=== PATIENT | male | born 1940 | race Caucasian/White ===

== ENCOUNTER 2017-05-20 13:11 | Outpatient (CLI) | payer MEDICARE, OTHER | END 2017-05-20 13:12 | disposition critical access hospital (66) | LOC: EMS 13:11 | PROVIDERS: ATTEND Surgery | DX: R06.02 Shortness of breath (principal) | CPT/HCPCS: A0425; A0427 ==

== ENCOUNTER 2017-05-20 13:28 | Inpatient (IN) | payer MEDICARE, OTHER ==
[2017-05-20] MEDS ORDERED: FUROSEMIDE 40 MG/4 ML VIAL IVP STA (13:44)
--- NOTE | 2017-05-20 13:47 | ED Physician Documentation ---
PD HPI DYSPNEA - Stated complaint Stated Complaint: SOA - Chief complaint Chief Complaint: Resp - History obtained from History obtained from: Patient, Family, EMS - History of Present Illness Timing - onset: How many weeks ago (3) Timing - onset during: Rest Timing - duration: Weeks (3) Timing - details: Gradual onset, Still present Inciting event(s): Other (has CAD and valvular heart disease) Improved by: O2, Rest, Sitting up Worsened by: Exertion, Laying flat, Coughing Associated symptoms: Cough, Wheezing, Bilateral edema. No: Hemoptysis Similar symptoms before: Diagnosis (CHF) Recently seen: Clinic - Additional information Additional information: 77-year-old male with a history of atrial fibrillation aortic valve replacement and coronary artery diseaseHas developed increasing shortness of breath over the past 3 weeks. He has had significant weight gain and edema. He does take some hydrochlorothiazide and does not know what Lasix is.He went to his dentist today to get some work done and they gave some some Halcion for the procedure and he became dyspneic and was sent to his primary care doctor's office. When Dr. Lezama examined him he has obvious signs of failure and the patient was sent to the emergency department for further evaluation and treatment and possible admission. Patient has had a cough for the past several days he has not had fever. Review of Systems Constitutional: reports: Chills, Sweats. denies: Fever, Myalgias Eyes: denies: Decreased vision Ears: denies: Ear pain Nose: denies: Rhinorrhea / runny nose, Congestion Throat: denies: Sore throat Cardiac: reports: Palpitations, Pedal edema. denies: Chest pain / pressure Respiratory: reports: Dyspnea, Cough, Wheezing GI: denies: Abdominal Pain, Nausea, Vomiting : denies: Dysuria, Frequency Skin: denies: Rash Musculoskeletal: denies: Neck pain, Back pain, Extremity pain Neurologic: denies: Generalized weakness, Focal weakness, Numbness PD PAST MEDICAL HISTORY - Past Medical History Cardiovascular: Hypertension, Atrial fibrillation, Valve disorder GI: GERD : Benign prostate hypertrophy Musculoskeletal: Chronic back pain - Past Surgical History Past Surgical History: Yes General: Appendectomy Cardiovascular: Valve replacement - Present Medications Home Medications: Ambulatory Orders Medication Instructions Recorded Confirmed Amlodipine Besylate 10 mg PO DAILY 11/25/15 05/20/17 Atenolol 25 mg PO DAILY 11/25/15 05/20/17 Atorvastatin [Lipitor] 80 mg PO DAILY 11/25/15 05/20/17 Warfarin [Coumadin] 5 mg PO DAILY 11/25/15 05/20/17 hydroCHLOROthiazide 12.5 mg PO DAILY 11/25/15 05/20/17 [Hydrochlorothiazide] Aspirin [Aspirin EC] 1 tab DAILY 05/20/17 05/20/17 Pantoprazole [Protonix] 40 mg PO DAILY 05/20/17 05/20/17 Tamsulosin HCl [Flomax] 0.4 mg PO DAILY 05/20/17 05/20/17 - Allergies Allergies/Adverse Reactions: Allergies Allergy/AdvReac Type Severity Reaction Status Date / Time morphine Allergy Hallucinati Verified 05/20/17 13:36 ons Penicillins Allergy Unknown Verified 05/20/17 13:36 - Social History Does the pt smoke?: No Smoking Status: Never smoker Does the pt drink ETOH?: No Does the pt have substance abuse?: No PD ED PE NORMAL - Vitals Vital signs reviewed: Yes (hypertensive) - General General: Well developed/nourished, Other (The patient arrives with resting tachypnea and appears confused initially and this clears with time ) - HEENT HEENT: Atraumatic, PERRL, EOMI, Ears normal, Moist mucous membranes, Pharynx benign - Neck Neck: Supple, no meningeal sign, No bony TTP - Cardiac Cardiac: RRR, Other (2/6 holosystolic murmer at LSB) - Respiratory Respiratory: No respiratory distress, Other (end inspritory crackles worse on the right. ) - Abdomen Abdomen: Soft, Non tender - Back Back: No CVA TTP, No spinal TTP - Derm Derm: Normal color, Warm and dry, No rash - Extremities Extremities: No deformity, Other (pitting edema is present to the knees bilateral.) - Neuro Neuro: Alert and oriented X 3, de icer element winder 2-12 intact, No motor deficit, No sensory deficit, Normal speech Eye Opening: Spontaneous Motor: Obeys Commands Verbal: Oriented GCS Score: 15 - Psych Psych: Normal mood, Normal affect Results - Vitals Vitals: Vital Signs - 24 hr 05/20/17 05/20/17 05/20/17 13:31 14:00 14:30 Temperature 36.5 C Heart Rate 61 66 68 Respiratory 20 20 20 Rate Blood Pressure 157/91 H 162/94 H 155/91 H O2 Saturation 95 95 95 Oxygen O2 Source Room air - EKG (time done) 1331 Rate: Rate (enter#) (64) Intervals: Prolonged QT Computer interpretation: Agree with computer - Labs Labs: Laboratory Tests 05/20/17 05/20/17 05/20/17 13:54 13:54 13:54 WBC 7.5 RBC 4.23 L Hgb 12.7 L Hct 37.2 L MCV 87.9 MCH 30.2 MCHC 34.3 RDW 13.7 Plt Count 183 MPV 9.0 Neut # 5.6 Lymph # 1.0 L [place] # 0.8 Eos # 0.1 Baso # 0.0 Absolute Nucleated RBC 0.00 Nucleated RBC % 0.0 PT 34.8 H INR 3.2 H Sodium 138 Potassium 3.4 L Chloride 103 Carbon Dioxide 23 Anion Gap 12.0 BUN 21 H Creatinine 1.0 Estimated GFR (MDRD) 72 L Glucose 112 H Calcium 9.3 Total Bilirubin 1.6 H AST 29 ALT 20 Alkaline Phosphatase 67 Troponin I B-Natriuretic Peptide Total Protein 7.4 Albumin 4.2 Globulin 3.2 Albumin/Globulin Ratio 1.3 Lipase 29 Urine Color Urine Clarity Urine pH Ur Specific [place] Urine Protein Urine Glucose (UA) Urine Ketones Urine Occult Blood Urine Nitrite Urine Bilirubin Urine Urobilinogen Ur Leukocyte Esterase Ur Microscopic Review Urine Culture Comments 05/20/17 05/20/17 05/20/17 13:54 13:54 14:48 WBC RBC Hgb Hct MCV MCH MCHC RDW Plt Count MPV Neut # Lymph # [place] # Eos # Baso # Absolute Nucleated RBC Nucleated RBC % PT INR Sodium Potassium Chloride Carbon Dioxide Anion Gap BUN Creatinine Estimated GFR (MDRD) Glucose Calcium Total Bilirubin AST ALT Alkaline Phosphatase Troponin I < 0.04 B-Natriuretic Peptide 305 H Total Protein Albumin Globulin Albumin/Globulin Ratio Lipase Urine Color YELLOW Urine Clarity CLEAR Urine pH 6.0 Ur Specific [place] 1.015 Urine Protein NEGATIVE Urine Glucose (UA) NEGATIVE Urine Ketones NEGATIVE Urine Occult Blood TRACE-INTA Urine Nitrite NEGATIVE Urine Bilirubin NEGATIVE Urine Urobilinogen 0.2 (NORMAL) Ur Leukocyte Esterase NEGATIVE Ur Microscopic Review NOT INDICATED Urine Culture Comments NOT INDICATED - Rads (name of study) 1 vew chest Radiology: Prelim report reviewed (Impression: 1. Moderate cardiomegaly and vascular congestion.2. Small infiltrate right base.), EMP read indepedently, See rad report Procedures - IVC sono (time) 1340 Bedside IVC sono: IVC measures (cm) (2.86), IVC collapsed c insp (cm) (2.18), High CVP PD MEDICAL DECISION MAKING - ED course Complexity details: reviewed old records, reviewed results, re-evaluated patient , considered differential, d/w patient ED course: 77-year-old male with history of atrial fibrillation and aortic valve replacement has developed congestive heart failure with fluid retention and here in the emergency department IV is begun for diuresis. Is given 40 mg of Lasix intravenously. His work up confirms acute failure and he does appear to have an infiltrae on the right side. He is improved with diuresis but not dramatically. Departure - Departure Disposition: ED Place in Observation Clinical Impression: Congestive heart failure Qualifiers: Congestive heart failure type: combined Congestive heart failure chronicity: acute on chronic Qualified Code(s): I50.43 - Acute on chronic combined systolic (congestive) and diastolic (congestive) heart failure Pneumonia Qualifiers: Pneumonia type: due to unspecified organism Laterality: right Lung location: lower lobe of lung Qualified Code(s): J18.1 - Lobar pneumonia, unspecified organism Condition: Fair
[2017-05-20] MEDS ORDERED: FUROSEMIDE 40 MG/4 ML VIAL ONE (13:59)
[2017-05-20 14:01] LABS: BASOPHILS % (AUTO) 0.4 %; EOSINOPHILS # (AUTO) 0.1 10^3/uL (0.0-0.7); EOSINOPHILS % (AUTO) 1.1 %; HCT - HEMATOCRIT 37.2 % (42.0-52.0); HGB - HEMOGLOBIN 12.7 g/dL (14.0-18.0); LYMPHOCYTES % (AUTO) 12.9 %; MEAN CORPUSCULAR HEMOGLOBIN 30.2 pg (27.0-31.0); MEAN CORPUSCULAR HGB CONC 34.3 g/dL (32.0-36.0); MEAN CORPUSCULAR VOLUME 87.9 fL (80.0-94.0); MONOCYTES # (AUTO) 0.8 10^3/uL (0.0-1.0); NEUTROPHILS # (AUTO) 5.6 10^3/uL (1.5-6.6); NEUTROPHILS % (AUTO) 74.6 %; RED BLOOD COUNT 4.23 10^6/uL (4.70-6.10); RED CELL DISTRIBUTION WIDTH 13.7 % (12.0-15.0); UNCORRECTED WHITE BLOOD COUNT 7.5 x10^3/uL; WHITE BLOOD COUNT 7.5 x10^3/uL (4.8-10.8)
[2017-05-20 14:11] LABS: INR 3.2 (0.8-1.2); PT - PROTHROMBIN TIME 34.8 secs (9.9-12.6)
[2017-05-20 14:12] LABS: ALBUMIN/GLOBULIN RATIO 1.3 (1.0-2.2); BILIRUBIN,TOTAL 1.6 mg/dL (0.2-1.0); CALCIUM 9.3 mg/dL (8.5-10.3); POTASSIUM 3.4 mmol/L (3.5-5.0); TOTAL PROTEIN 7.4 g/dL (6.7-8.2)
--- NOTE | 2017-05-20 14:22 | XRAY Preliminary Report ---
Exam: XR CHEST 1 VIEW IMPRESSION: 1. Moderate cardiomegaly and vascular congestion. 2. Small infiltrate right base. [facility] SITE ID: [id number]
--- NOTE | 2017-05-20 14:35 | XRAY Report ---
EXAM: CHEST RADIOGRAPHY EXAM DATE: 05/20/2017 02:07 PM. CLINICAL HISTORY: Dyspnea. Chest pain. COMPARISON: 09/01/2008. TECHNIQUE: 1 view. FINDINGS: Lungs/Pleura: New moderate vascular congestion. Interstitial infiltrate right base as well. No effusi on or pneumothorax. Mediastinum: Recurrent cardiomegaly now moderate in degree. Remote sternotomy and open-heart surgery. Other: None. IMPRESSION: 1. Moderate cardiomegaly and vascular congestion. 2. Small infiltrate right base. [facility] Referring Provider Line: [phone] SITE ID: [id number]
[2017-05-20 14:55] LABS: BILIRUBIN,URINE NEGATIVE (NEGATIVE)
[2017-05-20 14:57] LABS: UA CHARGE (STRIP ONLY) YES; UR CULTURE IF IND NOT INDICATED
[2017-05-20] MEDS ORDERED: ONDANSETRON ODT 4 MG TABLET TL PRN (16:00)
[2017-05-20] MEDS ORDERED: ACETAMINOPHEN 325 MG TABLET PO PRN (16:00)
[2017-05-20] MEDS ORDERED: ONDANSETRON 4 MG/2 ML VIAL IVP PRN (16:00)
[2017-05-20] MEDS ORDERED: HYDROcod/ACETAM 5/325 MG TABLET PO PRN (16:00)
--- NOTE | 2017-05-20 17:12 | HISTORY & PHYSICAL EXAMINATION ---
Chief Complaint - Chief Complaint Chief Complaint: shortness of breath History of Present Illness - Admitted From Admitted From:: ER - History Obtained From History obtained from: pt - History of Present Illness HPI Comment/Other: This is a 77-year-old male with a past medical history significance for HTN, Afib, valve disorder with valve replacement on 2001 on Coumadin, GERD, BPH, chronic pain, who present ER for evaluation of shortness of breath. Pt is a poor historian. pt report he has been shortness of breath in the past two or three week. pt report he gained 16 lb in the past one or two weeks. Pt report he had cough but denies chill, and fever. PT has been dentist office to get some work done. Pt became shortness of breath,and was sent to his PCP office. His PCP examined him and he had an obvious signs of heart failure. Then pt was sent to ER for further evaluation and treatment. Pt also report pain at his left lower extremity with mild swelling. pt also report he has been on diarrhea for past several days, and his stool with some dark greenish color. Pt denies chest pain, headache, abdominal pain, nausea, vomiting. No dysuria, hematuria, vision changing. CXR reveals mild infiltration at right lung base, moderate cardiomegaly, and vascular congestion. PT/INR 35/3.2, potassium 3.4, BNP 305 History - Past Medical History Cardiovascular: reports: Hypertension, Atrial fibrillation, Valve disorder GI: reports: GERD : reports: Benign prostate hypertrophy Musculoskeletal: reports: Chronic back pain - Past Surgical History General: reports: Appendectomy Cardiovascular: reports: Valve replacement - Family & Social History Family History Comment/Other: pt report he has never smoking, no alcoholic issue. his recently from cancer. He has one son. Living arrangement: At home Living Situation: With family - Substance History Use: Uses substance without health or social issues: NONE Abuse: Recurrent use of substance despite neg consequences: NONE Dependence: Experiences withdrawal or developed tolerances: NONE - POLST POLST Status: Full Code Meds/Allgy - Home Medications Home Medications: Ambulatory Orders Medication Instructions Recorded Confirmed Amlodipine Besylate 5 mg PO BID 11/25/15 05/20/17 Atenolol 25 mg PO DAILY 11/25/15 05/20/17 Atorvastatin [Lipitor] 80 mg PO DAILY 11/25/15 05/20/17 Warfarin [Coumadin] 5 mg PO SUTUWETHSA 11/25/15 05/20/17 hydroCHLOROthiazide 12.5 mg PO DAILY 11/25/15 05/20/17 [Hydrochlorothiazide] Aspirin [Aspirin EC] 81 mg PO DAILY 05/20/17 05/20/17 Pantoprazole [Protonix] 40 mg PO DAILY 05/20/17 05/20/17 Tamsulosin HCl [Flomax] 0.4 mg PO DAILY 05/20/17 05/20/17 Warfarin [Coumadin] 7.5 mg PO MOFR 05/20/17 05/20/17 - Allergies Allergies/Adverse Reactions: Allergies Allergy/AdvReac Type Severity Reaction Status Date / Time morphine Allergy Hallucinati Verified 05/20/17 13:36 ons Penicillins Allergy Unknown Verified 05/20/17 13:36 Review of Systems - Constitutional Constitutional: reports: Fatigue, Weight gain. denies: Fever, Chills, Malaise, Poor appetite, Diaphoresis, Night sweats, Weight loss - Eyes Eyes: denies: Pain, Irritation, Amaurosis, Blurred vision, Spots in vision, Field loss, Vision loss, Dipolpia - Ears, Nose & Throat Ears, Nose & Throat: denies: Ear pain, Hearing loss, Hearing aids, Tinnitus, Vertigo, Nasal pain, Nasal discharge, Nosebleeds, Nasal obstruction, Nasal congestion, Postnasal drainage, Sore throat, Bleeding gums - Cardiovascular Cariovascular: reports: Edema, Exertional dyspnea, Decr. exercise tolerance. denies: Irregular heart rate, Palpitations, Chest pain, Lightheadedness, Syncope - Respiratory Respiratory: reports: Cough, Orthopnea, SOB with exertion. denies: Sputum production, Wheezing, Snoring, Hemoptysis, SOB at rest, Apnea - Gastrointestinal Gastrointestinal: reports: Diarrhea. denies: Abdominal pain, Abdominal distention, Constipation, Change in bowel habits, Rectal bleeding, Black stools , Bloody stools, Nausea, Vomiting, Luis blood emesis, Coffee grounds emesis, Bloating, Poor appetite - Genitourinary Genitourinary: denies: Dysuria, Frequency, Urgency, Hematuria, Incontinence, Flank pain, Nocturia, Urethral discharge - Musculoskeletal Musculoskeletal: denies: Muscle pain, Back pain, Muscle aches, Stiffness, Limited range of motion, Muscle weakness, Gout, Joint pain - Integumentary Integumentary: denies: Rash, Pruritis, Lesions, Dryness, Lumps, Acne, Pigment changes - Neurological Neurological: reports: General weakness. denies: Focal weakness, Headache, Dizziness, Numbness, Memory problems, Pre-existing deficit, Abnormal gait, Seizures, Incoordination, Slurred speech - Psychiatric Psychiatric: denies: Depression, Anxiety, Suicidal, Delusions, Hallucinations, Homicidal - Endocrine Endocrine: denies: Polyuria, Polydypsia, Polyphagia, Intolerance to cold - Hematologic/Lymphatic Hematologic/Lymphatic: denies: Anemia, Bruising, Petechiae, Blood clots, Lymphadenopathy, Bleeding tendencies, Recurrent infections Exam - Vital Signs Reviewed Vital Signs: Yes Vital Signs: Vital Signs x48h Temp Pulse Pulse Resp BP BP Pulse Ox 05/20/17 16:54 36.3 C L 77 16 132/69 H 96 05/20/17 16:37 67 20 141/67 H 94 - Physical Exam General Appearance: positive: No acute distress, Alert. negative: Lethargic Eyes Bilateral: positive: Normal inspection, PERRL, No lid inflammation, Conjunctivae nml ENT: positive: ENT inspection nml, Pharynx nml, No signs of dehydration. negative: Purulent nasal drainage, Pharyngeal erythema, Oral lesions Neck: positive: Nml inspection, Thyroid nml, No JVD, Trachea midline. negative : Thyromegaly, Lymphadenopathy (R), Lymphadenopathy (L), Stiff neck, Carotid bruit, Swelling/bruising, Tracheal deviation Respiratory: positive: Chest non-tender, No respiratory distress, Breath sounds nml. negative: Wheezes, Rales, Rhonchi Cardiovascular: positive: Regular rate & rhythm, No murmur, No gallop. negative : Irregularly irregular, Extrasystoles, Tachycardia, Bradycardia, JVD present, Systolic murmur, Diastolic murmur Peripheral Pulses: positive: 2+ Abdomen: positive: Non-tender, No organomegaly, Nml bowel sounds, No distention. negative: Tenderness, Guarding, Rebound, Abnml bowel sounds Back: positive: Nml inspection. negative: CVA tenderness (R), CVA tenderness (L ) Skin: positive: Color nml, No rash, Warm, Dry. negative: Diaphoresis, Pallor, Skin rash Extremities: positive: Non-tender, Full ROM, Nml appearance, Pedal edema (mild left lower extremity edema). negative: Calf tenderness, Joint swelling, Sanya' s sign/cords Neurologic/Psychiatric: positive: Oriented x3, Sensation nml, Mood/affect nml. negative: Weakness, Sensory loss, Facial droop, Slurred/abnml speech, Depressed mood/affect Conclusion/Plan - Problem List (1) Congestive heart failure Conclusion/Plan: pt gain weight 16 lb in one or two week, shortness of breath, mild edema at lower extremity, CXR reveals vascular congestion. ECHO, pt has no ECHO in the recent record, follow up Lasix BID 40 mg IV daily lab check, vital monitor daily weight lower sodium diet cardiac diet fluid restriction check BNP daily Qualifiers: Congestive heart failure type: combined Congestive heart failure chronicity : acute on chronic Qualified Code(s): I50.43 - Acute on chronic combined systolic (congestive) and diastolic (congestive) heart failure (2) Pneumonia Conclusion/Plan: pt denies fever, chill, normal WBC, but has cough for one week. CXR reveal mild right lower infiltration treated with Azithyomycin PO blood culture, follow up Duoneb PRN O2 NC PRN Qualifiers: Pneumonia type: due to unspecified organism Laterality: right Lung location: lower lobe of lung Qualified Code(s): J18.1 - Lobar pneumonia, unspecified organism (3) Shortness of breath Conclusion/Plan: pt with congestive heart failure, pneumonia check D-dimer PRN O2 NC Duoneb PRN RT PRN vital monitor (4) Hypokalemia Conclusion/Plan: K is 3.4 today, replace potassium. pt is on IV lasix continue to monitor BNP and replacement as needed (5) Diarrhea Conclusion/Plan: pt report diarrhea all the time with greenish and dark stool check C.Dif with PCR, Occult blood stool, will follow up H&H (6) Tenderness of lower extremity Conclusion/Plan: US of lower extremity, will follow up. there is no cellulitis (7) HTN (hypertension) Conclusion/Plan: stable, resume of home meds, vital monitor (8) Afib Conclusion/Plan: HR is stable. will continue home meds and Coumadin PT/INR daily (9) BPH (benign prostatic hyperplasia) Conclusion/Plan: stable, continue home meds (10) DVT prophylaxis Conclusion/Plan: SCD only, pt is on Coumadin, PT/INR 35/3.2 (11) Full code status Conclusion/Plan: pt request full code status - Lab Results Fish Bones: 05/20/17 13:54 05/20/17 13:54 Issues/Core Measures - Anticipated LOS Anticipated Stay Length: Less than 2 midnights (expect less than two midnights)
[2017-05-20] MEDS: POTASSIUM CHLORIDE 20 MEQ TABLET PO SCH (17:31)
[2017-05-20] MEDS ORDERED: IPRATROPIUM/ALBUTEROL 3 ML NEB INH PRN (18:23)
[2017-05-20] MEDS ORDERED: POTASSIUM CHLORIDE 20 MEQ TABLET PO SCH (19:00)
[2017-05-20] MEDS ORDERED: WARFARIN 5 MG TABLET PO SCH (21:00)
[2017-05-20 21:02] LABS: HCT - HEMATOCRIT 35.4 % (42.0-52.0); HGB - HEMOGLOBIN 12.1 g/dL (14.0-18.0)
[2017-05-20] MEDS: ATORVASTATIN 40 MG TABLET PO SCH (21:35)
[2017-05-20] MEDS: FUROSEMIDE 40 MG/4 ML VIAL IVP SCH (21:36)
[2017-05-20] MEDS: ASPIRIN EC 81 MG TABLET PO SCH (21:36)
[2017-05-20] MEDS: amLODIPine 5 MG TABLET PO SCH (21:36)
[2017-05-20] MEDS: SODIUM CHLORIDE FLUSH 0.9% 10 ML SYRINGE IVP SCH (21:36)
[2017-05-20] MEDS: AZITHROMYCIN 250 MG TABLET PO SCH (21:36)
--- NOTE | 2017-05-20 23:01 | Ultrasound Preliminary Report ---
Exam: US DUPLEX EXT VEINS LEFT IMPRESSION: 1. Negative for DVT at this time. 2. Popliteal cyst. [facility] SITE ID: [id number]
--- NOTE | 2017-05-20 23:03 | Ultrasound Report ---
EXAM: LEFT LOWER EXTREMITY VENOUS ULTRASOUND EXAM DATE: 05/20/2017 10:27 PM. CLINICAL HISTORY: Pain and swelling, DVT. COMPARISON: None. TECHNIQUE: Real-time sonographic vascular imaging was performed by the freedom of information officer through the lower extremity utilizing both color-flow and Doppler spectral analysis. Multiple wire rope sales representative static lilian ges were saved for review. FINDINGS: Common Femoral Vein (CFV): Normal. CFV-GSV Junction: Normal. Profunda Femoral Vein (PFV): Normal. Femoral Vein (FV) Prox: Normal. Femoral Vein (FV) Mid: Normal. Femoral Vein (FV) Dist: Normal. Popliteal Vein: Normal. Posterior Tibial Veins: Not well seen. Peroneal Veins: Not well seen. Other: Popliteal cyst measuring 5.4 x 1.0 x 2.3 cm. IMPRESSION: 1. Negative for DVT at this time. 2. Popliteal cyst. [facility] Referring Provider Line: [phone] SITE ID: [id number]
[2017-05-21] MEDS: SODIUM CHLORIDE FLUSH 0.9% 10 ML SYRINGE IVP SCH ×3 (05:30→20:59)
[2017-05-21 06:00] LABS: BASOPHILS % (AUTO) 0.7 %; EOSINOPHILS # (AUTO) 0.3 10^3/uL (0.0-0.7); EOSINOPHILS % (AUTO) 3.6 %; HCT - HEMATOCRIT 33.8 % (42.0-52.0); HGB - HEMOGLOBIN 11.6 g/dL (14.0-18.0); LYMPHOCYTES # (AUTO) 1.7 10^3/uL (1.5-3.5); LYMPHOCYTES % (AUTO) 23.9 %; MEAN CORPUSCULAR HEMOGLOBIN 30.4 pg (27.0-31.0); MEAN CORPUSCULAR HGB CONC 34.5 g/dL (32.0-36.0); MEAN CORPUSCULAR VOLUME 88.2 fL (80.0-94.0); MEAN PLATELET VOLUME 9.1 fL (7.4-11.4); MONOCYTES # (AUTO) 0.9 10^3/uL (0.0-1.0); MONOCYTES % (AUTO) 12.5 %; NEUTROPHILS # (AUTO) 4.2 10^3/uL (1.5-6.6); NEUTROPHILS % (AUTO) 59.3 %; RED BLOOD COUNT 3.83 10^6/uL (4.70-6.10); RED CELL DISTRIBUTION WIDTH 13.6 % (12.0-15.0); UNCORRECTED WHITE BLOOD COUNT 7.1 x10^3/uL; WHITE BLOOD COUNT 7.1 x10^3/uL (4.8-10.8)
[2017-05-21 06:10] LABS: CALCIUM 8.7 mg/dL (8.5-10.3); CREATININE 0.8 mg/dL (0.6-1.2); MAGNESIUM 1.7 mg/dL (1.7-2.8); POTASSIUM 2.8 mmol/L (3.5-5.0)
[2017-05-21] MEDS ORDERED: POTASSIUM CHLOR 20 MEQ/100 ML 20 MEQ/100 ML BAG IV ONE (06:49)
[2017-05-21] MEDS ORDERED: MAGNESIUM SULFATE 2 GM in SODIUM CHLORIDE 0.9% 50 ML IV ONE (06:50)
[2017-05-21] MEDS ORDERED: POTASSIUM CHLORIDE 10 MEQ CAPSULE PO SCH (07:00)
[2017-05-21] MEDS ORDERED: MAGNESIUM SULFATE 2 GRAM 2 GM/50 ML BAG IV SCH (08:00)
[2017-05-21] MEDS: POTASSIUM CHLOR 10 MEQ/100 ML 10 MEQ/100 ML BAG IV SCH ×2 (08:36→13:15)
[2017-05-21] MEDS: POTASSIUM CHLORIDE 20 MEQ TABLET PO SCH (08:36)
[2017-05-21] MEDS: AZITHROMYCIN 250 MG TABLET PO SCH (08:37)
[2017-05-21] MEDS: TAMSULOSIN 0.4 MG CAPSULE PO SCH (08:37)
[2017-05-21] MEDS: FUROSEMIDE 40 MG/4 ML VIAL IVP SCH ×2 (08:37→20:59)
[2017-05-21] MEDS: PANTOPRAZOLE 40 MG TABLET PO SCH (08:37)
[2017-05-21] MEDS: ATENOLOL 25 MG TABLET PO SCH (08:41)
[2017-05-21] MEDS: amLODIPine 5 MG TABLET PO SCH ×2 (08:41→20:59)
[2017-05-21 08:50] LABS: PT - PROTHROMBIN TIME 32.4 secs (9.9-12.6)
[2017-05-21] MEDS: POLYETHYLENE GLYCOL 3350 17 GM PACKET PO SCH (09:23)
--- NOTE | 2017-05-21 10:45 | PROVIDER PROGRESS NOTE ---
Subjective - Prog Note Date Prog Note Date: 05/21/17 - Subjective Pt reports feeling: Improved Subjective: pt state he feel better than yesterday but he still has PNA, SOB when he lay down in the bed. pt report his cough is much better controlled after treatment. RT is the study for saturation of O2. RT report pt has hypoxia to 85% with exertion, pt's O2 saturation at rest is 93%. Pt denies diarrhea and GI bleeding now, denies chest pain. Pt is without O2 tank at home. Pt is changed to the inpt status. Current Medications - Current Medications Current Medications: Active Medications Acetaminophen (Tylenol) 650 mg PO Q4HR PRN PRN Reason: Pain 1 to 4 Acetaminophen/Hydrocodone Bitart (Ezel 5/325) 1 tab PO Q4HR PRN PRN Reason: Pain 5 to 7 Albuterol/Ipratropium (Duoneb) 3 ml INH Q4HR PRN PRN Reason: Wheezing Amlodipine Besylate (Norvasc) 5 mg PO BID [facility] Last Admin: 05/21/17 08:41 Dose: 5 mg Aspirin (Ecotrin) 81 mg PO QPM [facility] Last Admin: 05/20/17 21:36 Dose: 81 mg Atenolol (Tenormin) 25 mg PO DAILY [facility] Last Admin: 05/21/17 08:41 Dose: 25 mg Atorvastatin Calcium (Lipitor) 80 mg PO QPM [facility] Last Admin: 05/20/17 21:35 Dose: 80 mg Azithromycin (Zithromax) 500 mg PO DAILY [facility] Last Admin: 05/21/17 08:37 Dose: 500 mg Furosemide (Lasix Inj 40 Mg Vial) 40 mg IVP BID [facility] Last Admin: 05/21/17 08:37 Dose: 40 mg Ondansetron HCl (Zofran Inj) 4 mg IVP Q6HR PRN PRN Reason: Nausea / Vomiting Ondansetron HCl (Zofran Odt) 4 mg TL Q6HR PRN PRN Reason: Nausea / Vomiting Pantoprazole Sodium (Protonix) 40 mg PO DAILY [facility] Last Admin: 05/21/17 08:37 Dose: 40 mg Polyethylene Glycol (Miralax) 17 gm PO DAILY [facility] Last Admin: 05/21/17 09:23 Dose: 17 gm Potassium Chloride (K-Dur) 20 meq PO DAILYWM [facility] Last Admin: 05/21/17 08:36 Dose: 20 meq Sodium Chloride (Normal Saline Flush 0.9%) 10 ml IVP PRN PRN PRN Reason: NEEDED PER PROVIDER ORDERS Sodium Chloride (Normal Saline Flush 0.9%) 10 ml IVP Q8HR [facility] Last Admin: 05/21/17 05:30 Dose: 10 ml Tamsulosin HCl (Flomax) 0.4 mg PO DAILY [facility] Last Admin: 05/21/17 08:37 Dose: 0.4 mg Warfarin Sodium (Coumadin) 5 mg PO [id number] [facility] Last Admin: 05/20/17 21:39 Dose: 5 mg Warfarin Sodium (Coumadin) 7.5 mg PO [id number] [facility] Amlodipine Besylate 5 mg PO BID 11/25/15 Atenolol 25 mg PO DAILY 11/25/15 Atorvastatin [Lipitor] 80 mg PO DAILY 11/25/15 Warfarin [Coumadin] 5 mg PO SUTUWETHSA 11/25/15 hydroCHLOROthiazide [Hydrochlorothiazide] 12.5 mg PO DAILY 11/25/15 Aspirin [Aspirin EC] 81 mg PO DAILY 05/20/17 Pantoprazole [Protonix] 40 mg PO DAILY 05/20/17 Tamsulosin HCl [Flomax] 0.4 mg PO DAILY 05/20/17 Warfarin [Coumadin] 7.5 mg PO MOFR 05/20/17 Objective - Vital Signs/Intake & Output Reviewed Vital Signs: Yes Vital Signs: Vital Signs x48h Temp Pulse Resp BP Pulse Ox 05/21/17 08:39 36.8 C 83 18 137/50 H 97 05/21/17 05:00 36.6 C 76 18 136/50 H 93 Intake & Output: Intake & Output 05/18/17 05/19/17 05/20/17 05/21/17 23:59 23:59 23:59 23:59 Intake Total 340 100 Output Total 300 935 Balance 40 -835 - Objective General Appearance: positive: No acute distress, Alert. negative: Lethargic Eyes Bilateral: positive: Normal inspection, PERRL, EOMI, No lid inflammation, Conjunctivae nml ENT: positive: ENT inspection nml, Pharynx nml, No signs of dehydration. negative: Purulent nasal drainage, Pharyngeal erythema, Oral lesions Neck: positive: Nml inspection, Thyroid nml, No JVD, Trachea midline. negative : Thyromegaly, Lymphadenopathy (R), Lymphadenopathy (L), Stiff neck, Carotid bruit, Swelling/bruising, Tracheal deviation Respiratory: positive: Chest non-tender, No respiratory distress, Breath sounds nml. negative: Wheezes, Rales, Rhonchi Cardiovascular: positive: Regular rate & rhythm, No murmur, No gallop. negative : Irregularly irregular, Extrasystoles, Tachycardia, Bradycardia, Systolic murmur, Diastolic murmur Peripheral Pulses: 2+ Radial (R), 2+ Radial (L), 2+ Dorsalis pedis (R), 2+ Dorsalis pedis (L) Abdomen: positive: Non-tender, No organomegaly, Nml bowel sounds, No distention. negative: Tenderness, Guarding, Rebound Back: positive: Nml inspection. negative: CVA tenderness (R), CVA tenderness (L ) Skin: positive: Color nml, No rash, Warm, Dry. negative: Cyanosis, Diaphoresis , Pallor, Skin rash Extremities: positive: Non-tender, Full ROM, Nml appearance. negative: Calf tenderness, Joint swelling, Sanya's sign/cords Neurologic/Psychiatric: positive: Oriented x3, Motor nml, Sensation nml, Mood/ affect nml. negative: Weakness, Sensory loss, Facial droop, Slurred/abnml speech, Depressed mood/affect - Lab Results Fish Bones: 05/21/17 05:15 05/21/17 05:15 Other Labs: Lab Results x24hrs 05/21/17 05/21/17 05/21/17 Range/Units 08:37 05:15 05:15 WBC (4.8-10.8) x10^3/uL RBC (4.70-6.10) 10^6/uL Hgb (14.0-18.0) g/dL Hct (42.0-52.0) % MCV (80.0-94.0) fL MCH (27.0-31.0) pg MCHC (32.0-36.0) g/dL RDW (12.0-15.0) % Plt Count (130-450) 10^3/uL MPV (7.4-11.4) fL Neut # (1.5-6.6) 10^3/uL Lymph # (1.5-3.5) 10^3/uL [place] # (0.0-1.0) 10^3/uL Eos # (0.0-0.7) 10^3/uL Baso # (0.0-0.1) 10^3/uL Absolute Nucleated RBC x10^3/uL Nucleated RBC % /100WBC PT 32.4 H (9.9-12.6) secs INR 3.0 H (0.8-1.2) Sodium 140 (135-145) mmol/L Potassium 2.8 L (3.5-5.0) mmol/L Chloride 105 (101-111) mmol/L Carbon Dioxide 25 (21-32) mmol/L Anion Gap 10.0 (6-13) BUN 18 (6-20) mg/dL Creatinine 0.8 (0.6-1.2) mg/dL Estimated GFR (MDRD) 93 (>89) Glucose 98 (70-100) mg/dL Calcium 8.7 (8.5-10.3) mg/dL Magnesium 1.7 (1.7-2.8) mg/dL B-Natriuretic Peptide 380 H (5-100) pg/mL 05/21/17 05/20/17 Range/Units 05:15 19:57 WBC 7.1 (4.8-10.8) x10^3/uL RBC 3.83 L (4.70-6.10) 10^6/uL Hgb 11.6 L 12.1 L (14.0-18.0) g/dL Hct 33.8 L 35.4 L (42.0-52.0) % MCV 88.2 (80.0-94.0) fL MCH 30.4 (27.0-31.0) pg MCHC 34.5 (32.0-36.0) g/dL RDW 13.6 (12.0-15.0) % Plt Count 177 (130-450) 10^3/uL MPV 9.1 (7.4-11.4) fL Neut # 4.2 (1.5-6.6) 10^3/uL Lymph # 1.7 (1.5-3.5) 10^3/uL [place] # 0.9 (0.0-1.0) 10^3/uL Eos # 0.3 (0.0-0.7) 10^3/uL Baso # 0.0 (0.0-0.1) 10^3/uL Absolute Nucleated RBC 0.00 x10^3/uL Nucleated RBC % 0.0 /100WBC PT (9.9-12.6) secs INR (0.8-1.2) Sodium (135-145) mmol/L Potassium (3.5-5.0) mmol/L Chloride (101-111) mmol/L Carbon Dioxide (21-32) mmol/L Anion Gap (6-13) BUN (6-20) mg/dL Creatinine (0.6-1.2) mg/dL Estimated GFR (MDRD) (>89) Glucose (70-100) mg/dL Calcium (8.5-10.3) mg/dL Magnesium (1.7-2.8) mg/dL B-Natriuretic Peptide (5-100) pg/mL Assessment/Plan - Problem List (1) Congestive heart failure Impression: Conclusion/Plan: pt report he still has PNA, SOB at exertion, SO2 to 85% when pt walk per RT evaluation. BNP is up to 380 from 305 pt will be transferred to inpt status fluid restriction 2 liter continue Bid IV Lasix 40 mg continue lab daily, vital monitor continue daily weight, cardiac lower sodium diet pt gain weight 16 lb in one or two week, shortness of breath, mild edema at lower extremity, CXR reveals vascular congestion. ECHO, pt has no ECHO in the recent record, follow up Lasix BID 40 mg IV daily lab check, vital monitor daily weight lower sodium diet cardiac diet fluid restriction check BNP daily (2) Pneumonia Conclusion/Plan: pt report his cough is much better controlled. No fever, chill, normal WBC continue antibiotics follow up blood culture Duoneb PRN pt denies fever, chill, normal WBC, but has cough for one week. CXR reveal mild right lower infiltration treated with Azithyomycin PO blood culture, follow up Duoneb PRN O2 NC PRN (3) Shortness of breath Conclusion/Plan: D-Dimer is normal continue Lasix treatment Duoneb PRN vital monitor PRN O2 NC pt with congestive heart failure, pneumonia check D-dimer PRN O2 NC Duoneb PRN RT PRN vital monitor (4) Hypokalemia Conclusion/Plan: K is 2.8, may is due to Lasix usage. pt denies chest pain, palpitation. replacement of potassium continue lab monitor, vital monitor closely K is 3.4 today, replace potassium. pt is on IV lasix continue to monitor BNP and replacement as needed (5) Diarrhea Conclusion/Plan: no diarrhea reported pt report diarrhea all the time with greenish and dark stool check C.Dif with PCR, Occult blood stool, will follow up H&H (6) Tenderness of lower extremity Conclusion/Plan: Negative DVT from US US of lower extremity, will follow up. there is no cellulitis (7) HTN (hypertension) Conclusion/Plan: stable stable, resume of home meds, vital monitor (8) Afib Conclusion/Plan: hold Coumadin because of GI bleeding per pt's report. daily PT/INR HR is stable. will continue home meds and Coumadin PT/INR daily (9) BPH (benign prostatic hyperplasia) Conclusion/Plan: stable, continue home meds, Flomax (10) GI bleeding pt report he had dark stool, but pt did not have bowel movement yet order Occult test, follow up H&H reveal pt has a slight drop of HGB Hold Coumadin until test confirmation if GI bleeding Qualifiers: Congestive heart failure type: combined Congestive heart failure chronicity : acute on chronic Qualified Code(s): I50.43 - Acute on chronic combined systolic (congestive) and diastolic (congestive) heart failure (2) Pneumonia Qualifiers: Pneumonia type: due to unspecified organism Laterality: right Lung location: lower lobe of lung Qualified Code(s): J18.1 - Lobar pneumonia, unspecified organism
[2017-05-21 12:38] LABS: HCT - HEMATOCRIT 35.5 % (42.0-52.0); HGB - HEMOGLOBIN 12.5 g/dL (14.0-18.0)
[2017-05-21] MEDS: ASPIRIN EC 81 MG TABLET PO SCH (20:59)
[2017-05-21] MEDS: ATORVASTATIN 40 MG TABLET PO SCH (20:59)
[2017-05-21] MEDS: SODIUM CHLORIDE FLUSH 0.9% 10 ML SYRINGE IVP PRN (20:59)
[2017-05-22] MEDS: SODIUM CHLORIDE FLUSH 0.9% 10 ML SYRINGE IVP SCH (05:34)
[2017-05-22 05:50] LABS: BASOPHILS # (AUTO) 0.1 10^3/uL (0.0-0.1); BASOPHILS % (AUTO) 0.8 %; EOSINOPHILS # (AUTO) 0.3 10^3/uL (0.0-0.7); EOSINOPHILS % (AUTO) 4.5 %; HCT - HEMATOCRIT 34.5 % (42.0-52.0); HGB - HEMOGLOBIN 11.8 g/dL (14.0-18.0); LYMPHOCYTES # (AUTO) 1.8 10^3/uL (1.5-3.5); LYMPHOCYTES % (AUTO) 26.4 %; MEAN CORPUSCULAR HEMOGLOBIN 30.3 pg (27.0-31.0); MEAN CORPUSCULAR HGB CONC 34.2 g/dL (32.0-36.0); MEAN CORPUSCULAR VOLUME 88.5 fL (80.0-94.0); MEAN PLATELET VOLUME 8.7 fL (7.4-11.4); MONOCYTES # (AUTO) 0.9 10^3/uL (0.0-1.0); MONOCYTES % (AUTO) 13.2 %; NEUTROPHILS # (AUTO) 3.8 10^3/uL (1.5-6.6); NEUTROPHILS % (AUTO) 55.1 %; RED CELL DISTRIBUTION WIDTH 13.6 % (12.0-15.0)
[2017-05-22 05:52] LABS: INR 2.9 (0.8-1.2); PT - PROTHROMBIN TIME 31.2 secs (9.9-12.6)
[2017-05-22 05:53] LABS: CALCIUM 8.9 mg/dL (8.5-10.3); CREATININE 0.7 mg/dL (0.6-1.2); MAGNESIUM 1.8 mg/dL (1.7-2.8); POTASSIUM 3.3 mmol/L (3.5-5.0)
[2017-05-22 08:18] VITALS: BP 134/62
[2017-05-22] MEDS ORDERED: AZITHROMYCIN 250 MG TABLET PO SCH (09:00)
[2017-05-22] MEDS ORDERED: POTASSIUM CHLORIDE 20 MEQ TABLET PO SCH (09:00)
[2017-05-22] MEDS: POTASSIUM CHLORIDE 20 MEQ TABLET PO SCH (09:44)
[2017-05-22] MEDS: amLODIPine 5 MG TABLET PO SCH (09:45)
[2017-05-22] MEDS: ATENOLOL 25 MG TABLET PO SCH (09:45)
[2017-05-22] MEDS: FUROSEMIDE 40 MG/4 ML VIAL IVP SCH (09:46)
[2017-05-22] MEDS: PANTOPRAZOLE 40 MG TABLET PO SCH (09:46)
[2017-05-22] MEDS: TAMSULOSIN 0.4 MG CAPSULE PO SCH (09:47)
[2017-05-22] MEDS: POLYETHYLENE GLYCOL 3350 17 GM PACKET PO SCH (09:47)
[2017-05-22] MEDS: SODIUM CHLORIDE FLUSH 0.9% 10 ML SYRINGE IVP PRN (09:50)
--- NOTE | 2017-05-22 10:40 | Discharge Plan ---
Discharge Plan Disposition: 01 Home, Self Care Condition: Stable Prescriptions: Azithromycin 250 mg PO DAILY #4 tablet Furosemide [Lasix] 20 mg PO DAILY #7 tablet Potassium Chloride 10 meq PO DAILY #7 tablet.er Diet: Cardiac Activity Restrictions: Activity as Tolerated Shower Restrictions: No Weight Bearing: Full Weight Instruction Topics: Heart Failure, Heart Failure Warning Signs, Heart Failure Tracking Weight, Heart Failure Dc Additional Instructions or Follow Up instructions: May see PCP in one week, and see dry cleaning machine operator in two weeks [facility] Care: [facility], [facility] No Smoking: If you smoke, Please STOP! Call for help. Follow-up with: Maury Lezama MD [Primary Care Provider] -
--- NOTE | 2017-05-22 10:48 | DISCHARGE SUMMARY ---
Discharge Summary Discharge Date: 05/22/17 Discharging Provider: JOHNSON Primary Care Provider: parveen Roberts Condition at Discharge: Stable Discharge Disposition: 01 Home, Self Care Discharge Facility Name: home - DIAGNOSES Admission Diagnoses: (1) Congestive heart failure (2) Pneumonia (3) Shortness of breath (4) Hypokalemia (5) Diarrhea (6) Tenderness of lower extremity (7) HTN (hypertension) (8) Afib (9) BPH (benign prostatic hyperplasia) (10) GI bleeding Discharge Diagnoses with Status of Each Condition: (1) Congestive heart failure ECHO reveal pt had EF 50-55%. pt state he feel much better, no problem when he walk. (2) Pneumonia Cough is much better per pt report. Saturation of O2 at room air at 95%. 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 Pt is a poor historian. pt report he has been shortness of breath in the past two or three week. pt report he gained 16 lb in the past one or two weeks. Pt report he had cough but denies chill, and fever. PT has been dentist office to get some work done. Pt became shortness of breath,and was sent to his PCP office. His PCP examined him and he had an obvious signs of heart failure. Then pt was sent to ER for further evaluation and treatment. Pt also report pain at his left lower extremity with mild swelling. pt also report he has been on diarrhea for past several days, and his stool with some dark greenish color. Pt denies chest pain, headache, abdominal pain, nausea, vomiting. No dysuria, hematuria, vision changing. CXR reveals mild infiltration at right lung base, moderate cardiomegaly, and vascular congestion. PT/INR 35/3.2, potassium 3.4, BNP 305 - HOSPITAL COURSE Hospital Course: pt was admitted for shortness of breath, cough and pneumonia. PT was found fluid overloaded and treated with IV Lasix. Pneumonia was treated with antibiotics. After he was treated, SOB is much improved. pt state he has no problem to walk. Cough is much better, Saturation of O2 is 95% at room air. Pt request to be D/C home at today. - ALLERGIES Allergies/Adverse Reactions: Allergies Allergy/AdvReac Type Severity Reaction Status Date / Time morphine Allergy Hallucinati Verified 05/20/17 13:36 ons Penicillins Allergy Unknown Verified 05/20/17 13:36 - MEDICATIONS Home Medications: Ambulatory Orders Medication Instructions Recorded Confirmed Amlodipine Besylate 5 mg PO BID 11/25/15 05/20/17 Atenolol 25 mg PO DAILY 11/25/15 05/20/17 Atorvastatin [Lipitor] 80 mg PO DAILY 11/25/15 05/20/17 Warfarin [Coumadin] 5 mg PO SUTUWETHSA 11/25/15 05/20/17 hydroCHLOROthiazide 12.5 mg PO DAILY 11/25/15 05/20/17 [Hydrochlorothiazide] Aspirin [Aspirin EC] 81 mg PO DAILY 05/20/17 05/20/17 Pantoprazole [Protonix] 40 mg PO DAILY 05/20/17 05/20/17 Tamsulosin HCl [Flomax] 0.4 mg PO DAILY 05/20/17 05/20/17 Warfarin [Coumadin] 7.5 mg PO MOFR 05/20/17 05/20/17 Azithromycin 250 mg PO DAILY #4 tablet 05/22/17 Furosemide [Lasix] 20 mg PO DAILY #7 tablet 05/22/17 Potassium Chloride 10 meq PO DAILY #7 tablet.er 05/22/17 - PHYSICAL EXAM AT DISCHARGE General Appearance: positive: No acute distress, Alert. negative: Lethargic Eyes Bilateral: positive: Normal inspection, PERRL, EOMI, No lid inflammation, Conjunctivae nml ENT: positive: ENT inspection nml, Pharynx nml, No signs of dehydration. negative: Purulent nasal drainage, Pharyngeal erythema, Oral lesions Neck: positive: Nml inspection, Thyroid nml, No JVD, Trachea midline. negative : Thyromegaly, Lymphadenopathy (R), Lymphadenopathy (L), Stiff neck, Carotid bruit, Swelling/bruising, Tracheal deviation Respiratory: positive: Chest non-tender, No respiratory distress, Breath sounds nml. negative: Wheezes, Rales, Rhonchi Cardiovascular: positive: Regular rate & rhythm, No murmur, No gallop. negative : Irregularly irregular, Extrasystoles, Tachycardia, Bradycardia, Systolic murmur, Diastolic murmur Peripheral Pulses: positive: 2+ Abdomen: positive: Non-tender, No organomegaly, Nml bowel sounds, No distention. negative: Tenderness, Guarding, Rebound Back: positive: Nml inspection. negative: CVA tenderness (R), CVA tenderness (L ) Skin: positive: Color nml, No rash, Warm, Dry. negative: Cyanosis, Diaphoresis , Pallor Extremities: positive: Non-tender, Full ROM, Nml appearance. negative: Pedal edema, Joint swelling, Sanya's sign/cords Neurologic/Psychiatric: positive: Oriented x3, Motor nml, Sensation nml, Mood/ affect nml. negative: Sensory loss, Facial droop, Slurred/abnml speech, Depressed mood/affect - LABS Result Diagrams: 05/22/17 05:34 05/22/17 05:34 - FOLLOW UP Follow Up: pt was advised to follow up PCP and loss prevention research engineer in one week. Pt was prescribed antibiotics to finish course for pneumonia, and Lasix and 10 meq potassium.
[2017-05-23] MEDS ORDERED: WARFARIN 5 MG TABLET PO SCH (21:00)
== END 2017-05-22 11:52 | disposition home or self-care (01) | DRG 291 ==
LOC: EDUNIT# → ED 13:28 → OBS 16:00 → OBSVTOIN 05-21 10:30 → MS2 05-21 13:36
PROVIDERS: ADMIT Nurse Practitioner Gerontology; ATTEND Nurse Practitioner Gerontology
DX: I11.0 Hypertensive heart disease with heart failure (principal); J18.1 Lobar pneumonia, unspecified organism; I50.43 Acute on chronic combined systolic (congestive) and diastolic (congestive) heart failure; E87.6 Hypokalemia; R19.7 Diarrhea, unspecified; M79.662 Pain in left lower leg; I48.91 Unspecified atrial fibrillation; I25.10 Atherosclerotic heart disease of native coronary artery without angina pectoris; N40.0 Benign prostatic hyperplasia without lower urinary tract symptoms; K21.9 Gastro-esophageal reflux disease without esophagitis; G89.29 Other chronic pain; Z79.01 Long term (current) use of anticoagulants; Z79.82 Long term (current) use of aspirin; Z95.2 Presence of prosthetic heart valve
CPT/HCPCS: 36415; 71010; 80048; 80053; 81001; 81003; 82270; 83690; 83735; 83880; 84484; 85014; 85018; 85025; 85379; 85610; 87040; 87086; 87493; 93005; 93306; 96365; 96368; 96374; 96376; 99284; 99285

== ENCOUNTER 2017-06-11 15:17 | Outpatient (CLI) | payer MEDICARE, OTHER ==
[2017-06-11 15:02] LABS: BASOPHILS % (AUTO) 0.5 %; EOSINOPHILS % (AUTO) 4.6 %; HCT - HEMATOCRIT 40.6 % (42.0-52.0); HGB - HEMOGLOBIN 13.8 g/dL (14.0-18.0); LYMPHOCYTES % (AUTO) 27.5 %; MEAN CORPUSCULAR HEMOGLOBIN 30.1 pg (27.0-31.0); MEAN CORPUSCULAR VOLUME 88.5 fL (80.0-94.0); MONOCYTES % (AUTO) 10.5 %; NEUTROPHILS % (AUTO) 56.9 %; RED BLOOD COUNT 4.58 10^6/uL (4.70-6.10); RED CELL DISTRIBUTION WIDTH 13.9 % (12.0-15.0); UNCORRECTED WHITE BLOOD COUNT 6.4 x10^3/uL; WHITE BLOOD COUNT 6.4 x10^3/uL (4.8-10.8)
[2017-06-11 15:17] LABS: ALBUMIN/GLOBULIN RATIO 1.4 (1.0-2.2); BILIRUBIN,TOTAL 1.5 mg/dL (0.2-1.0); BUN - BLOOD UREA NITROGEN 17 mg/dL (6-20); CALCIUM 9.2 mg/dL (8.5-10.3); CARBON DIOXIDE - CO2 26 mmol/L (21-32); CHLORIDE 106 mmol/L (101-111); CHOL/HDL RATIO 2.8 (<5.0); CHOLESTEROL 167 mg/dL; CREATININE 0.8 mg/dL (0.6-1.2); GFR - MDRD 93 (>89); GLUCOSE 108 mg/dL (70-100); HDL CHOLESTEROL 59 mg/dL; LDL/HDL RATIO 1.5 (<3.6); SODIUM 140 mmol/L (135-145); TOTAL PROTEIN 7.5 g/dL (6.7-8.2); TRIGLYCERIDES 87 mg/dL; VLDL CHOLESTEROL 17 mg/dL
[2017-06-11 16:26] LABS: BAND NEUTROPHILS % (MANUAL) 1 %; EOSINOPHILS % (MANUAL) 4 %; LYMPHOCYTES % (MANUAL) 33 %; NEUTROPHILS % (MANUAL) 51 %; TOTAL CELLS COUNTED 100
[2017-06-11 16:28] LABS: NP AUTO DIFFERENTIAL? YES; NP MAN DIFFERENTIAL? NO; PLATELET ESTIMATE, MANUAL DECREASED (<130,000) (NORMAL); PLATELET MORPHOLOGY NORMAL APPEARANCE (NORMAL)
== END 2017-06-11 15:18 | disposition home or self-care (01) ==
LOC: LAB.WCP 15:17
PROVIDERS: ATTEND Family Medicine
DX: I48.91 Unspecified atrial fibrillation (principal); Z79.01 Long term (current) use of anticoagulants; I25.10 Atherosclerotic heart disease of native coronary artery without angina pectoris; I10 Essential (primary) hypertension; R53.83 Other fatigue; Z12.5 Encounter for screening for malignant neoplasm of prostate
CPT/HCPCS: 36415; 80053; 80061; 85025; G0103; 84153

== ENCOUNTER 2017-09-10 09:07 | Outpatient (CLI) | payer MEDICARE, OTHER ==
[2017-09-10 12:26] LABS: BASOPHILS % (AUTO) 0.6 %; EOSINOPHILS # (AUTO) 0.3 10^3/uL (0.0-0.7); EOSINOPHILS % (AUTO) 4.3 %; HGB - HEMOGLOBIN 14.4 g/dL (14.0-18.0); LYMPHOCYTES # (AUTO) 1.8 10^3/uL (1.5-3.5); LYMPHOCYTES % (AUTO) 27.7 %; MEAN CORPUSCULAR HGB CONC 34.1 g/dL (32.0-36.0); MEAN CORPUSCULAR VOLUME 88.2 fL (80.0-94.0); MEAN PLATELET VOLUME 9.8 fL (7.4-11.4); MONOCYTES # (AUTO) 0.8 10^3/uL (0.0-1.0); MONOCYTES % (AUTO) 12.2 %; NEUTROPHILS # (AUTO) 3.6 10^3/uL (1.5-6.6); NEUTROPHILS % (AUTO) 55.2 %; PLT - PLATELET COUNT 121 10^3/uL (130-450); WHITE BLOOD COUNT 6.6 x10^3/uL (4.8-10.8)
[2017-09-10 12:37] LABS: ALBUMIN 4.3 g/dL (3.2-5.5); ALBUMIN/GLOBULIN RATIO 1.5 (1.0-2.2); BILIRUBIN,TOTAL 1.5 mg/dL (0.2-1.0); CALCIUM 9.2 mg/dL (8.5-10.3); CREATININE 0.9 mg/dL (0.6-1.2); TOTAL PROTEIN 7.1 g/dL (6.7-8.2)
== END 2017-09-10 09:08 | disposition home or self-care (01) ==
LOC: LAB.WCP 09:07
PROVIDERS: ATTEND Family Medicine
DX: I50.9 Heart failure, unspecified (principal); I11.0 Hypertensive heart disease with heart failure; I48.0 Paroxysmal atrial fibrillation; M54.5 Low back pain
CPT/HCPCS: 36415; 80053; 85025

== ENCOUNTER 2017-12-29 19:49 | Outpatient (CLI) | payer MEDICARE, OTHER ==
--- NOTE | 2017-12-30 11:37 | Ultrasound Report ---
Procedure Date: 12/29/2017 Accession Number: [id number] / [id number] Procedure: US - Ankle Brachial Index CPT Code: FULL RESULT: EXAM: BILATERAL LOWER EXTREMITY ARTERIAL DOPPLER ULTRASOUND EXAM DATE: 12/29/2017 08:45 PM. CLINICAL HISTORY: CAD, low back pain, chronic. COMPARISON: None. TECHNIQUE: Real-time sonographic vascular imaging was performed by the ten pin bowling centre manager, utilizing color-flow, Doppler flow, and spectral analysis. Multiple employer relations representative static images were saved for review. FINDINGS: Right posterior tibial artery and dorsal pedis artery biphasic. Left posterior tibial artery and dorsal pedal artery are biphasic. Right Lower Extremity: RACE CAR DRIVER: PSV 76.74 cm/sec, biphasic waveform. DPA: PSV 14.94 cm/sec, biphasic waveform. Brachial artery: 213/87 Post tibial artery: 184/109 Ankle/arm index: 0.86 Left Lower Extremity: RACE CAR DRIVER: PSV 83.64 cm/sec, biphasic waveform. DPA: PSV 73.85 cm/sec, biphasic waveform. Brachial artery: 166/67 Post tibial artery: 205/96 Ankle/arm index: 0.96 Right ankle brachial index 0.86. Left ankle brachial index 0.96. IMPRESSION: Abnormal ADRIANNA. Findings consistent with peripheral artery disease. RADIA
== END 2017-12-29 19:50 | disposition home or self-care (01) ==
LOC: DI 19:49
PROVIDERS: ATTEND Family Medicine
DX: R93.8 Abnormal findings on diagnostic imaging of other specified body structures (principal); I25.10 Atherosclerotic heart disease of native coronary artery without angina pectoris
CPT/HCPCS: 93922

== ENCOUNTER 2018-01-19 18:44 | Outpatient (CLI) | payer MEDICARE, OTHER ==
--- NOTE | 2018-01-21 09:59 | Ultrasound Report ---
Procedure Date: 01/19/2018 Accession Number: [id number] / [id number] Procedure: US - Duplex Lwr Ext Arterial Bilat CPT Code: FULL RESULT: EXAM: BILATERAL LOWER EXTREMITY ARTERIAL DOPPLER ULTRASOUND EXAM DATE: 01/19/2018 07:19 PM. CLINICAL HISTORY: Peripheral vascular disease. COMPARISON: None. TECHNIQUE: Real-time sonographic vascular imaging was performed by the finance advisor, utilizing color-flow, Doppler flow, and spectral analysis. Multiple signs sales representative static images were saved for review. FINDINGS: Diffuse atheromatous calcified plaques are noted. Irregular heartbeat is present. Increased velocities are noted between the right mid and distal superficial femoral artery. However, no focal stenosis seen on color or [place] scale imaging in this region. Abnormal monophasic waveforms are present in both peroneal arteries. No focal hemodynamically significant stenoses, aneurysm or dissection seen. Spectral waveform analysis is as follows: Right Lower Extremity: ANALYTICAL CHEMIST: PSV 147 cm/sec, triphasic waveform. PSFA: PSV 113.8 cm/sec, biphasic waveform. MSFA: PSV 82.4 cm/sec, biphasic waveform. DSFA: PSV 134 cm/sec, triphasic waveform. PFA: PSV 123 cm/sec, biphasic waveform. Pop: PSV 66.4 cm/sec, triphasic waveform. JAVIER: PSV 37.6 cm/sec, biphasic waveform. TECHNOLOGY MANAGER: PSV 64.9 cm/sec, biphasic waveform. Per: PSV 41 cm/sec, monophasic waveform. DPA: PSV 41.2 cm/sec, triphasic waveform. Left Lower Extremity: ANALYTICAL CHEMIST: PSV 103 cm/sec, triphasic waveform. PSFA: PSV 111 cm/sec, triphasic waveform. MSFA: PSV 96.8 cm/sec, triphasic waveform. DSFA: PSV 133 cm/sec, triphasic waveform. PFA: PSV 96.2 cm/sec, biphasic waveform. Pop: PSV 68.7 cm/sec, biphasic waveform. JAVIER: PSV 37.4 cm/sec, biphasic waveform. TECHNOLOGY MANAGER: PSV 73.3 cm/sec, biphasic waveform. Per: PSV 27.5 cm/sec, monophasic waveform. DPA: PSV 76.3 cm/sec, biphasic waveform. IMPRESSION: 1. Irregular rhythm. 2. No focal hemodynamically significant stenosis. 3. Monophasic waveforms are seen in both peroneal arteries. Mildly elevated velocities between the right mid and distal superficial femoral artery without focal [place] scale or color imaging abnormality. RADIA
== END 2018-01-19 18:45 | disposition home or self-care (01) ==
LOC: DI 18:44
PROVIDERS: ATTEND Family Medicine
DX: I73.9 Peripheral vascular disease, unspecified (principal); I49.9 Cardiac arrhythmia, unspecified
CPT/HCPCS: 93925

== ENCOUNTER 2018-07-08 08:00 | Outpatient (CLI) | payer MEDICARE, OTHER ==
[2018-07-08 12:17] LABS: BASOPHILS % (AUTO) 0.5 %; EOSINOPHILS # (AUTO) 0.2 10^3/uL (0.0-0.7); EOSINOPHILS % (AUTO) 3.3 %; HGB - HEMOGLOBIN 14.3 g/dL (14.0-18.0); LYMPHOCYTES # (AUTO) 1.4 10^3/uL (1.5-3.5); LYMPHOCYTES % (AUTO) 25.3 %; MEAN CORPUSCULAR HEMOGLOBIN 30.9 pg (27.0-31.0); MEAN CORPUSCULAR HGB CONC 34.7 g/dL (32.0-36.0); MONOCYTES # (AUTO) 0.7 10^3/uL (0.0-1.0); MONOCYTES % (AUTO) 12.5 %; NEUTROPHILS # (AUTO) 3.3 10^3/uL (1.5-6.6); NEUTROPHILS % (AUTO) 58.4 %; PLT - PLATELET COUNT 120 10^3/uL (130-450); RED BLOOD COUNT 4.62 10^6/uL (4.70-6.10); RED CELL DISTRIBUTION WIDTH 13.6 % (12.0-15.0); WHITE BLOOD COUNT 5.7 x10^3/uL (4.8-10.8)
[2018-07-08 12:53] LABS: ALBUMIN 3.9 g/dL (3.2-5.5); ALBUMIN/GLOBULIN RATIO 1.4 (1.0-2.2); ALKALINE PHOSPHATASE 60 IU/L (42-121); ALT ALANINE AMINOTRANSFERASE 22 IU/L (10-60); AST ASPARTATE AMINOTRANSFERASE 31 IU/L (10-42); BILIRUBIN,TOTAL 1.4 mg/dL (0.2-1.0); BUN - BLOOD UREA NITROGEN 14 mg/dL (6-20); CALCIUM 8.7 mg/dL (8.5-10.3); CARBON DIOXIDE - CO2 25 mmol/L (21-32); CHLORIDE 103 mmol/L (101-111); CHOL/HDL RATIO 3.4 (<5.0); CHOLESTEROL 165 mg/dL; CREATININE 1.1 mg/dL (0.6-1.2); GFR - MDRD 65 (>89); GLUCOSE 115 mg/dL (70-100); HDL CHOLESTEROL 48 mg/dL; LDL CHOLESTEROL,CALCULATED 85 mg/dL; LDL/HDL RATIO 1.8 (<3.6); SODIUM 137 mmol/L (135-145); TOTAL PROTEIN 6.7 g/dL (6.7-8.2); VLDL CHOLESTEROL 32 mg/dL
== END 2018-07-08 23:59 | disposition home or self-care (01) ==
LOC: LAB.WCP 08:00
PROVIDERS: ATTEND Family Medicine
DX: I50.9 Heart failure, unspecified (principal); E78.5 Hyperlipidemia, unspecified; I48.0 Paroxysmal atrial fibrillation; Z79.01 Long term (current) use of anticoagulants; I25.10 Atherosclerotic heart disease of native coronary artery without angina pectoris
CPT/HCPCS: 36415; 80053; 80061; 83721; 85025

== ENCOUNTER 2018-07-23 08:00 | Outpatient (CLI) | payer MEDICARE, OTHER ==
[2018-07-23 18:53] LABS: CALCIUM 8.9 mg/dL (8.5-10.3)
== END 2018-07-23 23:59 | disposition home or self-care (01) ==
LOC: LAB.WCP 08:00
PROVIDERS: ATTEND Family Medicine
DX: I10 Essential (primary) hypertension (principal)
CPT/HCPCS: 36415; 80048

== ENCOUNTER 2018-07-30 08:37 | Emergency (ER) | payer MEDICARE, OTHER ==
[2018-07-30] MEDS ORDERED: oxyCODONE 5 MG TABLET PO STA (09:15)
--- NOTE | 2018-07-30 09:17 | ED Physician Documentation ---
PD HPI UPPER EXT INJURY - Stated complaint Stated Complaint: GLF/ARM PX - Chief complaint Chief Complaint: Ext Problem - History obtained from History obtained from: Patient, Family - History of Present Illness Location: Right, Wrist Type of injury: Fall Where injury occurred: Home Timing - onset: Enter time (1200), Yesterday Timing - duration: Days (1) Timing - details: Abrupt onset, Still present Improved by: Rest, Immobilization Worsened by: Moving, Palpating Associated symptoms: Swelling, Discolored. No: Weakness, Numbness Contributing factors: Anticoagulated Similar symptoms before: Has not had sx before Recently seen: Not recently seen - Additonal information Additional information: 78-year-old male on Coumadin for a valve has had a fall in the snow yesterday and he fell onto his outstretched right hand. He did not initially have much pain in the wrist and over the ensuing hours pain has worsened and he has had restriction in the movement of his wrist. He does not have any deformity of it he does have some discoloration. When he fell there was some snow on his The patient indicates that he did not hit his head he has no pain on his head he has no other symptoms. Review of Systems Constitutional: denies: Fever Eyes: denies: Decreased vision Ears: denies: Ear pain Nose: denies: Congestion Throat: denies: Sore throat Cardiac: denies: Chest pain / pressure, Palpitations Respiratory: denies: Dyspnea, Cough GI: denies: Abdominal Pain, Nausea, Vomiting : denies: Dysuria, Frequency Skin: denies: Rash, Lesions Musculoskeletal: reports: Extremity pain, Joint pain, Joint swelling. denies: Neck pain, Back pain Neurologic: denies: Generalized weakness, Focal weakness, Numbness PD PAST MEDICAL HISTORY - Past Medical History Past Medical History: Yes Cardiovascular: Hypertension, Atrial fibrillation, Valve disorder Respiratory: None Endocrine/Autoimmune: None GI: GERD : Benign prostate hypertrophy HEENT: Chronic vision loss, Macular degeneration Psych: None Musculoskeletal: Chronic back pain Derm: None - Past Surgical History Past Surgical History: Yes General: Appendectomy Cardiovascular: Valve replacement - Present Medications Home Medications: Ambulatory Orders Medication Instructions Recorded Confirmed Amlodipine Besylate 5 mg PO BID 11/25/15 05/20/17 Atenolol 25 mg PO DAILY 11/25/15 05/20/17 Atorvastatin [Lipitor] 80 mg PO DAILY 11/25/15 05/20/17 Warfarin [Coumadin] 5 mg PO SUTUWETHSA 11/25/15 05/20/17 hydroCHLOROthiazide 12.5 mg PO DAILY 11/25/15 05/20/17 [Hydrochlorothiazide] Aspirin [Aspirin EC] 81 mg PO DAILY 05/20/17 05/20/17 Pantoprazole [Protonix] 40 mg PO DAILY 05/20/17 05/20/17 Tamsulosin HCl [Flomax] 0.4 mg PO DAILY 05/20/17 05/20/17 Warfarin [Coumadin] 7.5 mg PO MOFR 05/20/17 05/20/17 Azithromycin 250 mg PO DAILY #4 tablet 05/22/17 Furosemide [Lasix] 20 mg PO DAILY #7 tablet 05/22/17 Potassium Chloride 10 meq PO DAILY #7 tablet.er 05/22/17 Oxycodone HCl/Acetaminophen 1 - 2 each PO Q6H PRN #14 tablet 07/30/18 [Percocet 5-325 mg Tablet] - Allergies Allergies/Adverse Reactions: Allergies Allergy/AdvReac Type Severity Reaction Status Date / Time morphine Allergy Hallucinati Verified 07/30/18 08:43 ons Penicillins Allergy Unknown Verified 07/30/18 08:43 - Social History Does the pt smoke?: No Smoking Status: Never smoker Does the pt drink ETOH?: No Does the pt have substance abuse?: No - POLST POLST Status: Full Code PD ED PE NORMAL - Vitals Vital signs reviewed: Yes - General General: Alert and oriented X 3, No acute distress, Well developed/nourished - HEENT HEENT: Atraumatic, PERRL, EOMI - Neck Neck: Supple, no meningeal sign, No bony TTP - Cardiac Cardiac: RRR, Other (end systolic click) - Respiratory Respiratory: No respiratory distress, Clear bilaterally - Abdomen Abdomen: Soft, Non tender - Back Back: No CVA TTP, No spinal TTP - Derm Derm: Normal color, Warm and dry, No rash - Extremities Extremities: No deformity, Other (There is swelling and point tenderness to the volar surface of the right wrist with restriction in ROM. 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 No fracture or dislocation. 2 Decreased bone mineralization. 3 First carpometacarpal joint osteoarthritis.) PD MEDICAL DECISION MAKING - ED course Complexity details: reviewed results, re-evaluated patient, considered differential, d/w patient, d/w family ED course: 78-year-old male with a fall on outstretched hand has sprained his wrist he is on Coumadin, INR is 2.5. He did get snow on his cap, but he does not appear to have sustained any significant head injury. I have foregone CT imaging of the head as I am unable to substantiate an actual injury. Departure - Departure Disposition: 01 Home, Self Care Clinical Impression: Sprain of right wrist Qualifiers: Encounter type: initial encounter Qualified Code(s): S63.501A - Unspecified sprain of right wrist, initial encounter Condition: Stable Instructions: ED Sprain Wrist Follow-Up: Estephania Delgado MD [Primary Care Provider] - Prescriptions: Oxycodone HCl/Acetaminophen [Percocet 5-325 mg Tablet] 1 - 2 each PO Q6H PRN #14 tablet PRN Reason: pain
--- NOTE | 2018-07-30 09:42 | XRAY Report ---
Reason: GLF, rt wrist swelling pain Procedure Date: 07/30/2018 Accession Number: [id number] / [id number] Procedure: XR - Wrist 4 View RT CPT Code: FULL RESULT: EXAM: RIGHT WRIST RADIOGRAPHY EXAM DATE: 07/30/2018 09:28 AM. CLINICAL HISTORY: GLF, rt wrist swelling pain. COMPARISON: None. TECHNIQUE: 4 views. FINDINGS: Bones: Decreased bone mineralization. No fracture. Joints: No dislocation. First carpometacarpal joint osteoarthritis. Soft Tissues: Vascular atherosclerotic calcifications. IMPRESSION: 1. No fracture or dislocation. 2. Decreased bone mineralization. 3. First carpometacarpal joint osteoarthritis RADIA
[2018-07-30 10:12] VITALS: BP 147/63
== END 2018-07-30 10:30 | disposition home or self-care (01) ==
LOC: ED 08:37
DX: S63.501A Unspecified sprain of right wrist, initial encounter (principal); W18.30XA Fall on same level, unspecified, initial encounter; Y92.69 Other specified industrial and construction area as the place of occurrence of the external cause; I10 Essential (primary) hypertension; I48.91 Unspecified atrial fibrillation; Z79.01 Long term (current) use of anticoagulants; Z79.82 Long term (current) use of aspirin; Z95.2 Presence of prosthetic heart valve
CPT/HCPCS: 73110; 85610; 99283; A9270

== ENCOUNTER 2018-08-26 10:33 | Outpatient (CLI) | payer MEDICARE, OTHER ==
--- NOTE | 2018-08-26 12:16 | XRAY Report ---
Reason: KNEE JOINT PAIN, RIGHT Procedure Date: 08/26/2018 Accession Number: [id number] / [id number] Procedure: WCP - Knee 2 View RT CPT Code: FULL RESULT: EXAM: RIGHT KNEE RADIOGRAPHY EXAM DATE: 08/26/2018 10:47 AM. CLINICAL HISTORY: Knee joint pain, right. COMPARISON: WRIST 4 VIEW RT 07/30/2018 9:13 AM. TECHNIQUE: 2 views. FINDINGS: Bones: Normal. No fractures or bone lesions. Joints: Mild chondrocalcinosis. Mild narrowing of the weightbearing compartments. Soft Tissues: Vascular calcifications. IMPRESSION: Chondrocalcinosis and mild joint space narrowing. RADIA
== END 2018-08-26 10:34 | disposition home or self-care (01) ==
LOC: DI.WCP 10:33
PROVIDERS: ATTEND Family Medicine
DX: M11.261 Other chondrocalcinosis, right knee (principal)

== ENCOUNTER 2018-09-04 08:00 | Outpatient (CLI) | payer MEDICARE, OTHER | END 2018-09-04 23:59 | disposition home or self-care (01) | LOC: LAB.WCP 08:00 | PROVIDERS: ATTEND Physician Assistant | DX: I48.0 Paroxysmal atrial fibrillation (principal); Z79.01 Long term (current) use of anticoagulants; Q23.1 Congenital insufficiency of aortic valve ==

== ENCOUNTER 2018-09-11 08:00 | Outpatient (CLI) | payer MEDICARE, OTHER | END 2018-09-11 23:59 | disposition home or self-care (01) | LOC: LAB.WCP 08:00 | PROVIDERS: ATTEND Family Medicine | DX: I48.0 Paroxysmal atrial fibrillation (principal); Z79.01 Long term (current) use of anticoagulants; Z95.2 Presence of prosthetic heart valve | CPT/HCPCS: 81025 ==

== ENCOUNTER 2018-09-25 08:00 | Outpatient (CLI) | payer MEDICARE, OTHER | END 2018-09-25 23:59 | disposition home or self-care (01) | LOC: LAB.WCP 08:00 | PROVIDERS: ATTEND Family Medicine | DX: I48.0 Paroxysmal atrial fibrillation (principal); Z79.01 Long term (current) use of anticoagulants | CPT/HCPCS: 81025 ==

== ENCOUNTER 2018-10-27 09:05 | Outpatient (CLI) | payer MEDICARE, OTHER ==
[2018-10-27 13:02] LABS: ALBUMIN 4.2 g/dL (3.2-5.5); ALBUMIN/GLOBULIN RATIO 1.6 (1.0-2.2); BILIRUBIN,TOTAL 1.3 mg/dL (0.2-1.0); CALCIUM 8.9 mg/dL (8.5-10.3); CREATININE 0.8 mg/dL (0.6-1.2); TOTAL PROTEIN 6.8 g/dL (6.7-8.2)
== END 2018-10-27 09:06 | disposition home or self-care (01) ==
LOC: LAB.WCP 09:05
PROVIDERS: ATTEND Family Medicine
DX: I50.9 Heart failure, unspecified (principal); I48.91 Unspecified atrial fibrillation
CPT/HCPCS: 36415; 80053; 83880

== ENCOUNTER 2019-01-20 08:00 | Outpatient (CLI) | payer MEDICARE, OTHER | END 2019-01-20 23:59 | disposition home or self-care (01) | LOC: LAB.WCP 08:00 | PROVIDERS: ATTEND Physician Assistant | DX: I48.91 Unspecified atrial fibrillation (principal); Z79.01 Long term (current) use of anticoagulants; Z95.2 Presence of prosthetic heart valve ==

== ENCOUNTER 2019-02-03 08:00 | Outpatient (CLI) | payer MEDICARE, OTHER | END 2019-02-03 23:59 | disposition home or self-care (01) | LOC: LAB.WCP 08:00 | PROVIDERS: ATTEND Family Medicine | DX: I48.0 Paroxysmal atrial fibrillation (principal); Z79.01 Long term (current) use of anticoagulants ==

== ENCOUNTER 2019-02-24 08:00 | Outpatient (CLI) | payer MEDICARE, OTHER | END 2019-02-24 23:59 | disposition home or self-care (01) | LOC: LAB.WCP 08:00 | PROVIDERS: ATTEND Family Medicine | DX: Q23.1 Congenital insufficiency of aortic valve (principal); I48.0 Paroxysmal atrial fibrillation; Z79.01 Long term (current) use of anticoagulants ==

== ENCOUNTER 2019-04-21 08:00 | Outpatient (CLI) | payer MEDICARE, OTHER | END 2019-04-21 23:59 | disposition home or self-care (01) | LOC: LAB.WCP 08:00 | PROVIDERS: ATTEND Family Medicine | DX: I48.91 Unspecified atrial fibrillation (principal); Z79.01 Long term (current) use of anticoagulants; Z95.2 Presence of prosthetic heart valve ==

== ENCOUNTER 2019-04-28 09:07 | Outpatient (CLI) | payer MEDICARE, OTHER ==
[2019-04-28 12:45] LABS: BASOPHILS % (AUTO) 0.7 %; EOSINOPHILS # (AUTO) 0.3 10^3/uL (0.0-0.7); EOSINOPHILS % (AUTO) 5.2 %; HGB - HEMOGLOBIN 14.1 g/dL (14.0-18.0); LYMPHOCYTES # (AUTO) 1.5 10^3/uL (1.5-3.5); LYMPHOCYTES % (AUTO) 25.8 %; MEAN CORPUSCULAR HEMOGLOBIN 29.9 pg (27.0-31.0); MEAN CORPUSCULAR HGB CONC 32.4 g/dL (32.0-36.0); MEAN CORPUSCULAR VOLUME 92.2 fL (80.0-94.0); MEAN PLATELET VOLUME 11.9 fL (7.4-11.4); MONOCYTES # (AUTO) 0.8 10^3/uL (0.0-1.0); NEUTROPHILS # (AUTO) 3.3 10^3/uL (1.5-6.6); NEUTROPHILS % (AUTO) 54.6 %; PLT - PLATELET COUNT 154 10^3/uL (130-450); RED BLOOD COUNT 4.72 10^6/uL (4.70-6.10); RED CELL DISTRIBUTION WIDTH 13.6 % (12.0-15.0); WHITE BLOOD COUNT 5.9 x10^3/uL (4.8-10.8)
[2019-04-28 12:58] LABS: ALBUMIN 4.5 g/dL (3.2-5.5); ALBUMIN/GLOBULIN RATIO 1.6 (1.0-2.2); ALKALINE PHOSPHATASE 63 IU/L (42-121); ALT ALANINE AMINOTRANSFERASE 25 IU/L (10-60); AST ASPARTATE AMINOTRANSFERASE 30 IU/L (10-42); BUN - BLOOD UREA NITROGEN 16 mg/dL (6-20); CALCIUM 9.1 mg/dL (8.5-10.3); CARBON DIOXIDE - CO2 26 mmol/L (21-32); CHLORIDE 108 mmol/L (101-111); CHOL/HDL RATIO 3.6 (<5.0); CHOLESTEROL 165 mg/dL; GFR - MDRD 72 (>89); GLUCOSE 104 mg/dL (70-100); HDL CHOLESTEROL 46 mg/dL; LDL CHOLESTEROL,CALCULATED 81 mg/dL; LDL/HDL RATIO 1.8 (<3.6); SODIUM 140 mmol/L (135-145); TOTAL PROTEIN 7.4 g/dL (6.7-8.2); VLDL CHOLESTEROL 38 mg/dL
== END 2019-04-28 23:59 | disposition home or self-care (01) ==
LOC: LAB.WCP 09:07
PROVIDERS: ATTEND Family Medicine
DX: I10 Essential (primary) hypertension (principal); E78.5 Hyperlipidemia, unspecified; R53.83 Other fatigue; I48.91 Unspecified atrial fibrillation
CPT/HCPCS: 36415; 80053; 80061; 83721; 84443; 85025

== ENCOUNTER 2019-05-19 08:00 | Outpatient (CLI) | payer MEDICARE, OTHER | END 2019-05-19 23:59 | disposition home or self-care (01) | LOC: LAB.WCP 08:00 | PROVIDERS: ATTEND Family Medicine | DX: Z79.01 Long term (current) use of anticoagulants (principal); I48.91 Unspecified atrial fibrillation; Z95.2 Presence of prosthetic heart valve ==

== ENCOUNTER 2019-06-14 08:00 | Outpatient (CLI) | payer MEDICARE, OTHER | END 2019-06-14 23:59 | disposition home or self-care (01) | LOC: LAB.WCP 08:00 | PROVIDERS: ATTEND Family Medicine | DX: Z95.2 Presence of prosthetic heart valve (principal); I48.91 Unspecified atrial fibrillation; Z79.01 Long term (current) use of anticoagulants ==

== ENCOUNTER 2019-07-12 08:00 | Outpatient (CLI) | payer MEDICARE, OTHER | END 2019-07-12 23:59 | disposition home or self-care (01) | LOC: LAB.WCP 08:00 | PROVIDERS: ATTEND Family Medicine | DX: Z79.01 Long term (current) use of anticoagulants (principal); I48.91 Unspecified atrial fibrillation; Z95.2 Presence of prosthetic heart valve ==

== ENCOUNTER 2019-07-26 08:00 | Outpatient (CLI) | payer MEDICARE, OTHER | END 2019-07-26 23:59 | disposition home or self-care (01) | LOC: LAB.WCP 08:00 | PROVIDERS: ATTEND Family Medicine | DX: I48.91 Unspecified atrial fibrillation (principal); Z79.01 Long term (current) use of anticoagulants ==

== ENCOUNTER 2019-08-10 08:00 | Outpatient (CLI) | payer MEDICARE, OTHER | END 2019-08-10 23:59 | disposition home or self-care (01) | LOC: LAB.WCP 08:00 | PROVIDERS: ATTEND Family Medicine | DX: Z79.01 Long term (current) use of anticoagulants (principal); I48.91 Unspecified atrial fibrillation ==

== ENCOUNTER 2019-09-07 08:00 | Outpatient (CLI) | payer MEDICARE, OTHER | END 2019-09-07 23:59 | disposition home or self-care (01) | LOC: LAB.WCP 08:00 | PROVIDERS: ATTEND Family Medicine | DX: I48.91 Unspecified atrial fibrillation (principal); Z79.01 Long term (current) use of anticoagulants ==

== ENCOUNTER 2020-02-07 08:00 | Outpatient (CLI) | payer MEDICARE, OTHER | END 2020-02-07 23:59 | disposition home or self-care (01) | LOC: LAB.WCP 08:00 | PROVIDERS: ATTEND Nurse Practitioner | DX: I48.91 Unspecified atrial fibrillation (principal); Z79.01 Long term (current) use of anticoagulants ==

== ENCOUNTER 2020-02-14 08:00 | Outpatient (CLI) | payer MEDICARE, OTHER | END 2020-02-14 23:59 | disposition home or self-care (01) | LOC: LAB.WCP 08:00 | PROVIDERS: ATTEND Family Medicine | DX: I48.91 Unspecified atrial fibrillation (principal); Z79.01 Long term (current) use of anticoagulants ==

== ENCOUNTER 2020-03-01 08:00 | Outpatient (CLI) | payer MEDICARE, OTHER | END 2020-03-01 23:59 | disposition home or self-care (01) | LOC: LAB.WCP 08:00 | PROVIDERS: ATTEND Family Medicine | DX: I48.91 Unspecified atrial fibrillation (principal); Z95.2 Presence of prosthetic heart valve; Z79.01 Long term (current) use of anticoagulants ==

== ENCOUNTER 2020-03-22 08:00 | Outpatient (CLI) | payer MEDICARE, OTHER | END 2020-03-22 23:59 | disposition home or self-care (01) | LOC: LAB.WCP 08:00 | PROVIDERS: ATTEND Family Medicine | DX: Z79.01 Long term (current) use of anticoagulants (principal) ==

== ENCOUNTER 2020-04-19 08:00 | Outpatient (CLI) | payer MEDICARE, OTHER | END 2020-04-19 23:59 | disposition home or self-care (01) | LOC: LAB.WCP 08:00 | PROVIDERS: ATTEND Family Medicine | DX: Z79.01 Long term (current) use of anticoagulants (principal) ==

== ENCOUNTER 2020-04-28 08:00 | Outpatient (CLI) | payer MEDICARE, OTHER | END 2020-04-28 23:59 | disposition home or self-care (01) | LOC: LAB.WCP 08:00 | PROVIDERS: ATTEND Family Medicine | DX: Z79.01 Long term (current) use of anticoagulants (principal) ==

== ENCOUNTER 2020-05-08 08:00 | Outpatient (CLI) | payer MEDICARE, OTHER | END 2020-05-08 23:59 | disposition home or self-care (01) | LOC: LAB.WCP 08:00 | PROVIDERS: ATTEND Family Medicine | DX: Z79.01 Long term (current) use of anticoagulants (principal) ==

== ENCOUNTER 2020-05-22 08:00 | Outpatient (CLI) | payer MEDICARE, OTHER | END 2020-05-22 23:59 | disposition home or self-care (01) | LOC: LAB.WCP 08:00 | PROVIDERS: ATTEND Family Medicine | DX: Z79.01 Long term (current) use of anticoagulants (principal) ==

== ENCOUNTER 2020-06-07 08:00 | Outpatient (CLI) | payer MEDICARE, OTHER | END 2020-06-07 23:59 | disposition home or self-care (01) | LOC: LAB.WCP 08:00 | PROVIDERS: ATTEND Family Medicine | DX: Z79.01 Long term (current) use of anticoagulants (principal) ==

== ENCOUNTER 2020-06-14 | Outpatient (CLI) | payer MEDICARE, OTHER ==
--- OUTSIDE RECORDS SUMMARY | 2020-07-05 01:33 | EXTERNAL MEDICAL SUMMARY RPT | Continuity of Care Document ---
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 [facility] ANTICOAGULANTS 2020-04-28 08:00 PROPERTY HANDLER (CURRENT) USE OF [facility] ANTICOAGULANTS 2020-05-08 08:00 CORRECTION (CURRENT) USE OF [facility] ANTICOAGULANTS 2020-05-10 00:00:00 Memory loss [facility] 2020-05-10 00:00:00 Other [facility]nesia [facility] 2020-05-10 00:00:00 Health-related behavior [facility] 2020-05-10 00:00:00 [facility] 2020-05-10 00:00:00 Exercise [facility] 2020-05-10 00:00:00 Details of drug misuse behavior [facility] 2020-05-10 00:00:00 Amnesia [facility] 2020-05-10 00:00:00 What is the highest grade or [facility] level of school you have [place] [facility] completed or the highest degree you have received? 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 OF [facility] ANTICOAGULANTS 2020-06-21 00:00 EDEMA[facility] 2020-06-21 15:36 EDEMA, U[facility]PECIFIED [facility] 2020-06-27 00:00:00 Abnormal involuntary movements [facility] 2020-06-27 00:00:00 [id number] - OV, EST Detailed [facility] 2020-06-27 00:00:00 Tremor, unspecified [facility] 2020-06-27 00:00[facility] 2020-06-27 00:00:00 Tobacco use and exposure [facility] 2020-06-27 00:00:00 [facility]-27 [facility]:00:00 [facility]or [facility] 2020-06-27 00:00:00 Details of drug misuse behavior [facility] [place] [facility] 2020-06-27 00:00:00 [facility] 2020-06-27 00:00:00 Tobacco smoking status NHIS [facility] [place] [facility] 2020-06-27 00:00:00 [facility] Allergies date description facility [facility] P[facility]IC[facility]IN G [facility] P[facility]ICILLINS [facility] SULFA (SULFONAMIDE ANTIBIOTICS) [facility] NO KNOWN ALLERGIES [facility] NO KNOWN ALLERGIES [facility] Penicillins [facility] morphine [facility] PENICILLINS [facility] LISINOPRIL [facility] Medications date description facility 2020-06-27 00:00:00 null [facility] [place] [facility] 2020-06-27 00:00:00 null [facility] [place] [facility] Procedures date description facility 2020-04-19 00:00:00 POC PROTHROMBIN TIME [facility] [place] [facility] date description facility 2020-04-19 00:00:00 ANTICOAG MGMT PT WARFARIN [facility] date description facility 2020-04-19 00:00:00 [facility] [place] [facility] date description facility 2020-04-28 00:00:00 POC PROTHROMBIN TIME [facility] [place] [facility] date description facility 2020-04-28 00:00:00 ANTICOAG MGMT PT WARFARIN [facility] date description facility 2020-04-28 00:00:00 [facility] [place] [facility] date description facility 2020-05-01 00:00:00 POC PROTHROMBIN TIME [facility] [place] [facility] date description facility 2020-05-01 00:00:00 ANTICOAG MGMT PT WARFARIN [facility] [place] [facility] date description facility 2020-05-01 00:00:00 [facility] [place] [facility] date description facility 2020-05-08 00:00:00 POC PROTHROMBIN TIME [facility] [place] date description facility 2020-05-08 00:00:00 ANTICOAG MGMT PT WARFARIN [facility] date description facility 2020-05-08 00:00:00 [facility] [place] [facility] date description facility 2020-05-22 00:00:00 POC PROTHROMBIN TIME [facility] [place] [facility] date description facility 2020-05-22 00:00:00 ANTICOAG MGMT PT WARFARIN [facility] date description facility 2020-05-22 00:00:00 [facility] [place] [facility] date description facility 2020-06-07 00:00:00 POC PROTHROMBIN TIME [facility] [place] [facility] date description facility 2020-06-07 00:00:00 ANTICOAG MGMT PT WARFARIN [facility] [facility] date description facility 2020-06-07 00:00:00 [facility] [place] [facility] date description facility 2020-06-14 00:00:00 POC PROTHROMBIN TIME [facility] [place] [facility] date description facility 2020-06-14 00:00:00 ANTICOAG MGMT PT WARFARIN [facility] date description facility 2020-06-14 00:00:00 [facility] [place] [facility] date description facility 2020-06-27 00:00:00 First Vx - Ix admin for [facility] Medicare patients [place] [facility] date description facility 2020-06-27 00:00:00 Fluzone High-Dose Intramuscular [facility] Suspension [place] [facility] date description facility 2020-06-27 00:00:00 [facility] [place] [facility] Results Social History date description facility 2020-05-10 00:00:00 [facility] [place] [facility] date description facility 2020-06-27 00:00:00 [facility] [place] [facility] Social History date description facility 2020-05-10 00:00:00 [facility] [place] date description facility 2020-06-27 00:00:00 [facility] [place] date description facility [phone]
== END 2020-06-14 23:59 | disposition home or self-care (01) ==
DX: Z79.01 Long term (current) use of anticoagulants (principal)

== ENCOUNTER 2020-06-21 15:36 | Outpatient (CLI) | payer MEDICARE, OTHER ==
[2020-06-21 18:02] LABS: BASOPHILS % (AUTO) 0.4 %; EOSINOPHILS # (AUTO) 0.1 10^3/uL (0.0-0.7); EOSINOPHILS % (AUTO) 2.1 %; HGB - HEMOGLOBIN 14.7 g/dL (14.0-18.0); LYMPHOCYTES # (AUTO) 1.4 10^3/uL (1.5-3.5); LYMPHOCYTES % (AUTO) 24.7 %; MEAN CORPUSCULAR HEMOGLOBIN 30.9 pg (27.0-31.0); MEAN CORPUSCULAR HGB CONC 33.3 g/dL (32.0-36.0); MEAN CORPUSCULAR VOLUME 93.1 fL (80.0-94.0); MEAN PLATELET VOLUME 11.7 fL (7.4-11.4); MONOCYTES # (AUTO) 0.6 10^3/uL (0.0-1.0); MONOCYTES % (AUTO) 9.6 %; NEUTROPHILS # (AUTO) 3.6 10^3/uL (1.5-6.6); NEUTROPHILS % (AUTO) 62.8 %; PLT - PLATELET COUNT 105 10^3/uL (130-450); RED BLOOD COUNT 4.75 10^6/uL (4.70-6.10); RED CELL DISTRIBUTION WIDTH 13.4 % (12.0-15.0); WHITE BLOOD COUNT 5.7 x10^3/uL (4.8-10.8)
[2020-06-21 18:10] LABS: ALBUMIN 4.5 g/dL (3.2-5.5); ALBUMIN/GLOBULIN RATIO 1.8 (1.0-2.2); BILIRUBIN,TOTAL 1.5 mg/dL (0.2-1.0); CALCIUM 9.4 mg/dL (8.5-10.3)
== END 2020-06-21 23:59 | disposition home or self-care (01) ==
LOC: LAB.WCP 15:36
PROVIDERS: ATTEND Family Medicine
DX: R60.9 Edema, unspecified (principal)
CPT/HCPCS: 36415; 80053; 85025

== ENCOUNTER 2020-07-05 08:00 | Outpatient (CLI) | payer MEDICARE, OTHER | END 2020-07-05 23:59 | disposition home or self-care (01) | LOC: LAB.N 08:00 | PROVIDERS: ATTEND Family Medicine | DX: Z79.01 Long term (current) use of anticoagulants (principal) ==

== ENCOUNTER 2020-07-06 08:00 | Outpatient (CLI) | payer MEDICARE, OTHER | END 2020-07-06 23:59 | disposition home or self-care (01) | LOC: LAB.WCP 08:00 | PROVIDERS: ATTEND Family Medicine | DX: Z79.01 Long term (current) use of anticoagulants (principal) ==

== ENCOUNTER 2020-07-19 08:00 | Outpatient (CLI) | payer MEDICARE, OTHER | END 2020-07-19 23:59 | disposition home or self-care (01) | LOC: LAB.WCP 08:00 | PROVIDERS: ATTEND Family Medicine | DX: Z79.01 Long term (current) use of anticoagulants (principal) ==

== ENCOUNTER 2020-08-14 08:00 | Outpatient (CLI) | payer MEDICARE, OTHER | END 2020-08-14 23:59 | disposition home or self-care (01) | LOC: LAB.N 08:00 | PROVIDERS: ATTEND Family Medicine | DX: I48.91 Unspecified atrial fibrillation (principal); Z95.2 Presence of prosthetic heart valve; Z79.01 Long term (current) use of anticoagulants ==

== ENCOUNTER 2020-08-16 15:09 | Emergency (ER) | payer MEDICARE, OTHER ==
--- NOTE | 2020-08-16 15:23 | ED Physician Documentation ---
PD HPI HEADACHE - Stated complaint Stated Complaint: DIZZY SPELLS - Chief complaint Chief Complaint: Neuro - History obtained from History obtained from: Patient - Additional information Additional information: 80-year-old gentleman on warfarin for aortic valve replacement. He has chronic vertigo, previous diagnosis of Mnire's disease. Over the last few weeks his vertigo has been worse than normal culminating in 2 falls, one a few weeks ago and he hit his tailbone which does not hurt anymore and one yesterday and he hit his buttock. That does not hurt anymore either. He has mild headaches with this. Denies shortness of breath, chest pain, or nausea. INR 2 days ago which was 2.3, a little low for his goal. Review of Systems Constitutional: denies: Fever, Chills Eyes: denies: Loss of vision, Decreased vision, Photophobia Ears: reports: Tinnitus/ringing (chronic/not new). denies: Loss of hearing, Ear pain Nose: denies: Rhinorrhea / runny nose, Congestion Throat: denies: Sore throat PD PAST MEDICAL HISTORY - Past Medical History Cardiovascular: Hypertension, Atrial fibrillation, Valve disorder Respiratory: None Endocrine/Autoimmune: None GI: GERD : Benign prostate hypertrophy HEENT: Chronic vision loss, Macular degeneration Psych: None Musculoskeletal: Chronic back pain Derm: None - Past Surgical History Past Surgical History: Yes General: Appendectomy Cardiovascular: Valve replacement - Present Medications Home Medications: Ambulatory Orders Medication Instructions Recorded Confirmed Amlodipine Besylate 5 mg PO BID 11/25/15 05/20/17 Atorvastatin [Lipitor] 80 mg PO DAILY 11/25/15 05/20/17 Warfarin [Coumadin] 5 mg PO SUTUWETHSA 11/25/15 05/20/17 atenoloL [Atenolol] 25 mg PO DAILY 11/25/15 05/20/17 hydroCHLOROthiazide 12.5 mg PO DAILY 11/25/15 05/20/17 [Hydrochlorothiazide] Aspirin [Aspirin EC] 81 mg PO DAILY 05/20/17 05/20/17 Pantoprazole [Protonix] 40 mg PO DAILY 05/20/17 05/20/17 Tamsulosin HCl [Flomax] 0.4 mg PO DAILY 05/20/17 05/20/17 Warfarin [Coumadin] 7.5 mg PO MOFR 05/20/17 05/20/17 Azithromycin 250 mg PO DAILY #4 tablet 05/22/17 Furosemide [Lasix] 20 mg PO DAILY #7 tablet 05/22/17 Potassium Chloride 10 meq PO DAILY #7 tablet.er 05/22/17 Oxycodone HCl/Acetaminophen 1 - 2 each PO Q6H PRN #14 tablet 07/30/18 [Percocet 5-325 mg Tablet] - Allergies Allergies/Adverse Reactions: Allergies Allergy/AdvReac Type Severity Reaction Status Date / Time morphine Allergy Hallucinati Verified 08/16/20 15:16 ons Penicillins Allergy Unknown Verified 08/16/20 15:16 - Social History Does the pt smoke?: No Smoking Status: Never smoker Does the pt drink ETOH?: No Does the pt have substance abuse?: No - POLST POLST Status: Full Code PD ED PE NORMAL - Vitals Vital signs reviewed: Yes - General General: Alert and oriented X 3, No acute distress - HEENT HEENT: PERRL, EOMI - Neck Neck: Supple, no meningeal sign, No bony TTP - Cardiac Cardiac: RRR - Respiratory Respiratory: No respiratory distress, Clear bilaterally - Abdomen Abdomen: Non tender - Back Back: No CVA TTP, No spinal TTP - Derm Derm: Normal color, Warm and dry - Neuro Neuro: Alert and oriented X 3, 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, No motor deficit, No sensory deficit, Normal speech, Other (NIHSS zero) Eye Opening: Spontaneous Motor: Obeys Commands Verbal: Oriented GCS Score: 15 - Psych Psych: Normal mood, Normal affect Results - Vitals Vitals: Vital Signs - 24 hr 08/16/20 08/16/20 08/16/20 15:16 15:25 16:24 Temperature 36.7 C Heart Rate 62 83 75 Respiratory 19 14 14 Rate Blood Pressure 147/90 H 147/90 H 164/77 H O2 Saturation 100 98 99 Oxygen O2 Source Room air - Labs Labs: Laboratory Tests 08/16/20 08/16/20 08/16/20 15:55 15:55 15:55 WBC 5.2 RBC 4.81 Hgb 14.9 Hct 44.4 MCV 92.3 MCH 31.0 MCHC 33.6 RDW 13.0 Plt Count 136 MPV 10.5 Neut # (Auto) 3.2 Lymph # (Auto) 1.0 L [place] # (Auto) 0.7 Eos # (Auto) 0.2 Baso # (Auto) 0.0 Absolute Nucleated RBC 0.00 Nucleated RBC % 0.0 PT 25.5 H INR 2.4 H Sodium 137 Potassium 4.3 Chloride 102 Carbon Dioxide 25 Anion Gap 10.0 BUN 16 Creatinine 1.1 Estimated GFR (MDRD) 64 L Glucose 118 H Calcium 9.1 PD MEDICAL DECISION MAKING - ED course ED course: This 80-year-old gentleman has a Worsening of chronic peripheral sounding vertigo with normal neurologic exam and head CT. Christopher-Hallpike was positive. He has taken Dramamine in the past for this but feels like his symptoms are too fleeting at any one time for the Dramamine to work. Departure - Departure Disposition: 01 Home, Self Care Clinical Impression: Vertigo, Adequate anticoagulation on anticoagulant therapy Condition: Good Instructions: ED Vertigo Unspecified Comments: If you continue to have issues and would like to see the specialist, you can follow-up with an ear nose and throat physician, the closest you is in [place], phone number [phone]. Return if worsening. Discharge Date/Time: 08/16/20 16:24
--- NOTE | 2020-08-16 15:40 | CT Report ---
PROCEDURE: HEAD WO INDICATIONS: head injury TECHNIQUE: Noncontrast 4.5 mm thick angled axial sections acquired from the foramen magnum to the vertex. For r adiation dose reduction, the following was used: automated exposure control, adjustment of mA and/or kV according to patient size. COMPARISON: None FINDINGS: Image quality: Excellent. CSF spaces: Basal cisterns are patent. No extra-axial fluid collections. The ventricles are symmet nuzhat in size and shape. Brain: No intracranial bleeds or masses. There is cerebral volume loss for age, with resultant vent ricular and sulcal prominence. There are periventricular and deep white matter chronic small vessel ischemic changes. There is intracranial internal carotid artery and vertebral artery atherosclerosis . Skull and face: Calvarium and visualized facial bones appear intact, without suspicious lesions. Sinuses: Visualized sinuses and mastoids are clear. IMPRESSION: No acute intracranial disease process. Reviewed by: Mimi Sánchez MD, PhD on 08/16/2020 3:39 PM PST Approved by: Mimi Sánchez MD, PhD on 08/16/2020 3:39 PM PST Station ID: [id number]
[2020-08-16 16:01] LABS: BASOPHILS % (AUTO) 0.6 %; EOSINOPHILS # (AUTO) 0.2 10^3/uL (0.0-0.7); HGB - HEMOGLOBIN 14.9 g/dL (14.0-18.0); LYMPHOCYTES % (AUTO) 19.5 %; MEAN CORPUSCULAR HGB CONC 33.6 g/dL (32.0-36.0); MEAN CORPUSCULAR VOLUME 92.3 fL (80.0-94.0); MEAN PLATELET VOLUME 10.5 fL (7.4-11.4); MONOCYTES # (AUTO) 0.7 10^3/uL (0.0-1.0); MONOCYTES % (AUTO) 13.4 %; NEUTROPHILS # (AUTO) 3.2 10^3/uL (1.5-6.6); NEUTROPHILS % (AUTO) 61.7 %; PLT - PLATELET COUNT 136 10^3/uL (130-450); RED BLOOD COUNT 4.81 10^6/uL (4.70-6.10); WHITE BLOOD COUNT 5.2 x10^3/uL (4.8-10.8)
[2020-08-16 16:07] LABS: INR 2.4 (0.8-1.2); PT - PROTHROMBIN TIME 25.5 secs (9.9-12.6)
[2020-08-16 16:10] LABS: CALCIUM 9.1 mg/dL (8.5-10.3); CREATININE 1.1 mg/dL (0.6-1.2)
[2020-08-16 16:25] VITALS: BP 164/77
== END 2020-08-16 16:24 | disposition home or self-care (01) ==
LOC: ED 15:09
DX: H81.399 Other peripheral vertigo, unspecified ear (principal); R51.9 Headache, unspecified; Z95.2 Presence of prosthetic heart valve; Z79.01 Long term (current) use of anticoagulants; Z79.82 Long term (current) use of aspirin; I10 Essential (primary) hypertension
CPT/HCPCS: 36415; 80048; 85025; 85610; 99284

== ENCOUNTER 2020-08-21 08:00 | Outpatient (CLI) | payer MEDICARE, OTHER | END 2020-08-21 23:59 | disposition home or self-care (01) | LOC: LAB.N 08:00 | PROVIDERS: ATTEND Family Medicine | DX: I48.91 Unspecified atrial fibrillation (principal); Z79.01 Long term (current) use of anticoagulants ==

== ENCOUNTER 2020-09-20 08:00 | Outpatient (CLI) | payer MEDICARE, OTHER | END 2020-09-20 23:59 | disposition home or self-care (01) | LOC: LAB.N 08:00 | PROVIDERS: ATTEND Family Medicine | DX: I48.0 Paroxysmal atrial fibrillation (principal); Z79.01 Long term (current) use of anticoagulants ==

== ENCOUNTER 2020-09-27 08:00 | Outpatient (CLI) | payer MEDICARE, OTHER | END 2020-09-27 23:59 | disposition home or self-care (01) | LOC: LAB.N 08:00 | PROVIDERS: ATTEND Family Medicine | DX: I48.0 Paroxysmal atrial fibrillation (principal); Z95.2 Presence of prosthetic heart valve; Z79.01 Long term (current) use of anticoagulants ==

== ENCOUNTER 2020-10-11 08:00 | Outpatient (CLI) | payer MEDICARE, OTHER | END 2020-10-11 23:59 | disposition home or self-care (01) | LOC: LAB.N 08:00 | PROVIDERS: ATTEND Family Medicine | DX: I48.91 Unspecified atrial fibrillation (principal); Z95.2 Presence of prosthetic heart valve; Z79.01 Long term (current) use of anticoagulants ==

== ENCOUNTER 2020-10-15 15:47 | Emergency (ER) | payer MEDICARE, OTHER ==
--- NOTE | 2020-10-15 15:53 | ED Physician Documentation ---
PD HPI CHEST PAIN - Stated complaint Stated Complaint: CHEST/SHOULDER/ARM PX - History obtained from History obtained from: Patient - Additional information Additional information: 80-year-old gentleman with history of coronary disease and aortic macheanical aortic valve replacement as well as A. fib on warfarin presents with pain that started in his left shoulder around noon today. Subsequently went to the left lateral chest and some discomfort in the left arm. He denies shortness of breath. Pain is still present but abating. He was not doing anything specific when the pain started. Review of Systems Ten Systems: 10 systems reviewed and negative Constitutional: denies: Fever, Chills Cardiac: denies: Palpitations Respiratory: denies: Dyspnea, Cough PD PAST MEDICAL HISTORY - Past Medical History Cardiovascular: Hypertension, Atrial fibrillation, Valve disorder Respiratory: None Endocrine/Autoimmune: None GI: GERD : Benign prostate hypertrophy HEENT: Chronic vision loss, Macular degeneration Psych: None Musculoskeletal: Chronic back pain Derm: None - Past Surgical History Past Surgical History: Yes General: Appendectomy Cardiovascular: Valve replacement - Present Medications Home Medications: Ambulatory Orders Medication Instructions Recorded Confirmed Amlodipine Besylate 5 mg PO BID 11/25/15 05/20/17 Atorvastatin [Lipitor] 80 mg PO DAILY 11/25/15 05/20/17 Warfarin [Coumadin] 5 mg PO SUTUWETHSA 11/25/15 05/20/17 atenoloL [Atenolol] 25 mg PO DAILY 11/25/15 05/20/17 hydroCHLOROthiazide 12.5 mg PO DAILY 11/25/15 05/20/17 [Hydrochlorothiazide] Aspirin [Aspirin EC] 81 mg PO DAILY 05/20/17 05/20/17 Pantoprazole [Protonix] 40 mg PO DAILY 05/20/17 05/20/17 Tamsulosin HCl [Flomax] 0.4 mg PO DAILY 05/20/17 05/20/17 Warfarin [Coumadin] 7.5 mg PO MOFR 05/20/17 05/20/17 Azithromycin 250 mg PO DAILY #4 tablet 05/22/17 Furosemide [Lasix] 20 mg PO DAILY #7 tablet 05/22/17 Potassium Chloride 10 meq PO DAILY #7 tablet.er 05/22/17 Oxycodone HCl/Acetaminophen 1 - 2 each PO Q6H PRN #14 tablet 07/30/18 [Percocet 5-325 mg Tablet] - Allergies Allergies/Adverse Reactions: Allergies Allergy/AdvReac Type Severity Reaction Status Date / Time morphine Allergy Hallucinati Verified 10/15/20 15:59 ons Penicillins Allergy Unknown Verified 10/15/20 15:59 - Social History Does the pt smoke?: No Smoking Status: Never smoker Does the pt drink ETOH?: No Does the pt have substance abuse?: No - Immunizations Immunizations are current?: Yes - POLST Patient has POLST: No POLST Status: Full Code PD ED PE NORMAL - Vitals Vital signs reviewed: Yes - General General: Alert and oriented X 3, No acute distress - HEENT HEENT: PERRL, EOMI - Extremities Extremities: No edema, No calf tenderness / cord - Neuro Neuro: Alert and oriented X 3, Normal speech Results - Vitals Vitals: Vital Signs - 24 hr 10/15/20 10/15/20 10/15/20 15:50 15:58 16:52 Temperature 36.1 C L 36.5 C Heart Rate 75 75 64 Respiratory 17 17 16 Rate Blood Pressure 166/65 H 166/65 H 134/66 H O2 Saturation 100 100 98 10/15/20 17:00 Temperature Heart Rate 64 Respiratory 16 Rate Blood Pressure 153/78 H O2 Saturation 98 Oxygen O2 Source Room air - EKG (time done) 1555 Rate: Rate (enter#) (66) Rhythm: Atrial fibrillation [place]: LAD Intervals: Normal GA QRS: Normal Ischemia: Normal ST segments, Non specific changes - Labs Labs: Laboratory Tests 10/15/20 10/15/20 10/15/20 16:27 16:27 16:27 WBC 5.9 RBC 4.79 Hgb 14.8 Hct 44.0 MCV 91.9 MCH 30.9 MCHC 33.6 RDW 13.5 Plt Count 125 L MPV 10.7 Neut # (Auto) 3.8 Lymph # (Auto) 1.2 L [place] # (Auto) 0.7 Eos # (Auto) 0.1 Baso # (Auto) 0.0 Absolute Nucleated RBC 0.00 Nucleated RBC % 0.0 PT 37.6 H INR 3.7 H Sodium 139 Potassium 3.9 Chloride 105 Carbon Dioxide 24 Anion Gap 10.0 BUN 18 Creatinine 1.0 Estimated GFR (MDRD) 72 L Glucose 116 H Calcium 9.3 Total Bilirubin 1.4 H AST 26 ALT 23 Alkaline Phosphatase 67 Troponin I High Sens Total Protein 7.5 Albumin 4.8 Globulin 2.7 Albumin/Globulin Ratio 1.8 Lipase 26 10/15/20 16:27 WBC RBC Hgb Hct MCV MCH MCHC RDW Plt Count MPV Neut # (Auto) Lymph # (Auto) [place] # (Auto) Eos # (Auto) Baso # (Auto) Absolute Nucleated RBC Nucleated RBC % PT INR Sodium Potassium Chloride Carbon Dioxide Anion Gap BUN Creatinine Estimated GFR (MDRD) Glucose Calcium Total Bilirubin AST ALT Alkaline Phosphatase Troponin I High Sens 5.7 Total Protein Albumin Globulin Albumin/Globulin Ratio Lipase - Rads (name of study) 1v chest Radiology: EMP read contemporaneously (normal) PD MEDICAL DECISION MAKING - ED course ED course: 80-year-old gentleman with very atypical chest pain, really more shoulder than anything else. EKG is unchanged from prior and biomarkers are on the low order of normal. Departure - Departure Disposition: 01 Home, Self Care Clinical Impression: Chest pain, Supratherapeutic INR Condition: Stable Record reviewed to determine appropriate education?: Yes Instructions: ED Chest Pain Atypical Unkn Cause Comments: No evidence of ongoing ischemia but return for new or worsening symptoms. Your INR today is a bit high at 3.7. Follow-up with your primary care physician, next available appointment. Return for worsening symptoms. Also reasonable to call your wellness director tomorrow for an expedited follow-up as well. Discharge Date/Time: 10/15/20 17:14
--- NOTE | 2020-10-15 16:18 | XRAY Report ---
PROCEDURE: Chest 1 View X-Ray INDICATIONS: Chest Pain TECHNIQUE: One view of the chest was acquired. COMPARISON: 05/12/2017. Correlation is also made with chest CT, without 11/26/2019 FINDINGS: Surgical changes and devices: Sternotomy changes are noted. An aortic valve prosthesis is faintly seen. Lungs and pleura: No pleural effusions or pneumothorax. Lungs are clear. The known right lower lob e nodular mass is poorly seen by plain film. Mediastinum: Mediastinal contours appear normal. Heart size is normal. Calcification is seen of th e aortic arch. Bones and chest wall: No suspicious bony lesions. Postoperative and degenerative changes are seen. Overlying soft tissues appear unremarkable. IMPRESSION: No acute abnormality is detected. Poor visualization of the known right lower lobe mass. Postoperative and degenerative changes are seen. Reviewed by: Ken Adkins MD on 10/15/2020 3:17 PM [facility] Approved by: Ken Adkins MD on 10/15/2020 3:17 PM [facility] Station ID: [id number]
[2020-10-15 16:35] LABS: BASOPHILS % (AUTO) 0.3 %; EOSINOPHILS # (AUTO) 0.1 10^3/uL (0.0-0.7); HGB - HEMOGLOBIN 14.8 g/dL (14.0-18.0); LYMPHOCYTES # (AUTO) 1.2 10^3/uL (1.5-3.5); LYMPHOCYTES % (AUTO) 20.4 %; MEAN CORPUSCULAR HEMOGLOBIN 30.9 pg (27.0-31.0); MEAN CORPUSCULAR HGB CONC 33.6 g/dL (32.0-36.0); MEAN CORPUSCULAR VOLUME 91.9 fL (80.0-94.0); MEAN PLATELET VOLUME 10.7 fL (7.4-11.4); MONOCYTES # (AUTO) 0.7 10^3/uL (0.0-1.0); MONOCYTES % (AUTO) 11.6 %; NEUTROPHILS # (AUTO) 3.8 10^3/uL (1.5-6.6); NEUTROPHILS % (AUTO) 65.4 %; PLT - PLATELET COUNT 125 10^3/uL (130-450); RED BLOOD COUNT 4.79 10^6/uL (4.70-6.10); RED CELL DISTRIBUTION WIDTH 13.5 % (12.0-15.0); WHITE BLOOD COUNT 5.9 x10^3/uL (4.8-10.8)
[2020-10-15 16:41] LABS: INR 3.7 (0.8-1.2); PT - PROTHROMBIN TIME 37.6 secs (9.9-12.6)
[2020-10-15 16:47] LABS: ALBUMIN 4.8 g/dL (3.2-5.5); ALBUMIN/GLOBULIN RATIO 1.8 (1.0-2.2); BILIRUBIN,TOTAL 1.4 mg/dL (0.2-1.0); CALCIUM 9.3 mg/dL (8.5-10.3); POTASSIUM 3.9 mmol/L (3.5-5.0); TOTAL PROTEIN 7.5 g/dL (6.7-8.2)
[2020-10-15 17:06] VITALS: BP 153/78
== END 2020-10-15 17:14 | disposition home or self-care (01) ==
LOC: ED 15:47
DX: R07.89 Other chest pain (principal); M25.512 Pain in left shoulder; R79.1 Abnormal coagulation profile; I48.91 Unspecified atrial fibrillation; Z95.2 Presence of prosthetic heart valve; Z79.01 Long term (current) use of anticoagulants; Z79.82 Long term (current) use of aspirin; I25.10 Atherosclerotic heart disease of native coronary artery without angina pectoris; I10 Essential (primary) hypertension
CPT/HCPCS: 36415; 80053; 83690; 84484; 85025; 85610; 93005; 99283; 99284

== ENCOUNTER 2020-10-16 08:00 | Outpatient (CLI) | payer MEDICARE, OTHER | END 2020-10-16 23:59 | disposition home or self-care (01) | LOC: LAB.N 08:00 | PROVIDERS: ATTEND Family Medicine | DX: I48.91 Unspecified atrial fibrillation (principal); Z95.2 Presence of prosthetic heart valve; Z79.01 Long term (current) use of anticoagulants ==

== ENCOUNTER 2020-10-23 08:00 | Outpatient (CLI) | payer MEDICARE, OTHER | END 2020-10-23 23:59 | disposition home or self-care (01) | LOC: LAB.N 08:00 | PROVIDERS: ATTEND Family Medicine | DX: I48.91 Unspecified atrial fibrillation (principal); Z79.01 Long term (current) use of anticoagulants; Z95.2 Presence of prosthetic heart valve ==

== ENCOUNTER 2020-10-30 08:00 | Outpatient (CLI) | payer MEDICARE, OTHER | END 2020-10-30 08:01 | disposition home or self-care (01) | LOC: LAB.N 08:00 | PROVIDERS: ATTEND Family Medicine | DX: Z95.2 Presence of prosthetic heart valve (principal); I48.91 Unspecified atrial fibrillation; Z79.01 Long term (current) use of anticoagulants ==

== ENCOUNTER 2020-11-13 08:00 | Outpatient (CLI) | payer MEDICARE, OTHER | END 2020-11-13 23:59 | disposition home or self-care (01) | LOC: LAB.N 08:00 | PROVIDERS: ATTEND Family Medicine | DX: I48.0 Paroxysmal atrial fibrillation (principal); Z79.01 Long term (current) use of anticoagulants ==

== ENCOUNTER 2020-11-27 08:00 | Outpatient (CLI) | payer MEDICARE, OTHER | END 2020-11-27 23:59 | disposition home or self-care (01) | LOC: LAB.N 08:00 | PROVIDERS: ATTEND Family Medicine | DX: I48.91 Unspecified atrial fibrillation (principal); Z95.2 Presence of prosthetic heart valve; Z79.01 Long term (current) use of anticoagulants ==

== ENCOUNTER 2020-12-26 14:30 | Outpatient (CLI) | payer MEDICARE, OTHER ==
[2020-12-26 17:54] LABS: BASOPHILS % (AUTO) 0.6 %; EOSINOPHILS # (AUTO) 0.2 10^3/uL (0.0-0.7); HCT - HEMATOCRIT 46.1 % (42.0-52.0); HGB - HEMOGLOBIN 14.8 g/dL (14.0-18.0); LYMPHOCYTES # (AUTO) 1.3 10^3/uL (1.5-3.5); MEAN CORPUSCULAR HEMOGLOBIN 30.3 pg (27.0-31.0); MEAN CORPUSCULAR HGB CONC 32.1 g/dL (32.0-36.0); MEAN CORPUSCULAR VOLUME 94.3 fL (80.0-94.0); MONOCYTES # (AUTO) 0.6 10^3/uL (0.0-1.0); MONOCYTES % (AUTO) 11.3 %; NEUTROPHILS % (AUTO) 58.9 %; PLT - PLATELET COUNT 141 10^3/uL (130-450); RED BLOOD COUNT 4.89 10^6/uL (4.70-6.10); RED CELL DISTRIBUTION WIDTH 13.6 % (12.0-15.0)
[2020-12-26 18:34] LABS: ALBUMIN 4.8 g/dL (3.2-5.5); ALBUMIN/GLOBULIN RATIO 1.8 (1.0-2.2); ALKALINE PHOSPHATASE 54 IU/L (42-121); ALT ALANINE AMINOTRANSFERASE 24 IU/L (10-60); AST ASPARTATE AMINOTRANSFERASE 25 IU/L (10-42); BILIRUBIN,TOTAL 1.6 mg/dL (0.2-1.0); BUN - BLOOD UREA NITROGEN 18 mg/dL (6-20); CALCIUM 9.3 mg/dL (8.5-10.3); CARBON DIOXIDE - CO2 24 mmol/L (21-32); CHLORIDE 106 mmol/L (101-111); CHOL/HDL RATIO 3.3 (<5.0); CHOLESTEROL 179 mg/dL; GFR - MDRD 72 (>89); GLUCOSE 103 mg/dL (70-100); HDL CHOLESTEROL 55 mg/dL; LDL CHOLESTEROL,CALCULATED 102 mg/dL; LDL/HDL RATIO 1.9 (<3.6); POTASSIUM 4.3 mmol/L (3.5-5.0); SODIUM 140 mmol/L (135-145); TOTAL PROTEIN 7.5 g/dL (6.7-8.2); TRIGLYCERIDES 110 mg/dL; VLDL CHOLESTEROL 22 mg/dL
== END 2020-12-26 23:59 | disposition home or self-care (01) ==
LOC: LAB.WCP 14:30
PROVIDERS: ATTEND Family Medicine
DX: E78.5 Hyperlipidemia, unspecified (principal); I10 Essential (primary) hypertension
CPT/HCPCS: 36415; 80053; 80061; 83721; 85025

== ENCOUNTER 2021-01-01 08:00 | Outpatient (CLI) | payer MEDICARE, OTHER | END 2021-01-01 23:59 | disposition home or self-care (01) | LOC: LAB.N 08:00 | PROVIDERS: ATTEND Family Medicine | DX: I48.0 Paroxysmal atrial fibrillation (principal); Z95.2 Presence of prosthetic heart valve; Z79.01 Long term (current) use of anticoagulants ==

== ENCOUNTER 2021-01-15 08:00 | Outpatient (CLI) | payer MEDICARE, OTHER | END 2021-01-15 23:59 | disposition home or self-care (01) | LOC: LAB.WCP 08:00 | PROVIDERS: ATTEND Internal Medicine | DX: I48.91 Unspecified atrial fibrillation (principal); Z79.01 Long term (current) use of anticoagulants ==

== ENCOUNTER 2021-01-31 08:00 | Outpatient (CLI) | payer MEDICARE, OTHER | END 2021-01-31 23:59 | disposition home or self-care (01) | LOC: LAB.WCP 08:00 | PROVIDERS: ATTEND Family Medicine | DX: I48.91 Unspecified atrial fibrillation (principal); Z95.2 Presence of prosthetic heart valve; Z79.01 Long term (current) use of anticoagulants ==

== ENCOUNTER 2021-02-07 08:00 | Outpatient (CLI) | payer MEDICARE, OTHER | END 2021-02-07 23:59 | disposition home or self-care (01) | LOC: LAB.WCP 08:00 | PROVIDERS: ATTEND Family Medicine | DX: I48.0 Paroxysmal atrial fibrillation (principal); Z95.2 Presence of prosthetic heart valve; Z79.01 Long term (current) use of anticoagulants ==

== ENCOUNTER 2021-02-16 08:00 | Outpatient (CLI) | payer MEDICARE, OTHER | END 2021-02-16 23:59 | disposition home or self-care (01) | LOC: LAB.N 08:00 | PROVIDERS: ATTEND Family Medicine | DX: I48.91 Unspecified atrial fibrillation (principal); Z95.2 Presence of prosthetic heart valve; Z79.01 Long term (current) use of anticoagulants ==

== ENCOUNTER 2021-03-02 08:00 | Outpatient (CLI) | payer MEDICARE, OTHER | END 2021-03-02 23:59 | disposition home or self-care (01) | LOC: LAB.WCP 08:00 | PROVIDERS: ATTEND Family Medicine | DX: I48.91 Unspecified atrial fibrillation (principal); Z95.2 Presence of prosthetic heart valve; Z79.01 Long term (current) use of anticoagulants ==

== ENCOUNTER 2021-03-23 08:00 | Outpatient (CLI) | payer MEDICARE, OTHER | END 2021-03-23 23:59 | disposition home or self-care (01) | LOC: LAB.N 08:00 | PROVIDERS: ATTEND Family Medicine | DX: I48.0 Paroxysmal atrial fibrillation (principal); Z95.2 Presence of prosthetic heart valve; Z79.01 Long term (current) use of anticoagulants ==

== ENCOUNTER 2021-04-27 08:00 | Outpatient (CLI) | payer MEDICARE, OTHER | END 2021-04-27 23:59 | disposition home or self-care (01) | LOC: LAB.WCP 08:00 | PROVIDERS: ATTEND Family Medicine | DX: I48.91 Unspecified atrial fibrillation (principal); Z95.2 Presence of prosthetic heart valve; Z79.01 Long term (current) use of anticoagulants ==

== ENCOUNTER 2021-05-04 08:00 | Outpatient (CLI) | payer MEDICARE, OTHER | END 2021-05-04 23:59 | disposition home or self-care (01) | LOC: LAB.WCP 08:00 | PROVIDERS: ATTEND Family Medicine | DX: I48.0 Paroxysmal atrial fibrillation (principal); Z95.2 Presence of prosthetic heart valve; Z79.01 Long term (current) use of anticoagulants ==

== ENCOUNTER 2021-05-11 08:00 | Outpatient (CLI) | payer MEDICARE, OTHER | END 2021-05-11 23:59 | disposition home or self-care (01) | LOC: LAB.N 08:00 | PROVIDERS: ATTEND Family Medicine | DX: I48.0 Paroxysmal atrial fibrillation (principal); Z95.2 Presence of prosthetic heart valve; Z79.01 Long term (current) use of anticoagulants ==

== ENCOUNTER 2021-05-18 08:00 | Outpatient (CLI) | payer MEDICARE, OTHER | END 2021-05-18 23:59 | disposition home or self-care (01) | LOC: LAB.N 08:00 | PROVIDERS: ATTEND Family Medicine | DX: I48.91 Unspecified atrial fibrillation (principal); Z95.2 Presence of prosthetic heart valve; Z79.01 Long term (current) use of anticoagulants ==

== ENCOUNTER 2021-05-25 08:00 | Outpatient (CLI) | payer MEDICARE, OTHER | END 2021-05-25 23:59 | disposition home or self-care (01) | LOC: LAB.N 08:00 | PROVIDERS: ATTEND Family Medicine | DX: I48.91 Unspecified atrial fibrillation (principal); Z95.2 Presence of prosthetic heart valve; Z79.01 Long term (current) use of anticoagulants ==

== ENCOUNTER 2021-05-26 08:52 | Outpatient (CLI) | payer MEDICARE, OTHER ==
--- NOTE | 2021-05-26 17:47 | Ultrasound Report ---
PROCEDURE: Aorta Screening INDICATIONS: NICOTINE WITHRAWAL, REMISSION TECHNIQUE: Real time scanning was performed of the aorta and iliac arteries, with image documentatio n. COMPARISON: None. FINDINGS: Aorta: Proximal aortic diameter measures 2.3 cm. Mid-aorta measures 2.0 cm. Distal aortic diameter is 2.6 cm. Iliac arteries: Right common iliac artery measures 1.2 cm. Left common iliac artery measures 1.5 cm . IMPRESSION: 1. No evidence of abdominal aortic aneurysm. Reviewed by: Silverio Dumont MD on 05/26/2021 4:46 PM [facility] Approved by: Silverio Dumont MD on 05/26/2021 4:46 PM [facility] Station ID: [id number]
== END 2021-05-26 08:53 | disposition home or self-care (01) ==
LOC: DI 08:52
PROVIDERS: ATTEND Family Medicine
DX: Z13.6 Encounter for screening for cardiovascular disorders (principal); F17.201 Nicotine dependence, unspecified, in remission

== ENCOUNTER 2021-06-04 08:00 | Outpatient (CLI) | payer MEDICARE, OTHER | END 2021-06-04 23:59 | disposition home or self-care (01) | LOC: LAB.N 08:00 | PROVIDERS: ATTEND Family Medicine | DX: I48.91 Unspecified atrial fibrillation (principal); Z95.2 Presence of prosthetic heart valve; Z79.01 Long term (current) use of anticoagulants ==

== ENCOUNTER 2021-06-11 08:00 | Outpatient (CLI) | payer MEDICARE, OTHER | END 2021-06-11 23:59 | disposition home or self-care (01) | LOC: LAB.N 08:00 | PROVIDERS: ATTEND Family Medicine | DX: I48.91 Unspecified atrial fibrillation (principal); Z95.2 Presence of prosthetic heart valve; Z79.01 Long term (current) use of anticoagulants ==

== ENCOUNTER 2021-06-26 08:00 | Outpatient (CLI) | payer MEDICARE, OTHER ==
[2021-06-26 18:08] LABS: BASOPHILS % (AUTO) 0.5 %; EOSINOPHILS # (AUTO) 0.3 10^3/uL (0.0-0.7); EOSINOPHILS % (AUTO) 4.4 %; HCT - HEMATOCRIT 45.7 % (42.0-52.0); HGB - HEMOGLOBIN 15.3 g/dL (14.0-18.0); LYMPHOCYTES # (AUTO) 1.4 10^3/uL (1.5-3.5); LYMPHOCYTES % (AUTO) 24.6 %; MEAN CORPUSCULAR HEMOGLOBIN 31.1 pg (27.0-31.0); MEAN CORPUSCULAR HGB CONC 33.5 g/dL (32.0-36.0); MEAN CORPUSCULAR VOLUME 92.9 fL (80.0-94.0); MEAN PLATELET VOLUME 11.5 fL (7.4-11.4); MONOCYTES # (AUTO) 0.7 10^3/uL (0.0-1.0); MONOCYTES % (AUTO) 11.3 %; NEUTROPHILS # (AUTO) 3.5 10^3/uL (1.5-6.6); NEUTROPHILS % (AUTO) 58.9 %; PLT - PLATELET COUNT 129 10^3/uL (130-450); RED BLOOD COUNT 4.92 10^6/uL (4.70-6.10); RED CELL DISTRIBUTION WIDTH 13.2 % (12.0-15.0); WHITE BLOOD COUNT 5.9 x10^3/uL (4.8-10.8)
[2021-06-26 18:23] LABS: ALBUMIN 4.5 g/dL (3.2-5.5); ALBUMIN/GLOBULIN RATIO 1.6 (1.0-2.2); ALKALINE PHOSPHATASE 71 IU/L (42-121); ALT ALANINE AMINOTRANSFERASE 26 IU/L (10-60); AST ASPARTATE AMINOTRANSFERASE 32 IU/L (10-42); BILIRUBIN,TOTAL 1.5 mg/dL (0.2-1.0); BUN - BLOOD UREA NITROGEN 16 mg/dL (6-20); CALCIUM 9.1 mg/dL (8.5-10.3); CARBON DIOXIDE - CO2 27 mmol/L (21-32); CHLORIDE 106 mmol/L (101-111); CHOL/HDL RATIO 3.8 (<5.0); CHOLESTEROL 203 mg/dL; CREATININE 0.9 mg/dL (0.6-1.2); GFR - MDRD 81 (>89); GLUCOSE 114 mg/dL (70-100); HDL CHOLESTEROL 54 mg/dL; LDL CHOLESTEROL,CALCULATED 107 mg/dL; POTASSIUM 4.2 mmol/L (3.5-5.0); SODIUM 141 mmol/L (135-145); TOTAL PROTEIN 7.4 g/dL (6.7-8.2); TRIGLYCERIDES 212 mg/dL; VLDL CHOLESTEROL 42 mg/dL
[2021-06-26 18:34] LABS: THYROID STIMULATING HORMONE 3.45 uIU/mL (0.34-5.60)
== END 2021-06-26 23:59 ==
LOC: LAB.WCP 08:00
PROVIDERS: ATTEND Family Medicine
DX: I10 Essential (primary) hypertension (principal); E78.5 Hyperlipidemia, unspecified; N40.0 Benign prostatic hyperplasia without lower urinary tract symptoms; Z79.899 Other long term (current) drug therapy
CPT/HCPCS: 36415; 80053; 80061; 83721; 84153; 84443; 85025

== ENCOUNTER 2021-07-02 08:00 | Outpatient (CLI) | payer MEDICARE, OTHER | END 2021-07-02 23:59 | disposition home or self-care (01) | LOC: LAB.N 08:00 | PROVIDERS: ATTEND Family Medicine | DX: I48.91 Unspecified atrial fibrillation (principal); Z95.2 Presence of prosthetic heart valve; Z79.01 Long term (current) use of anticoagulants ==

== ENCOUNTER 2021-07-09 08:00 | Outpatient (CLI) | payer MEDICARE, OTHER | END 2021-07-09 23:59 | disposition home or self-care (01) | LOC: LAB.N 08:00 | PROVIDERS: ATTEND Family Medicine | DX: I48.91 Unspecified atrial fibrillation (principal); Z95.2 Presence of prosthetic heart valve; Z79.01 Long term (current) use of anticoagulants ==

== ENCOUNTER 2021-07-23 08:00 | Outpatient (CLI) | payer MEDICARE, OTHER | END 2021-07-23 23:59 | disposition home or self-care (01) | LOC: LAB.N 08:00 | PROVIDERS: ATTEND Family Medicine | DX: I48.91 Unspecified atrial fibrillation (principal); Z79.01 Long term (current) use of anticoagulants; Z95.2 Presence of prosthetic heart valve ==

== ENCOUNTER 2021-07-30 08:00 | Outpatient (CLI) | payer MEDICARE, OTHER | END 2021-07-30 23:59 | disposition home or self-care (01) | LOC: LAB.WCP 08:00 | PROVIDERS: ATTEND Nurse Practitioner Family | DX: I48.91 Unspecified atrial fibrillation (principal); Z95.2 Presence of prosthetic heart valve; Z79.01 Long term (current) use of anticoagulants ==

== ENCOUNTER 2021-08-06 08:00 | Outpatient (CLI) | payer MEDICARE, OTHER | END 2021-08-06 23:59 | disposition home or self-care (01) | LOC: LAB.N 08:00 | PROVIDERS: ATTEND Family Medicine | DX: I48.91 Unspecified atrial fibrillation (principal); Z95.2 Presence of prosthetic heart valve; Z79.01 Long term (current) use of anticoagulants ==

== ENCOUNTER 2021-08-13 08:00 | Outpatient (CLI) | payer MEDICARE, OTHER | END 2021-08-13 23:59 | disposition home or self-care (01) | LOC: LAB.N 08:00 | PROVIDERS: ATTEND Family Medicine | DX: I48.91 Unspecified atrial fibrillation (principal); Z95.2 Presence of prosthetic heart valve; Z79.01 Long term (current) use of anticoagulants ==

== ENCOUNTER 2021-08-20 08:00 | Outpatient (CLI) | payer MEDICARE, OTHER | END 2021-08-20 23:59 | disposition home or self-care (01) | LOC: LAB.N 08:00 | PROVIDERS: ATTEND Family Medicine | DX: I48.0 Paroxysmal atrial fibrillation (principal); Z95.2 Presence of prosthetic heart valve; Z79.01 Long term (current) use of anticoagulants ==

== ENCOUNTER 2021-08-27 08:00 | Outpatient (CLI) | payer MEDICARE, OTHER | END 2021-08-27 23:59 | disposition home or self-care (01) | LOC: LAB.WCP 08:00 | PROVIDERS: ATTEND Family Medicine | DX: I48.91 Unspecified atrial fibrillation (principal); Z79.01 Long term (current) use of anticoagulants; Z95.2 Presence of prosthetic heart valve ==

== ENCOUNTER 2021-09-03 08:00 | Outpatient (CLI) | payer MEDICARE, OTHER | END 2021-09-03 23:59 | disposition home or self-care (01) | LOC: LAB.N 08:00 | PROVIDERS: ATTEND Family Medicine | DX: I48.91 Unspecified atrial fibrillation (principal); Z95.2 Presence of prosthetic heart valve; Z79.01 Long term (current) use of anticoagulants ==

== ENCOUNTER 2021-09-10 08:00 | Outpatient (CLI) | payer MEDICARE, OTHER | END 2021-09-10 23:59 | disposition home or self-care (01) | LOC: LAB.N 08:00 | PROVIDERS: ATTEND Family Medicine | DX: I48.91 Unspecified atrial fibrillation (principal); Z95.2 Presence of prosthetic heart valve; Z79.01 Long term (current) use of anticoagulants ==

== ENCOUNTER 2021-09-17 08:00 | Outpatient (CLI) | payer MEDICARE, OTHER | END 2021-09-17 23:59 | disposition home or self-care (01) | LOC: LAB.N 08:00 | PROVIDERS: ATTEND Family Medicine | DX: I48.91 Unspecified atrial fibrillation (principal); Z95.2 Presence of prosthetic heart valve; Z79.01 Long term (current) use of anticoagulants ==

== ENCOUNTER 2021-10-01 08:00 | Outpatient (CLI) | payer MEDICARE, OTHER | END 2021-10-01 23:59 | disposition home or self-care (01) | LOC: LAB.N 08:00 | PROVIDERS: ATTEND Family Medicine | DX: I48.0 Paroxysmal atrial fibrillation (principal); Z95.2 Presence of prosthetic heart valve; Z79.01 Long term (current) use of anticoagulants ==

== ENCOUNTER 2021-10-08 08:00 | Outpatient (CLI) | payer MEDICARE, OTHER | END 2021-10-08 23:59 | disposition home or self-care (01) | LOC: LAB.N 08:00 | PROVIDERS: ATTEND Family Medicine | DX: I48.91 Unspecified atrial fibrillation (principal); Z95.2 Presence of prosthetic heart valve; Z79.01 Long term (current) use of anticoagulants ==

== ENCOUNTER 2021-10-12 17:40 | Emergency (ER) | payer MEDICARE, OTHER ==
--- NOTE | 2021-10-12 18:13 | ED Physician Documentation ---
History of Present Illness - Stated complaint Stated Complaint: FALL, RIGHT ARM & SHOULDER INJURY - Chief complaint Chief Complaint: Trauma Ext - Additonal information Additional information: 81-year-old male presents emergency department as a modified trauma after a ground-level fall. Reports that he slipped on wet grass. He is not sure if he struck his head but he did not lose consciousness. He is anticoagulated on Coumadin secondary to a history of a prosthetic valve. He presents with pain in the right shoulder especially the proximal humerus as well as pain in the wrist with an abrasion. He denies neck and back or hip pain. He is ambulatory. Review of Systems Constitutional: denies: Fever, Chills Eyes: reports: Reviewed and negative Ears: reports: Reviewed and negative Nose: reports: Reviewed and negative Cardiac: reports: Reviewed and negative Respiratory: reports: Reviewed and negative GI: reports: Reviewed and negative : reports: Reviewed and negative Musculoskeletal: reports: Extremity pain PD PAST MEDICAL HISTORY - Past Medical History Cardiovascular: Hypertension, Atrial fibrillation, Valve disorder Respiratory: None Endocrine/Autoimmune: None GI: GERD : Benign prostate hypertrophy HEENT: Chronic vision loss, Macular degeneration Psych: None Musculoskeletal: Chronic back pain Derm: None - Past Surgical History Past Surgical History: Yes General: Appendectomy Cardiovascular: Valve replacement - Present Medications Home Medications: Ambulatory Orders Medication Instructions Recorded Confirmed Amlodipine Besylate 5 mg PO BID 11/25/15 05/20/17 Atorvastatin [Lipitor] 80 mg PO DAILY 11/25/15 05/20/17 Warfarin [Coumadin] 5 mg PO SUTUWETHSA 11/25/15 05/20/17 atenoloL [Atenolol] 25 mg PO DAILY 11/25/15 05/20/17 hydroCHLOROthiazide 12.5 mg PO DAILY 11/25/15 05/20/17 [Hydrochlorothiazide] Aspirin [Aspirin EC] 81 mg PO DAILY 05/20/17 05/20/17 Pantoprazole [Protonix] 40 mg PO DAILY 05/20/17 05/20/17 Tamsulosin HCl [Flomax] 0.4 mg PO DAILY 05/20/17 05/20/17 Warfarin [Coumadin] 7.5 mg PO MOFR 05/20/17 05/20/17 Azithromycin 250 mg PO DAILY #4 tablet 05/22/17 Furosemide [Lasix] 20 mg PO DAILY #7 tablet 05/22/17 Potassium Chloride 10 meq PO DAILY #7 tablet.er 05/22/17 Oxycodone HCl/Acetaminophen 1 - 2 each PO Q6H PRN #14 tablet 07/30/18 [Percocet 5-325 mg Tablet] oxyCODONE [Roxicodone] 5 mg PO TID PRN #20 tablet 10/12/21 - Allergies Allergies/Adverse Reactions: Allergies Allergy/AdvReac Type Severity Reaction Status Date / Time morphine Allergy Hallucinati Verified 10/15/20 15:59 ons Penicillins Allergy Unknown Verified 10/15/20 15:59 - Social History Does the pt smoke?: No Smoking Status: Never smoker Does the pt drink ETOH?: No Does the pt have substance abuse?: No - Immunizations Immunizations are current?: Yes - POLST Patient has POLST: No POLST Status: Full Code PD ED PE EXPANDED - General General: Alert, No acute distress, Well developed/nourished - Neck Neck: Supple w/out meningeal sx, No tenderness. No: Adenopathy, Soft tissue TTP, Bony TTP, Limited ROM - Cardiac Cardiac: Regular Rate, Murmur Present, Radial strong equal, Pedal strong equal, Cap refill < 2 sec - Respiratory Respiratory: Clear to ausultation sony. No: Distress, Labored - Abdomen Abdomen: Normal Bowel sounds. No: Tender to palpation - Back Back: Other (No tenderness elicited of the chest wall or rib cage.). No: Vertebral tenderness, Soft tissue tenderness - Derm Derm: Normal color, Warm and dry. No: Rash - Extremities Extremities: Normal, Tenderness, Right arm (Tenderness in the proximal humerus without ecchymosis. Unable to abduct or raise the arm due to pain. No pain in the elbow.), Right wrist (Abrasion on the palm of the wrist. Normal flexion and extension.) - Neuro Neuro: Alert and Oriented X 3, CNII-XII intact, Normal gait, Normal finger nose, Normal speech - GCS Eye Opening: Spontaneous Motor: Obeys Commands Verbal: Oriented Total: 15 Results - Vitals Vitals: Vital Signs - 24 hr 10/12/21 10/12/21 18:04 20:02 Temperature 36.7 C Heart Rate 74 68 Respiratory 20 14 Rate Blood Pressure 147/60 H 146/71 H O2 Saturation 99 96 Oxygen O2 Source Room air - Rads (name of study) right shoulder Radiology: Final report received (Nondisplaced proximal humeral fracture) right wrist Radiology: Final report received (First carpometacarpal osteoarthritis. No fracture) chest xr Radiology: Final report received (No acute cardiopulmonary findings) CT head Radiology: Final report received (No acute intracranial abnormality) CT cervical Radiology: Final report received (No acute fracture or dislocation. No acute osseous abnormality) PD MEDICAL DECISION MAKING - ED course Complexity details: reviewed results, re-evaluated patient, considered differential, d/w patient, d/w family ED course: 81-year-old male presents emergency department via private vehicle for evaluation of a ground-level fall. He has a history of a bovine valve and is anticoagulated on Coumadin. He slipped on wet grass. Unsure if he struck his head but there was no loss of consciousness. He reports pain in the right shoulder. CT head and neck are unremarkable. GCS of 15 without any focal deficits. X-ray of the wrist was negative for acute fracture. He did have tenderness of the proximal humerus and unfortunately the x-ray of the shoulder shows a nondisplaced right proximal humeral fracture. He is placed in a splint. Patient is advised follow-up with primary care provider as well as referral to orthopedics. Routine care and emergent return precautions otherwise discussed. I am prescribing a short course of short-acting opioid pain medication for this patient. I have reviewed the patients DIRECTOR CHILD ABUSE THERAPY and no concerning findings were noted. I have discussed that the opioids are for short term therapy only, and will not be refilled from the ED. Departure - Departure Disposition: 01 Home, Self Care Clinical Impression: Fall from ground level, Anticoagulated Closed right humeral fracture Qualifiers: Encounter type: initial encounter Humerus Location: proximal Fracture morphology: other fracture Fracture alignment: nondisplaced Qualified Code(s): S42.294A - Other nondisplaced fracture of upper end of right humerus, initial encounter for closed fracture Condition: Stable Record reviewed to determine appropriate education?: Yes Instructions: ED Fx Upper Extr Ch Follow-Up: Helena Villalpando PA-C [Provider Admit Priv/Credential] - Aidan Rutherford MD [Provider Admit Priv/Credential] - Prescriptions: oxyCODONE [Roxicodone] 5 mg PO TID PRN #20 tablet PRN Reason: Pain Comments: Rambo rowan are seen today in the emergency department because you had a ground- level fall at home. You are anticoagulated on Coumadin. The CT of your head and neck show no findings of broken bones or bleeding within the brain. The x-ray of your shoulder unfortunately shows a nondisplaced right proximal humerus fracture. This type of fracture is typically treated nonoperatively meaning you simply need to wear the sling and have appropriate pain control. Your primary care provider should make a referral for for you to orthopedics for follow-up. In general icing the shoulder may be helpful. I am prescribing a limited amount of oxycodone for severe pain only. Please use this cautiously it may make you more prone to falls. Your prescription has been sent electronically to the [facility] in [place] I am prescribing a short course of narcotic pain medication for you. These are potentially dangerous and addictive medications that should be used carefully. These medications may constipate you. Take an [id number] stool softener (docusate) twice daily with plenty of water while taking these medications. If you go 24 hours without a bowel movement, take [id number] miralax, per package instructions. Do not drink or drive while taking these medications. If you received narcotic or sedating medications while in the emergency department, do not drive for 24 hours. Store this medication in a safe, secure place and out of reach of children. It is a violation of federal law to give or sell this medication to another person or to use in a manner other than prescribed. The ED will not refill narcotic prescriptions, including prescriptions lost or stolen. To dispose of unwanted medications: 1. [facility] [address] in [place] has a medication drop box. They accept prescription medications (in pill form) Friday through Friday 9:00 a.m. to 5:00 p.m. 2. The [facility] accepts prescription medications (in pill form only) for disposal year round. Call for more information. 3. Contact the [facility] for the next [facility] sponsored prescription drug collection event. , [phone], or [phone]; Note that many narcotic pain relievers also contain Tylenol/acetaminophen. Please ensure that your total dose of acetaminophen from all sources does not exceed 3 g (3000 mg) per day.
[2021-10-12] MEDS: oxyCODONE 5 MG TABLET PO STA (18:19)
--- NOTE | 2021-10-12 18:54 | XRAY Report ---
PROCEDURE: Chest 1 View X-Ray INDICATIONS: glf TECHNIQUE: One view of the chest was acquired. COMPARISON: 10/15/2020 FINDINGS: Surgical changes and devices: Midline sternal wires present. Cardiac valve prosthesis noted. Atherosc lerotic vascular calcification noted in the aortic arch. Lungs and pleura: No pleural effusions or pneumothorax. Lungs are clear. Mediastinum: Mediastinal contours appear normal. Heart size is normal. Bones and chest wall: No suspicious bony lesions. Overlying soft tissues appear unremarkable. IMPRESSION: No acute cardiopulmonary findings Reviewed by: Stanley Bergman MD on 10/12/2021 5:53 PM [facility] Approved by: Stanley Bergman MD on 10/12/2021 5:53 PM [facility] Station ID: [id number]
--- NOTE | 2021-10-12 18:55 | XRAY Report ---
PROCEDURE: Wrist 2 View RT INDICATIONS: glf; pain TECHNIQUE: 2 views of the wrist were acquired. COMPARISON: None FINDINGS: Bones: No fractures or dislocations. No suspicious bony lesions. First metacarpal joint space narr owing and subchondral sclerosis present. Scaphoid view: Not obtained Soft tissues: No suspicious soft tissue calcifications. Diffuse atherosclerotic vascular calcificat ion noted. IMPRESSION: First carpometacarpal osteoarthritis. No fracture. Reviewed by: Stanley Bergman MD on 10/12/2021 5:54 PM [facility] Approved by: Stanley Bergman MD on 10/12/2021 5:54 PM [facility] Station ID: [id number]
--- NOTE | 2021-10-12 18:57 | XRAY Report ---
PROCEDURE: Shoulder 2 View RT INDICATIONS: glf; prox humerus pain TECHNIQUE: 2 views of the shoulder were acquired. COMPARISON: None. FINDINGS: Bones: Generalized decreased osseous mineralization present. Transverse fracture through the proximal humerus present without dislocation. Right lung apex is clear. Soft tissues: No suspicious soft tissue calcifications. IMPRESSION: Nondisplaced proximal humeral fracture Reviewed by: Stanley Bergman MD on 10/12/2021 5:55 PM [facility] Approved by: Stanley Bergman MD on 10/12/2021 5:55 PM [facility] Station ID: [id number]
--- NOTE | 2021-10-12 21:06 | CT Report ---
PROCEDURE: HEAD WO INDICATIONS: glfl anticoagulated TECHNIQUE: Noncontrast 4.5 mm thick angled axial sections acquired from the foramen magnum to the vertex. For r adiation dose reduction, the following was used: automated exposure control, adjustment of mA and/or kV according to patient size. COMPARISON: None. FINDINGS: Image quality: Excellent. CSF spaces: Basal cisterns are patent. No extra-axial fluid collections. Ventricles are normal in size and shape. Brain: No midline shift. No intracranial masses or hemorrhage. No area of hypodensity in a vascula r distribution to suggest acute infarction. There is periventricular hypodensity consistent with ton container filler vikram microvascular ischemic disease. Age-related parenchymal loss. Skull and face: Calvarium and visualized facial bones are intact, without suspicious lesions. Sinuses: Visualized sinuses and mastoids are clear. IMPRESSION: No acute intracranial abnormality. Reviewed by: Tom Conley MD on 10/12/2021 9:05 PM PDT Approved by: Tom Conley MD on 10/12/2021 9:05 PM PDT Station ID: [id number]
--- NOTE | 2021-10-12 21:11 | CT Report ---
PROCEDURE: CERVICAL SPINE WO INDICATIONS: glf; anticoagulated TECHNIQUE: Noncontrast 3 mm thick sections acquired from the skull base to the T4 level. Sagittal and coronal r eformats were then constructed. For radiation dose reduction, the following was used: automated exp osure control, adjustment of mA and/or kV according to patient size. COMPARISON: MR cervical spine 12/06/2015. FINDINGS: Image quality: Excellent. Bones: No fractures or dislocations. Moderate degenerative change in the cervical spine. Visualized superior ribs are intact. Post median sternotomy. Trace opacification of the right posterior mastoid air cell. Soft tissues: Prevertebral soft tissues are normal in thickness. Extensive plaque at the bilateral c arotid bulbs. Distal vertebral artery calcifications. Small calcification in the left thyroid. No par avertebral hematomas. No apical pneumothoraces. IMPRESSION: No acute osseous abnormality. Reviewed by: Tom Conley MD on 10/12/2021 9:10 PM PDT Approved by: Tom Conley MD on 10/12/2021 9:10 PM PDT Station ID: [id number]
[2021-10-12] MEDS: oxyCODONE/ACET 5/325 Prepack 4 PO STA (21:32)
[2021-10-12 21:51] VITALS: BP 145/92
== END 2021-10-12 21:51 | disposition home or self-care (01) ==
LOC: ED 17:40
DX: S42.201A Unspecified fracture of upper end of right humerus, initial encounter for closed fracture (principal); W01.0XXA Fall on same level from slipping, tripping and stumbling without subsequent striking against object, initial encounter; I10 Essential (primary) hypertension; I48.91 Unspecified atrial fibrillation; Z79.01 Long term (current) use of anticoagulants; Z95.2 Presence of prosthetic heart valve
CPT/HCPCS: 70450; 71045; 72125; 73030; 73100; 99283; 99284; A9270

== ENCOUNTER 2021-10-19 07:42 | Outpatient (CLI) | payer MEDICARE, OTHER ==
--- NOTE | 2021-10-19 16:20 | XRAY Report ---
PROCEDURE: Shoulder 3 View RT INDICATIONS: SHOULDER FRACTURE TECHNIQUE: 4 views of the shoulder were acquired. COMPARISON: Right shoulder radiographs 10/12/2021. FINDINGS: Bones: Comminuted fracture of the right humeral head and neck. Mild displacement of the greater tuber osity. No dislocations. Moderate to severe degenerative change at the acromioclavicular joint. No ayon spicious bony lesions. Visualized ribs appear intact. Post median sternotomy. Soft tissues: No suspicious soft tissue calcifications. IMPRESSION: Comminuted fracture of the right humeral head and neck. Reviewed by: Tom Conley MD on 10/19/2021 4:19 PM PDT Approved by: Tom Conley MD on 10/19/2021 4:19 PM PDT Station ID: [id number]
--- NOTE | 2021-10-19 19:21 | XRAY Report ---
PROCEDURE: Elbow 3 View RT INDICATIONS: ELBOW PAIN TECHNIQUE: 3 views of the elbow were acquired. COMPARISON: None FINDINGS: Bones: No fractures or dislocations. No suspicious bony lesions. Mild arthritic narrowing is prese nt at the elbow. No erosions. Soft tissues: No elbow joint effusion. No suspicious soft tissue calcifications. Soft tissue edema is noted posterior to the elbow. IMPRESSION: Soft tissue edema is noted posterior to the elbow. Recommend correlation to recent trauma or potentia l cellulitis. Reviewed by: Zari Cheney MD on 10/19/2021 7:20 PM PDT Approved by: Zari Cheney MD on 10/19/2021 7:20 PM PDT Station ID: [id number]
== END 2021-10-19 23:59 | disposition home or self-care (01) ==
LOC: DI.WOS 07:42
PROVIDERS: ATTEND Physician Assistant
DX: R60.0 Localized edema (principal); S42.211D Unspecified displaced fracture of surgical neck of right humerus, subsequent encounter for fracture with routine healing

== ENCOUNTER 2021-10-25 09:45 | Outpatient (CLI) | payer MEDICARE, OTHER ==
--- NOTE | 2021-10-25 14:18 | XRAY Report ---
PROCEDURE: Hand 3 View RT INDICATIONS: HAND/WRIST PAIN SWELLING TECHNIQUE: 3 views of the hand(s) acquired. COMPARISON: None FINDINGS: No fracture or dislocation. Mild joint space narrowing in the distal interphalangeal joints and first CMC joint with small marginal osteophytes. No suspicious lytic or blastic osseous lesion. No signifi cant soft tissue finding. IMPRESSION: Mild DIP and first CMC osteoarthritic changes. Reviewed by: Russ Cuevas MD on 10/25/2021 2:17 PM PDT Approved by: Russ Cuevas MD on 10/25/2021 2:17 PM PDT Station ID: [id number]
--- NOTE | 2021-10-25 14:19 | XRAY Report ---
PROCEDURE: Wrist 3 View RT INDICATIONS: HAND/WRIST PAIN SWELLING TECHNIQUE: 3 views of the wrist were acquired. COMPARISON: None. FINDINGS: Mild triscaphe and right first CMC osteoarthritic changes. No fracture or dislocation. No suspicious bone lesion. No significant soft tissue abnormality. 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 Reviewed by: Russ Cuevas MD on 10/25/2021 2:17 PM PDT Approved by: Russ Cuevas MD on 10/25/2021 2:17 PM PDT Station ID: [id number]
== END 2021-10-25 23:59 | disposition home or self-care (01) ==
LOC: DI.WOS 09:45
PROVIDERS: ATTEND Orthopaedic Surgery
DX: M19.041 Primary osteoarthritis, right hand (principal); M18.11 Unilateral primary osteoarthritis of first carpometacarpal joint, right hand; M19.031 Primary osteoarthritis, right wrist

== ENCOUNTER 2021-11-05 08:00 | Outpatient (CLI) | payer MEDICARE, OTHER | END 2021-11-05 23:59 | disposition home or self-care (01) | LOC: LAB.N 08:00 | PROVIDERS: ATTEND Family Medicine | DX: I48.0 Paroxysmal atrial fibrillation (principal); Z79.01 Long term (current) use of anticoagulants; Z95.2 Presence of prosthetic heart valve ==

== ENCOUNTER 2021-11-23 06:00 | Outpatient (CLI) | payer MEDICARE, OTHER ==
--- NOTE | 2021-11-23 16:03 | XRAY Report ---
PROCEDURE: Shoulder 2 View RT INDICATIONS: SHOULDER FX TECHNIQUE: 2 views of the shoulder were acquired. COMPARISON: 10/19/2021. FINDINGS: Bones: There is interval healing at proximal humeral fracture site with fracture lines extending to b oth greater and lesser tuberosities. No new fracture or dislocation is seen. Moderate acromioclavicul ar joint and glenohumeral joint osteoarthritic changes are seen. Inferior subluxation of humeral head in relation to glenoid is noted consistent with a moderate to large joint effusion. No suspicious [place] lesions. Visualized ribs appear intact. Soft tissues: No suspicious soft tissue calcifications. IMPRESSION: Interval healing of proximal humeral fracture site with stable right shoulder alignment. 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 Suggestion of moderate to large joint effusion. Reviewed by: Carlos Wilson MD on 11/23/2021 4:01 PM PDT Approved by: Carlos Wilson MD on 11/23/2021 4:01 PM PDT Station ID: [id number]
== END 2021-11-23 23:59 | disposition home or self-care (01) ==
LOC: DI.WOS 06:00
PROVIDERS: ATTEND Physician Assistant
DX: S42.231D 3-part fracture of surgical neck of right humerus, subsequent encounter for fracture with routine healing (principal)

== ENCOUNTER 2021-11-26 08:00 | Outpatient (CLI) | payer MEDICARE, OTHER | END 2021-11-26 23:59 | disposition home or self-care (01) | LOC: LAB.N 08:00 | PROVIDERS: ATTEND Family Medicine | DX: I48.91 Unspecified atrial fibrillation (principal); Z79.01 Long term (current) use of anticoagulants ==

== ENCOUNTER → 2021-12-03 | Outpatient (CLI) | payer MEDICARE, OTHER | LOC: LAB.WCP 08:00 | PROVIDERS: ATTEND Family Medicine | DX: I48.91 Unspecified atrial fibrillation (principal); Z95.2 Presence of prosthetic heart valve; Z79.01 Long term (current) use of anticoagulants ==

== ENCOUNTER → 2021-12-17 | Outpatient (CLI) | payer MEDICARE, OTHER | LOC: LAB.WCP 08:00 | PROVIDERS: ATTEND Physician Assistant | DX: I48.91 Unspecified atrial fibrillation (principal); Z95.2 Presence of prosthetic heart valve; Z79.01 Long term (current) use of anticoagulants ==

== ENCOUNTER 2021-12-25 08:00 | Outpatient (CLI) | payer MEDICARE, OTHER ==
--- NOTE | 2021-12-25 18:19 | XRAY Report ---
PROCEDURE: Shoulder 2 View RT INDICATIONS: SHOULDER FX TECHNIQUE: Views of the right shoulder were acquired. COMPARISON: None. FINDINGS: Bones: No fractures or dislocations. The right proximal humerus demonstrates a healing comminuted f racture. No suspicious bony lesions. Soft tissues: No suspicious soft tissue calcifications. IMPRESSION: Healing right proximal humeral fracture with stable alignment. Reviewed by: Boy Dupont on 12/25/2021 5:17 PM JEANCARLOS Approved by: Boy Dupont on 12/25/2021 5:17 PM JEANCARLOS Station ID: [id number]
== END 2021-12-25 23:59 | disposition home or self-care (01) ==
LOC: DI.WOS 08:00
PROVIDERS: ATTEND Physician Assistant
DX: S42.231D 3-part fracture of surgical neck of right humerus, subsequent encounter for fracture with routine healing (principal)

== ENCOUNTER 2022-01-07 08:00 | Outpatient (CLI) | payer MEDICARE, OTHER | END 2022-01-07 23:59 | disposition home or self-care (01) | LOC: LAB.WCP 08:00 | PROVIDERS: ATTEND Physician Assistant | DX: I48.91 Unspecified atrial fibrillation (principal); Z95.2 Presence of prosthetic heart valve; Z79.01 Long term (current) use of anticoagulants ==

== ENCOUNTER 2022-03-04 08:00 | Outpatient (CLI) | payer MEDICARE, OTHER | END 2022-03-04 23:59 | disposition home or self-care (01) | LOC: LAB.WCP 08:00 | PROVIDERS: ATTEND Family Medicine | DX: I48.0 Paroxysmal atrial fibrillation (principal); Z95.2 Presence of prosthetic heart valve; Z79.01 Long term (current) use of anticoagulants ==

== ENCOUNTER 2022-03-11 08:00 | Outpatient (CLI) | payer MEDICARE, OTHER | END 2022-03-11 23:59 | disposition home or self-care (01) | LOC: LAB.WCP 08:00 | PROVIDERS: ATTEND Physician Assistant | DX: Z79.01 Long term (current) use of anticoagulants (principal); I48.0 Paroxysmal atrial fibrillation; Z95.2 Presence of prosthetic heart valve ==

== ENCOUNTER 2022-03-18 08:00 | Outpatient (CLI) | payer MEDICARE, OTHER | END 2022-03-18 23:59 | disposition home or self-care (01) | LOC: LAB.N 08:00 | DX: I48.91 Unspecified atrial fibrillation (principal); Z95.2 Presence of prosthetic heart valve; Z79.01 Long term (current) use of anticoagulants ==

== ENCOUNTER 2022-04-08 08:00 | Outpatient (CLI) | payer MEDICARE, OTHER | END 2022-04-08 08:01 | disposition home or self-care (01) | LOC: LAB.WCP 08:00 | DX: I48.91 Unspecified atrial fibrillation (principal); Z95.2 Presence of prosthetic heart valve; Z79.01 Long term (current) use of anticoagulants ==

== ENCOUNTER 2022-04-15 08:00 | Outpatient (CLI) | payer MEDICARE, OTHER | END 2022-04-15 23:59 | disposition home or self-care (01) | LOC: LAB.WCP 08:00 | PROVIDERS: ATTEND Physician Assistant | DX: I48.91 Unspecified atrial fibrillation (principal); Z95.2 Presence of prosthetic heart valve; Z79.01 Long term (current) use of anticoagulants ==

== ENCOUNTER 2022-04-22 08:00 | Outpatient (CLI) | payer MEDICARE, OTHER | END 2022-04-22 23:59 | disposition home or self-care (01) | LOC: LAB.WCP 08:00 | PROVIDERS: ATTEND Family Medicine | DX: I48.0 Paroxysmal atrial fibrillation (principal); Z95.2 Presence of prosthetic heart valve; Z79.01 Long term (current) use of anticoagulants ==

== ENCOUNTER 2022-05-10 08:00 | Outpatient (CLI) | payer MEDICARE, OTHER | END 2022-05-10 23:59 | disposition home or self-care (01) | LOC: LAB.WCP 08:00 | PROVIDERS: ATTEND Physician Assistant | DX: I48.91 Unspecified atrial fibrillation (principal); Z79.01 Long term (current) use of anticoagulants; Z95.2 Presence of prosthetic heart valve ==

== ENCOUNTER 2022-05-17 08:00 | Outpatient (CLI) | payer MEDICARE, OTHER | END 2022-05-17 23:59 | disposition home or self-care (01) | LOC: LAB.WCP 08:00 | PROVIDERS: ATTEND Physician Assistant | DX: I48.91 Unspecified atrial fibrillation (principal); Z79.01 Long term (current) use of anticoagulants; Z95.2 Presence of prosthetic heart valve ==

== ENCOUNTER 2022-06-14 08:00 | Outpatient (CLI) | payer MEDICARE, OTHER | END 2022-06-14 08:01 | disposition home or self-care (01) | LOC: LAB.WCP 08:00 | PROVIDERS: ATTEND Physician Assistant | DX: Z79.01 Long term (current) use of anticoagulants (principal); I48.0 Paroxysmal atrial fibrillation; Z95.2 Presence of prosthetic heart valve ==

== ENCOUNTER 2022-06-21 08:00 | Outpatient (CLI) | payer MEDICARE, OTHER | END 2022-06-21 23:59 | disposition home or self-care (01) | LOC: LAB.WCP 08:00 | PROVIDERS: ATTEND Physician Assistant | DX: I48.91 Unspecified atrial fibrillation (principal); Z95.2 Presence of prosthetic heart valve; Z79.01 Long term (current) use of anticoagulants ==

== ENCOUNTER 2022-06-26 14:02 | Outpatient (CLI) | payer MEDICARE, OTHER ==
--- NOTE | 2022-06-26 18:36 | XRAY Report ---
PROCEDURE: Ankle 3 View BILAT INDICATIONS: OTHER INSTABILITY RT,GAIT IMBALANCE TECHNIQUE: 3 views of the ankle were acquired. COMPARISON: None FINDINGS: Bones: No fractures or dislocations. Ankle mortise is normally aligned. No suspicious bony lesions . Bilateral tibiotalar joint space narrowing, right greater than left. Plantar right calcaneal spur present. There are posterior and plantar calcaneal spurs present with left. Soft tissues: No tibiotalar joint effusion. Achilles tendon appears normal. Diffuse atheroscleroti c vascular calcification noted. IMPRESSION: Tibiotalar osteoarthritis, right greater than left Reviewed by: Stanley Bergman MD on 06/26/2022 5:34 PM AKST Approved by: Stanley Bergman MD on 06/26/2022 5:34 PM AKST Station ID: [id number]
--- NOTE | 2022-06-26 18:38 | XRAY Report ---
PROCEDURE: Foot 2 View BILAT INDICATIONS: OTHER INSTABILITY RT,GAIT IMBALANCE.BOTH WT BEARIN TECHNIQUE: 2 views of each foot were obtained COMPARISON: None FINDINGS: Bones: No fractures or dislocations. No suspicious bony lesions. Posterior right and posterior/mary ntar left calcaneal spurs noted. Soft tissues: No tibiotalar joint effusion. Achilles tendon appears normal. Diffuse to small vessel atherosclerosis present. IMPRESSION: Bilateral calcaneal spurs Reviewed by: Stanley Bergman MD on 06/26/2022 5:37 PM AK Approved by: Stanley Bergman MD on 06/26/2022 5:37 PM AK Station ID: [id number]
== END 2022-06-26 14:03 | disposition home or self-care (01) ==
LOC: DI 14:02
PROVIDERS: ATTEND Physician Assistant
DX: M19.071 Primary osteoarthritis, right ankle and foot (principal); M19.072 Primary osteoarthritis, left ankle and foot; M77.32 Calcaneal spur, left foot; M77.31 Calcaneal spur, right foot

== ENCOUNTER → 2022-07-05 | Outpatient (CLI) | payer MEDICARE, OTHER | LOC: LAB.WCP 08:00 | PROVIDERS: ATTEND Physician Assistant | DX: I48.91 Unspecified atrial fibrillation (principal); Z95.2 Presence of prosthetic heart valve; Z79.01 Long term (current) use of anticoagulants ==

== ENCOUNTER 2022-07-19 08:00 | Outpatient (CLI) | payer MEDICARE, OTHER | END 2022-07-19 23:59 | disposition home or self-care (01) | LOC: LAB.WCP 08:00 | PROVIDERS: ATTEND Physician Assistant | DX: I48.91 Unspecified atrial fibrillation (principal); Z95.2 Presence of prosthetic heart valve ==

== ENCOUNTER 2022-07-26 08:00 | Outpatient (CLI) | payer MEDICARE, OTHER | END 2022-07-26 23:59 | disposition home or self-care (01) | LOC: LAB.WCP 08:00 | PROVIDERS: ATTEND Physician Assistant | DX: I48.91 Unspecified atrial fibrillation (principal); Z79.01 Long term (current) use of anticoagulants; Z95.2 Presence of prosthetic heart valve ==

== ENCOUNTER 2022-08-02 08:00 | Outpatient (CLI) | payer MEDICARE, OTHER | END 2022-08-02 23:59 | disposition home or self-care (01) | LOC: LAB.WCP 08:00 | PROVIDERS: ATTEND Family Medicine | DX: I48.91 Unspecified atrial fibrillation (principal); Z79.01 Long term (current) use of anticoagulants; Z95.2 Presence of prosthetic heart valve ==

== ENCOUNTER 2022-08-09 08:00 | Outpatient (CLI) | payer MEDICARE, OTHER | END 2022-08-09 23:59 | disposition home or self-care (01) | LOC: LAB.WCP 08:00 | PROVIDERS: ATTEND Physician Assistant | DX: Z79.01 Long term (current) use of anticoagulants (principal); I48.91 Unspecified atrial fibrillation; Z95.2 Presence of prosthetic heart valve ==

== ENCOUNTER 2022-08-23 08:00 | Outpatient (CLI) | payer MEDICARE, OTHER | END 2022-08-23 23:59 | disposition home or self-care (01) | LOC: LAB.N 08:00 | PROVIDERS: ATTEND Physician Assistant | DX: I48.91 Unspecified atrial fibrillation (principal); Z79.01 Long term (current) use of anticoagulants ==

== ENCOUNTER 2022-09-16 08:00 | Outpatient (CLI) | payer MEDICARE, OTHER | END 2022-09-16 23:59 | disposition home or self-care (01) | LOC: LAB.N 08:00 | PROVIDERS: ATTEND Physician Assistant | DX: I48.91 Unspecified atrial fibrillation (principal); Z95.2 Presence of prosthetic heart valve; Z79.01 Long term (current) use of anticoagulants ==

== ENCOUNTER 2022-09-24 10:55 | Outpatient (CLI) | payer MEDICARE, OTHER ==
[2022-09-24 18:19] LABS: BASOPHILS % (AUTO) 0.5 %; EOSINOPHILS # (AUTO) 0.3 10^3/uL (0.0-0.7); EOSINOPHILS % (AUTO) 4.9 %; HGB - HEMOGLOBIN 14.5 g/dL (14.0-18.0); LYMPHOCYTES # (AUTO) 1.4 10^3/uL (1.5-3.5); LYMPHOCYTES % (AUTO) 22.7 %; MEAN CORPUSCULAR HEMOGLOBIN 31.1 pg (27.0-31.0); MEAN CORPUSCULAR VOLUME 94.4 fL (80.0-94.0); MEAN PLATELET VOLUME 11.7 fL (7.4-11.4); MONOCYTES # (AUTO) 0.7 10^3/uL (0.0-1.0); MONOCYTES % (AUTO) 11.8 %; NEUTROPHILS # (AUTO) 3.5 10^3/uL (1.5-6.6); NEUTROPHILS % (AUTO) 59.6 %; PLT - PLATELET COUNT 136 10^3/uL (130-450); RED BLOOD COUNT 4.66 10^6/uL (4.70-6.10); RED CELL DISTRIBUTION WIDTH 14.1 % (12.0-15.0); WHITE BLOOD COUNT 5.9 x10^3/uL (4.8-10.8)
[2022-09-24 18:39] LABS: ALBUMIN/GLOBULIN RATIO 1.3 (1.0-2.2); ALKALINE PHOSPHATASE 58 IU/L (42-121); ALT ALANINE AMINOTRANSFERASE 25 IU/L (10-60); AST ASPARTATE AMINOTRANSFERASE 38 IU/L (10-42); BILIRUBIN,TOTAL 1.2 mg/dL (0.2-1.0); BUN - BLOOD UREA NITROGEN 19 mg/dL (6-20); CALCIUM 9.2 mg/dL (8.5-10.3); CARBON DIOXIDE - CO2 28 mmol/L (21-32); CHLORIDE 105 mmol/L (101-111); CHOL/HDL RATIO 3.4 (<5.0); CHOLESTEROL 175 mg/dL; CREATININE 1.1 mg/dL (0.6-1.2); GFR - MDRD 64 (>89); GLUCOSE 111 mg/dL (70-100); HDL CHOLESTEROL 52 mg/dL; LDL CHOLESTEROL,CALCULATED 94 mg/dL; LDL/HDL RATIO 1.8 (<3.6); POTASSIUM 4.1 mmol/L (3.5-5.0); SODIUM 141 mmol/L (135-145); TOTAL PROTEIN 7.1 g/dL (6.7-8.2); TRIGLYCERIDES 145 mg/dL; VLDL CHOLESTEROL 29 mg/dL
[2022-09-24 18:46] LABS: THYROID STIMULATING HORMONE 3.6 uIU/mL (0.34-5.60)
[2022-09-24 20:52] LABS: ESTIMATED AVERAGE GLUCOSE 103 mg/dL (70-100); HEMOGLOBIN A1c% 5.2 % (4.27-6.07)
== END 2022-09-24 10:56 | disposition home or self-care (01) ==
LOC: LAB.N 10:55
PROVIDERS: ATTEND Physician Assistant
DX: I48.91 Unspecified atrial fibrillation (principal); E78.5 Hyperlipidemia, unspecified; R73.01 Impaired fasting glucose
CPT/HCPCS: 36415; 80053; 80061; 83036; 83721; 84443; 85025

== ENCOUNTER 2022-11-04 08:00 | Outpatient (CLI) | payer MEDICARE, OTHER | END 2022-11-04 23:59 | disposition home or self-care (01) | LOC: LAB.N 08:00 | PROVIDERS: ATTEND Physician Assistant | DX: I48.91 Unspecified atrial fibrillation (principal); Z79.01 Long term (current) use of anticoagulants; Z95.2 Presence of prosthetic heart valve ==

== ENCOUNTER 2023-01-20 08:00 | Outpatient (CLI) | payer MEDICARE, OTHER | END 2023-01-20 23:59 | disposition home or self-care (01) | LOC: LAB.N 08:00 | PROVIDERS: ATTEND Physician Assistant | DX: I48.91 Unspecified atrial fibrillation (principal); Z79.01 Long term (current) use of anticoagulants ==

== ENCOUNTER 2023-02-03 08:00 | Outpatient (CLI) | payer MEDICARE, OTHER | END 2023-02-03 23:59 | disposition home or self-care (01) | LOC: LAB.N 08:00 | PROVIDERS: ATTEND Internal Medicine | DX: Z79.01 Long term (current) use of anticoagulants (principal); I48.91 Unspecified atrial fibrillation; Z95.2 Presence of prosthetic heart valve ==

== ENCOUNTER 2023-03-27 16:42 | Outpatient (CLI) | payer MEDICARE, OTHER ==
--- NOTE | 2023-03-28 09:28 | XRAY Report ---
PROCEDURE: Foot 2 View LT INDICATIONS: FOOT PAIN LEFT TECHNIQUE: 2 views of the foot were acquired. COMPARISON: None. FINDINGS: Bones: No fractures or dislocations. No suspicious bony lesions. Calcaneal enthesophytes. Soft tissues: No suspicious soft tissue calcifications or masses. Vascular calcifications. IMPRESSION: No acute bony abnormality. Reviewed by: Luis Mosquera on 03/28/2023 9:27 AM PDT Approved by: Luis Mosquera on 03/28/2023 9:27 AM PDT Station ID: [id number]
== END 2023-03-27 16:43 | disposition home or self-care (01) ==
LOC: DI 16:42
PROVIDERS: ATTEND Physician Assistant
DX: M79.672 Pain in left foot (principal)

== ENCOUNTER 2023-04-09 08:00 | Outpatient (CLI) | payer MEDICARE, OTHER | END 2023-04-09 23:59 | disposition home or self-care (01) | LOC: LAB.WCP 08:00 | PROVIDERS: ATTEND Physician Assistant | DX: I48.91 Unspecified atrial fibrillation (principal); Z95.2 Presence of prosthetic heart valve; Z79.01 Long term (current) use of anticoagulants ==

== ENCOUNTER 2023-05-30 08:00 | Outpatient (CLI) | payer MEDICARE, OTHER | END 2023-05-30 08:01 | disposition home or self-care (01) | LOC: LAB.WCP 08:00 | PROVIDERS: ATTEND Internal Medicine | DX: I48.91 Unspecified atrial fibrillation (principal); Z95.2 Presence of prosthetic heart valve; Z79.01 Long term (current) use of anticoagulants ==

== ENCOUNTER → 2023-07-02 | Outpatient (CLI) | payer MEDICARE, OTHER | LOC: LAB.N 08:00 | PROVIDERS: ATTEND Physician Assistant | DX: I48.91 Unspecified atrial fibrillation (principal); Z95.2 Presence of prosthetic heart valve; Z79.01 Long term (current) use of anticoagulants ==

== ENCOUNTER 2023-07-15 17:53 | Emergency (ER) | payer MEDICARE, OTHER ==
[2023-07-15 18:26] LABS: BASOPHILS % (AUTO) 0.4 %; EOSINOPHILS # (AUTO) 0.2 10^3/uL (0.0-0.7); EOSINOPHILS % (AUTO) 2.8 %; HCT - HEMATOCRIT 44.4 % (42.0-52.0); HGB - HEMOGLOBIN 14.9 g/dL (14.0-18.0); LYMPHOCYTES # (AUTO) 1.1 10^3/uL (1.5-3.5); LYMPHOCYTES % (AUTO) 20.6 %; MEAN CORPUSCULAR HEMOGLOBIN 30.5 pg (27.0-31.0); MEAN CORPUSCULAR HGB CONC 33.6 g/dL (32.0-36.0); MEAN PLATELET VOLUME 10.7 fL (7.4-11.4); MONOCYTES # (AUTO) 0.6 10^3/uL (0.0-1.0); NEUTROPHILS # (AUTO) 3.4 10^3/uL (1.5-6.6); PLT - PLATELET COUNT 129 10^3/uL (130-450); RED BLOOD COUNT 4.88 10^6/uL (4.70-6.10); RED CELL DISTRIBUTION WIDTH 13.4 % (12.0-15.0); WHITE BLOOD COUNT 5.3 x10^3/uL (4.8-10.8)
--- NOTE | 2023-07-15 18:26 | ED Physician Documentation ---
History of Present Illness - Stated complaint Stated Complaint: FALL - Chief complaint Chief Complaint: Trauma Ch/Bk - History obtained from History obtained from: Patient - History of Present Illness Timing: Today Pain level max: 6 Pain level now: 6 - Additonal information Additional information: 83-year-old male Status post ground-level fall this morning at 3 AM, landed on the left side hitting a heater. Unsure if he struck his head or not. Takes warfarin. Patient complains of mild neck pain as well as left-sided rib pain, left flank pain, and lleft low back pain. Review of Systems Constitutional: denies: Fever, Chills Nose: denies: Rhinorrhea / runny nose, Congestion GI: denies: Vomiting, Diarrhea Skin: denies: Rash Neurologic: denies: Headache, LOC PD PAST MEDICAL HISTORY - Past Medical History Past Medical History: Yes Cardiovascular: Hypertension, Atrial fibrillation, Valve disorder Respiratory: None Neuro: None Endocrine/Autoimmune: None GI: GERD : Benign prostate hypertrophy HEENT: Chronic vision loss, Macular degeneration Psych: None Musculoskeletal: Chronic back pain Derm: None - Past Surgical History Past Surgical History: Yes General: Appendectomy Cardiovascular: Valve replacement - Present Medications Home Medications: Ambulatory Orders Medication Instructions Recorded Confirmed Amlodipine Besylate 5 mg PO BID 11/25/15 05/20/17 Atorvastatin [Lipitor] 80 mg PO DAILY 11/25/15 05/20/17 Warfarin [Coumadin] 5 mg PO SUTUWETHSA 11/25/15 05/20/17 atenoloL [Atenolol] 25 mg PO DAILY 11/25/15 05/20/17 hydroCHLOROthiazide 12.5 mg PO DAILY 11/25/15 05/20/17 [Hydrochlorothiazide] Aspirin [Aspirin EC] 81 mg PO DAILY 05/20/17 05/20/17 Pantoprazole [Protonix] 40 mg PO DAILY 05/20/17 05/20/17 Tamsulosin HCl [Flomax] 0.4 mg PO DAILY 05/20/17 05/20/17 Warfarin [Coumadin] 7.5 mg PO MOFR 05/20/17 05/20/17 Azithromycin 250 mg PO DAILY #4 tablet 05/22/17 Furosemide [Lasix] 20 mg PO DAILY #7 tablet 05/22/17 Potassium Chloride 10 meq PO DAILY #7 tablet.er 05/22/17 Oxycodone HCl/Acetaminophen 1 - 2 each PO Q6H PRN #14 tablet 07/30/18 [Percocet 5-325 mg Tablet] oxyCODONE [Roxicodone] 5 mg PO TID PRN #20 tablet 10/12/21 - Allergies Allergies/Adverse Reactions: Allergies Allergy/AdvReac Type Severity Reaction Status Date / Time morphine Allergy Hallucinati Verified 10/15/20 15:59 ons oxycodone Allergy Hallucinati Verified 07/15/23 18:07 ons Penicillins Allergy Unknown Verified 10/15/20 15:59 - Social History Does the pt smoke?: No Smoking Status: Never smoker Does the pt drink ETOH?: No Does the pt have substance abuse?: No - Immunizations Immunizations are current?: Yes - POLST Patient has POLST: No POLST Status: Full Code PD ED PE NORMAL - Vitals Vital signs reviewed: Yes - General General: Alert and oriented X 3, No acute distress - HEENT HEENT: PERRL, Moist mucous membranes - Neck Neck: Supple, no meningeal sign - Cardiac Cardiac: RRR, Strong equal pulses - Respiratory Respiratory: No respiratory distress, Clear bilaterally - Abdomen Abdomen: Soft, Non tender, Non distended - Back Back: No CVA TTP, No spinal TTP - Derm Derm: Warm and dry - Extremities Extremities: Normal ROM s pain, No edema - Neuro Neuro: Alert and oriented X 3, toxics program officer 2-12 intact, No motor deficit, No sensory deficit, Normal speech - Psych Psych: Normal mood, Normal affect Results - Vitals Vitals: Vital Signs - 24 hr 07/15/23 07/15/23 18:08 21:03 Temperature 36.7 C 36.0 C L Heart Rate 87 70 Respiratory 20 18 Rate Blood Pressure 174/87 H 165/84 H O2 Saturation 99 96 Oxygen O2 Source Room air - Labs Labs: Laboratory Tests 07/15/23 07/15/23 07/15/23 18:13 18:13 18:13 WBC 5.3 RBC 4.88 Hgb 14.9 Hct 44.4 MCV 91.0 MCH 30.5 MCHC 33.6 RDW 13.4 Plt Count 129 L MPV 10.7 Neut # (Auto) 3.4 Lymph # (Auto) 1.1 L Noble # (Auto) 0.6 Eos # (Auto) 0.2 Baso # (Auto) 0.0 Absolute Nucleated RBC 0.00 Nucleated RBC % 0.0 PT 30.0 H INR 3.0 H Sodium 139 Potassium 3.7 Chloride 102 Carbon Dioxide 26 Anion Gap 11.0 BUN 13 Creatinine 0.9 Estimated GFR (MDRD) 80 L Glucose 119 H Calcium 9.4 Total Bilirubin 2.0 H AST 27 ALT 21 Alkaline Phosphatase 77 Total Protein 7.4 Albumin 4.3 Globulin 3.1 Albumin/Globulin Ratio 1.4 - Rads (name of study) CT head Relevant Findings:: Final report received, See rad report CT c-spine Relevant Findings:: Final report received, See rad report CT chest Relevant Findings:: Final report received, See rad report CT abd.pel Relevant Findings:: Final report received, See rad report PD Medical Decision Making - ED course Complexity details: reviewed results, re-evaluated patient, considered differential, d/w patient ED course: 83-year-old male status post ground-level fall earlier this morning at home, approximately 16 hours prior to arrival. No acute findings on head CT, cervical spine CT, chest CT, abdomen pelvis CT. Appears to have some muscular spasm on the left flank. Pain improved with Tylenol. He did request a single dose of muscle relaxant and a single dose of tizanidine was given. Ambulating without difficulty. Moving all major joints without difficulty. No evidence of fractures of the knees, hips, shoulders, elbows. Patient declines any other medication for home. Lives at home with his family. Patient and family counseled regarding signs and symptoms for which I believe and urgent re- evaluation would be necessary. Patient with good understanding of and agreement to plan and is comfortable going home at this time This document was made in part using voice recognition software. While efforts are made to proofread this document, sound alike and grammatical errors may occur. Departure - Departure Disposition: 01 Home, Self Care Clinical Impression: Fall Qualifiers: Encounter type: initial encounter Qualified Code(s): W19.XXXA - Unspecified fall, initial encounter Contusion of flank Qualifiers: Encounter type: initial encounter Qualified Code(s): S30.1XXA - Contusion of abdominal wall, initial encounter Condition: Good Instructions: ED Mechanical Fall Follow-Up: Cyndi Sanchez PA-C [Primary Care Provider] - Comments: Your head CT, cervical spine CT, chest CT, abdomen and pelvis CT do not show any acute abnormalities today. Your laboratory testing does not show any acute abnormalities either. Your INR is 3.0 (Coumadin level). You can use Tylenol as needed for pain at home. Please follow-up with your doctor for further care. Please return if you worsen. Forms: PCP List Discharge Date/Time: 07/15/23 21:10
[2023-07-15 18:34] LABS: ALBUMIN 4.3 g/dL (3.2-5.5); ALBUMIN/GLOBULIN RATIO 1.4 (1.0-2.2); CALCIUM 9.4 mg/dL (8.5-10.3); CREATININE 0.9 mg/dL (0.6-1.3); POTASSIUM 3.7 mmol/L (3.5-4.5); TOTAL PROTEIN 7.4 g/dL (6.4-8.9)
[2023-07-15] MEDS ORDERED: iohexoL-300 100 ML VIAL ONE (19:12)
[2023-07-15] MEDS ORDERED: iohexoL-300 100 ML VIAL IVP ONE (19:40)
[2023-07-15] MEDS ORDERED: ACETAMINOPHEN 325 MG TABLET PO STA (19:41)
--- NOTE | 2023-07-15 19:55 | CT Report ---
PROCEDURE: Head WO INDICATIONS: pain s/p fall, pt on warfarin TECHNIQUE: Noncontrast 4.5 mm thick angled axial sections acquired from the foramen magnum to the vertex. For r adiation dose reduction, the following was used: automated exposure control, adjustment of mA and/or kV according to patient size. COMPARISON: 08/16/2020 FINDINGS: Image quality: Excellent. CSF spaces: Basal cisterns are patent. No extra-axial fluid collections. The ventricles are symmet nuzhat in size and shape. Brain: No intracranial bleeds or masses. There is cerebral volume loss for age, with resultant vent ricular and sulcal prominence. There are periventricular and deep white matter chronic small vessel ischemic changes. There is intracranial internal carotid artery atherosclerosis. Skull and face: Calvarium and visualized facial bones appear intact, without suspicious lesions. Sinuses: Visualized sinuses and mastoids are clear. IMPRESSION: 1. No CT evidence of acute intracranial abnormalities. No acute skull fracture. 2. Age-related volume loss and moderate white matter chronic small vessel ischemic changes not signif icantly changed from prior studies. Reviewed by: Carlos Wilson MD on 07/15/2023 7:54 PM PST Approved by: Carlos Wilson MD on 07/15/2023 7:54 PM PST Station ID: [id number]
--- NOTE | 2023-07-15 19:59 | CT Report ---
PROCEDURE: Abdomen/Pelvis W INDICATIONS: L flank pain s/p fall, pt on warfarin CONTRAST: 100mL Omni 300 TECHNIQUE: After the administration of intravenous contrast, a CT scan of the abdomen and pelvis was performed. Images were recorded and evaluated at appropriate window settings. Reformats: coronal and sagittal. F or radiation dose reduction, the following was used: automated exposure control, adjustment of mA and /or kV according to patient size. COMPARISON: None. FINDINGS: Image quality: Excellent. Lung bases and heart: Unremarkable. Liver: No solid mass. Moderate hepatic steatosis is seen. Gallbladder and biliary tree: No radiopaque stones or wall thickening. No biliary dilation. Spleen: No splenomegaly. Pancreas: No pancreatic ductal dilation. Adrenals: No adrenal nodule. Kidneys and ureters: No hydronephrosis. Tiny bilateral renal cortical cysts are seen. No renal cystic lesion which requires follow up. No solid mass. Bowel and peritoneum: No bowel distension. No pathologic free fluid. No peritoneal free air. Lymph nodes: No central or retroperitoneal adenopathy. Vessels: No infrarenal aortic aneurysm. Extensive atherosclerotic calcifications in abdominal aorta i s seen. Ectasia of infrarenal abdominal aorta measures up to 2.4 cm in diameter. PELVIS Reproductive organs: Enlarged prostate gland with mass effect on floor of urinary bladder is seen.. Bladder: No abnormal wall thickening, accounting for underdistention. Pelvic lymph nodes: No pelvic adenopathy by size criteria. Bones: No aggressive osseous abnormality. No acute vertebral body compression fracture. Degenerative disc disease throughout lower thoracic and lumbar spine is seen. Other: No significant ventral or inguinal hernia. IMPRESSION: 1. No acute solid organ injury is seen in abdomen or pelvis. No free fluid of free air. 2. No bowel obstruction or abnormal bowel wall thickening. 3. Moderate hepatic steatosis. 4. No acute compression fracture or spondylolisthesis in lower thoracic and lumbar spine. Degenerativ e disc disease throughout thoracic and lumbar spine. No gross acute pelvic fracture. Reviewed by: Carlos Wilson MD on 07/15/2023 7:58 PM PST Approved by: Carlos Wilson MD on 07/15/2023 7:58 PM PST Station ID: [id number]
--- NOTE | 2023-07-15 20:02 | CT Report ---
PROCEDURE: Chest W INDICATIONS: L back/chest pain s/p fall, pt on warfarin CONTRAST: 100mL Omni 300 TECHNIQUE: After the administration of intravenous contrast, a CT scan of the chest was performed. Images were recorded and evaluated at appropriate window settings. Reformats: axial MIP of the chest, coronal and sagittal. For radiation dose reduction, the following was used: automated exposure control, adjustme nt of mA and/or kV according to patient size. COMPARISON: None. FINDINGS: Image quality: Excellent. Lungs and pleura: Mild dependent atelectasis in posterior aspect of bilateral lower lobes are seen. N o consolidation. No pleural effusions. No pneumothorax. No suspicious pulmonary nodules which requir e follow up. Mediastinum: Heart size is enlarged. No pericardial effusion. No large vessel abnormality. No mediast inal adenopathy by size criteria. Moderate atherosclerotic calcifications are seen in thoracic aorta . Three-vessel coronary artery calcifications are seen. Chest wall and lower neck: Thyroid is unremarkable. No axillary or supraclavicular adenopathy by size . Median sternotomy wires are seen. Bones: No aggressive osseous abnormality. Upper Abdomen: Please correlate with CT of abdomen and pelvis findings.. IMPRESSION: 1. No gross acute rib fracture is seen. No compression fracture or spondylolisthesis in thoracic spin e. Degenerative disc disease throughout thoracic spine. 2. Bibasilar dependent atelectasis. Bilateral lungs are otherwise clear. 3. Cardiomegaly, no pericardial effusion. Moderate atherosclerotic disease. Prior median sternotomy. No mediastinal hematoma or lymphadenopathy. Reviewed by: Carlos Wilson MD on 07/15/2023 8:00 PM PST Approved by: Carlos Wilson MD on 07/15/2023 8:00 PM PST Station ID: [id number]
--- NOTE | 2023-07-15 20:03 | CT Report ---
PROCEDURE: Cervical Spine WO INDICATIONS: pain s/p fall, pt on warfarin TECHNIQUE: Noncontrast 3 mm thick sections acquired from the skull base to the T4 level. Sagittal and coronal r eformats were then constructed. For radiation dose reduction, the following was used: automated exp osure control, adjustment of mA and/or kV according to patient size. COMPARISON: None. FINDINGS: Image quality: Excellent. Bones: No fractures or dislocations. Degenerative endplate changes, loss of disc height and bilater al facet hypertrophic changes are noted throughout cervical spine causing mild central canal stenosis and bilateral neural foraminal narrowing. Visualized superior ribs are intact. Soft tissues: Prevertebral soft tissues are normal in thickness. No paravertebral hematomas. No ap ical pneumothoraces. IMPRESSION: No acute, displaced fracture or traumatic subluxation. Degenerative disc disease throughout cervical spine as above. Reviewed by: Carlos Wilson MD on 07/15/2023 8:01 PM PST Approved by: Carlos Wilson MD on 07/15/2023 8:01 PM PST Station ID: [id number]
[2023-07-15] MEDS ORDERED: tiZANidine 4 MG TABLET PO STA (20:42)
[2023-07-15 21:08] VITALS: BP 165/84; O2SAT 96
== END 2023-07-15 21:10 | disposition home or self-care (01) ==
LOC: ED 17:53
DX: S30.1XXA Contusion of abdominal wall, initial encounter (principal); W19.XXXA Unspecified fall, initial encounter; I10 Essential (primary) hypertension; I48.91 Unspecified atrial fibrillation; Z79.01 Long term (current) use of anticoagulants
CPT/HCPCS: 36415; 70450; 71260; 72125; 74177; 80053; 85025; 85610; 99284; A9270; Q9967

== ENCOUNTER 2023-08-08 08:00 | Outpatient (CLI) | payer MEDICARE, OTHER | END 2023-08-08 08:01 | disposition home or self-care (01) | LOC: LAB.WCP 08:00 | PROVIDERS: ATTEND Physician Assistant | DX: I48.91 Unspecified atrial fibrillation (principal); Z79.01 Long term (current) use of anticoagulants; Z95.2 Presence of prosthetic heart valve ==

== ENCOUNTER 2023-08-13 08:00 | Outpatient (CLI) | payer MEDICARE, OTHER | END 2023-08-13 08:01 | disposition home or self-care (01) | LOC: LAB.WCP 08:00 | PROVIDERS: ATTEND Physician Assistant | DX: I48.91 Unspecified atrial fibrillation (principal); Z95.2 Presence of prosthetic heart valve; Z79.01 Long term (current) use of anticoagulants ==

== ENCOUNTER 2023-08-20 08:00 | Outpatient (CLI) | payer MEDICARE, OTHER | END 2023-08-20 08:01 | disposition home or self-care (01) | LOC: LAB.N 08:00 | PROVIDERS: ATTEND Physician Assistant | DX: I48.91 Unspecified atrial fibrillation (principal); Z95.2 Presence of prosthetic heart valve; Z79.01 Long term (current) use of anticoagulants ==

== ENCOUNTER 2023-09-03 08:00 | Outpatient (CLI) | payer MEDICARE, OTHER | END 2023-09-03 08:01 | disposition home or self-care (01) | LOC: LAB.N 08:00 | PROVIDERS: ATTEND Physician Assistant | DX: I48.91 Unspecified atrial fibrillation (principal); Z79.01 Long term (current) use of anticoagulants; Z95.2 Presence of prosthetic heart valve ==

== ENCOUNTER 2023-09-17 08:00 | Outpatient (CLI) | payer MEDICARE, OTHER | END 2023-09-17 08:01 | disposition home or self-care (01) | LOC: LAB.WCP 08:00 | PROVIDERS: ATTEND Physician Assistant | DX: I48.91 Unspecified atrial fibrillation (principal); Z95.2 Presence of prosthetic heart valve; Z79.01 Long term (current) use of anticoagulants ==

== ENCOUNTER 2023-09-22 17:13 | Outpatient (CLI) | payer MEDICARE, OTHER | END 2023-09-22 23:59 | disposition critical access hospital (66) | LOC: EMS 17:13 | DX: S79.911A Unspecified injury of right hip, initial encounter (principal); W18.39XA Other fall on same level, initial encounter; Y92.009 Unspecified place in unspecified non-institutional (private) residence as the place of occurrence of the external cause; Z79.01 Long term (current) use of anticoagulants | CPT/HCPCS: A0425; A0429 ==

== ENCOUNTER 2023-09-22 17:30 | Inpatient (IN) | payer MEDICARE, OTHER ==
--- NOTE | 2023-09-22 17:46 | ED Physician Documentation ---
History of Present Illness - Stated complaint Stated Complaint: GLF/RT HIP PX - Chief complaint Chief Complaint: Trauma Ext - History obtained from History obtained from: Patient, EMS - History of Present Illness Timing: Today Pain level max: 7 Pain level now: 7 - Additonal information Additional information: Patient is an 83-year-old male who was at home today when he tripped over his pant leg, fell injuring the right hip. He is on warfarin for an aortic valve replacement done in 2001. He is complaining of pain to the right hip, worse with movement, better with rest. He states he cannot take narcotics because they cause hallucinations. No numbness or tingling. No swelling. Review of Systems Constitutional: denies: Fever, Chills Respiratory: denies: Cough GI: denies: Nausea, Vomiting, Diarrhea Skin: denies: Rash Musculoskeletal: denies: Neck pain, Back pain Neurologic: denies: Confused, Headache, LOC PD PAST MEDICAL HISTORY - Past Medical History Past Medical History: Yes Cardiovascular: Hypertension, High cholesterol, Atrial fibrillation, Valve disorder Respiratory: None Neuro: None Endocrine/Autoimmune: None GI: GERD : Benign prostate hypertrophy HEENT: Chronic vision loss, Macular degeneration Psych: None Musculoskeletal: Chronic back pain Derm: None - Past Surgical History Past Surgical History: Yes General: Appendectomy Cardiovascular: Valve replacement - Present Medications Home Medications: Ambulatory Orders Medication Instructions Recorded Confirmed Amlodipine Besylate 5 mg PO BID 11/25/15 09/22/23 Warfarin [Coumadin] 5 mg PO SUTUWETHSA 11/25/15 09/22/23 atenoloL [Atenolol] 25 mg PO DAILY 11/25/15 05/20/17 hydroCHLOROthiazide 12.5 mg PO DAILY 11/25/15 05/20/17 [Hydrochlorothiazide] Aspirin [Aspirin EC] 81 mg PO DAILY 05/20/17 05/20/17 Pantoprazole [Protonix] 40 mg PO DAILY 05/20/17 09/22/23 Tamsulosin HCl [Flomax] 0.4 mg PO DAILY 05/20/17 09/22/23 Warfarin [Coumadin] 7.5 mg PO MOFR 05/20/17 09/22/23 Furosemide [Lasix] 20 mg PO DAILY #7 tablet 05/22/17 09/22/23 Potassium Chloride 10 meq PO DAILY #7 tablet.er 05/22/17 09/22/23 Atorvastatin Calcium [Lipitor] 80 mg PO DAILY 09/22/23 09/22/23 Isosorbide Mononitrate [Isosorbide 60 mg PO DAILY 09/22/23 09/22/23 Mononitrate ER] - Allergies Allergies/Adverse Reactions: Allergies Allergy/AdvReac Type Severity Reaction Status Date / Time morphine Allergy Hallucinati Verified 09/22/23 17:41 ons oxycodone Allergy Hallucinati Verified 09/22/23 17:41 ons Penicillins Allergy Unknown Verified 09/22/23 17:41 - Social History Does the pt smoke?: No Smoking Status: Never smoker Does the pt drink ETOH?: Yes ETOH Use: Wine Does the pt have substance abuse?: No - Immunizations Immunizations are current?: Yes - POLST Patient has POLST: No POLST Status: Full Code PD ED PE NORMAL - Vitals Vital signs reviewed: Yes - General General: Alert and oriented X 3, No acute distress, Well developed/nourished - HEENT HEENT: Atraumatic, PERRL, Moist mucous membranes - Neck Neck: Supple, no meningeal sign, No bony TTP - Cardiac Cardiac: RRR, Strong equal pulses - Respiratory Respiratory: No respiratory distress, Clear bilaterally - Abdomen Abdomen: Soft, Non tender, Non distended - Back Back: No CVA TTP, No spinal TTP - Derm Derm: Warm and dry - Extremities Extremities: Other (The right leg is shortened and externally rotated. Tender palpation over the right greater trochanter. Limited range of motion of the right hip secondary to pain. Otherwise normal examination of the extremities.) - Neuro Neuro: Alert and oriented X 3, electronic industrial controls mechanic 2-12 intact, No motor deficit, No sensory deficit, Normal speech Eye Opening: Spontaneous Motor: Obeys Commands Verbal: Oriented GCS Score: 15 - Psych Psych: Normal mood, Normal affect Results - Vitals Vitals: Vital Signs - 24 hr 09/22/23 09/22/23 17:41 18:47 Temperature 36.3 C L Heart Rate 74 86 Respiratory 18 12 Rate Blood Pressure 174/92 H 167/91 H O2 Saturation 99 98 Oxygen O2 Source Room air - Labs Labs: Laboratory Tests 09/22/23 09/22/23 09/22/23 17:44 17:44 17:44 WBC 5.2 RBC 5.11 Hgb 15.5 Hct 47.2 MCV 92.4 MCH 30.3 MCHC 32.8 RDW 14.2 Plt Count 135 MPV 10.4 Neut # (Auto) 3.4 Lymph # (Auto) 1.1 L [place] # (Auto) 0.5 Eos # (Auto) 0.2 Baso # (Auto) 0.0 Absolute Nucleated RBC 0.00 Nucleated RBC % 0.0 PT 26.4 H INR 2.6 H Sodium 142 Potassium 3.7 Chloride 106 Carbon Dioxide 26 Anion Gap 10.0 BUN 13 Creatinine 1.1 Estimated GFR (MDRD) 64 L Glucose 115 H Calcium 9.4 Total Bilirubin 1.5 H AST 25 ALT 17 Alkaline Phosphatase 106 Total Protein 6.9 Albumin 4.3 Globulin 2.6 Albumin/Globulin Ratio 1.7 Lipase < 10 L - Rads (name of study) Right hip x-ray Relevant Findings:: Final report received, See rad report Head CT Relevant Findings:: Final report received, See rad report Procedures - Regional nerve block - Minor Nerve block site: Other (fascia iliaca) Right / left: Right Nerve block anesthesia: Other (Ropivicaine 0.5% 10ml) Nerve block aftercare: Excellent anesthesia, Patient tolerated well, No complications PD Medical Decision Making - ED course Complexity details: reviewed results, re-evaluated patient, considered differential, d/w patient ED course: No acute findings on head CT. X-ray of the right hip reveals a comminuted intertrochanteric proximal femoral fracture. I discussed the case with Dr. Kim, orthopedics. Recommends admission to the hospitalist service, plan for the OR tomorrow at about 1 PM. Will likely need his warfarin reversed as well. Discussed the case with the nighttime hospitalist, who accepts for admission. The patient was given IV Ofirmev as well as a fascia iliaca block with ropivacaine. Patient has adequate pain control with this. We will try to avoid narcotics if at all possible. This document was made in part using voice recognition software. While efforts are made to proofread this document, sound alike and grammatical errors may occur. Departure - Departure Disposition: [facility] DC/Xfer Clinical Impression: Hip fracture Qualifiers: Encounter type: initial encounter Fracture type: closed Laterality: right Qualified Code(s): S72.001A - Fracture of unspecified part of neck of right femur, initial encounter for closed fracture Condition: Stable Discharge Date/Time: 09/22/23 21:14
[2023-09-22 17:51] LABS: BASOPHILS % (AUTO) 0.2 %; EOSINOPHILS # (AUTO) 0.2 10^3/uL (0.0-0.7); EOSINOPHILS % (AUTO) 3.6 %; HCT - HEMATOCRIT 47.2 % (42.0-52.0); HGB - HEMOGLOBIN 15.5 g/dL (14.0-18.0); LYMPHOCYTES # (AUTO) 1.1 10^3/uL (1.5-3.5); LYMPHOCYTES % (AUTO) 21.4 %; MEAN CORPUSCULAR HEMOGLOBIN 30.3 pg (27.0-31.0); MEAN CORPUSCULAR HGB CONC 32.8 g/dL (32.0-36.0); MEAN CORPUSCULAR VOLUME 92.4 fL (80.0-94.0); MEAN PLATELET VOLUME 10.4 fL (7.4-11.4); MONOCYTES # (AUTO) 0.5 10^3/uL (0.0-1.0); NEUTROPHILS # (AUTO) 3.4 10^3/uL (1.5-6.6); NEUTROPHILS % (AUTO) 65.4 %; PLT - PLATELET COUNT 135 10^3/uL (130-450); RED BLOOD COUNT 5.11 10^6/uL (4.70-6.10); RED CELL DISTRIBUTION WIDTH 14.2 % (12.0-15.0); WHITE BLOOD COUNT 5.2 x10^3/uL (4.8-10.8)
[2023-09-22 17:55] LABS: INR 2.6 (0.8-1.2); PT - PROTHROMBIN TIME 26.4 secs (9.9-12.6)
[2023-09-22] MEDS: ACETAMINOPHEN 1,000 MG/100 ML 1,000 MG/100 ML BAG IV ONE (17:59)
[2023-09-22 18:05] LABS: ALBUMIN 4.3 g/dL (3.2-5.5); ALBUMIN/GLOBULIN RATIO 1.7 (1.0-2.2); ALKALINE PHOSPHATASE 106 IU/L (42-121); ALT ALANINE AMINOTRANSFERASE 17 IU/L (10-60); AST ASPARTATE AMINOTRANSFERASE 25 IU/L (10-42); BILIRUBIN,TOTAL 1.5 mg/dL (0.2-1.0); BUN - BLOOD UREA NITROGEN 13 mg/dL (6-20); CALCIUM 9.4 mg/dL (8.5-10.3); CARBON DIOXIDE - CO2 26 mmol/L (21-32); CHLORIDE 106 mmol/L (101-111); CREATININE 1.1 mg/dL (0.6-1.3); GFR - MDRD 64 (>89); GLUCOSE 115 mg/dL (74-104); POTASSIUM 3.7 mmol/L (3.5-4.5); SODIUM 142 mmol/L (135-145); TOTAL PROTEIN 6.9 g/dL (6.4-8.9)
[2023-09-22 18:08] LABS: LIPASE < 10 U/L (11-82)
[2023-09-22] MEDS: ROPIVACAINE 0.5% PF 20 ML VIAL SUBQ STA (18:29)
--- NOTE | 2023-09-22 19:08 | CT Report ---
PROCEDURE: Head WO INDICATIONS: fall, head injury, pt takes warfarin TECHNIQUE: Noncontrast 4.5 mm thick angled axial sections acquired from the foramen magnum to the vertex. For r adiation dose reduction, the following was used: automated exposure control, adjustment of mA and/or kV according to patient size. COMPARISON: Head CT, 07/15/2023. FINDINGS: Image quality: Excellent. CSF spaces: Basal cisterns are patent. No extra-axial fluid collections. Ventricles are normal in size and shape. Brain: No midline shift. No intracranial masses or hemorrhage. Moderate cerebral volume loss and pe riventricular white matter chronic small vessel ischemic changes. Good-white matter interface is nor mal. Skull and face: Calvarium and visualized facial bones are intact, without suspicious lesions. Sinuses: Visualized sinuses and mastoids are clear. IMPRESSION: No acute intracranial pathology. Reviewed by: Indra Lei MD on 09/22/2023 7:06 PM PDT Approved by: Indra Lei MD on 09/22/2023 7:06 PM PDT Station ID: [id number]
--- NOTE | 2023-09-22 19:09 | XRAY Report ---
PROCEDURE: Hip w/Pelvis 2-3V RT INDICATIONS: fall, R hip pain TECHNIQUE: 3 views of the hip were acquired. COMPARISON: None. FINDINGS: Bones: Comminuted intertrochanteric fracture with mild displacement. No dislocation. No suspicious bony lesions. Soft tissues: No suspicious soft tissue calcifications or masses. IMPRESSION: Comminuted intertrochanteric proximal femoral fracture. Reviewed by: Indra Lei MD on 09/22/2023 7:08 PM PDT Approved by: Indra Lei MD on 09/22/2023 7:08 PM PDT Station ID: [id number]
--- NOTE | 2023-09-22 19:29 | HISTORY & PHYSICAL EXAMINATION ---
Chief Complaint - Chief Complaint Chief Complaint: R hip pain History of Present Illness - Admitted From Admitted From:: ER - History Obtained From Records Reviewed: Yes History obtained from: Pt, staff, chart Exam Limitations: Virtual exam - History of Present Illness HPI Comment/Other: H&P was conducted via video remotely, using Access Cart. [place] is in [place] Physician [place]. Pt's son is at bedside. 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 Pt felt fine prior to fall. No dizziness/CP/SOB. He tripped over his pant leg and fell onto his R leg, then had R hip pain--worse with mvmt, better with rest. No tingling/numbness. Pain better controlled now after nerve block in the ER. No cough/F/C/abdo pain. No swelling. Pt does not tolerate narcotics; they cause him to hallucinate. In the ER, Mg 1.5, INR 2.6 R Hip Xray: comminuted Intertrochanteric proximal femoral fracture CT Head: NAD ER Physician D/W Orthopedic Surgeon, who plans to consult and take pt to OR around 1P tomorrow. Pt was given Ofirmev and a local nerve block with Ropiviacaine in the ER. History - Past Medical History Cardiovascular: reports: Hypertension, High cholesterol, Atrial fibrillation, Va lve disorder Respiratory: reports: None Neuro: reports: None Endocrine/Autoimmune: reports: None GI: reports: GERD : reports: Benign prostate hypertrophy HEENT: reports: Chronic vision loss, Macular degeneration Psych: reports: None Musculoskeletal: reports: Chronic back pain Derm: reports: None MRSA Hx?: No - Past Surgical History General: reports: Appendectomy Cardiovascular: reports: Valve replacement - Substance History Use: Uses substance without health or social issues: NONE - POLST Patient has POLST: No POLST Status: Full Code Meds/Allgy - Home Medications Home Medications: Ambulatory Orders Medication Instructions Recorded Confirmed Amlodipine Besylate 5 mg PO BID 11/25/15 09/22/23 Warfarin [Coumadin] 5 mg PO SUTUWETHSA 11/25/15 09/22/23 atenoloL [Atenolol] 25 mg PO DAILY 11/25/15 05/20/17 hydroCHLOROthiazide 12.5 mg PO DAILY 11/25/15 05/20/17 [Hydrochlorothiazide] Aspirin [Aspirin EC] 81 mg PO DAILY 05/20/17 05/20/17 Pantoprazole [Protonix] 40 mg PO DAILY 05/20/17 09/22/23 Tamsulosin HCl [Flomax] 0.4 mg PO DAILY 05/20/17 09/22/23 Warfarin [Coumadin] 7.5 mg PO MOFR 05/20/17 09/22/23 Furosemide [Lasix] 20 mg PO DAILY #7 tablet 05/22/17 09/22/23 Potassium Chloride 10 meq PO DAILY #7 tablet.er 05/22/17 09/22/23 Atorvastatin Calcium [Lipitor] 80 mg PO DAILY 09/22/23 09/22/23 Isosorbide Mononitrate [Isosorbide 60 mg PO DAILY 09/22/23 09/22/23 Mononitrate ER] - Allergies Allergies/Adverse Reactions: Allergies Allergy/AdvReac Type Severity Reaction Status Date / Time morphine Allergy Hallucinati Verified 09/22/23 17:41 ons oxycodone Allergy Hallucinati Verified 09/22/23 17:41 ons Penicillins Allergy Unknown Verified 09/22/23 17:41 Exam - Vital Signs Reviewed Vital Signs: Yes Vital Signs: Vital Signs x48h Temp Pulse Resp BP Pulse Ox 09/22/23 18:47 86 12 167/91 H 98 09/22/23 17:41 36.3 C L 74 18 174/92 H 99 - Physical Exam General Appearance: positive: No acute distress, Alert Eyes Bilateral: positive: EOMI, No scleral icterus Respiratory: positive: Other (Access cart stethoscope not working; per ER Provider: CTA B/L) Cardiovascular: positive: Other (Access cart stethoscope not working; per ER Provider: RRR, no murmurs) Abdomen: positive: Other (per ER Provider: non-distended, NT, Soft) Extremities: positive: Other (per ER Provider: The right leg is shortened and externally rotated. Tender palpation over the right greater trochanter. Limited range of motion of the right hip secondary to pain. Otherwise normal examination of the extremities.) Neurologic/Psychiatric: positive: Oriented x3, Mood/affect nml, Other (per ER Provider: NFD) Conclusion/Plan - Problem List (1) Hip fracture Conclusion/Plan: R Femoral Fracture R Hip pain s/p Fall -R Hip Xray: comminuted Intertrochanteric proximal femoral fracture -CT Head: NAD -ER Physician D/W Orthopedic Surgeon, who plans to consult and take pt to OR around 1P tomorrow. -Pt was given Ofirmev and a local nerve block with Ropiviacaine in the ER. -admit to Med Surg -NPO p MN -reverse INR prior to surgery -pain control with Tylenol and s/p local nerve block -mgmt per Orthopedic Surgeon AFib s/p AVR 2001-on Coumadin HTN HLD -INR 2.6 -Vit K 5 mg IV x 1 now, then recheck INR in 6 hrs -CXR, EKG ordered -continue home medications: Atenolol, Amlodipine, statin, ImDur -hold home medications: Lasix Low Magnesium -Mg 1.5 -supplement now and PRN GERD -continue home medications: PPI BPH -continue home medications: Flomax VTE Prophylaxis: SCDs only d/t preop Code Status: D/W pt; he is Full Code ~Aleida Gallardo MD Hospitalist Qualifiers: Encounter type: initial encounter Fracture type: closed Laterality: right Qualified Code(s): S72.001A - Fracture of unspecified part of neck of right femur, initial encounter for closed fracture - Lab Results Lab results reviewed: Yes Fish Bones: 09/22/23 17:44 09/22/23 17:44
[2023-09-22] MEDS ORDERED: ONDANSETRON ODT 4 MG TABLET TL PRN (19:38)
[2023-09-22] MEDS ORDERED: SODIUM CHLORIDE FLUSH 0.9% 10 ML SYRINGE IVP PRN (19:38)
[2023-09-22] MEDS ORDERED: ONDANSETRON 4 MG/2 ML VIAL IVP PRN (19:38)
[2023-09-22] MEDS ORDERED: PHYTONADIONE 10 MG/ML AMP ONE (20:07)
[2023-09-22] MEDS: PHYTONADIONE INJ (ADULT) 5 MG in SODIUM CHLORIDE 0.9% 50 ML IV ONE (20:11)
--- NOTE | 2023-09-22 22:35 | CONSULTATION NOTE ---
Referring Provider Name of Referring Provider:: Annabella Patel MD Consult Date: 09/22/23 History of Present Illness - History of Present Illness HPI Comment/Other: Rambo Cifuentes is a 83-year-old male that apparently lost balance when he was trying to put his pants on on the afternoon of his admission to the hospital. He fell onto his right side. Noted immediate pain in his hip area was unable to stand or weight-bear. Was taken by ambulance to [facility]. His clinical examination and x-rays revealed his right hip fracture. Patient denied any loss of consciousness nausea vomiting or other injuries. No distal weakness or numbness noted in the extremity. No prior hip fractures. History - Past Medical History Cardiovascular: reports: Hypertension, High cholesterol, Atrial fibrillation, Valve disorder Respiratory: reports: None Neuro: reports: None Endocrine/Autoimmune: reports: None GI: reports: GERD : reports: Benign prostate hypertrophy HEENT: reports: Chronic vision loss, Macular degeneration Psych: reports: None Musculoskeletal: reports: Chronic back pain Derm: reports: None MRSA Hx?: No - Past Surgical History General: reports: Appendectomy Cardiovascular: reports: Valve replacement - Substance History Use: Uses substance without health or social issues: NONE - POLST Patient has POLST: No POLST Status: Full Code Meds/Allgy - Home Medications Home Medications: Ambulatory Orders Medication Instructions Recorded Confirmed Amlodipine Besylate 5 mg PO BID 11/25/15 09/22/23 Warfarin [Coumadin] 5 mg PO SUTUWETHSA 11/25/15 09/22/23 atenoloL [Atenolol] 25 mg PO DAILY 11/25/15 05/20/17 hydroCHLOROthiazide 12.5 mg PO DAILY 11/25/15 05/20/17 [Hydrochlorothiazide] Aspirin [Aspirin EC] 81 mg PO DAILY 05/20/17 05/20/17 Pantoprazole [Protonix] 40 mg PO DAILY 05/20/17 09/22/23 Tamsulosin HCl [Flomax] 0.4 mg PO DAILY 05/20/17 09/22/23 Warfarin [Coumadin] 7.5 mg PO MOFR 05/20/17 09/22/23 Furosemide [Lasix] 20 mg PO DAILY #7 tablet 05/22/17 09/22/23 Potassium Chloride 10 meq PO DAILY #7 tablet.er 05/22/17 09/22/23 Atorvastatin Calcium [Lipitor] 80 mg PO DAILY 09/22/23 09/22/23 Isosorbide Mononitrate [Isosorbide 60 mg PO DAILY 09/22/23 09/22/23 Mononitrate ER] - Allergies Allergies/Adverse Reactions: Allergies Allergy/AdvReac Type Severity Reaction Status Date / Time morphine Allergy Hallucinati Verified 09/22/23 17:41 ons oxycodone Allergy Hallucinati Verified 09/22/23 17:41 ons Penicillins Allergy Unknown Verified 09/22/23 17:41 Exam - Vital Signs Vital Signs: Vital Signs x48h Temp Pulse Pulse Resp BP BP Pulse Ox 09/22/23 21:11 36.7 C 80 18 163/87 H 97 09/22/23 18:47 86 12 167/91 H 98 09/22/23 17:41 36.3 C L 74 18 174/92 H 99 - Physical Exam Comments/Other: Examination: Patient holds his right lower extremity in an external rotated position. Pin removed mildly shortened as well. Moves his toe toes on command. Sensation is intact in his foot. Good capillary filling noted. Had tenderness about the lateral aspect of his right hip. Pain with hip range of motion noted. X-rays: Films taken in the emergency room showed a minimally shortened intertrochanteric hip fracture Conclusion and Plan - Lab Results Laboratory Results 09/22/23 17:44: Sodium 142, Potassium 3.7, Chloride 106, Carbon Dioxide 26, Anion Gap 10.0, BUN 13, Creatinine 1.1, Estimated GFR (MDRD) 64 L, Glucose 115 H, Calcium 9.4, Total Bilirubin 1.5 H, AST 25, ALT 17, Alkaline Phosphatase 106, Total Protein 6.9, Albumin 4.3, Globulin 2.6, Albumin/Globulin Ratio 1.7, Lipase < 10 L 09/22/23 17:44: PT 26.4 H, INR 2.6 H 09/22/23 17:44: WBC 5.2, RBC 5.11, Hgb 15.5, Hct 47.2, MCV 92.4, MCH 30.3, MCHC 32.8, RDW 14.2, Plt Count 135, MPV 10.4, Neut # (Auto) 3.4, Lymph # (Auto) 1.1 L, [place] # (Auto) 0.5, Eos # (Auto) 0.2, Baso # (Auto) 0.0, Absolute Nucleated RBC 0.00, Nucleated RBC % 0.0 - Diagnosis Diagnosis: Right intertrochanteric hip fracture - Plan Plan: Plan: Since the patient is anticoagulated for atrial fibrillation with warfarin we will need to have the warfarin reversed before we do his surgery. Current INR was 2.6. Patient be administered vitamin K and attempt to reverse the warfarin before her scheduled surgery Friday at approximately 1 PM. The risk and benefits of surgery were explained to the patient. Some of the potential complications include wound infection blood loss blood clots malunion or nonunion of his fracture. He appears understands the risk and benefits and wishes to proceed with surgery. All his questions were answered. Leg was marked. Consent signed.
[2023-09-22] MEDS: MAGNESIUM SULFATE 2 GRAM 2 GM/50 ML BAG IV ONE (23:03)
[2023-09-22] MEDS: ATORVASTATIN 40 MG TABLET PO SCH (23:03)
[2023-09-22] MEDS: amLODIPine 5 MG TABLET PO SCH (23:04)
[2023-09-22] MEDS: ACETAMINOPHEN 325 MG TABLET PO PRN (23:04)
[2023-09-22] MEDS: SODIUM CHLORIDE FLUSH 0.9% 10 ML SYRINGE IVP SCH (23:06)
[2023-09-23] MEDS: KETOROLAC 15 MG/ML VIAL IVP PRN ×2 (00:27→18:56)
[2023-09-23] MEDS: LACTATED RINGERS 1,000 ML IV SCH ×2 (00:27→08:38)
[2023-09-23 02:22] LABS: INR 1.7 (0.8-1.2)
[2023-09-23 06:00] LABS: BASOPHILS % (AUTO) 0.3 %; EOSINOPHILS % (AUTO) 0.3 %; HCT - HEMATOCRIT 38.4 % (42.0-52.0); HGB - HEMOGLOBIN 12.9 g/dL (14.0-18.0); LYMPHOCYTES # (AUTO) 0.9 10^3/uL (1.5-3.5); LYMPHOCYTES % (AUTO) 11.9 %; MEAN CORPUSCULAR HEMOGLOBIN 30.9 pg (27.0-31.0); MEAN CORPUSCULAR HGB CONC 33.6 g/dL (32.0-36.0); MEAN CORPUSCULAR VOLUME 91.9 fL (80.0-94.0); MEAN PLATELET VOLUME 10.9 fL (7.4-11.4); NEUTROPHILS # (AUTO) 5.5 10^3/uL (1.5-6.6); NEUTROPHILS % (AUTO) 74.2 %; PLT - PLATELET COUNT 123 10^3/uL (130-450); RED BLOOD COUNT 4.18 10^6/uL (4.70-6.10); WHITE BLOOD COUNT 7.5 x10^3/uL (4.8-10.8)
[2023-09-23 06:07] LABS: INR 1.6 (0.8-1.2); PT - PROTHROMBIN TIME 17.2 secs (9.9-12.6)
[2023-09-23 06:14] LABS: PARTIAL THROMBOPLASTIN TIME 32.2 secs (24.9-33.3)
[2023-09-23 06:19] LABS: CALCIUM 9.2 mg/dL (8.5-10.3); CREATININE 0.7 mg/dL (0.6-1.3); POTASSIUM 3.5 mmol/L (3.5-4.5)
[2023-09-23] MEDS ORDERED: HYDROmorphone 0.5 MG/0.5 ML SYRINGE IVP PRN (07:01)
[2023-09-23] MEDS: PHYTONADIONE INJ (ADULT) 5 MG in SODIUM CHLORIDE 0.9% 50 ML IV ONE (08:30)
[2023-09-23] MEDS ORDERED: PHYTONADIONE INJ (ADULT) 5 MG in SODIUM CHLORIDE 0.9% 50 ML IV ONE (08:35)
[2023-09-23] MEDS: atenoloL 25 MG TABLET PO SCH (08:37)
[2023-09-23] MEDS: PANTOPRAZOLE 40 MG TABLET PO SCH (08:37)
[2023-09-23] MEDS: ISOSORBIDE MONONITRATE ER 30 MG TABLET PO SCH (08:37)
[2023-09-23] MEDS: TAMSULOSIN 0.4 MG CAPSULE PO SCH (08:37)
--- NOTE | 2023-09-23 09:01 | PROVIDER PROGRESS NOTE ---
Subjective - Subjective Pt reports feeling: No change Objective - Vital Signs/Intake & Output Vital Signs: Vital Signs x48h Temp Pulse Resp BP Pulse Ox 09/23/23 08:09 36.5 C 75 20 159/75 H 97 09/23/23 04:41 37.0 C 75 16 160/75 H 94 Intake & Output: Intake & Output 09/20/23 09/21/23 09/22/23 09/23/23 23:59 23:59 23:59 23:59 Intake Total 150.5 50 Output Total 180 0 Balance -29.5 50 - Lab Results Fish Bones: 09/23/23 04:32 09/23/23 04:32 Other Labs: Lab Results x24hrs 09/23/23 09/23/23 09/23/23 Range/Units 04:32 04:32 04:32 WBC 7.5 (4.8-10.8) x10^3/uL RBC 4.18 L (4.70-6.10) 10^6/uL Hgb 12.9 L (14.0-18.0) g/dL Hct 38.4 L (42.0-52.0) % MCV 91.9 (80.0-94.0) fL MCH 30.9 (27.0-31.0) pg MCHC 33.6 (32.0-36.0) g/dL RDW 14.0 (12.0-15.0) % Plt Count 123 L (130-450) 10^3/uL MPV 10.9 (7.4-11.4) fL Neut # (Auto) 5.5 (1.5-6.6) 10^3/uL Lymph # (Auto) 0.9 L (1.5-3.5) 10^3/uL [place] # (Auto) 1.0 (0.0-1.0) 10^3/uL Eos # (Auto) 0.0 (0.0-0.7) 10^3/uL Baso # (Auto) 0.0 (0.0-0.1) 10^3/uL Absolute Nucleated RBC 0.00 x10^3/uL Nucleated RBC % 0.0 /100WBC PT 17.2 H (9.9-12.6) secs INR 1.6 H (0.8-1.2) APTT 32.2 (24.9-33.3) secs Sodium 139 (135-145) mmol/L Potassium 3.5 (3.5-4.5) mmol/L Chloride 107 (101-111) mmol/L Carbon Dioxide 25 (21-32) mmol/L Anion Gap 7.0 (6-13) BUN 15 (6-20) mg/dL Creatinine 0.7 (0.6-1.3) mg/dL Estimated GFR (MDRD) 107 (>89) Glucose 120 H (74-104) mg/dL Calcium 9.2 (8.5-10.3) mg/dL Total Bilirubin (0.2-1.0) mg/dL AST (10-42) IU/L ALT (10-60) IU/L Alkaline Phosphatase (42-121) IU/L Total Protein (6.4-8.9) g/dL Albumin (3.2-5.5) g/dL Globulin (2.1-4.2) g/dL Albumin/Globulin Ratio (1.0-2.2) Lipase (11-82) U/L 09/23/23 09/22/23 09/22/23 Range/Units 02:12 17:44 17:44 WBC (4.8-10.8) x10^3/uL RBC (4.70-6.10) 10^6/uL Hgb (14.0-18.0) g/dL Hct (42.0-52.0) % MCV (80.0-94.0) fL MCH (27.0-31.0) pg MCHC (32.0-36.0) g/dL RDW (12.0-15.0) % Plt Count (130-450) 10^3/uL MPV (7.4-11.4) fL Neut # (Auto) (1.5-6.6) 10^3/uL Lymph # (Auto) (1.5-3.5) 10^3/uL [place] # (Auto) (0.0-1.0) 10^3/uL Eos # (Auto) (0.0-0.7) 10^3/uL Baso # (Auto) (0.0-0.1) 10^3/uL Absolute Nucleated RBC x10^3/uL Nucleated RBC % /100WBC PT 18.0 H 26.4 H (9.9-12.6) secs INR 1.7 H 2.6 H (0.8-1.2) APTT (24.9-33.3) secs Sodium 142 (135-145) mmol/L Potassium 3.7 (3.5-4.5) mmol/L Chloride 106 (101-111) mmol/L Carbon Dioxide 26 (21-32) mmol/L Anion Gap 10.0 (6-13) BUN 13 (6-20) mg/dL Creatinine 1.1 (0.6-1.3) mg/dL Estimated GFR (MDRD) 64 L (>89) Glucose 115 H (74-104) mg/dL Calcium 9.4 (8.5-10.3) mg/dL Total Bilirubin 1.5 H (0.2-1.0) mg/dL AST 25 (10-42) IU/L ALT 17 (10-60) IU/L Alkaline Phosphatase 106 (42-121) IU/L Total Protein 6.9 (6.4-8.9) g/dL Albumin 4.3 (3.2-5.5) g/dL Globulin 2.6 (2.1-4.2) g/dL Albumin/Globulin Ratio 1.7 (1.0-2.2) Lipase < 10 L (11-82) U/L 09/22/23 Range/Units 17:44 WBC 5.2 (4.8-10.8) x10^3/uL RBC 5.11 (4.70-6.10) 10^6/uL Hgb 15.5 (14.0-18.0) g/dL Hct 47.2 (42.0-52.0) % MCV 92.4 (80.0-94.0) fL MCH 30.3 (27.0-31.0) pg MCHC 32.8 (32.0-36.0) g/dL RDW 14.2 (12.0-15.0) % Plt Count 135 (130-450) 10^3/uL MPV 10.4 (7.4-11.4) fL Neut # (Auto) 3.4 (1.5-6.6) 10^3/uL Lymph # (Auto) 1.1 L (1.5-3.5) 10^3/uL [place] # (Auto) 0.5 (0.0-1.0) 10^3/uL Eos # (Auto) 0.2 (0.0-0.7) 10^3/uL Baso # (Auto) 0.0 (0.0-0.1) 10^3/uL Absolute Nucleated RBC 0.00 x10^3/uL Nucleated RBC % 0.0 /100WBC PT (9.9-12.6) secs INR (0.8-1.2) APTT (24.9-33.3) secs Sodium (135-145) mmol/L Potassium (3.5-4.5) mmol/L Chloride (101-111) mmol/L Carbon Dioxide (21-32) mmol/L Anion Gap (6-13) BUN (6-20) mg/dL Creatinine (0.6-1.3) mg/dL Estimated GFR (MDRD) (>89) Glucose (74-104) mg/dL Calcium (8.5-10.3) mg/dL Total Bilirubin (0.2-1.0) mg/dL AST (10-42) IU/L ALT (10-60) IU/L Alkaline Phosphatase (42-121) IU/L Total Protein (6.4-8.9) g/dL Albumin (3.2-5.5) g/dL Globulin (2.1-4.2) g/dL Albumin/Globulin Ratio (1.0-2.2) Lipase (11-82) U/L - Other Results/Comments Other Results/Comments: INR= 1.6 after first Vit K dose Assessment/Plan - Problem List (1) Hip fracture Impression: stable PLAN: To OR for hip fracture stabilization this afternoon. Another Vit K now; repeat INR at noon. Would like to see INR at around 1.3 or less preop. Qualifiers: Encounter type: initial encounter Fracture type: closed Laterality: right Qualified Code(s): S72.001A - Fracture of unspecified part of neck of right femur, initial encounter for closed fracture
[2023-09-23] MEDS: HYDROcod/ACETAM 5/325 MG TABLET PO PRN (09:11)
--- NOTE | 2023-09-23 10:26 | XRAY Report ---
PROCEDURE: Chest 1V INDICATIONS: Preop TECHNIQUE: One view of the chest was acquired. COMPARISON: 10/15/2020 FINDINGS: Surgical changes and devices: Sternotomy wires. Lungs and pleura: No dense consolidation or pleural effusion Mediastinum: Borderline enlarged heart. Bones and chest wall: Degenerative changes. IMPRESSION: Limited single view portable radiograph without acute abnormality. Borderline cardiomegaly. Reviewed by: Steven Wills MD on 09/23/2023 10:25 AM PDT Approved by: Steven Wills MD on 09/23/2023 10:25 AM PDT Station ID: [id number]
[2023-09-23 10:48] LABS: INR 1.4 (0.8-1.2); PT - PROTHROMBIN TIME 15.2 secs (9.9-12.6)
[2023-09-23] MEDS ORDERED: fentaNYL 100 MCG/2 ML VIAL IVP PRN (13:12)
[2023-09-23] MEDS ORDERED: METOCLOPRAMIDE 10 MG/2 ML VIAL IVP PRN (13:12)
[2023-09-23] MEDS ORDERED: ONDANSETRON 4 MG/2 ML VIAL IVP PRN (13:12)
[2023-09-23] MEDS ORDERED: NALOXONE 0.4 MG/ML VIAL IVP PRN (13:12)
[2023-09-23] MEDS ORDERED: ATROPINE ABBOJECT 1 MG/10 ML SYRINGE IVP PRN (13:12)
[2023-09-23] MEDS ORDERED: ePHEDrine 50 MG/ML VIAL IVP PRN (13:12)
--- NOTE | 2023-09-23 13:12 | ANESTHESIA ---
Pre-Anesthesia VS, & Labs - Diagnosis Diagnosis Right intertrochanteric hip fracture - Procedure nailing R hip fx Vital Signs: Temp Pulse Resp BP Pulse Ox O2 Flow Rate 36.6 C 71 20 118/64 94 09/23/23 12:47 09/23/23 12:47 09/23/23 12:47 09/23/23 12:47 09/23/23 12:47 Height: 5 ft 11 in Weight (kg): 93.4 kg Body Mass Index: 28.7 BMI Classification: Overweight - NPO >8 hours - Lab Results Current Lab Results: Laboratory Tests 09/23/23 10:33: PT 15.2 H, INR 1.4 H 09/23/23 04:32: Sodium 139, Potassium 3.5, Chloride 107, Carbon Dioxide 25, Anion Gap 7.0, BUN 15, Creatinine 0.7, Estimated GFR (MDRD) 107, Glucose 120 H, Calcium 9.2 09/23/23 04:32: PT 17.2 H, INR 1.6 H, APTT 32.2 09/23/23 04:32: WBC 7.5, RBC 4.18 L, Hgb 12.9 L, Hct 38.4 L, MCV 91.9, MCH 30.9, MCHC 33.6, RDW 14.0, Plt Count 123 L, MPV 10.9, Neut # (Auto) 5.5, Lymph # (Auto) 0.9 L, [place] # (Auto) 1.0, Eos # (Auto) 0.0, Baso # (Auto) 0.0, Absolute Nucleated RBC 0.00, Nucleated RBC % 0.0 09/23/23 02:12: PT 18.0 H, INR 1.7 H 09/22/23 17:44: Sodium 142, Potassium 3.7, Chloride 106, Carbon Dioxide 26, Anion Gap 10.0, BUN 13, Creatinine 1.1, Estimated GFR (MDRD) 64 L, Glucose 115 H , Calcium 9.4, Total Bilirubin 1.5 H, AST 25, ALT 17, Alkaline Phosphatase 106, Total Protein 6.9, Albumin 4.3, Globulin 2.6, Albumin/Globulin Ratio 1.7, Lipase < 10 L 09/22/23 17:44: PT 26.4 H, INR 2.6 H 09/22/23 17:44: WBC 5.2, RBC 5.11, Hgb 15.5, Hct 47.2, MCV 92.4, MCH 30.3, MCHC 32.8, RDW 14.2, Plt Count 135, MPV 10.4, Neut # (Auto) 3.4, Lymph # (Auto) 1.1 L , [place] # (Auto) 0.5, Eos # (Auto) 0.2, Baso # (Auto) 0.0, Absolute Nucleated RBC 0.00, Nucleated RBC % 0.0 Fish Bones: 09/23/23 04:32 09/23/23 04:32 Home Medications and Allergies Home Medications: Ambulatory Orders Atorvastatin Calcium [Lipitor] 80 mg PO DAILY 09/22/23 Isosorbide Mononitrate [Isosorbide Mononitrate ER] 60 mg PO DAILY 09/22/23 Active Medications Acetaminophen (Acetaminophen 325 Mg Tablet) 650 mg PO Q4HR PRN PRN Reason: Pain 1 to 4, or Fever Last Admin: 09/22/23 23:04 Dose: 650 mg Hydrocodone Bitart/Acetaminophen (Hydrocod/Acetam 5/325 Mg Tablet) 1 tab PO Q4HR PRN PRN Reason: Moderate Pain (Level 4-6) Last Admin: 09/23/23 09:11 Dose: 1 tab Amlodipine Besylate (Amlodipine 5 Mg Tablet) 5 mg PO BID [facility] Last Admin: 09/23/23 08:37 Dose: 5 mg Atenolol (Atenolol 25 Mg Tablet) 25 mg PO DAILY [facility] Last Admin: 09/23/23 08:37 Dose: 25 mg Atorvastatin Calcium (Atorvastatin 40 Mg Tablet) 80 mg PO QPM [facility] Last Admin: 09/22/23 23:03 Dose: 80 mg Hydromorphone HCl (Hydromorphone 0.5 Mg/0.5 Ml Syringe) 0.5 mg IVP Q2H PRN PRN Reason: Severe Pain (Level 7-10) Lactated Ringer's (Lr) 1,000 mls @ 100 mls/hr IV .Q10H [facility] Last Admin: 09/23/23 08:38 Dose: 100 mls/hr Isosorbide Mononitrate (Isosorbide Mononitrate Er 30 Mg Tablet) 60 mg PO DAILY [facility] Last Admin: 09/23/23 08:37 Dose: 60 mg Ketorolac Tromethamine (Ketorolac 15 Mg/Ml Vial) 15 mg IVP ONCE PRN PRN Reason: Moderate Pain (Level 4-6) Stop: 09/27/23 23:44 Last Admin: 09/23/23 00:27 Dose: 15 mg Ondansetron HCl (Ondansetron Odt 4 Mg Tablet) 4 mg TL Q6HR PRN PRN Reason: Nausea / Vomiting Ondansetron HCl (Ondansetron 4 Mg/2 Ml Vial) 4 mg IVP Q6HR PRN PRN Reason: Nausea / Vomiting Pantoprazole Sodium (Pantoprazole 40 Mg Tablet) 40 mg PO DAILY [facility] Last Admin: 09/23/23 08:37 Dose: 40 mg Sodium Chloride (Sodium Chloride Flush 0.9% 10 Ml Syringe) 10 ml IVP PRN PRN PRN Reason: NEEDED PER PROVIDER ORDERS Sodium Chloride (Sodium Chloride Flush 0.9% 10 Ml Syringe) 10 ml IVP 0100,0900,1700 [facility] Last Admin: 09/23/23 08:38 Dose: 10 ml Tamsulosin HCl (Tamsulosin 0.4 Mg Capsule) 0.4 mg PO DAILY [facility] Last Admin: 09/23/23 08:37 Dose: 0.4 mg Tramadol HCl (Tramadol 50 Mg Tablet) 50 mg PO Q6HR PRN PRN Reason: Severe Pain (Level 7-10) Amlodipine Besylate 5 mg PO BID 11/25/15 Warfarin [Coumadin] 5 mg PO SUTUWETHSA 11/25/15 atenoloL [Atenolol] 25 mg PO DAILY 11/25/15 hydroCHLOROthiazide [Hydrochlorothiazide] 12.5 mg PO DAILY 11/25/15 Aspirin [Aspirin EC] 81 mg PO DAILY 05/20/17 Pantoprazole [Protonix] 40 mg PO DAILY 05/20/17 Tamsulosin HCl [Flomax] 0.4 mg PO DAILY 05/20/17 Warfarin [Coumadin] 7.5 mg PO MOFR 05/20/17 Atorvastatin Calcium [Lipitor] 80 mg PO DAILY 09/22/23 Isosorbide Mononitrate [Isosorbide Mononitrate ER] 60 mg PO DAILY 09/22/23 Allergies/Adverse Reactions: Allergies Allergy/AdvReac Type Severity Reaction Status Date / Time morphine Allergy Hallucinati Verified 09/22/23 17:41 ons oxycodone Allergy Hallucinati Verified 09/22/23 17:41 ons Penicillins Allergy Unknown Verified 09/22/23 17:41 Anes History & Medical History - Anesthetic History Anesthesia Complications: reports: No previous complications Family history of Anesthesia Complications: Denies Family history of Malignant Hyperthermia: Denies - Medical History Cardiovascular: reports: Hypertension, High cholesterol, Atrial fibrillation, Valve disorder Pulmonary: reports: None Gastrointestinal: reports: GERD Urinary: reports: Benign prostate hypertrophy Neuro: reports: None Musculoskeletal: reports: Chronic back pain Endocrine/Autoimmune: reports: None Blood Disorders: reports: None Skin: reports: None Smoking Status: Never smoker Psychosocial: reports: No issues indicated History of Cancer?: No - Surgical History General: reports: Appendectomy Cardiothoracic: reports: Valve replacement Exam General: Alert, Oriented x3, Cooperative Dental: Dentures full Upper Mouth Openin Fingerbreadth Neck Mobility: Normal Mallampati classification: II Thyromental Distance: 4-6 cm Respiratory: Lungs clear Cardiovascular: Regular rate Plan Anesthesia Type: General, Spinal, Fascia Iliaca Block (discussed options, may attempt SAB with GA as backup, pending lab results) Consent for Procedure(s) Verified and Reviewed: Yes Code Status: Attempt Resuscitation ASA classification: 3-Severe systemic disease Is this case an emergency?: No
[2023-09-23 13:24] LABS: INR 1.3 (0.8-1.2); PT - PROTHROMBIN TIME 14.3 secs (9.9-12.6)
[2023-09-23] MEDS ORDERED: LACTATED RINGERS 1,000 ML IV SCH (14:00)
--- NOTE | 2023-09-23 14:11 | PROVIDER PROGRESS NOTE ---
Assessment/Plan - Problem List (1) Hip fracture Qualifiers: Encounter type: initial encounter Fracture type: closed Laterality: right Qualified Code(s): S72.001A - Fracture of unspecified part of neck of right femur, initial encounter for closed fracture Assessment/Plan: --Plan for OR tentatively today for his right femoral fracture. --Case has been discussed with Orthopedic surgery. Our goal INR is 1.3. He is otherwise medically optimized for surgery. --RCRI class II risk. (2) Afib Assessment/Plan: --Continue Atenolol. Resume warfarin when okay with Orthopedic surgery. (3) S/P aortic valve repair Assessment/Plan: --Goal INR is 2.5-3.5. He will likely need to be bridged back to warfarin post-operatively. --Has been given several doses of vitamin K pre-operatively. (4) HTN (hypertension) Assessment/Plan: --Continue imdur and atenolol. --Most recent TTE from 2017 showing LVEF 50-55% with normal functioning mechanical aortic valve. Evidence of elevated heart pressures. - Current Meds Current Meds: Current Medications Generic Name Dose Route Start Last Admin Trade Name Freq PRN Reason Stop Dose Admin Acetaminophen 650 mg 09/22/23 19:38 09/22/23 23:04 Acetaminophen 325 Mg Tablet PO 650 mg Q4HR PRN Administration Pain 1 to 4, or Fever Hydrocodone Bitart/Acetaminophen 1 tab 09/23/23 07:01 09/23/23 09:11 Hydrocod/Acetam 5/325 Mg Tablet PO 1 tab Q4HR PRN Administration Moderate Pain (Level 4-6) Amlodipine Besylate 5 mg 09/22/23 21:00 09/23/23 08:37 Amlodipine 5 Mg Tablet PO 5 mg BID PRATIK Administration Atenolol 25 mg 09/23/23 09:00 09/23/23 08:37 Atenolol 25 Mg Tablet PO 25 mg DAILY PRATIK Administration Atorvastatin Calcium 80 mg 09/22/23 21:00 09/22/23 23:03 Atorvastatin 40 Mg Tablet PO 80 mg QPM PRATIK Administration Lactated Ringer's 1,000 mls @ 100 mls/hr 09/23/23 07:02 09/23/23 13:51 Lr IV 100 mls/hr .Q10H PRATIK Administration Isosorbide Mononitrate 60 mg 09/23/23 09:00 09/23/23 08:37 Isosorbide Mononitrate Er 30 Mg Tablet PO 60 mg DAILY PRATIK Administration Ketorolac Tromethamine 15 mg 09/22/23 23:52 09/23/23 00:27 Ketorolac 15 Mg/Ml Vial IVP 09/27/23 23:44 15 mg ONCE PRN Administration Moderate Pain (Level 4-6) Pantoprazole Sodium 40 mg 09/23/23 09:00 09/23/23 08:37 Pantoprazole 40 Mg Tablet PO 40 mg DAILY RPATIK Administration Sodium Chloride 10 ml 09/23/23 01:00 09/23/23 08:38 Sodium Chloride Flush 0.9% 10 Ml Syringe IVP 10 ml 0100,0900,1700 PRATIK Administration Tamsulosin HCl 0.4 mg 09/23/23 09:00 09/23/23 08:37 Tamsulosin 0.4 Mg Capsule PO 0.4 mg DAILY PRATIK Administration - Lab Result Fish Bone Diagrams: 09/23/23 04:32 09/23/23 04:32 - Additional Planning My Orders: My Active Orders 09/23/23 07:01 HYDROcod/ACETAM 5/325 [[place] 5/325] 1 tab PO Q4HR PRN HYDROmorphone 0.5MG SYRINGE [Dilaudid 0.5MG Syringe] 0.5 mg IVP Q2H PRN 09/23/23 07:02 Lactated Ringers [Lr] 1,000 ml IV 100 mls/hr Subjective - Subjective Patient Reports: Feeling Better, Resting Comfortably Objective Vital Signs: Vital Signs - 24 hr 09/22/23 09/22/23 09/22/23 17:41 18:47 21:11 Temperature 36.3 C L 36.7 C Heart Rate 74 86 Heart Rate [ Brachial] Heart Rate [ 80 Radial] Respiratory 18 12 18 Rate Blood Pressure 174/92 H 167/91 H Blood Pressure 163/87 H [Left Brachial artery] O2 Saturation 99 98 97 09/22/23 09/23/23 09/23/23 23:40 04:41 08:09 Temperature 36.7 C 37.0 C 36.5 C Heart Rate Heart Rate [ 103 H 75 75 Brachial] Heart Rate [ Radial] Respiratory 18 16 20 Rate Blood Pressure Blood Pressure 151/78 H 160/75 H 159/75 H [Left Brachial artery] O2 Saturation 96 94 97 09/23/23 12:47 Temperature 36.6 C Heart Rate Heart Rate [ 71 Brachial] Heart Rate [ Radial] Respiratory 20 Rate Blood Pressure Blood Pressure 118/64 [Left Brachial artery] O2 Saturation 94 Oxygen O2 Source Room air I&O (Last 24 Hrs): Intake and Output Totals x24h 09/21/23 09/22/23 09/23/23 23:59 23:59 23:59 Intake Total 150.5 571.667 Output Total 180 200 Balance -29.5 371.667 General: Alert, Oriented x3 Cardiovascular: Regular rate (Currently in rate controlled afib), Normal S2 Abdomen: Normal bowel sounds, Soft - Results Results: Laboratory Results WBC 7.5 x10^3/uL (4.8-10.8) 09/23/23 04:32 RBC 4.18 10^6/uL (4.70-6.10) L 09/23/23 04:32 Hgb 12.9 g/dL (14.0-18.0) L 09/23/23 04:32 Hct 38.4 % (42.0-52.0) L 09/23/23 04:32 MCV 91.9 fL (80.0-94.0) 09/23/23 04:32 MCH 30.9 pg (27.0-31.0) 09/23/23 04:32 MCHC 33.6 g/dL (32.0-36.0) 09/23/23 04:32 RDW 14.0 % (12.0-15.0) 09/23/23 04:32 Plt Count 123 10^3/uL (130-450) L 09/23/23 04:32 MPV 10.9 fL (7.4-11.4) 09/23/23 04:32 Neut # (Auto) 5.5 10^3/uL (1.5-6.6) 09/23/23 04:32 Lymph # (Auto) 0.9 10^3/uL (1.5-3.5) L 09/23/23 04:32 [place] # (Auto) 1.0 10^3/uL (0.0-1.0) 09/23/23 04:32 Eos # (Auto) 0.0 10^3/uL (0.0-0.7) 09/23/23 04:32 Baso # (Auto) 0.0 10^3/uL (0.0-0.1) 09/23/23 04:32 Absolute Nucleated RBC 0.00 x10^3/uL 09/23/23 04:32 Nucleated RBC % 0.0 /100WBC 09/23/23 04:32 PT 14.3 secs (9.9-12.6) H 09/23/23 12:59 INR 1.3 (0.8-1.2) H 09/23/23 12:59 APTT 32.2 secs (24.9-33.3) 09/23/23 04:32 Sodium 139 mmol/L (135-145) 09/23/23 04:32 Potassium 3.5 mmol/L (3.5-4.5) 09/23/23 04:32 Chloride 107 mmol/L (101-111) 09/23/23 04:32 Carbon Dioxide 25 mmol/L (21-32) 09/23/23 04:32 Anion Gap 7.0 (6-13) 09/23/23 04:32 BUN 15 mg/dL (6-20) 09/23/23 04:32 Creatinine 0.7 mg/dL (0.6-1.3) 09/23/23 04:32 Estimated GFR (MDRD) 107 (>89) 09/23/23 04:32 Glucose 120 mg/dL (74-104) H 09/23/23 04:32 Calcium 9.2 mg/dL (8.5-10.3) 09/23/23 04:32 Total Bilirubin 1.5 mg/dL (0.2-1.0) H 09/22/23 17:44 AST 25 IU/L (10-42) 09/22/23 17:44 ALT 17 IU/L (10-60) 09/22/23 17:44 Alkaline Phosphatase 106 IU/L (42-121) 09/22/23 17:44 Total Protein 6.9 g/dL (6.4-8.9) 09/22/23 17:44 Albumin 4.3 g/dL (3.2-5.5) 09/22/23 17:44 Globulin 2.6 g/dL (2.1-4.2) 09/22/23 17:44 Albumin/Globulin Ratio 1.7 (1.0-2.2) 09/22/23 17:44 Lipase < 10 U/L (11-82) L 09/22/23 17:44
[2023-09-23] MEDS ORDERED: BUPIVACAINE 0.5%-EPI 1:200000 PF 30 ML VIAL ONE (14:22)
[2023-09-23] MEDS ORDERED: PROPOFOL 200 MG/20 ML VIAL IVP ONE (14:28)
[2023-09-23] MEDS ORDERED: ONDANSETRON 4 MG/2 ML VIAL ONE (14:29)
[2023-09-23] MEDS ORDERED: ACETAMINOPHEN 1,000 MG/100 ML 1,000 MG/100 ML BAG IV ONE (14:29)
[2023-09-23] MEDS ORDERED: fentaNYL 100 MCG/2 ML VIAL ONE ×2 (14:31→17:07)
[2023-09-23] MEDS: BUPIVACAINE 0.5%-EPI 1:200000 PF 30 ML VIAL SUBQ ONE ×2 (15:01)
[2023-09-23] MEDS ORDERED: ceFAZolin 1 GM VIAL ONE (15:31)
[2023-09-23] MEDS ORDERED: DOCUSATE SODIUM 100 MG CAPSULE PO PRN (17:02)
[2023-09-23] MEDS: LACTATED RINGERS 200 ML IV ONE (17:03)
--- NOTE | 2023-09-23 17:14 | XRAY Report ---
PROCEDURE: OR C-Arm Procedure INDICATIONS: Hip nailing, right hip fx FLUORO TIME: 0.7 MIN TECHNIQUE: Intraoperative fluoroscopy COMPARISON: 09/22/2023 FINDINGS: Intraoperative fluoroscopic views during ORIF of a right hip fracture with intramedullary anitra and scr ew fixation. IMPRESSION: Intraoperative views during intramedullary anitra and screw fixation of the right femoral neck fracture. Reviewed by: Mateo Ramirez MD on 09/23/2023 5:12 PM PDT Approved by: Mateo Ramirez MD on 09/23/2023 5:12 PM PDT Station ID: [id number]
--- NOTE | 2023-09-23 17:37 | OPERATIVE REPORT ---
Operative Report - General Admit Date: 09/22/23 Procedure Date: 09/23/23 Planned Procedure: Closed reduction and InterTAN nailing of right intertrochanteric hip fracture Pre-Op Diagnosis: Closed right intertrochanteric hip fracture Procedure Performed: Closed reduction and InterTAN nailing of right hip fracture Post Op Diagnosis: Same - Procedure Note Primary Surgeon: Tahir Kim MD Secondary Surgeon: ARELI Baldwin Anesthesia Provider: Johanna Conde CRNA Anesthesia Technique: General ET tube IV Fluids (mL): 1,200 Estimated Blood Loss (mL): 100 Complications: None - Other Other Information/Narrative: Description of the procedure: Patient was taken the operating room on the afternoon on the day after his admission for his surgical procedure. His preop INR had been nearly reversed with the last INR being 1.3. After his general anesthesia was administered he was then positioned supine onto the [place] table. This fracture right lower extremity was then placed in the axial traction with the leg internally rotated about 20 degrees. The left well leg was then placed in the well-leg núñez and widely abducted and flexed out of the way. We then prepped and draped the lateral aspect of his right hip in usual fashion for procedure. Through an oblique skin incision proximal to the tip of the greater trochanter we dissected through the fascia Lotta and was able to identify the tip of the greater trochanter. This is where we placed the threaded tip guidewire from the hip set. Fluoroscopic view confirmed our location of our start point of the guidepin. Under power we then advanced the threaded guidepin down the center of the femoral canal to the level of the lesser trochanter. We confirmed the location of our guidepin in the lateral projection as well. Satisfied with this we then used the 16 mm channel reamer to ream the proximal femur over our guidepin. We then removed the guidepin and channel reamer. Because we are having some difficulty palpating our start point from the the reamer proximal femur we then manually inserted a ball-tipped guide into the proximal femoral portion of the bone. Once we confirmed in AP and lateral projection that the ball-tipped guide was in the intramedullary canal we then followed with the selected short InterTAN nail-13 mm diameter, 125 degree angle. We were able to easily manually insert this nail. Using a mallet we were able to tap the nail into position. This was confirmed with fluoroscopic views. Through a skin incision aligned with the proximal guide in our out regular we passed this guide down toward the proximal lateral femoral cortex to incision. The pin guide was then inserted into the outrigger guide down to the cortical bone. Our threaded guidepin was then inserted in our guide and it was advanced under power. Fluoroscopic views and AP and lateral projection showed a central location of our pin in the femoral neck and we advanced then into the femoral head to within about 3 mm of the subchondral bone in both AP and lateral projections. Direct measuring guide indicated to the 110 mm length subtrochanteric hip lag screw would be utilized. The combined cannulated reamer was then used to ream the proximal femur femoral neck and femoral head over our inserted guidepin. The reamer was then removed. Next we proceeded to manually placed the selected subtrochanteric hip lag screw through the proximal end of our nail and into the femoral neck and the femoral head to 2-3 mm of the subchondral bone of the head. Satisfied with the depth of our hip lag screw in both AP and lateral projection we then removed the instruments from the outrigger and the instruments used to inserted our hip lag screw. Next with the angled pickup driver we tightened the set screw in the proximal end of our nail. Once this was snugly in place we then backed it off 90 degrees. We then placed the distal locking screw making a small skin incision and advanced our combined gold and silver drill sleeves through the incision down to the lateral cortex of the midshaft femur. Our drill was then placed into our guides and we drilled the bicortical hole in the femoral shaft. Fluoroscopic view confirmed our depth of penetration and while the tip was just 3 mm beyond the medial cortex the direct measurement off our drill guide indicated a 35 mm distal lag screw would be utilized. We then removed the drill and the central silver sleeve. This was then followed with a 5 mm x 35 mm distal locking screw. This was advanced until we had good position of our screw. Fluoroscopic views and AP and lateral projection of the midshaft femoral area showed that the screw was indeed through the distal hole of our nail. We then obtain permanent views at the hip and AP and lateral projection showing again satisfactory placement of her hardware as well as a good reduction of our hip fracture. Then irrigated the wounds out thoroughly with saline. We then closed the wound in layers using buried simple stitches of 3-0 Vicryl to approximate the subcutaneous tissues followed by skin poonam approximate the skin edge. A silver dressing was then applied to her wounds. Patient taken off the fracture table and into the recovery room in satisfactory condition. Estimated blood loss: 100 mL Replacement: 1200 mL of crystalloid solution Intraoperative complications: None Plan: Patient will be started back on his Coumadin anticoagulation postoperatively. Will plan on having physical therapy work with him with walker ambulation weightbearing as tolerated on this right lower extremity.
[2023-09-23] MEDS: DEXMEDETOMIDINE 200 MCG/2 ML VIAL ONE (17:41)
[2023-09-23] MEDS: LACTATED RINGERS 1,000 ML IV ONE (17:55)
[2023-09-23] MEDS ORDERED: NS W/20 MEQ KCL 1,000 ML IV SCH (18:00)
--- NOTE | 2023-09-23 18:28 | PHARMACY PROGRESS NOTE ---
- Best Possible Medication History Admit Date and Time: 09/22/231937 Processed by: Nursing Medications reviewed in ED?: Yes Medication History completed: In progress Patient Interview: Completed Secondary Source(s): Physician records, Pharmacy records, Insurance records (RN COMPLETED. FILL HX CHECKED. PT UNAVAILABLE 09/23/23. WILL ATTEMPT 09/24/23.) As the person ultimately responsible for medication therapy, providers are able to order a medication from an existing home medication list in [facility] via the "Reconcile Routine" prior to Confirmation of that medication by computer support technician. Such practice is discouraged except when the physician, in their clinical judgment, deems that a medical need exists for a medication without regard to previous use.
--- NOTE | 2023-09-23 18:42 | ANESTHESIA POST OP EVALUATION ---
Anesthesia Post Eval - Post Anesthesia Eval Vitals: Last Vital Signs Temp 36.5 C 09/23/23 18:15 Pulse 86 09/23/23 18:20 Resp 19 09/23/23 18:20 BP 108/57 L 09/23/23 18:20 Pulse Ox 97 09/23/23 18:20 O2 Flow Rate CV Function Including HR & BP: Stable Pain Control: Satisfactory Nausea & Vomiting: Negative Mental Status: Baseline Respiratory Status: Airway Patent Hydration Status: Satisfactory Anesthesia Complications: Other (patient had a GA; arrived at the pacu with some degree of agitation,confusion, and pain, he was re oriented, kept safe, given 100 mcg total of fentanyl, and was given a total of 12 mcg of precedex, in divided doses, he was continuously monitored;son arrived, dc'd stable, mental status near baseline.)
[2023-09-23] MEDS: ceFAZolin (2G) 2 GM in SODIUM CHLORIDE 0.9% MINIBAG 100 ML IV SCH (18:55)
[2023-09-23] MEDS: WARFARIN 5 MG TABLET PO SCH (18:55)
[2023-09-23] MEDS: traMADol 50 MG TABLET PO PRN (19:56)
[2023-09-23] MEDS: ENOXAPARIN 100 MG/ML SYRINGE SUBQ SCH (21:14)
[2023-09-23] MEDS ORDERED: CYCLOBENZAPRINE 10 MG TABLET PO PRN (21:37)
[2023-09-24 04:45] LABS: BASOPHILS % (AUTO) 0.2 %; EOSINOPHILS % (AUTO) 0.5 %; HCT - HEMATOCRIT 30.8 % (42.0-52.0); HGB - HEMOGLOBIN 9.9 g/dL (14.0-18.0); LYMPHOCYTES # (AUTO) 0.8 10^3/uL (1.5-3.5); LYMPHOCYTES % (AUTO) 9.7 %; MEAN CORPUSCULAR HEMOGLOBIN 31.2 pg (27.0-31.0); MEAN CORPUSCULAR HGB CONC 32.1 g/dL (32.0-36.0); MEAN CORPUSCULAR VOLUME 97.2 fL (80.0-94.0); MEAN PLATELET VOLUME 10.7 fL (7.4-11.4); MONOCYTES % (AUTO) 11.7 %; NEUTROPHILS # (AUTO) 6.4 10^3/uL (1.5-6.6); NEUTROPHILS % (AUTO) 77.4 %; PLT - PLATELET COUNT 110 10^3/uL (130-450); RED BLOOD COUNT 3.17 10^6/uL (4.70-6.10); RED CELL DISTRIBUTION WIDTH 13.9 % (12.0-15.0); WHITE BLOOD COUNT 8.2 x10^3/uL (4.8-10.8)
[2023-09-24 04:51] LABS: PARTIAL THROMBOPLASTIN TIME 35.4 secs (24.9-33.3)
[2023-09-24 04:55] LABS: INR 1.3 (0.8-1.2); PT - PROTHROMBIN TIME 14.2 secs (9.9-12.6)
[2023-09-24 05:38] LABS: CALCIUM 8.4 mg/dL (8.5-10.3); CREATININE 0.9 mg/dL (0.6-1.3); POTASSIUM 3.7 mmol/L (3.5-4.5)
[2023-09-24] MEDS: SODIUM CHLORIDE 0.9% 1,000 ML IV ONE (07:40)
[2023-09-24] MEDS: FERROUS GLUCONATE 324 MG TABLET PO SCH (08:19)
--- NOTE | 2023-09-24 08:22 | PROVIDER PROGRESS NOTE ---
Subjective - Prog Note Date Prog Note Date: 09/24/23 Prog Note Time: 08:20 - Subjective Pt reports feeling: Improved (Less pain) Objective - Vital Signs/Intake & Output Vital Signs: Vital Signs x48h Temp Pulse Resp BP Pulse Ox 09/24/23 07:26 36.6 C 74 20 128/61 93 09/24/23 04:00 37.1 C 67 16 109/56 L 94 Intake & Output: Intake & Output 09/21/23 09/22/23 09/23/23 09/24/23 23:59 23:59 23:59 23:59 Intake Total 150.5 1971.667 300 Output Total 180 300 Balance -29.5 1671.667 300 - Lab Results Fish Bones: 09/24/23 04:34 09/24/23 04:34 Other Labs: Lab Results x24hrs 09/24/23 09/24/23 09/24/23 Range/Units 04:34 04:34 04:34 WBC 8.2 (4.8-10.8) x10^3/uL RBC 3.17 L (4.70-6.10) 10^6/uL Hgb 9.9 L (14.0-18.0) g/dL Hct 30.8 L (42.0-52.0) % MCV 97.2 H (80.0-94.0) fL MCH 31.2 H (27.0-31.0) pg MCHC 32.1 (32.0-36.0) g/dL RDW 13.9 (12.0-15.0) % Plt Count 110 L (130-450) 10^3/uL MPV 10.7 (7.4-11.4) fL Neut # (Auto) 6.4 (1.5-6.6) 10^3/uL Lymph # (Auto) 0.8 L (1.5-3.5) 10^3/uL [place] # (Auto) 1.0 (0.0-1.0) 10^3/uL Eos # (Auto) 0.0 (0.0-0.7) 10^3/uL Baso # (Auto) 0.0 (0.0-0.1) 10^3/uL Absolute Nucleated RBC 0.00 x10^3/uL Nucleated RBC % 0.0 /100WBC PT 14.2 H (9.9-12.6) secs INR 1.3 H (0.8-1.2) APTT 35.4 H (24.9-33.3) secs Sodium 140 (135-145) mmol/L Potassium 3.7 (3.5-4.5) mmol/L Chloride 109 (101-111) mmol/L Carbon Dioxide 24 (21-32) mmol/L Anion Gap 7.0 (6-13) BUN 21 H (6-20) mg/dL Creatinine 0.9 (0.6-1.3) mg/dL Estimated GFR (MDRD) 80 L (>89) Glucose 110 H (74-104) mg/dL Calcium 8.4 L (8.5-10.3) mg/dL 09/23/23 09/23/23 Range/Units 12:59 10:33 WBC (4.8-10.8) x10^3/uL RBC (4.70-6.10) 10^6/uL Hgb (14.0-18.0) g/dL Hct (42.0-52.0) % MCV (80.0-94.0) fL MCH (27.0-31.0) pg MCHC (32.0-36.0) g/dL RDW (12.0-15.0) % Plt Count (130-450) 10^3/uL MPV (7.4-11.4) fL Neut # (Auto) (1.5-6.6) 10^3/uL Lymph # (Auto) (1.5-3.5) 10^3/uL [place] # (Auto) (0.0-1.0) 10^3/uL Eos # (Auto) (0.0-0.7) 10^3/uL Baso # (Auto) (0.0-0.1) 10^3/uL Absolute Nucleated RBC x10^3/uL Nucleated RBC % /100WBC PT 14.3 H 15.2 H (9.9-12.6) secs INR 1.3 H 1.4 H (0.8-1.2) APTT (24.9-33.3) secs Sodium (135-145) mmol/L Potassium (3.5-4.5) mmol/L Chloride (101-111) mmol/L Carbon Dioxide (21-32) mmol/L Anion Gap (6-13) BUN (6-20) mg/dL Creatinine (0.6-1.3) mg/dL Estimated GFR (MDRD) (>89) Glucose (74-104) mg/dL Calcium (8.5-10.3) mg/dL - Other Results/Comments Other Results/Comments: EXAM: Dressing ok. Moves toes well. Sensation intact. Some pain with hip rotation HCT 30. INR=1.3 Assessment/Plan - Problem List (1) Hip fracture Impression: Doing well post op PLAN: PT to see today and begin mobilizing. Qualifiers: Encounter type: initial encounter Fracture type: closed Laterality: right Qualified Code(s): S72.001A - Fracture of unspecified part of neck of right femur, initial encounter for closed fracture
--- NOTE | 2023-09-24 09:18 | PROVIDER PROGRESS NOTE ---
Assessment/Plan - Problem List (1) Hip fracture Qualifiers: Encounter type: initial encounter Fracture type: closed Laterality: right Qualified Code(s): S72.001A - Fracture of unspecified part of neck of right femur, initial encounter for closed fracture Assessment/Plan: (1) Hip fracture Qualifiers: Encounter type: initial encounter Fracture type: closed Laterality: right Qualified Code(s): S72.001A - Fracture of unspecified part of neck of right femur, initial encounter for closed fracture Assessment/Plan: --POD#1 --DVT ppx with warfarin. Will bridge with Lovenox given he has a mechanical aortic valve. --PT/OT --Treating post operative anemia with oral Fe. --Post operatively was having delirium as he was coming off the sedation. Improved. (2) Afib Assessment/Plan: --Continue Atenolol and warfarin. (3) S/P aortic valve repair Assessment/Plan: --Goal INR is 2.5-3.5. He will likely need to be bridged back to warfarin post- operatively. --Has been given several doses of vitamin K pre-operatively. (4) HTN (hypertension) Assessment/Plan: --Continue imdur and atenolol. --Most recent TTE from 2017 showing LVEF 50-55% with normal functioning mechanical aortic valve. Evidence of elevated heart pressures. - Current Meds Current Meds: Current Medications Generic Name Dose Route Start Last Admin Trade Name Freq PRN Reason Stop Dose Admin Acetaminophen 650 mg 09/22/23 19:38 09/22/23 23:04 Acetaminophen 325 Mg Tablet PO 650 mg Q4HR PRN Administration Pain 1 to 4, or Fever Hydrocodone Bitart/Acetaminophen 1 tab 09/23/23 07:01 09/24/23 08:42 Hydrocod/Acetam 5/325 Mg Tablet PO 1 tab Q4HR PRN Administration Moderate Pain (Level 4-6) Amlodipine Besylate 5 mg 09/22/23 21:00 09/24/23 08:20 Amlodipine 5 Mg Tablet PO 5 mg BID PRATIK Administration Atenolol 25 mg 09/23/23 09:00 09/24/23 08:19 Atenolol 25 Mg Tablet PO 25 mg DAILY PRATIK Administration Atorvastatin Calcium 80 mg 09/22/23 21:00 09/23/23 21:14 Atorvastatin 40 Mg Tablet PO 80 mg QPM PRATIK Administration Enoxaparin Sodium 90 mg 09/23/23 21:00 09/24/23 08:20 Enoxaparin 100 Mg/Ml Syringe SUBQ 90 mg BID PRATIK Administration Ferrous Gluconate 324 mg 09/24/23 08:00 09/24/23 08:19 Ferrous Gluconate 324 Mg Tablet PO 324 mg DAILYWM PRATIK Administration Lactated Ringer's 1,000 mls @ 100 mls/hr 09/23/23 07:02 09/24/23 01:36 Lr IV 100 mls/hr .Q10H PRATIK Administration Isosorbide Mononitrate 60 mg 09/23/23 09:00 09/24/23 08:20 Isosorbide Mononitrate Er 30 Mg Tablet PO 60 mg DAILY PRATIK Administration Ketorolac Tromethamine 15 mg 09/23/23 18:46 09/24/23 02:43 Ketorolac 15 Mg/Ml Vial IVP 09/27/23 23:51 15 mg Q6H PRN Administration Moderate Pain (Level 4-6) Pantoprazole Sodium 40 mg 09/23/23 09:00 09/24/23 08:19 Pantoprazole 40 Mg Tablet PO 40 mg DAILY PRATIK Administration Sodium Chloride 10 ml 09/23/23 01:00 09/24/23 08:20 Sodium Chloride Flush 0.9% 10 Ml Syringe IVP 10 ml 0100,0900,1700 PRATIK Administration Tamsulosin HCl 0.4 mg 09/23/23 09:00 09/24/23 08:19 Tamsulosin 0.4 Mg Capsule PO 0.4 mg DAILY PRATIK Administration Tramadol HCl 50 mg 09/22/23 23:53 09/23/23 19:56 Tramadol 50 Mg Tablet PO 50 mg Q6HR PRN Administration Severe Pain (Level 7-10) Warfarin Sodium 5 mg 09/23/23 18:00 09/23/23 18:55 Warfarin 5 Mg Tablet PO 5 mg SUTUWETHSA PRATIK Administration - Lab Result Fish Bone Diagrams: 09/24/23 04:34 09/24/23 04:34 - Additional Planning My Orders: My Active Orders 09/23/23 18:00 Warfarin [Coumadin] 5 mg PO SUTUWETHSA 09/23/23 18:46 Ketorolac Inj (15Mg) [Toradol Inj (15Mg)] 15 mg IVP Q6H PRN 09/23/23 21:00 Enoxaparin [Lovenox] 90 mg SUBQ BID 09/24/23 07:02 Cyclobenzaprine [Flexeril] 10 mg PO TID PRN 09/24/23 08:00 Ferrous Gluconate [Fergon] 324 mg PO DAILYWM 09/25/23 05:00 BMP - BASIC METABOLIC PANEL [CHEM] DAILYLAB CBC [CBC - COMP BLD CT W/AUTO DIFF] [HEME] DAILYLAB PT WITH INR [COAG] DAILYLAB 09/26/23 05:00 BMP - BASIC METABOLIC PANEL [CHEM] DAILYLAB CBC [CBC - COMP BLD CT W/AUTO DIFF] [HEME] DAILYLAB PT WITH INR [COAG] DAILYLAB 09/26/23 18:00 Warfarin [Coumadin] 7.5 mg PO MOFR 09/27/23 05:00 BMP - BASIC METABOLIC PANEL [CHEM] DAILYLAB CBC [CBC - COMP BLD CT W/AUTO DIFF] [HEME] DAILYLAB PT WITH INR [COAG] DAILYLAB 09/28/23 05:00 BMP - BASIC METABOLIC PANEL [CHEM] DAILYLAB CBC [CBC - COMP BLD CT W/AUTO DIFF] [HEME] DAILYLAB PT WITH INR [COAG] DAILYLAB 09/29/23 05:00 PT WITH INR [COAG] DAILYLAB 09/30/23 05:00 PT WITH INR [COAG] DAILYLAB Subjective - Subjective Patient Reports: Feeling Better, Resting Comfortably, No Complaints Objective Vital Signs: Vital Signs - 24 hr 09/23/23 09/23/23 09/23/23 12:47 17:00 17:05 Temperature 36.6 C 36.8 C 36.8 C Heart Rate 100 108 H Heart Rate [ 71 Brachial] Respiratory 20 18 18 Rate Blood Pressure 100/60 131/61 H Blood Pressure 118/64 [Left Brachial artery] O2 Saturation 94 99 99 09/23/23 09/23/23 09/23/23 17:10 17:23 17:39 Temperature 36.8 C 36.8 C Heart Rate 99 110 H 106 H Heart Rate [ Brachial] Respiratory 14 16 15 Rate Blood Pressure 117/77 113/61 Blood Pressure [Left Brachial artery] O2 Saturation 98 94 94 09/23/23 09/23/23 09/23/23 17:47 18:00 18:15 Temperature 36.8 C 36.5 C 36.5 C Heart Rate 98 103 H 97 Heart Rate [ Brachial] Respiratory 15 17 15 Rate Blood Pressure 121/56 L 110/66 116/71 Blood Pressure [Left Brachial artery] O2 Saturation 96 94 97 09/23/23 09/23/23 09/23/23 18:20 18:30 18:35 Temperature 36.7 C 36.7 C Heart Rate 86 94 Heart Rate [ 71 Brachial] Respiratory 19 18 18 Rate Blood Pressure 108/57 L 108/57 L Blood Pressure 121/63 [Left Brachial artery] O2 Saturation 97 93 93 09/23/23 09/23/23 09/23/23 18:51 19:09 20:34 Temperature 36.6 C 36.6 C 36.7 C Heart Rate Heart Rate [ 87 88 76 Brachial] Respiratory 18 20 18 Rate Blood Pressure Blood Pressure 110/63 105/56 L 112/60 [Left Brachial artery] O2 Saturation 92 93 93 09/24/23 09/24/23 09/24/23 00:00 04:00 07:26 Temperature 37.1 C 37.1 C 36.6 C Heart Rate Heart Rate [ 67 67 74 Brachial] Respiratory 20 16 20 Rate Blood Pressure Blood Pressure 110/61 109/56 L 128/61 [Left Brachial artery] O2 Saturation 96 94 93 Oxygen O2 Source Room air I&O (Last 24 Hrs): Intake and Output Totals x24h 09/22/23 09/23/23 09/24/23 23:59 23:59 23:59 Intake Total 150.5 1971.667 420 Output Total 180 300 Balance -29.5 1671.667 420 General: Alert, Oriented x3, Cooperative, No acute distress Neuro: Alert, CN 2-12 Grossly Intact, Oriented Times 3 Cardiovascular: Regular rate, Normal S1, Normal S2, No murmurs Respiratory: Chest non-tender, No respiratory distress, Breath sounds nml - Results Results: Laboratory Results WBC 8.2 x10^3/uL (4.8-10.8) 09/24/23 04:34 RBC 3.17 10^6/uL (4.70-6.10) L 09/24/23 04:34 Hgb 9.9 g/dL (14.0-18.0) L 09/24/23 04:34 Hct 30.8 % (42.0-52.0) L 09/24/23 04:34 MCV 97.2 fL (80.0-94.0) H 09/24/23 04:34 MCH 31.2 pg (27.0-31.0) H 09/24/23 04:34 MCHC 32.1 g/dL (32.0-36.0) 09/24/23 04:34 RDW 13.9 % (12.0-15.0) 09/24/23 04:34 Plt Count 110 10^3/uL (130-450) L 09/24/23 04:34 MPV 10.7 fL (7.4-11.4) 09/24/23 04:34 Neut # (Auto) 6.4 10^3/uL (1.5-6.6) 09/24/23 04:34 Lymph # (Auto) 0.8 10^3/uL (1.5-3.5) L 09/24/23 04:34 [place] # (Auto) 1.0 10^3/uL (0.0-1.0) 09/24/23 04:34 Eos # (Auto) 0.0 10^3/uL (0.0-0.7) 09/24/23 04:34 Baso # (Auto) 0.0 10^3/uL (0.0-0.1) 09/24/23 04:34 Absolute Nucleated RBC 0.00 x10^3/uL 09/24/23 04:34 Nucleated RBC % 0.0 /100WBC 09/24/23 04:34 PT 14.2 secs (9.9-12.6) H 09/24/23 04:34 INR 1.3 (0.8-1.2) H 09/24/23 04:34 APTT 35.4 secs (24.9-33.3) H 09/24/23 04:34 Sodium 140 mmol/L (135-145) 09/24/23 04:34 Potassium 3.7 mmol/L (3.5-4.5) 09/24/23 04:34 Chloride 109 mmol/L (101-111) 09/24/23 04:34 Carbon Dioxide 24 mmol/L (21-32) 09/24/23 04:34 Anion Gap 7.0 (6-13) 09/24/23 04:34 BUN 21 mg/dL (6-20) H 09/24/23 04:34 Creatinine 0.9 mg/dL (0.6-1.3) 09/24/23 04:34 Estimated GFR (MDRD) 80 (>89) L 09/24/23 04:34 Glucose 110 mg/dL (74-104) H 09/24/23 04:34 Calcium 8.4 mg/dL (8.5-10.3) L 09/24/23 04:34 Total Bilirubin 1.5 mg/dL (0.2-1.0) H 09/22/23 17:44 AST 25 IU/L (10-42) 09/22/23 17:44 ALT 17 IU/L (10-60) 09/22/23 17:44 Alkaline Phosphatase 106 IU/L (42-121) 09/22/23 17:44 Total Protein 6.9 g/dL (6.4-8.9) 09/22/23 17:44 Albumin 4.3 g/dL (3.2-5.5) 09/22/23 17:44 Globulin 2.6 g/dL (2.1-4.2) 09/22/23 17:44 Albumin/Globulin Ratio 1.7 (1.0-2.2) 09/22/23 17:44 Lipase < 10 U/L (11-82) L 09/22/23 17:44
[2023-09-24 23:40] LABS: BILIRUBIN,URINE SMALL (NEGATIVE); GLUCOSE, URINE (UA) NEGATIVE (NEGATIVE); KETONES,URINE (UA) NEGATIVE (NEGATIVE); LEUKOCYTE ESTERASE, URINE NEGATIVE (NEGATIVE); NITRITE,URINE NEGATIVE (NEGATIVE); OCCULT BLOOD,URINE NEGATIVE (NEGATIVE); PH,URINE 5.5 PH (5.0-7.5); PROTEIN,URINE TRACE mg/dL (NEGATIVE); UROBILINOGEN,URINE 1 (NORMAL) E.U./dL (NORMAL)
[2023-09-24 23:53] LABS: BACTERIA,URINE None Seen /HPF (None Seen); CLARITY,URINE CLEAR (CLEAR); RBC,URINE None Seen /HPF (0-5); SQUAMOUS EPITHELIAL CELL,UR RARE Squamous (<= Few); WBC,URINE 0-3 /HPF (0-3)
[2023-09-25] MEDS: CYCLOBENZAPRINE 10 MG TABLET PO PRN (00:14)
[2023-09-25 07:50] LABS: BASOPHILS % (AUTO) 0.4 %; EOSINOPHILS # (AUTO) 0.2 10^3/uL (0.0-0.7); EOSINOPHILS % (AUTO) 2.3 %; HCT - HEMATOCRIT 25.4 % (42.0-52.0); LYMPHOCYTES # (AUTO) 0.9 10^3/uL (1.5-3.5); LYMPHOCYTES % (AUTO) 11.8 %; MEAN CORPUSCULAR HEMOGLOBIN 30.8 pg (27.0-31.0); MEAN CORPUSCULAR HGB CONC 31.5 g/dL (32.0-36.0); MEAN CORPUSCULAR VOLUME 97.7 fL (80.0-94.0); MEAN PLATELET VOLUME 11.2 fL (7.4-11.4); MONOCYTES # (AUTO) 0.9 10^3/uL (0.0-1.0); NEUTROPHILS # (AUTO) 5.4 10^3/uL (1.5-6.6); PLT - PLATELET COUNT 101 10^3/uL (130-450); WHITE BLOOD COUNT 7.4 x10^3/uL (4.8-10.8)
[2023-09-25 08:03] LABS: CALCIUM 8.3 mg/dL (8.5-10.3); CREATININE 0.9 mg/dL (0.6-1.3); POTASSIUM 3.3 mmol/L (3.5-4.5)
[2023-09-25 08:10] LABS: INR 1.2 (0.8-1.2); PT - PROTHROMBIN TIME 13.5 secs (9.9-12.6)
--- NOTE | 2023-09-25 09:17 | PROVIDER PROGRESS NOTE ---
Subjective - Prog Note Date Prog Note Date: 09/25/23 Prog Note Time: 09:15 - Subjective Subjective: Minimal pain Hallucinating now Objective - Vital Signs/Intake & Output Vital Signs: Vital Signs x48h Temp Pulse Resp BP BP Pulse Ox 09/25/23 08:00 36.5 C 91 20 129/52 L 95 09/25/23 04:00 37.3 C 73 20 137/56 H 92 Intake & Output: Intake & Output 09/22/23 09/23/23 09/24/23 09/25/23 23:59 23:59 23:59 23:59 Intake Total 150.5 3022.167 3243.333 406.667 Output Total 180 300 250 0 Balance -29.5 2722.167 2993.333 406.667 - Lab Results Fish Bones: 09/25/23 07:41 09/25/23 07:41 Other Labs: Lab Results x24hrs 09/25/23 09/25/23 09/25/23 Range/Units 07:41 07:41 07:41 WBC 7.4 (4.8-10.8) x10^3/uL RBC 2.60 L (4.70-6.10) 10^6/uL Hgb 8.0 L (14.0-18.0) g/dL Hct 25.4 L (42.0-52.0) % MCV 97.7 H (80.0-94.0) fL MCH 30.8 (27.0-31.0) pg MCHC 31.5 L (32.0-36.0) g/dL RDW 14.0 (12.0-15.0) % Plt Count 101 L (130-450) 10^3/uL MPV 11.2 (7.4-11.4) fL Neut # (Auto) 5.4 (1.5-6.6) 10^3/uL Lymph # (Auto) 0.9 L (1.5-3.5) 10^3/uL [place] # (Auto) 0.9 (0.0-1.0) 10^3/uL Eos # (Auto) 0.2 (0.0-0.7) 10^3/uL Baso # (Auto) 0.0 (0.0-0.1) 10^3/uL Absolute Nucleated RBC 0.00 x10^3/uL Nucleated RBC % 0.0 /100WBC PT 13.5 H (9.9-12.6) secs INR 1.2 (0.8-1.2) APTT 37.0 H (24.9-33.3) secs Sodium 139 (135-145) mmol/L Potassium 3.3 L (3.5-4.5) mmol/L Chloride 107 (101-111) mmol/L Carbon Dioxide 24 (21-32) mmol/L Anion Gap 8.0 (6-13) BUN 21 H (6-20) mg/dL Creatinine 0.9 (0.6-1.3) mg/dL Estimated GFR (MDRD) 80 L (>89) Glucose 113 H (74-104) mg/dL Calcium 8.3 L (8.5-10.3) mg/dL Urine Color Urine Clarity (CLEAR) Urine pH (5.0-7.5) PH Ur Specific [place] (1.002-1.030) Urine Protein (NEGATIVE) mg/dL Urine Glucose (UA) (NEGATIVE) mg/dL Urine Ketones (NEGATIVE) mg/dL Urine Occult Blood (NEGATIVE) Urine Nitrite (NEGATIVE) Urine Bilirubin (NEGATIVE) Urine Urobilinogen (NORMAL) E.U./dL Ur Leukocyte Esterase (NEGATIVE) Urine RBC (0-5) /HPF Urine WBC (0-3) /HPF Ur Squamous Epith Cells (<= Few) Urine Bacteria (None Seen) /HPF Urine Culture Comments 09/24/23 Range/Units 23:00 WBC (4.8-10.8) x10^3/uL RBC (4.70-6.10) 10^6/uL Hgb (14.0-18.0) g/dL Hct (42.0-52.0) % MCV (80.0-94.0) fL MCH (27.0-31.0) pg MCHC (32.0-36.0) g/dL RDW (12.0-15.0) % Plt Count (130-450) 10^3/uL MPV (7.4-11.4) fL Neut # (Auto) (1.5-6.6) 10^3/uL Lymph # (Auto) (1.5-3.5) 10^3/uL [place] # (Auto) (0.0-1.0) 10^3/uL Eos # (Auto) (0.0-0.7) 10^3/uL Baso # (Auto) (0.0-0.1) 10^3/uL Absolute Nucleated RBC x10^3/uL Nucleated RBC % /100WBC PT (9.9-12.6) secs INR (0.8-1.2) APTT (24.9-33.3) secs Sodium (135-145) mmol/L Potassium (3.5-4.5) mmol/L Chloride (101-111) mmol/L Carbon Dioxide (21-32) mmol/L Anion Gap (6-13) BUN (6-20) mg/dL Creatinine (0.6-1.3) mg/dL Estimated GFR (MDRD) (>89) Glucose (74-104) mg/dL Calcium (8.5-10.3) mg/dL Urine Color DARK YELLOW Urine Clarity CLEAR (CLEAR) Urine pH 5.5 (5.0-7.5) PH Ur Specific [place] 1.025 (1.002-1.030) Urine Protein TRACE (NEGATIVE) mg/dL Urine Glucose (UA) NEGATIVE (NEGATIVE) mg/dL Urine Ketones NEGATIVE (NEGATIVE) mg/dL Urine Occult Blood NEGATIVE (NEGATIVE) Urine Nitrite NEGATIVE (NEGATIVE) Urine Bilirubin SMALL H (NEGATIVE) Urine Urobilinogen 1 (NORMAL) (NORMAL) E.U./dL Ur Leukocyte Esterase NEGATIVE (NEGATIVE) Urine RBC None Seen (0-5) /HPF Urine WBC 0-3 (0-3) /HPF Ur Squamous Epith Cells RARE Squamous (<= Few) Urine Bacteria None Seen (None Seen) /HPF Urine Culture Comments NOT INDICATED - Other Results/Comments Other Results/Comments: Dressing intact Moving toes well Sensation ok Hallucinations clearing as we continued talking Assessment/Plan - Problem List (1) Hip fracture Impression: Stable orthopedicly PLAN: Notified gelatin powder mixer about his hallucinations. Apparently has been doing so post op. Thought possibly due to sensitivity to opiates. Considering treatment prophylactically for possible DT. Continue PT as tolerated. Qualifiers: Encounter type: initial encounter Fracture type: closed Laterality: right Qualified Code(s): S72.001A - Fracture of unspecified part of neck of right femur, initial encounter for closed fracture
[2023-09-25] MEDS: POTASSIUM CHLORIDE 20 MEQ TABLET PO ONE (10:50)
[2023-09-25] MEDS: LORazepam 2 MG/ML VIAL IVP PRN (10:51)
--- NOTE | 2023-09-25 12:13 | PROVIDER PROGRESS NOTE ---
Assessment/Plan - Problem List (1) Hip fracture Qualifiers: Encounter type: initial encounter Fracture type: closed Laterality: right Qualified Code(s): S72.001A - Fracture of unspecified part of neck of right femur, initial encounter for closed fracture Assessment/Plan: (1) Hip fracture Qualifiers: Encounter type: initial encounter Fracture type: closed Laterality: right Qualified Code(s): S72.001A - Fracture of unspecified part of neck of right femur, initial encounter for closed fracture Assessment/Plan: --POD#2 --DVT ppx with warfarin. Will bridge with Lovenox given he has a mechanical aortic valve. --PT/OT --Treating post operative anemia with oral Fe. (2) Afib Assessment/Plan: --Continue Atenolol and warfarin. (3) S/P aortic valve repair Assessment/Plan: --Goal INR is 2.5-3.5. He will likely need to be bridged back to warfarin post- operatively. --Has been given several doses of vitamin K pre-operatively. (4) HTN (hypertension) Assessment/Plan: --Continue imdur and atenolol. --Most recent TTE from 2017 showing LVEF 50-55% with normal functioning mechanical aortic valve. Evidence of elevated heart pressures. (5) Encephalopathy acute Assessment/Plan: --Acute encephalopathy. Will obtain a CTH. --Some question of EtOH withdrawal. CIWA ordered. (6) Oliguria after procedure Assessment/Plan: --Became oliguric after surgery. We are giving IV fluids. --Bladder scans have not yielded a significant amount of retention therefore will hold off on Lyles catheter insertion. --Renal US pending. - Current Meds Current Meds: Current Medications Generic Name Dose Route Start Last Admin Trade Name Freq PRN Reason Stop Dose Admin Acetaminophen 650 mg 09/22/23 19:38 09/25/23 08:27 Acetaminophen 325 Mg Tablet PO 650 mg Q4HR PRN Administration Pain 1 to 4, or Fever Hydrocodone Bitart/Acetaminophen 1 tab 09/23/23 07:01 09/24/23 15:08 Hydrocod/Acetam 5/325 Mg Tablet PO 1 tab Q4HR PRN Administration Moderate Pain (Level 4-6) Amlodipine Besylate 5 mg 09/22/23 21:00 09/25/23 08:27 Amlodipine 5 Mg Tablet PO 5 mg BID PRATIK Administration Atenolol 25 mg 09/23/23 09:00 09/25/23 08:27 Atenolol 25 Mg Tablet PO 25 mg DAILY PRATIK Administration Atorvastatin Calcium 80 mg 09/22/23 21:00 09/24/23 20:49 Atorvastatin 40 Mg Tablet PO 80 mg QPM PRATIK Administration Cyclobenzaprine HCl 10 mg 09/24/23 07:02 09/25/23 00:14 Cyclobenzaprine 10 Mg Tablet PO 10 mg TID PRN Administration Spasms Enoxaparin Sodium 90 mg 09/23/23 21:00 09/25/23 10:10 Enoxaparin 100 Mg/Ml Syringe SUBQ 90 mg BID PRATIK Administration Ferrous Gluconate 324 mg 09/24/23 08:00 09/25/23 08:27 Ferrous Gluconate 324 Mg Tablet PO 324 mg DAILYWM PRATIK Administration Lactated Ringer's 1,000 mls @ 100 mls/hr 09/23/23 07:02 09/25/23 10:51 Lr IV 100 mls/hr .Q10H PRATIK Administration Isosorbide Mononitrate 60 mg 09/23/23 09:00 09/25/23 08:27 Isosorbide Mononitrate Er 30 Mg Tablet PO 60 mg DAILY PRATIK Administration Lorazepam 1 mg 09/25/23 10:40 09/25/23 10:51 Lorazepam 2 Mg/Ml Vial IVP 1 mg Q30M PRN Administration CIWA >8 Protocol Pantoprazole Sodium 40 mg 09/23/23 09:00 09/25/23 08:27 Pantoprazole 40 Mg Tablet PO 40 mg DAILY PRATIK Administration Sodium Chloride 10 ml 09/23/23 01:00 09/25/23 08:28 Sodium Chloride Flush 0.9% 10 Ml Syringe IVP Not Given 0100,0900,1700 [facility] Tamsulosin HCl 0.4 mg 09/23/23 09:00 09/25/23 08:27 Tamsulosin 0.4 Mg Capsule PO 0.4 mg DAILY PRATIK Administration Tramadol HCl 50 mg 09/22/23 23:53 09/23/23 19:56 Tramadol 50 Mg Tablet PO 50 mg Q6HR PRN Administration Severe Pain (Level 7-10) Warfarin Sodium 5 mg 09/23/23 18:00 09/24/23 17:44 Warfarin 5 Mg Tablet PO 5 mg SUTUWETHSA PRATIK Administration - Lab Result Fish Bone Diagrams: 09/25/23 07:41 09/25/23 07:41 - Additional Planning My Orders: My Active Orders 09/25/23 07:10 Renal (Retroperitoneal) [US] Routine 09/25/23 07:41 VITAMIN D 25-HYDROXY [REFLAB] DAILY 09/25/23 10:40 CIWA - AR Score Card [RC] Q4HR LORazepam INJ [Ativan Inj (Vial)] 1 mg IVP Q30M PRN 09/26/23 05:00 BMP - BASIC METABOLIC PANEL [CHEM] DAILYLAB CBC [CBC - COMP BLD CT W/AUTO DIFF] [HEME] DAILYLAB PT WITH INR [COAG] DAILYLAB 09/26/23 18:00 Warfarin [Coumadin] 7.5 mg PO MOFR 09/27/23 05:00 BMP - BASIC METABOLIC PANEL [CHEM] DAILYLAB CBC [CBC - COMP BLD CT W/AUTO DIFF] [HEME] DAILYLAB PT WITH INR [COAG] DAILYLAB 09/28/23 05:00 BMP - BASIC METABOLIC PANEL [CHEM] DAILYLAB CBC [CBC - COMP BLD CT W/AUTO DIFF] [HEME] DAILYLAB PT WITH INR [COAG] DAILYLAB 09/29/23 05:00 PT WITH INR [COAG] DAILYLAB 09/30/23 05:00 PT WITH INR [COAG] DAILYLAB Subjective - Subjective Patient Reports: Feeling Better, Resting Comfortably, No Complaints Objective Vital Signs: Vital Signs - 24 hr 09/24/23 09/24/23 09/25/23 15:11 20:00 00:00 Temperature 37.0 C 37.4 C 36.9 C Heart Rate [ 78 76 77 Brachial] Respiratory 20 18 20 Rate Blood Pressure 106/60 112/62 124/58 L [Left Brachial artery] Blood Pressure [Right Brachial artery] O2 Saturation 94 93 92 09/25/23 09/25/23 04:00 08:00 Temperature 37.3 C 36.5 C Heart Rate [ 73 91 Brachial] Respiratory 20 20 Rate Blood Pressure 137/56 H [Left Brachial artery] Blood Pressure 129/52 L [Right Brachial artery] O2 Saturation 92 95 Oxygen O2 Source Room air I&O (Last 24 Hrs): Intake and Output Totals x24h 09/23/23 09/24/2309/24/24 23:59 23:59 23:59 Intake Total 3022.167 3243.333 1406.667 Output Total 300 250 0 Balance 2722.167 2993.333 1406.667 General: Alert, No acute distress Cardiovascular: Regular rate, Normal S1, Normal S2, No murmurs Respiratory: Chest non-tender, No respiratory distress, Breath sounds nml Abdomen: Normal bowel sounds, Soft, No tenderness, No hepatospenomegaly, No masses - Results Results: Laboratory Results WBC 7.4 x10^3/uL (4.8-10.8) 09/25/23 07:41 RBC 2.60 10^6/uL (4.70-6.10) L 09/25/23 07:41 Hgb 8.0 g/dL (14.0-18.0) L 09/25/23 07:41 Hct 25.4 % (42.0-52.0) L 09/25/23 07:41 MCV 97.7 fL (80.0-94.0) H 09/25/23 07:41 MCH 30.8 pg (27.0-31.0) 09/25/23 07:41 MCHC 31.5 g/dL (32.0-36.0) L 09/25/23 07:41 RDW 14.0 % (12.0-15.0) 09/25/23 07:41 Plt Count 101 10^3/uL (130-450) L 09/25/23 07:41 MPV 11.2 fL (7.4-11.4) 09/25/23 07:41 Neut # (Auto) 5.4 10^3/uL (1.5-6.6) 09/25/23 07:41 Lymph # (Auto) 0.9 10^3/uL (1.5-3.5) L 09/25/23 07:41 [place] # (Auto) 0.9 10^3/uL (0.0-1.0) 09/25/23 07:41 Eos # (Auto) 0.2 10^3/uL (0.0-0.7) 09/25/23 07:41 Baso # (Auto) 0.0 10^3/uL (0.0-0.1) 09/25/23 07:41 Absolute Nucleated RBC 0.00 x10^3/uL 09/25/23 07:41 Nucleated RBC % 0.0 /100WBC 09/25/23 07:41 PT 13.5 secs (9.9-12.6) H 09/25/23 07:41 INR 1.2 (0.8-1.2) 09/25/23 07:41 APTT 37.0 secs (24.9-33.3) H 09/25/23 07:41 Sodium 139 mmol/L (135-145) 09/25/23 07:41 Potassium 3.3 mmol/L (3.5-4.5) L 09/25/23 07:41 Chloride 107 mmol/L (101-111) 09/25/23 07:41 Carbon Dioxide 24 mmol/L (21-32) 09/25/23 07:41 Anion Gap 8.0 (6-13) 09/25/23 07:41 BUN 21 mg/dL (6-20) H 09/25/23 07:41 Creatinine 0.9 mg/dL (0.6-1.3) 09/25/23 07:41 Estimated GFR (MDRD) 80 (>89) L 09/25/23 07:41 Glucose 113 mg/dL (74-104) H 09/25/23 07:41 Calcium 8.3 mg/dL (8.5-10.3) L 09/25/23 07:41 Total Bilirubin 1.5 mg/dL (0.2-1.0) H 09/22/23 17:44 AST 25 IU/L (10-42) 09/22/23 17:44 ALT 17 IU/L (10-60) 09/22/23 17:44 Alkaline Phosphatase 106 IU/L (42-121) 09/22/23 17:44 Total Protein 6.9 g/dL (6.4-8.9) 09/22/23 17:44 Albumin 4.3 g/dL (3.2-5.5) 09/22/23 17:44 Globulin 2.6 g/dL (2.1-4.2) 09/22/23 17:44 Albumin/Globulin Ratio 1.7 (1.0-2.2) 09/22/23 17:44 Lipase < 10 U/L (11-82) L 09/22/23 17:44 Urine Color DARK YELLOW 09/24/23 23:00 Urine Clarity CLEAR (CLEAR) 09/24/23 23:00 Urine pH 5.5 PH (5.0-7.5) 09/24/23 23:00 Ur Specific [place] 1.025 (1.002-1.030) 09/24/23 23:00 Urine Protein TRACE mg/dL (NEGATIVE) 09/24/23 23:00 Urine Glucose (UA) NEGATIVE mg/dL (NEGATIVE) 09/24/23 23:00 Urine Ketones NEGATIVE mg/dL (NEGATIVE) 09/24/23 23:00 Urine Occult Blood NEGATIVE (NEGATIVE) 09/24/23 23:00 Urine Nitrite NEGATIVE (NEGATIVE) 09/24/23 23:00 Urine Bilirubin SMALL (NEGATIVE) H 09/24/23 23:00 Urine Urobilinogen 1 (NORMAL) E.U./dL (NORMAL) 09/24/23 23:00 Ur Leukocyte Esterase NEGATIVE (NEGATIVE) 09/24/23 23:00 Urine RBC None Seen /HPF (0-5) 09/24/23 23:00 Urine WBC 0-3 /HPF (0-3) 09/24/23 23:00 Ur Squamous Epith Cells RARE Squamous (<= Few) 09/24/23 23:00 Urine Bacteria None Seen /HPF (None Seen) 09/24/23 23:00 Urine Culture Comments NOT INDICATED 09/24/23 23:00
--- NOTE | 2023-09-25 13:02 | CT Report ---
PROCEDURE: Head WO INDICATIONS: AMS, post op, slurred speech. r/o subacute CVA TECHNIQUE: Noncontrast 4.5 mm thick angled axial sections acquired from the foramen magnum to the vertex. For r adiation dose reduction, the following was used: automated exposure control, adjustment of mA and/or kV according to patient size. COMPARISON: 09/22/2023, 07/15/2023 FINDINGS: Image quality: Motion artifact is noted. Images were repeated, with some improvement. CSF spaces: Basal cisterns are patent. No extra-axial fluid collections. Ventricles are normal in size and shape. Brain: No midline shift. No intracranial masses or hemorrhage. Good-white matter interface is norm al. Skull and face: Calvarium and visualized facial bones are intact, without suspicious lesions. Sinuses: Visualized sinuses and mastoids are clear. IMPRESSION: Motion limited study, without a significant acute intracranial abnormality identified. If there is strong clinical concern for a stroke, please consider a dedicated brain MRI for further e valuation (assuming that there is no contraindication to MRI). Reviewed by: Ken Adkins MD on 09/25/2023 12:00 PM JEANCARLOS Approved by: Ken Adkins MD on 09/25/2023 12:00 PM JEANCARLOS Station ID: [id number]
[2023-09-26 06:00] LABS: BASOPHILS % (AUTO) 0.3 %; EOSINOPHILS # (AUTO) 0.1 10^3/uL (0.0-0.7); EOSINOPHILS % (AUTO) 1.9 %; HCT - HEMATOCRIT 20.9 % (42.0-52.0); LYMPHOCYTES # (AUTO) 0.9 10^3/uL (1.5-3.5); LYMPHOCYTES % (AUTO) 13.7 %; MEAN CORPUSCULAR HEMOGLOBIN 31.1 pg (27.0-31.0); MEAN CORPUSCULAR HGB CONC 31.6 g/dL (32.0-36.0); MEAN CORPUSCULAR VOLUME 98.6 fL (80.0-94.0); MEAN PLATELET VOLUME 11.5 fL (7.4-11.4); MONOCYTES # (AUTO) 0.8 10^3/uL (0.0-1.0); MONOCYTES % (AUTO) 12.6 %; NEUTROPHILS # (AUTO) 4.5 10^3/uL (1.5-6.6); NEUTROPHILS % (AUTO) 70.7 %; NRBC ABSOLUTE COUNT (AUTO) 0.02 x10^3/uL; NUCLEATED RED BLOOD CELLS AUTO 0.3 /100WBC; PLT - PLATELET COUNT 101 10^3/uL (130-450); RED BLOOD COUNT 2.12 10^6/uL (4.70-6.10); RED CELL DISTRIBUTION WIDTH 14.1 % (12.0-15.0); WHITE BLOOD COUNT 6.3 x10^3/uL (4.8-10.8)
[2023-09-26 06:12] LABS: HGB - HEMOGLOBIN 6.6 g/dL (14.0-18.0)
[2023-09-26 06:13] LABS: CALCIUM 8.5 mg/dL (8.5-10.3); CREATININE 0.8 mg/dL (0.6-1.3); POTASSIUM 3.6 mmol/L (3.5-4.5)
[2023-09-26 06:37] LABS: INR 1.3 (0.8-1.2); PT - PROTHROMBIN TIME 14.1 secs (9.9-12.6)
[2023-09-26 07:09] LABS: % IRON SATURATION 12 % (20-50); IRON 23 ug/dL (50-212); TOTAL IRON BINDING CAPACITY 189 ug/dL (250-450); TRANSFERRIN 135 mg/dL (203-362)
[2023-09-26] MEDS: IRON DEXTRAN 1,000 MG in SODIUM CHLORIDE 0.9% 250 ML IV ONE (08:42)
[2023-09-26 08:51] LABS: ABG HCO3 22.1 mmol/L (22.0-26.0); ABG OXYGEN SATURATION 92 % (94-98); ABG PCO2 30 mmHg (34-45); ABG PH 7.49 (7.35-7.45); ABG PO2 69 mmHg (80-100); ABG TCO2 23.1 MMOL/L (21.0-29.0); ALLEN TEST POSITIVE
--- NOTE | 2023-09-26 09:15 | XRAY Report ---
PROCEDURE: Chest 1V INDICATIONS: Apnea. Tachypnea. R/o pulm edema TECHNIQUE: One view of the chest was acquired. COMPARISON: 09/22/2023. FINDINGS: Surgical changes and devices: Midline sternotomy with valve. Lungs and pleura: No pleural effusions or pneumothorax. Mild interstitial pulmonary edema.. Mediastinum: Mediastinal contours appear normal. Heart size is normal. Bones and chest wall: No suspicious bony lesions. Overlying soft tissues appear unremarkable. IMPRESSION: Interval development of congestive heart failure, mild Reviewed by: Peewee Almaguer MD on 09/26/2023 9:13 AM PDT Approved by: Peewee Almaguer MD on 09/26/2023 9:13 AM PDT Station ID: [id number]
--- NOTE | 2023-09-26 10:12 | PROVIDER PROGRESS NOTE ---
Subjective - Prog Note Date Prog Note Date: 09/26/23 Prog Note Time: 10:06 - Subjective Pt reports feeling: No change Objective - Vital Signs/Intake & Output Vital Signs: Vital Signs x48h Temp Pulse Resp BP BP Pulse Ox 09/26/23 08:00 37.2 C 79 18 121/100 H 93 09/26/23 03:46 37.2 C 105 H 18 131/62 H 09/26/23 03:45 92 Intake & Output: Intake & Output 09/23/23 09/24/23 09/25/23 09/26/23 23:59 23:59 23:59 23:59 Intake Total 3022.167 3243.333 2500.000 1045.833 Output Total 300 250 0 Balance 2722.167 2993.333 2500.000 1045.833 - Lab Results Fish Bones: 09/26/23 05:32 09/26/23 05:32 Other Labs: Lab Results x24hrs 09/26/23 09/26/23 09/26/23 Range/Units 08:42 07:06 07:06 WBC (4.8-10.8) x10^3/uL RBC (4.70-6.10) 10^6/uL Hgb (14.0-18.0) g/dL Hct (42.0-52.0) % MCV (80.0-94.0) fL MCH (27.0-31.0) pg MCHC (32.0-36.0) g/dL RDW (12.0-15.0) % Plt Count (130-450) 10^3/uL MPV (7.4-11.4) fL Neut # (Auto) (1.5-6.6) 10^3/uL Lymph # (Auto) (1.5-3.5) 10^3/uL [place] # (Auto) (0.0-1.0) 10^3/uL Eos # (Auto) (0.0-0.7) 10^3/uL Baso # (Auto) (0.0-0.1) 10^3/uL Absolute Nucleated RBC x10^3/uL Nucleated RBC % /100WBC PT (9.9-12.6) secs INR (0.8-1.2) Bld Gas Analysis Time 0849 Sample Site LEFT RADIAL ABG pH 7.49 H (7.35-7.45) ABG pCO2 30 L (34-45) mmHg ABG pO2 69 L (80-100) mmHg ABG HCO3 22.1 (22.0-26.0) mmol/L ABG Total CO2 23.1 (21.0-29.0) MMOL/L ABG O2 Saturation 92 L (94-98) % ABG Base Excess -1.0 (-2.0-3.0) mmol/L Chay Test POSITIVE Room Air YES Sodium (135-145) mmol/L Potassium (3.5-4.5) mmol/L Chloride (101-111) mmol/L Carbon Dioxide (21-32) mmol/L Anion Gap (6-13) BUN (6-20) mg/dL Creatinine (0.6-1.3) mg/dL Estimated GFR (MDRD) (>89) Glucose (74-104) mg/dL Calcium (8.5-10.3) mg/dL Iron (50-212) ug/dL TIBC (250-450) ug/dL % Saturation (20-50) % Transferrin (203-362) mg/dL Vitamin D 25-Hydroxy (30.0-100.0) ng/mL Blood Type A POSITIVE Blood Type Recheck A POSITIVE Antibody Screen NEGATIVE Crossmatch IS Only See Detail 09/26/23 09/26/23 09/26/23 Range/Units 05:32 05:32 05:32 WBC (4.8-10.8) x10^3/uL RBC (4.70-6.10) 10^6/uL Hgb (14.0-18.0) g/dL Hct (42.0-52.0) % MCV (80.0-94.0) fL MCH (27.0-31.0) pg MCHC (32.0-36.0) g/dL RDW (12.0-15.0) % Plt Count (130-450) 10^3/uL MPV (7.4-11.4) fL Neut # (Auto) (1.5-6.6) 10^3/uL Lymph # (Auto) (1.5-3.5) 10^3/uL [place] # (Auto) (0.0-1.0) 10^3/uL Eos # (Auto) (0.0-0.7) 10^3/uL Baso # (Auto) (0.0-0.1) 10^3/uL Absolute Nucleated RBC x10^3/uL Nucleated RBC % /100WBC PT 14.1 H (9.9-12.6) secs INR 1.3 H (0.8-1.2) Bld Gas Analysis Time Sample Site ABG pH (7.35-7.45) ABG pCO2 (34-45) mmHg ABG pO2 (80-100) mmHg ABG HCO3 (22.0-26.0) mmol/L ABG Total CO2 (21.0-29.0) MMOL/L ABG O2 Saturation (94-98) % ABG Base Excess (-2.0-3.0) mmol/L Chay Test Room Air Sodium 140 (135-145) mmol/L Potassium 3.6 (3.5-4.5) mmol/L Chloride 109 (101-111) mmol/L Carbon Dioxide 24 (21-32) mmol/L Anion Gap 7.0 (6-13) BUN 22 H (6-20) mg/dL Creatinine 0.8 (0.6-1.3) mg/dL Estimated GFR (MDRD) 92 (>89) Glucose 102 (74-104) mg/dL Calcium 8.5 (8.5-10.3) mg/dL Iron 23 L (50-212) ug/dL TIBC 189 L (250-450) ug/dL % Saturation 12 L (20-50) % Transferrin 135 L (203-362) mg/dL Vitamin D 25-Hydroxy (30.0-100.0) ng/mL Blood Type Blood Type Recheck Antibody Screen Crossmatch IS Only 09/26/23 09/25/23 Range/Units 05:32 07:41 WBC 6.3 (4.8-10.8) x10^3/uL RBC 2.12 L (4.70-6.10) 10^6/uL Hgb 6.6 L* (14.0-18.0) g/dL Hct 20.9 L (42.0-52.0) % MCV 98.6 H (80.0-94.0) fL MCH 31.1 H (27.0-31.0) pg MCHC 31.6 L (32.0-36.0) g/dL RDW 14.1 (12.0-15.0) % Plt Count 101 L (130-450) 10^3/uL MPV 11.5 H (7.4-11.4) fL Neut # (Auto) 4.5 (1.5-6.6) 10^3/uL Lymph # (Auto) 0.9 L (1.5-3.5) 10^3/uL [place] # (Auto) 0.8 (0.0-1.0) 10^3/uL Eos # (Auto) 0.1 (0.0-0.7) 10^3/uL Baso # (Auto) 0.0 (0.0-0.1) 10^3/uL Absolute Nucleated RBC 0.02 x10^3/uL Nucleated RBC % 0.3 /100WBC PT (9.9-12.6) secs INR (0.8-1.2) Bld Gas Analysis Time Sample Site ABG pH (7.35-7.45) ABG pCO2 (34-45) mmHg ABG pO2 (80-100) mmHg ABG HCO3 (22.0-26.0) mmol/L ABG Total CO2 (21.0-29.0) MMOL/L ABG O2 Saturation (94-98) % ABG Base Excess (-2.0-3.0) mmol/L Chay Test Room Air Sodium (135-145) mmol/L Potassium (3.5-4.5) mmol/L Chloride (101-111) mmol/L Carbon Dioxide (21-32) mmol/L Anion Gap (6-13) BUN (6-20) mg/dL Creatinine (0.6-1.3) mg/dL Estimated GFR (MDRD) (>89) Glucose (74-104) mg/dL Calcium (8.5-10.3) mg/dL Iron (50-212) ug/dL TIBC (250-450) ug/dL % Saturation (20-50) % Transferrin (203-362) mg/dL Vitamin D 25-Hydroxy 31.9 (30.0-100.0) ng/mL Blood Type Blood Type Recheck Antibody Screen Crossmatch IS Only - Other Results/Comments Other Results/Comments: Examination: Incision has mild amount of bloody drainage present. Dressing intact. There is some bruising and ecchymoses around the incision site. Patient is quite somnolent in bed today. Able to move the right hip with minimal response. Patient responds to tickling of his foot. Labs: Patient's hematocrit was 20. INR 1.3 Assessment/Plan - Problem List (1) Hip fracture Impression: Fracture appears to be stable. Wound is benign. Appears to be bleeding around his wound site as evidenced by the ecchymoses. His hematocrit has continued to drop postoperatively. Plan: Agree with the holding his Lovenox at this point . Transfusion to bring his blood counts up. Continue with therapy as tolerated. Would continue looking for another source of bleed besides his fracture site. I will be rotating off the service Friday morning. Dr. Elizalde is aware of the patient's admission. Please reconsult him as needed for orthopedic issues. If patient is discharged or transferred to a skilled facility in the future his orthopedic follow-up will be in approximately 2 weeks time for wound check and repeat x-rays of his hip fracture. Qualifiers: Encounter type: initial encounter Fracture type: closed Laterality: right Qualified Code(s): S72.001A - Fracture of unspecified part of neck of right femur, initial encounter for closed fracture
[2023-09-26] MEDS: CALCIUM CARBONATE CHEW 500 MG TABLET PO SCH (10:18)
[2023-09-26] MEDS: CHOLECALCIFEROL 25 MCG TABLET PO SCH (10:18)
[2023-09-26] MEDS: FUROSEMIDE 40 MG/4 ML VIAL IVP SCH (10:59)
--- NOTE | 2023-09-26 11:36 | PROVIDER PROGRESS NOTE ---
Assessment/Plan - Problem List (1) Acute blood loss anemia (ABLA) Assessment/Plan: --1 unit pRBC. Holding Lovenox. Surgical site is slightly bloody. (2) Hip fracture Qualifiers: Encounter type: initial encounter Fracture type: closed Laterality: right Qualified Code(s): S72.001A - Fracture of unspecified part of neck of right femur, initial encounter for closed fracture Assessment/Plan: (1) Hip fracture Qualifiers: Encounter type: initial encounter Fracture type: closed Laterality: right Qualified Code(s): S72.001A - Fracture of unspecified part of neck of right femur, initial encounter for closed fracture Assessment/Plan: --POD#3 --DVT ppx with warfarin. Holding Lovenox today as patient is bleeding with a low hemoglobin. Transfusing 1 unit of pRBC. --PT/OT --Treating post operative anemia with oral Fe. Will also give a dose of IV Fe today. (2) Afib Assessment/Plan: --Continue Atenolol and warfarin. (3) S/P aortic valve repair Assessment/Plan: --Goal INR is 2.5-3.5. He will likely need to be bridged back to warfarin post- operatively. Holding Lovenox today due to bleeding. --Has been given several doses of vitamin K pre-operatively. (4) HTN (hypertension) Assessment/Plan: --Continue imdur and atenolol. --Most recent TTE from 2017 showing LVEF 50-55% with normal functioning mechanical aortic valve. Evidence of elevated heart pressures. (5) Encephalopathy acute Assessment/Plan: --Acute encephalopathy. Appears to be post-op and due to narcotics. Holding all sedating medications. Will discontinue CIWA. (6) Oliguria after procedure Assessment/Plan: --Resolved. (8) Acute diastolic CHF (congestive heart failure) Assessment/Plan: --CXR showing pulmonary edema. --Will give IV lasix to help with pulmonary edema. --No hypoxia. Dispo: Case discussed with orthopedic surgery today. Also had a discussion with son regarding code status. Wishes to remain FULL CODE. - Current Meds Current Meds: Current Medications Generic Name Dose Route Start Last Admin Trade Name Freq PRN Reason Stop Dose Admin Acetaminophen 650 mg 09/22/23 19:38 04/04/24 08:27 Acetaminophen 325 Mg Tablet PO 650 mg Q4HR PRN Administration Pain 1 to 4, or Fever Amlodipine Besylate 5 mg 09/22/23 21:00 09/26/23 10:18 Amlodipine 5 Mg Tablet PO Not Given BID [facility] Atenolol 25 mg 09/23/23 09:00 09/26/23 10:18 Atenolol 25 Mg Tablet PO Not Given DAILY PRATIK Atorvastatin Calcium 80 mg 09/22/23 21:00 09/25/23 21:21 Atorvastatin 40 Mg Tablet PO Not Given QPM [facility] Calcium Carbonate/Glycine 500 mg 09/26/23 09:00 09/26/23 10:18 Calcium Carbonate Chew 500 Mg Tablet PO Not Given BID [facility] Cholecalciferol 50 mcg 09/26/23 09:00 09/26/23 10:18 Cholecalciferol 25 Mcg Tablet PO Not Given DAILY [facility] Enoxaparin Sodium 90 mg 09/23/23 21:00 09/26/23 08:44 Enoxaparin 100 Mg/Ml Syringe SUBQ Not Given BID [facility] Ferrous Gluconate 324 mg 09/24/23 08:00 09/26/23 10:18 Ferrous Gluconate 324 Mg Tablet PO Not Given DAILYWM [facility] Furosemide 40 mg 09/26/23 11:00 09/26/23 10:59 Furosemide 40 Mg/4 Ml Vial IVP 09/26/23 13:00 40 mg ONCE PRATIK Administration Lactated Ringer's 1,000 mls @ 100 mls/hr 09/23/23 07:02 09/26/23 08:51 Lr IV 0 mls/hr .Q10H PRATIK Infusion Isosorbide Mononitrate 60 mg 09/23/23 09:00 09/26/23 10:18 Isosorbide Mononitrate Er 30 Mg Tablet PO Not Given DAILY PRATIK Pantoprazole Sodium 40 mg 09/23/23 09:00 09/26/23 10:18 Pantoprazole 40 Mg Tablet PO Not Given DAILY PRATIK Sodium Chloride 10 ml 09/23/23 01:00 09/26/23 10:19 Sodium Chloride Flush 0.9% 10 Ml Syringe IVP 10 ml 0100,0900,1700 PRATIK Administration Tamsulosin HCl 0.4 mg 09/23/23 09:00 09/26/23 10:19 Tamsulosin 0.4 Mg Capsule PO Not Given DAILY PRATIK Warfarin Sodium 5 mg 09/23/23 18:00 09/25/23 17:34 Warfarin 5 Mg Tablet PO 5 mg SUTUWETHSA [facility] Administration - Lab Result Fish Bone Diagrams: 09/26/23 05:32 09/26/23 05:32 - Additional Planning My Orders: My Active Orders 09/25/23 10:40 CIWA - AR Score Card [RC] Q4HR 09/26/23 09:00 Calcium Carbonate [Tums] 500 mg PO BID Cholecalciferol [Vitamin D3] 50 mcg PO DAILY 09/26/23 11:00 FUROSEMIDE INJ 40mg VIAL [LASIX INJ 40 mg VIAL] 40 mg IVP ONCE 09/26/23 11:16 Renal (Retroperitoneal) [US] Routine 09/26/23 18:00 Warfarin [Coumadin] 7.5 mg PO MOFR 09/27/23 05:00 BMP - BASIC METABOLIC PANEL [CHEM] DAILYLAB CBC [CBC - COMP BLD CT W/AUTO DIFF] [HEME] DAILYLAB PT WITH INR [COAG] DAILYLAB 09/28/23 05:00 BMP - BASIC METABOLIC PANEL [CHEM] DAILYLAB CBC [CBC - COMP BLD CT W/AUTO DIFF] [HEME] DAILYLAB PT WITH INR [COAG] DAILYLAB 09/29/23 05:00 PT WITH INR [COAG] DAILYLAB 09/30/23 05:00 PT WITH INR [COAG] DAILYLAB Subjective - Subjective Patient Reports: Other (Remains encephalopathic.) Objective Vital Signs: Vital Signs - 24 hr 09/25/23 09/25/23 09/25/23 12:00 16:00 20:16 Temperature 36.6 C 36.7 C 36.6 C Heart Rate [ 80 95 81 Brachial] Respiratory 19 16 16 Rate Blood Pressure 112/71 104/85 H 130/71 [Left Brachial artery] Blood Pressure [Right Brachial artery] O2 Saturation 96 92 93 09/26/23 09/26/23 09/26/23 03:45 03:46 08:00 Temperature 37.2 C 37.2 C Heart Rate [ 105 H 79 Brachial] Respiratory 18 18 Rate Blood Pressure 121/100 H [Left Brachial artery] Blood Pressure 131/62 H [Right Brachial artery] O2 Saturation 92 93 09/26/23 09/26/23 09/26/23 10:49 10:55 10:59 Temperature 37.2 C 37.2 C 37.2 C Heart Rate [ 78 78 78 Brachial] Respiratory 18 18 18 Rate Blood Pressure 118/52 L 118/52 L [Left Brachial artery] Blood Pressure 118/52 L [Right Brachial artery] O2 Saturation 92 93 92 09/26/23 11:15 Temperature 37.1 C Heart Rate [ 65 Brachial] Respiratory 18 Rate Blood Pressure [Left Brachial artery] Blood Pressure 146/66 H [Right Brachial artery] O2 Saturation 93 Oxygen O2 Source Room air I&O (Last 24 Hrs): Intake and Output Totals x24h 09/24/23 09/25/23 09/26/23 23:59 23:59 23:59 Intake Total 3243.333 2500.000 1311.666 Output Total 250 0 Balance 2993.333 2500.000 1311.666 Neuro: Disoriented, Non Focal Cardiovascular: Regular rate, Normal S1, Normal S2 Respiratory: Chest non-tender, Breath sounds nml Abdomen: Normal bowel sounds, Soft - Results Results: Laboratory Results WBC 6.3 x10^3/uL (4.8-10.8) 09/26/23 05:32 RBC 2.12 10^6/uL (4.70-6.10) L 09/26/23 05:32 Hgb 6.6 g/dL (14.0-18.0) L* 09/26/23 05:32 Hct 20.9 % (42.0-52.0) L 09/26/23 05:32 MCV 98.6 fL (80.0-94.0) H 09/26/23 05:32 MCH 31.1 pg (27.0-31.0) H 09/26/23 05:32 MCHC 31.6 g/dL (32.0-36.0) L 09/26/23 05:32 RDW 14.1 % (12.0-15.0) 09/26/23 05:32 Plt Count 101 10^3/uL (130-450) L 09/26/23 05:32 MPV 11.5 fL (7.4-11.4) H 09/26/23 05:32 Neut # (Auto) 4.5 10^3/uL (1.5-6.6) 09/26/23 05:32 Lymph # (Auto) 0.9 10^3/uL (1.5-3.5) L 09/26/23 05:32 [place] # (Auto) 0.8 10^3/uL (0.0-1.0) 09/26/23 05:32 Eos # (Auto) 0.1 10^3/uL (0.0-0.7) 09/26/23 05:32 Baso # (Auto) 0.0 10^3/uL (0.0-0.1) 09/26/23 05:32 Absolute Nucleated RBC 0.02 x10^3/uL 09/26/23 05:32 Nucleated RBC % 0.3 /100WBC 09/26/23 05:32 PT 14.1 secs (9.9-12.6) H 09/26/23 05:32 INR 1.3 (0.8-1.2) H 09/26/23 05:32 APTT 37.0 secs (24.9-33.3) H 09/25/23 07:41 Bld Gas Analysis Time 0849 09/26/23 08:42 Sample Site LEFT RADIAL 09/26/23 08:42 ABG pH 7.49 (7.35-7.45) H 09/26/23 08:42 ABG pCO2 30 mmHg (34-45) L 09/26/23 08:42 ABG pO2 69 mmHg (80-100) L 09/26/23 08:42 ABG HCO3 22.1 mmol/L (22.0-26.0) 09/26/23 08:42 ABG Total CO2 23.1 MMOL/L (21.0-29.0) 09/26/23 08:42 ABG O2 Saturation 92 % (94-98) L 09/26/23 08:42 ABG Base Excess -1.0 mmol/L (-2.0-3.0) 09/26/23 08:42 Chay Test POSITIVE 09/26/23 08:42 Room Air YES 09/26/23 08:42 Sodium 140 mmol/L (135-145) 09/26/23 05:32 Potassium 3.6 mmol/L (3.5-4.5) 09/26/23 05:32 Chloride 109 mmol/L (101-111) 09/26/23 05:32 Carbon Dioxide 24 mmol/L (21-32) 09/26/23 05:32 Anion Gap 7.0 (6-13) 09/26/23 05:32 BUN 22 mg/dL (6-20) H 09/26/23 05:32 Creatinine 0.8 mg/dL (0.6-1.3) 09/26/23 05:32 Estimated GFR (MDRD) 92 (>89) 09/26/23 05:32 Glucose 102 mg/dL (74-104) 09/26/23 05:32 Calcium 8.5 mg/dL (8.5-10.3) 09/26/23 05:32 Iron 23 ug/dL (50-212) L 09/26/23 05:32 TIBC 189 ug/dL (250-450) L 09/26/23 05:32 % Saturation 12 % (20-50) L 09/26/23 05:32 Transferrin 135 mg/dL (203-362) L 09/26/23 05:32 Total Bilirubin 1.5 mg/dL (0.2-1.0) H 09/22/23 17:44 AST 25 IU/L (10-42) 09/22/23 17:44 ALT 17 IU/L (10-60) 09/22/23 17:44 Alkaline Phosphatase 106 IU/L (42-121) 09/22/23 17:44 Total Protein 6.9 g/dL (6.4-8.9) 09/22/23 17:44 Albumin 4.3 g/dL (3.2-5.5) 09/22/23 17:44 Globulin 2.6 g/dL (2.1-4.2) 09/22/23 17:44 Albumin/Globulin Ratio 1.7 (1.0-2.2) 09/22/23 17:44 Lipase < 10 U/L (11-82) L 09/22/23 17:44 Vitamin D 25-Hydroxy 31.9 ng/mL (30.0-100.0) 09/25/23 07:41 Urine Color DARK YELLOW 09/24/23 23:00 Urine Clarity CLEAR (CLEAR) 09/24/23 23:00 Urine pH 5.5 PH (5.0-7.5) 09/24/23 23:00 Ur Specific [place] 1.025 (1.002-1.030) 09/24/23 23:00 Urine Protein TRACE mg/dL (NEGATIVE) 09/24/23 23:00 Urine Glucose (UA) NEGATIVE mg/dL (NEGATIVE) 09/24/23 23:00 Urine Ketones NEGATIVE mg/dL (NEGATIVE) 09/24/23 23:00 Urine Occult Blood NEGATIVE (NEGATIVE) 09/24/23 23:00 Urine Nitrite NEGATIVE (NEGATIVE) 09/24/23 23:00 Urine Bilirubin SMALL (NEGATIVE) H 09/24/23 23:00 Urine Urobilinogen 1 (NORMAL) E.U./dL (NORMAL) 09/24/23 23:00 Ur Leukocyte Esterase NEGATIVE (NEGATIVE) 09/24/23 23:00 Urine RBC None Seen /HPF (0-5) 09/24/23 23:00 Urine WBC 0-3 /HPF (0-3) 09/24/23 23:00 Ur Squamous Epith Cells RARE Squamous (<= Few) 09/24/23 23:00 Urine Bacteria None Seen /HPF (None Seen) 09/24/23 23:00 Urine Culture Comments NOT INDICATED 09/24/23 23:00 Blood Type A POSITIVE 09/26/23 07:06 Blood Type Recheck A POSITIVE 09/26/23 07:06 Antibody Screen NEGATIVE 09/26/23 07:06 Crossmatch IS Only See Detail 09/26/23 07:06
--- NOTE | 2023-09-26 14:27 | Ultrasound Report ---
PROCEDURE: Renal (Retroperitoneal) INDICATIONS: Anuria TECHNIQUE: Real-time scanning was performed of the retroperitoneal organs, with image documentation. COMPARISON: CT 07/15/2023 FINDINGS: Suboptimal evaluation due to overlying bowel gas, body habitus and bruising over the right flank. Kidneys: Right kidney is poorly visualized. The left kidney measures 10.2 cm, cortical thickness of 0 .6 cm. No solid mass or hydronephrosis. Bladder: Decompressed around a Lyles catheter. Miscellaneous: No free abdominal fluid. IMPRESSION: Suboptimal evaluation of the kidneys, as described above. Normal sonographic appearance of the left kidney, where visualized. Right kidney not visualized. Reviewed by: Luis Mosquera MD on 09/26/2023 2:26 PM PDT Approved by: Luis Mosquera MD on 09/26/2023 2:26 PM PDT Station ID: [id number]
[2023-09-26] MEDS: WARFARIN 5 MG TABLET PO SCH (17:56)
[2023-09-27 05:43] LABS: BASOPHILS % (AUTO) 0.3 %; EOSINOPHILS # (AUTO) 0.2 10^3/uL (0.0-0.7); EOSINOPHILS % (AUTO) 2.9 %; HCT - HEMATOCRIT 23.1 % (42.0-52.0); HGB - HEMOGLOBIN 7.4 g/dL (14.0-18.0); LYMPHOCYTES % (AUTO) 13.4 %; MEAN CORPUSCULAR HEMOGLOBIN 30.7 pg (27.0-31.0); MEAN CORPUSCULAR VOLUME 95.9 fL (80.0-94.0); MEAN PLATELET VOLUME 10.9 fL (7.4-11.4); MONOCYTES # (AUTO) 0.8 10^3/uL (0.0-1.0); MONOCYTES % (AUTO) 10.7 %; NEUTROPHILS # (AUTO) 5.2 10^3/uL (1.5-6.6); NEUTROPHILS % (AUTO) 71.5 %; NRBC ABSOLUTE COUNT (AUTO) 0.04 x10^3/uL; NUCLEATED RED BLOOD CELLS AUTO 0.5 /100WBC; PLT - PLATELET COUNT 130 10^3/uL (130-450); RED BLOOD COUNT 2.41 10^6/uL (4.70-6.10); RED CELL DISTRIBUTION WIDTH 14.6 % (12.0-15.0); WHITE BLOOD COUNT 7.3 x10^3/uL (4.8-10.8)
[2023-09-27 05:57] LABS: CALCIUM 8.6 mg/dL (8.5-10.3); CREATININE 0.7 mg/dL (0.6-1.3); POTASSIUM 3.1 mmol/L (3.5-4.5)
[2023-09-27 06:03] LABS: INR 1.6 (0.8-1.2); PT - PROTHROMBIN TIME 16.8 secs (9.9-12.6)
[2023-09-27] MEDS: POTASSIUM CHLOR 10 MEQ/100 ML 10 MEQ/100 ML BAG IV SCH (10:19)
[2023-09-27] MEDS: FUROSEMIDE 40 MG/4 ML VIAL IVP ONE (10:19)
--- NOTE | 2023-09-27 12:06 | PROVIDER PROGRESS NOTE ---
Assessment/Plan - Problem List (1) Acute blood loss anemia (ABLA) Assessment/Plan: (1) Acute blood loss anemia (ABLA) Assessment/Plan: --1 unit pRBC on 09/25. Holding Lovenox. --Maintain hemoglobin >7. (2) Hip fracture Qualifiers: Encounter type: initial encounter Fracture type: closed Laterality: right Qualified Code(s): S72.001A - Fracture of unspecified part of neck of right femur, initial encounter for closed fracture Assessment/Plan: (1) Hip fracture Qualifiers: Encounter type: initial encounter Fracture type: closed Laterality: right Qualified Code(s): S72.001A - Fracture of unspecified part of neck of right femur, initial encounter for closed fracture Assessment/Plan: --POD#4 --DVT ppx with warfarin. Holding Lovenox today as patient is bleeding with a low hemoglobin. --PT/OT --Treating post operative anemia with oral Fe. Received IV Fe 1000 mg on 09/26. (2) Afib Assessment/Plan: --Continue Atenolol and warfarin. (3) S/P aortic valve repair Assessment/Plan: --Goal INR is 2.5-3.5. He will likely need to be bridged back to warfarin post- operatively. Holding Lovenox today due to bleeding. --Has been given several doses of vitamin K pre-operatively. (4) HTN (hypertension) Assessment/Plan: --Continue imdur and atenolol. --Most recent TTE from 2017 showing LVEF 50-55% with normal functioning mechanical aortic valve. Evidence of elevated heart pressures. (5) Encephalopathy acute Assessment/Plan: --Acute encephalopathy. Appears to be post-op and due to narcotics. Holding all sedating medications. Will discontinue CIWA. Somewhat better since yesterday. (6) Oliguria after procedure Assessment/Plan: --Resolved. (8) Acute diastolic CHF (congestive heart failure) Assessment/Plan: --CXR showing pulmonary edema. --Will give IV lasix to help with pulmonary edema. --No hypoxia. Dispo: Patient is now DNR after discussion with his son. (2) Hip fracture Qualifiers: Encounter type: initial encounter Fracture type: closed Laterality: right Qualified Code(s): S72.001A - Fracture of unspecified part of neck of right femur, initial encounter for closed fracture - Current Meds Current Meds: Current Medications Generic Name Dose Route Start Last Admin Trade Name Freq PRN Reason Stop Dose Admin Acetaminophen 650 mg 09/22/23 19:38 09/27/23 00:47 Acetaminophen 325 Mg Tablet PO 650 mg Q4HR PRN Administration Pain 1 to 4, or Fever Amlodipine Besylate 5 mg 09/22/23 21:00 09/27/23 08:35 Amlodipine 5 Mg Tablet PO 5 mg BID PRATIK Administration Atenolol 25 mg 09/23/23 09:00 09/27/23 08:35 Atenolol 25 Mg Tablet PO 25 mg DAILY PRATIK Administration Atorvastatin Calcium 80 mg 09/22/23 21:00 09/26/23 20:15 Atorvastatin 40 Mg Tablet PO 80 mg QPM PRATIK Administration Calcium Carbonate/Glycine 500 mg 09/26/23 09:00 09/27/23 08:36 Calcium Carbonate Chew 500 Mg Tablet PO 500 mg BID PRATIK Administration Cholecalciferol 50 mcg 09/26/23 09:00 09/27/23 08:34 Cholecalciferol 25 Mcg Tablet PO 50 mcg DAILY PRATIK Administration Enoxaparin Sodium 90 mg 09/23/23 21:00 09/27/23 08:43 Enoxaparin 100 Mg/Ml Syringe SUBQ 90 mg BID PRATIK Administration Ferrous Gluconate 324 mg 09/24/23 08:00 09/27/23 08:35 Ferrous Gluconate 324 Mg Tablet PO 324 mg DAILYWM PRATIK Administration Lactated Ringer's 1,000 mls @ 100 mls/hr 09/23/23 07:02 09/27/23 08:37 Lr IV 100 mls/hr .Q10H PRATIK Administration Potassium Chloride 10 meq in 100 mls @ 100 mls/hr 09/27/23 10:00 09/27/23 11:23 Potassium Chloride IV 09/27/23 13:59 100 mls/hr Q1H PRATIK Administration Isosorbide Mononitrate 60 mg 09/23/23 09:00 09/27/23 08:43 Isosorbide Mononitrate Er 30 Mg Tablet PO 60 mg DAILY PRATIK Administration Pantoprazole Sodium 40 mg 09/23/23 09:00 09/27/23 08:35 Pantoprazole 40 Mg Tablet PO 40 mg DAILY PRATIK Administration Sodium Chloride 10 ml 09/23/23 01:00 09/27/23 08:37 Sodium Chloride Flush 0.9% 10 Ml Syringe IVP Not Given 0100,0900,1700 [facility] Tamsulosin HCl 0.4 mg 09/23/23 09:00 09/27/23 08:36 Tamsulosin 0.4 Mg Capsule PO 0.4 mg DAILY PRATIK Administration Warfarin Sodium 5 mg 09/23/23 18:00 09/25/23 17:34 Warfarin 5 Mg Tablet PO 5 mg SUTUWETHSA PRATIK Administration Warfarin Sodium 7.5 mg 09/26/23 18:00 09/26/23 17:56 Warfarin 5 Mg Tablet PO 7.5 mg MOFR PRATIK Administration - Lab Result Fish Bone Diagrams: 09/27/23 05:21 09/27/23 05:21 - Additional Planning My Orders: My Active Orders 09/26/23 13:36 [place] Insertion [RC] QSHIFT 09/26/23 18:00 Warfarin [Coumadin] 7.5 mg PO MOFR 09/27/23 10:00 Potassium Chlor 10 Meq/100 ml [Potassium Chloride] 10 meq in 100 ml IV Q1H 09/28/23 05:00 BMP - BASIC METABOLIC PANEL [CHEM] DAILYLAB CBC [CBC - COMP BLD CT W/AUTO DIFF] [HEME] DAILYLAB PT WITH INR [COAG] DAILYLAB 09/29/23 05:00 PT WITH INR [COAG] DAILYLAB 09/30/23 05:00 PT WITH INR [COAG] DAILYLAB Subjective - Subjective Patient Reports: Other (Remains encephalopathic. However he is Ox3.) Objective Vital Signs: Vital Signs - 24 hr 09/26/23 09/26/23 09/26/23 13:48 15:30 20:00 Temperature 37.0 C 36.8 C 37.3 C Heart Rate [ 88 65 68 Brachial] Respiratory 18 18 18 Rate Blood Pressure 155/69 H 134/67 H [Left Brachial artery] Blood Pressure 137/73 H [Right Brachial artery] O2 Saturation 94 95 94 If not protocol 1 3 1 : Oxygen Flow, liters/minute 09/26/23 09/27/23 09/27/23 23:44 03:59 07:36 Temperature 37.2 C 37.2 C 36.3 C L Heart Rate [ 90 75 98 Brachial] Respiratory 20 20 22 Rate Blood Pressure 143/66 H 130/54 L [Left Brachial artery] Blood Pressure 116/77 [Right Brachial artery] O2 Saturation 95 94 92 If not protocol 1 1 1 : Oxygen Flow, liters/minute 09/27/23 07:48 Temperature Heart Rate [ Brachial] Respiratory Rate Blood Pressure [Left Brachial artery] Blood Pressure [Right Brachial artery] O2 Saturation If not protocol 1 : Oxygen Flow, liters/minute Oxygen O2 Source Nasal cannula I&O (Last 24 Hrs): Intake and Output Totals x24h 09/25/23 09/26/23 09/27/23 23:59 23:59 23:59 Intake Total 2500.000 2363.333 1160 Output Total 0 2900 700 Balance 2500.000 -536.667 460 General: Oriented x3, Mild distress Neuro: Non Focal Cardiovascular: Regular rate, Normal S1, Normal S2 Respiratory: Breath sounds nml - Results Results: Laboratory Results WBC 7.3 x10^3/uL (4.8-10.8) 09/27/23 05:21 RBC 2.41 10^6/uL (4.70-6.10) L 09/27/23 05:21 Hgb 7.4 g/dL (14.0-18.0) L 09/27/23 05:21 Hct 23.1 % (42.0-52.0) L 09/27/23 05:21 MCV 95.9 fL (80.0-94.0) H 09/27/23 05:21 MCH 30.7 pg (27.0-31.0) 09/27/23 05:21 MCHC 32.0 g/dL (32.0-36.0) 09/27/23 05:21 RDW 14.6 % (12.0-15.0) 09/27/23 05:21 Plt Count 130 10^3/uL (130-450) 09/27/23 05:21 MPV 10.9 fL (7.4-11.4) 09/27/23 05:21 Neut # (Auto) 5.2 10^3/uL (1.5-6.6) 09/27/23 05:21 Lymph # (Auto) 1.0 10^3/uL (1.5-3.5) L 09/27/23 05:21 [place] # (Auto) 0.8 10^3/uL (0.0-1.0) 09/27/23 05:21 Eos # (Auto) 0.2 10^3/uL (0.0-0.7) 09/27/23 05:21 Baso # (Auto) 0.0 10^3/uL (0.0-0.1) 09/27/23 05:21 Absolute Nucleated RBC 0.04 x10^3/uL 09/27/23 05:21 Nucleated RBC % 0.5 /100WBC 09/27/23 05:21 PT 16.8 secs (9.9-12.6) H 09/27/23 05:21 INR 1.6 (0.8-1.2) H 09/27/23 05:21 APTT 37.0 secs (24.9-33.3) H 09/25/23 07:41 Bld Gas Analysis Time 0849 09/26/23 08:42 Sample Site LEFT RADIAL 09/26/23 08:42 ABG pH 7.49 (7.35-7.45) H 09/26/23 08:42 ABG pCO2 30 mmHg (34-45) L 09/26/23 08:42 ABG pO2 69 mmHg (80-100) L 09/26/23 08:42 ABG HCO3 22.1 mmol/L (22.0-26.0) 09/26/23 08:42 ABG Total CO2 23.1 MMOL/L (21.0-29.0) 09/26/23 08:42 ABG O2 Saturation 92 % (94-98) L 09/26/23 08:42 ABG Base Excess -1.0 mmol/L (-2.0-3.0) 09/26/23 08:42 Chay Test POSITIVE 09/26/23 08:42 Room Air YES 09/26/23 08:42 Sodium 143 mmol/L (135-145) 09/27/23 05:21 Potassium 3.1 mmol/L (3.5-4.5) L 09/27/23 05:21 Chloride 110 mmol/L (101-111) 09/27/23 05:21 Carbon Dioxide 25 mmol/L (21-32) 09/27/23 05:21 Anion Gap 8.0 (6-13) 09/27/23 05:21 BUN 16 mg/dL (6-20) 09/27/23 05:21 Creatinine 0.7 mg/dL (0.6-1.3) 09/27/23 05:21 Estimated GFR (MDRD) 107 (>89) 09/27/23 05:21 Glucose 101 mg/dL (74-104) 09/27/23 05:21 Calcium 8.6 mg/dL (8.5-10.3) 09/27/23 05:21 Iron 23 ug/dL (50-212) L 09/26/23 05:32 TIBC 189 ug/dL (250-450) L 09/26/23 05:32 % Saturation 12 % (20-50) L 09/26/23 05:32 Transferrin 135 mg/dL (203-362) L 09/26/23 05:32 Total Bilirubin 1.5 mg/dL (0.2-1.0) H 09/22/23 17:44 AST 25 IU/L (10-42) 09/22/23 17:44 ALT 17 IU/L (10-60) 09/22/23 17:44 Alkaline Phosphatase 106 IU/L (42-121) 09/22/23 17:44 Total Protein 6.9 g/dL (6.4-8.9) 09/22/23 17:44 Albumin 4.3 g/dL (3.2-5.5) 09/22/23 17:44 Globulin 2.6 g/dL (2.1-4.2) 09/22/23 17:44 Albumin/Globulin Ratio 1.7 (1.0-2.2) 09/22/23 17:44 Lipase < 10 U/L (11-82) L 09/22/23 17:44 Vitamin D 25-Hydroxy 31.9 ng/mL (30.0-100.0) 09/25/23 07:41 Urine Color DARK YELLOW 09/24/23 23:00 Urine Clarity CLEAR (CLEAR) 09/24/23 23:00 Urine pH 5.5 PH (5.0-7.5) 09/24/23 23:00 Ur Specific [place] 1.025 (1.002-1.030) 09/24/23 23:00 Urine Protein TRACE mg/dL (NEGATIVE) 09/24/23 23:00 Urine Glucose (UA) NEGATIVE mg/dL (NEGATIVE) 09/24/23 23:00 Urine Ketones NEGATIVE mg/dL (NEGATIVE) 09/24/23 23:00 Urine Occult Blood NEGATIVE (NEGATIVE) 09/24/23 23:00 Urine Nitrite NEGATIVE (NEGATIVE) 09/24/23 23:00 Urine Bilirubin SMALL (NEGATIVE) H 09/24/23 23:00 Urine Urobilinogen 1 (NORMAL) E.U./dL (NORMAL) 09/24/23 23:00 Ur Leukocyte Esterase NEGATIVE (NEGATIVE) 09/24/23 23:00 Urine RBC None Seen /HPF (0-5) 09/24/23 23:00 Urine WBC 0-3 /HPF (0-3) 09/24/23 23:00 Ur Squamous Epith Cells RARE Squamous (<= Few) 09/24/23 23:00 Urine Bacteria None Seen /HPF (None Seen) 09/24/23 23:00 Urine Culture Comments NOT INDICATED 09/24/23 23:00 Blood Type A POSITIVE 09/26/23 07:06 Blood Type Recheck A POSITIVE 09/26/23 07:06 Antibody Screen NEGATIVE 09/26/23 07:06 Crossmatch IS Only See Detail 09/26/23 07:06
[2023-09-27] MEDS ORDERED: CALAMINE/ZINC OXIDE 177 ML BOTTLE TOP PRN (14:18)
[2023-09-27] MEDS ORDERED: MIN OIL/DIMETHICON/COCONUT OIL 92 GM TUBE TOP PRN (14:18)
[2023-09-27] MEDS: MAGIC MOUTHWASH 120 ML BOTTLE PO PRN (14:43)
[2023-09-27] MEDS: CYCLOBENZAPRINE 10 MG TABLET PO PRN (14:44)
[2023-09-27] MEDS: ZINC OXIDE 20% OINT 30 GM TUBE TOP PRN (17:47)
[2023-09-28 05:25] LABS: BASOPHILS % (AUTO) 0.1 %; EOSINOPHILS # (AUTO) 0.2 10^3/uL (0.0-0.7); EOSINOPHILS % (AUTO) 3.2 %; HCT - HEMATOCRIT 22.1 % (42.0-52.0); HGB - HEMOGLOBIN 7.1 g/dL (14.0-18.0); LYMPHOCYTES # (AUTO) 0.8 10^3/uL (1.5-3.5); MEAN CORPUSCULAR HEMOGLOBIN 31.1 pg (27.0-31.0); MEAN CORPUSCULAR HGB CONC 32.1 g/dL (32.0-36.0); MEAN CORPUSCULAR VOLUME 96.9 fL (80.0-94.0); MONOCYTES # (AUTO) 0.9 10^3/uL (0.0-1.0); MONOCYTES % (AUTO) 11.7 %; NEUTROPHILS # (AUTO) 5.3 10^3/uL (1.5-6.6); NEUTROPHILS % (AUTO) 72.8 %; NRBC ABSOLUTE COUNT (AUTO) 0.07 x10^3/uL; PLT - PLATELET COUNT 150 10^3/uL (130-450); RED BLOOD COUNT 2.28 10^6/uL (4.70-6.10); RED CELL DISTRIBUTION WIDTH 14.9 % (12.0-15.0); WHITE BLOOD COUNT 7.3 x10^3/uL (4.8-10.8)
[2023-09-28 05:44] LABS: CALCIUM 8.9 mg/dL (8.5-10.3); CREATININE 0.6 mg/dL (0.6-1.3); POTASSIUM 3.5 mmol/L (3.5-4.5)
[2023-09-28 05:46] LABS: PT - PROTHROMBIN TIME 20.5 secs (9.9-12.6)
[2023-09-28] MEDS: KETOROLAC 15 MG/ML VIAL IVP PRN (08:10)
[2023-09-28] MEDS: FUROSEMIDE 40 MG/4 ML VIAL IVP SCH (08:14)
--- NOTE | 2023-09-28 11:02 | PROVIDER PROGRESS NOTE ---
Assessment/Plan - Problem List (1) Acute blood loss anemia (ABLA) Assessment/Plan: (1) Acute blood loss anemia (ABLA) Assessment/Plan: --1 unit pRBC on 09/25. Holding Lovenox. --Maintain hemoglobin >7. (2) Hip fracture Qualifiers: Encounter type: initial encounter Fracture type: closed Laterality: right Qualified Code(s): S72.001A - Fracture of unspecified part of neck of right femur, initial encounter for closed fracture Assessment/Plan: (1) Hip fracture Qualifiers: Encounter type: initial encounter Fracture type: closed Laterality: right Qualified Code(s): S72.001A - Fracture of unspecified part of neck of right femur, initial encounter for closed fracture Assessment/Plan: --POD#5 --DVT ppx with warfarin. Holding Lovenox today as patient is bleeding with a low hemoglobin. --PT/OT has not been able to work with patient due to his encephalopathy. --Treating post operative anemia with oral Fe. Received IV Fe 1000 mg on 09/26. (2) Afib Assessment/Plan: --Continue Atenolol and warfarin. (3) S/P aortic valve repair Assessment/Plan: --Goal INR is 2.5-3.5. He will likely need to be bridged back to warfarin post- operatively. Holding Lovenox today due to bleeding. --Has been given several doses of vitamin K pre-operatively. (4) HTN (hypertension) Assessment/Plan: --Continue imdur and atenolol. --Most recent TTE from 2017 showing LVEF 50-55% with normal functioning mechanical aortic valve. Evidence of elevated heart pressures. (5) Encephalopathy acute Assessment/Plan: --Acute encephalopathy. Appears to be post-op and due to narcotics. Holding all sedating medications. Will discontinue CIWA. --He is oriented x3 but delirium persists. Exact etiology is unknown but thought is it could be due to narcotics which have been held for several days. --Has not been able to participate in any therapies which portends a very poor prognosis. --Will consult palliative care tomorrow. I have had discussions with family, we have made him DNR. They are not yet ready for hospice. Recently went though hospice with his . (6) Oliguria after procedure Assessment/Plan: --Resolved. (8) Acute diastolic CHF (congestive heart failure) Assessment/Plan: --Improving. Will give another dose of IV lasix today. Dispo: Patient is now DNR after discussion with his son. Overall prognosis is guarded given his encephalopathy and inability to participate in therapy. (2) Hip fracture Qualifiers: Encounter type: initial encounter Fracture type: closed Laterality: right Qualified Code(s): S72.001A - Fracture of unspecified part of neck of right femur, initial encounter for closed fracture - Current Meds Current Meds: Current Medications Generic Name Dose Route Start Last Admin Trade Name Freq PRN Reason Stop Dose Admin Acetaminophen 650 mg 09/22/23 19:38 09/28/23 04:13 Acetaminophen 325 Mg Tablet PO 650 mg Q4HR PRN Administration Pain 1 to 4, or Fever Amlodipine Besylate 5 mg 09/22/23 21:00 09/28/23 08:31 Amlodipine 5 Mg Tablet PO 5 mg BID PRATIK Administration Atenolol 25 mg 09/23/23 09:00 09/28/23 08:30 Atenolol 25 Mg Tablet PO 25 mg DAILY PRATIK Administration Atorvastatin Calcium 80 mg 09/22/23 21:00 09/27/23 21:10 Atorvastatin 40 Mg Tablet PO 80 mg QPM PRATIK Administration Calcium Carbonate/Glycine 500 mg 09/26/23 09:00 09/28/23 08:29 Calcium Carbonate Chew 500 Mg Tablet PO 500 mg BID PRATIK Administration Cholecalciferol 50 mcg 09/26/23 09:00 09/28/23 08:29 Cholecalciferol 25 Mcg Tablet PO 50 mcg DAILY PRATIK Administration Cyclobenzaprine HCl 10 mg 09/27/23 14:01 09/28/23 04:41 Cyclobenzaprine 10 Mg Tablet PO 10 mg TID PRN Administration Spasms Enoxaparin Sodium 90 mg 09/23/23 21:00 09/27/23 08:43 Enoxaparin 100 Mg/Ml Syringe SUBQ 90 mg BID PRATIK Administration Ferrous Gluconate 324 mg 09/24/23 08:00 09/28/23 08:30 Ferrous Gluconate 324 Mg Tablet PO 324 mg DAILYWM PRATIK Administration Isosorbide Mononitrate 60 mg 09/23/23 09:00 09/28/23 08:29 Isosorbide Mononitrate Er 30 Mg Tablet PO 60 mg DAILY PRATIK Administration Ketorolac Tromethamine 15 mg 09/28/23 07:46 09/28/23 08:10 Ketorolac 15 Mg/Ml Vial IVP 10/03/23 07:45 15 mg Q6HR PRN Administration Severe Pain (Level 7-10) Multi-Ingredient Mouthwash/Gargle 30 ml 09/27/23 13:57 09/27/23 22:45 Magic Mouthwash 120 Ml Bottle PO 30 ml Q4H PRN Administration Mouth Sore Pain Multi-Ingredient Ointment 1 applic 09/27/23 14:18 09/27/23 17:47 Zinc Oxide 20% Oint 30 Gm Tube TOP 1 applic PRN PRN Administration Skin Care Pantoprazole Sodium 40 mg 09/23/23 09:00 09/28/23 08:30 Pantoprazole 40 Mg Tablet PO 40 mg DAILY PRATIK Administration Sodium Chloride 10 ml 09/23/23 01:00 09/28/23 08:31 Sodium Chloride Flush 0.9% 10 Ml Syringe IVP 10 ml 0100,0900,1700 PRATIK Administration Tamsulosin HCl 0.4 mg 09/23/23 09:00 09/28/23 08:30 Tamsulosin 0.4 Mg Capsule PO 0.4 mg DAILY PRATIK Administration Warfarin Sodium 5 mg 09/23/23 18:00 09/27/23 17:38 Warfarin 5 Mg Tablet PO 5 mg SUTUWETHSA PRATIK Administration Warfarin Sodium 7.5 mg 09/26/23 18:00 09/26/23 17:56 Warfarin 5 Mg Tablet PO 7.5 mg MOFR PRATIK Administration - Lab Result Fish Bone Diagrams: 09/28/23 04:59 09/28/23 04:59 - Additional Planning My Orders: My Active Orders 09/27/23 13:57 Magic Mouthwash 30 ml PO Q4H PRN 09/27/23 14:01 Cyclobenzaprine [Flexeril] 10 mg PO TID PRN 09/27/23 14:18 Calamine/Zinc Oxide [Calamine Lotion] 1 applic TOP PRN PRN Zinc Oxide 20% Oint [Zinc Oxide] 1 applic TOP PRN PRN 09/28/23 07:46 Ketorolac Inj (15Mg) [Toradol Inj (15Mg)] 15 mg IVP Q6HR PRN 09/29/23 05:00 BMP - BASIC METABOLIC PANEL [CHEM] DAILYLAB CBC [CBC - COMP BLD CT W/AUTO DIFF] [HEME] DAILYLAB PT WITH INR [COAG] DAILYLAB 09/30/23 05:00 BMP - BASIC METABOLIC PANEL [CHEM] DAILYLAB CBC [CBC - COMP BLD CT W/AUTO DIFF] [HEME] DAILYLAB PT WITH INR [COAG] DAILYLAB 10/01/23 05:00 BMP - BASIC METABOLIC PANEL [CHEM] DAILYLAB CBC [CBC - COMP BLD CT W/AUTO DIFF] [HEME] DAILYLAB 10/02/23 05:00 BMP - BASIC METABOLIC PANEL [CHEM] DAILYLAB CBC [CBC - COMP BLD CT W/AUTO DIFF] [HEME] DAILYLAB 10/03/23 05:00 BMP - BASIC METABOLIC PANEL [CHEM] DAILYLAB CBC [CBC - COMP BLD CT W/AUTO DIFF] [HEME] DAILYLAB Subjective - Subjective Patient Reports: Other (Remains encephalopathic. Cannot participate in therapy.) Objective Vital Signs: Vital Signs - 24 hr 09/27/23 09/27/23 09/27/23 16:50 19:25 21:11 Temperature 36.8 C Heart Rate [ 83 86 Brachial] Respiratory 18 Rate Blood Pressure 145/64 H 134/60 H [Left Brachial artery] Blood Pressure [Right Brachial artery] O2 Saturation 93 If not protocol 1 1 : Oxygen Flow, liters/minute 09/27/23 09/28/23 09/28/23 23:46 04:06 08:00 Temperature 36.7 C 36.7 C 37.6 C Heart Rate [ 90 50 L 79 Brachial] Respiratory 20 20 20 Rate Blood Pressure 141/67 H [Left Brachial artery] Blood Pressure 143/88 H 140/63 H [Right Brachial artery] O2 Saturation 94 92 If not protocol 1 2 1 : Oxygen Flow, liters/minute 09/28/23 09:30 Temperature Heart Rate [ Brachial] Respiratory Rate Blood Pressure [Left Brachial artery] Blood Pressure [Right Brachial artery] O2 Saturation If not protocol 2 : Oxygen Flow, liters/minute Oxygen O2 Source Nasal cannula I&O (Last 24 Hrs): Intake and Output Totals x24h 09/26/23 09/27/23 09/28/23 23:59 23:59 23:59 Intake Total 2363.333 2570 1000 Output Total 2900 1600 200 Balance -536.667 970 800 General: Oriented x3, Moderate distress Cardiovascular: Regular rate, Normal S1, Normal S2, No murmurs Respiratory: Chest non-tender, No respiratory distress, Breath sounds nml Abdomen: Normal bowel sounds, Soft, No tenderness, No hepatospenomegaly, No masses Comments/Notes: Extensive bruising. - Results Results: Laboratory Results WBC 7.3 x10^3/uL (4.8-10.8) 09/28/23 04:59 RBC 2.28 10^6/uL (4.70-6.10) L 09/28/23 04:59 Hgb 7.1 g/dL (14.0-18.0) L 09/28/23 04:59 Hct 22.1 % (42.0-52.0) L 09/28/23 04:59 MCV 96.9 fL (80.0-94.0) H 09/28/23 04:59 MCH 31.1 pg (27.0-31.0) H 09/28/23 04:59 MCHC 32.1 g/dL (32.0-36.0) 09/28/23 04:59 RDW 14.9 % (12.0-15.0) 09/28/23 04:59 Plt Count 150 10^3/uL (130-450) 09/28/23 04:59 MPV 11.0 fL (7.4-11.4) 09/28/23 04:59 Neut # (Auto) 5.3 10^3/uL (1.5-6.6) 09/28/23 04:59 Lymph # (Auto) 0.8 10^3/uL (1.5-3.5) L 09/28/23 04:59 [place] # (Auto) 0.9 10^3/uL (0.0-1.0) 09/28/23 04:59 Eos # (Auto) 0.2 10^3/uL (0.0-0.7) 09/28/23 04:59 Baso # (Auto) 0.0 10^3/uL (0.0-0.1) 09/28/23 04:59 Absolute Nucleated RBC 0.07 x10^3/uL 09/28/23 04:59 Nucleated RBC % 1.0 /100WBC 09/28/23 04:59 PT 20.5 secs (9.9-12.6) H 09/28/23 04:59 INR 2.0 (0.8-1.2) H 09/28/23 04:59 APTT 37.0 secs (24.9-33.3) H 09/25/23 07:41 Bld Gas Analysis Time 0849 09/26/23 08:42 Sample Site LEFT RADIAL 09/26/23 08:42 ABG pH 7.49 (7.35-7.45) H 09/26/23 08:42 ABG pCO2 30 mmHg (34-45) L 09/26/23 08:42 ABG pO2 69 mmHg (80-100) L 09/26/23 08:42 ABG HCO3 22.1 mmol/L (22.0-26.0) 09/26/23 08:42 ABG Total CO2 23.1 MMOL/L (21.0-29.0) 09/26/23 08:42 ABG O2 Saturation 92 % (94-98) L 09/26/23 08:42 ABG Base Excess -1.0 mmol/L (-2.0-3.0) 09/26/23 08:42 Chay Test POSITIVE 09/26/23 08:42 Room Air YES 09/26/23 08:42 Sodium 144 mmol/L (135-145) 09/28/23 04:59 Potassium 3.5 mmol/L (3.5-4.5) 09/28/23 04:59 Chloride 110 mmol/L (101-111) 09/28/23 04:59 Carbon Dioxide 25 mmol/L (21-32) 09/28/23 04:59 Anion Gap 9.0 (6-13) 09/28/23 04:59 BUN 15 mg/dL (6-20) 09/28/23 04:59 Creatinine 0.6 mg/dL (0.6-1.3) 09/28/23 04:59 Estimated GFR (MDRD) 128 (>89) 09/28/23 04:59 Glucose 110 mg/dL (74-104) H 09/28/23 04:59 Calcium 8.9 mg/dL (8.5-10.3) 09/28/23 04:59 Iron 23 ug/dL (50-212) L 09/26/23 05:32 TIBC 189 ug/dL (250-450) L 09/26/23 05:32 % Saturation 12 % (20-50) L 09/26/23 05:32 Transferrin 135 mg/dL (203-362) L 09/26/23 05:32 Total Bilirubin 1.5 mg/dL (0.2-1.0) H 09/22/23 17:44 AST 25 IU/L (10-42) 09/22/23 17:44 ALT 17 IU/L (10-60) 09/22/23 17:44 Alkaline Phosphatase 106 IU/L (42-121) 09/22/23 17:44 Total Protein 6.9 g/dL (6.4-8.9) 09/22/23 17:44 Albumin 4.3 g/dL (3.2-5.5) 09/22/23 17:44 Globulin 2.6 g/dL (2.1-4.2) 09/22/23 17:44 Albumin/Globulin Ratio 1.7 (1.0-2.2) 09/22/23 17:44 Lipase < 10 U/L (11-82) L 09/22/23 17:44 Vitamin D 25-Hydroxy 31.9 ng/mL (30.0-100.0) 09/25/23 07:41 Urine Color DARK YELLOW 09/24/23 23:00 Urine Clarity CLEAR (CLEAR) 09/24/23 23:00 Urine pH 5.5 PH (5.0-7.5) 09/24/23 23:00 Ur Specific [place] 1.025 (1.002-1.030) 09/24/23 23:00 Urine Protein TRACE mg/dL (NEGATIVE) 09/24/23 23:00 Urine Glucose (UA) NEGATIVE mg/dL (NEGATIVE) 09/24/23 23:00 Urine Ketones NEGATIVE mg/dL (NEGATIVE) 09/24/23 23:00 Urine Occult Blood NEGATIVE (NEGATIVE) 09/24/23 23:00 Urine Nitrite NEGATIVE (NEGATIVE) 09/24/23 23:00 Urine Bilirubin SMALL (NEGATIVE) H 09/24/23 23:00 Urine Urobilinogen 1 (NORMAL) E.U./dL (NORMAL) 09/24/23 23:00 Ur Leukocyte Esterase NEGATIVE (NEGATIVE) 09/24/23 23:00 Urine RBC None Seen /HPF (0-5) 09/24/23 23:00 Urine WBC 0-3 /HPF (0-3) 09/24/23 23:00 Ur Squamous Epith Cells RARE Squamous (<= Few) 09/24/23 23:00 Urine Bacteria None Seen /HPF (None Seen) 09/24/23 23:00 Urine Culture Comments NOT INDICATED 09/24/23 23:00 Blood Type A POSITIVE 09/26/23 07:06 Blood Type Recheck A POSITIVE 09/26/23 07:06 Antibody Screen NEGATIVE 09/26/23 07:06 Crossmatch IS Only See Detail 09/26/23 07:06
[2023-09-28] MEDS: QUEtiapine 25 MG TABLET PO ONE (16:29)
[2023-09-29 05:01] LABS: BASOPHILS % (AUTO) 0.3 %; EOSINOPHILS # (AUTO) 0.3 10^3/uL (0.0-0.7); EOSINOPHILS % (AUTO) 4.4 %; LYMPHOCYTES % (AUTO) 13.4 %; MEAN CORPUSCULAR HEMOGLOBIN 32.3 pg (27.0-31.0); MEAN CORPUSCULAR VOLUME 100.8 fL (80.0-94.0); MEAN PLATELET VOLUME 10.7 fL (7.4-11.4); MONOCYTES # (AUTO) 0.7 10^3/uL (0.0-1.0); MONOCYTES % (AUTO) 9.7 %; NEUTROPHILS # (AUTO) 5.4 10^3/uL (1.5-6.6); NEUTROPHILS % (AUTO) 71.1 %; NRBC ABSOLUTE COUNT (AUTO) 0.05 x10^3/uL; NUCLEATED RED BLOOD CELLS AUTO 0.7 /100WBC; PLT - PLATELET COUNT 190 10^3/uL (130-450); RED BLOOD COUNT 2.48 10^6/uL (4.70-6.10); RED CELL DISTRIBUTION WIDTH 16.2 % (12.0-15.0); WHITE BLOOD COUNT 7.6 x10^3/uL (4.8-10.8)
[2023-09-29 05:07] LABS: INR 2.8 (0.8-1.2); PT - PROTHROMBIN TIME 28.8 secs (9.9-12.6)
[2023-09-29 05:15] LABS: CALCIUM 9.3 mg/dL (8.5-10.3); CREATININE 0.8 mg/dL (0.6-1.3); POTASSIUM 3.3 mmol/L (3.5-4.5)
[2023-09-29] MEDS: LACTATED RINGERS 1,000 ML IV SCH (08:58)
[2023-09-29] MEDS: POTASSIUM CHLOR 10 MEQ/100 ML 10 MEQ/100 ML BAG IV SCH (08:59)
[2023-09-29] MEDS ORDERED: POTASSIUM CHLORIDE INJ 40 MEQ in SODIUM CHLORIDE 0.9% 500 ML IV ONE (09:00)
--- NOTE | 2023-09-29 11:57 | PROVIDER PROGRESS NOTE ---
Assessment/Plan - Problem List (1) Acute blood loss anemia (ABLA) Assessment/Plan: (1) Acute blood loss anemia (ABLA) Assessment/Plan: --1 unit pRBC on 09/25. Holding Lovenox. --Maintain hemoglobin >7. (2) Hip fracture Qualifiers: Encounter type: initial encounter Fracture type: closed Laterality: right Qualified Code(s): S72.001A - Fracture of unspecified part of neck of right femur, initial encounter for closed fracture Assessment/Plan: (1) Hip fracture Qualifiers: Encounter type: initial encounter Fracture type: closed Laterality: right Qualified Code(s): S72.001A - Fracture of unspecified part of neck of right femur, initial encounter for closed fracture Assessment/Plan: --POD#6 --DVT ppx with warfarin. --PT/OT has not been able to work with patient due to his encephalopathy. --Treating post operative anemia with oral Fe. Received IV Fe 1000 mg on 09/26. (2) Afib Assessment/Plan: --Continue Atenolol and warfarin. (3) S/P aortic valve repair Assessment/Plan: --Goal INR is 2.5-3.5. --Has been given several doses of vitamin K pre-operatively. (4) HTN (hypertension) Assessment/Plan: --Continue imdur and atenolol. --Most recent TTE from 2017 showing LVEF 50-55% with normal functioning mechanical aortic valve. Evidence of elevated heart pressures. (5) Encephalopathy acute Assessment/Plan: --Acute encephalopathy. Appears to be post-op and due to narcotics. Holding all sedating medications. Will discontinue CIWA. --He is oriented x3 but delirium persists. Exact etiology is unknown but thought is it could be due to narcotics which have been held for several days. --Has not been able to participate in any therapies which portends a very poor prognosis. --Family met with palliative care. Do not want hospice at this point. Goal is to go to SNF and then home. (6) Oliguria after procedure Assessment/Plan: --Resolved. (8) Acute diastolic CHF (congestive heart failure) Assessment/Plan: --Resolved. Dispo: Patient is now DNR after discussion with his son. Overall prognosis is guarded given his encephalopathy and inability to participate in therapy. Family has met with palliative and goals remain the same - to go to SNF and return home. (2) Hip fracture Qualifiers: Encounter type: initial encounter Fracture type: closed Laterality: right Qualified Code(s): S72.001A - Fracture of unspecified part of neck of right femur, initial encounter for closed fracture - Current Meds Current Meds: Current Medications Generic Name Dose Route Start Last Admin Trade Name Freq PRN Reason Stop Dose Admin Acetaminophen 650 mg 09/22/23 19:38 09/28/23 16:06 Acetaminophen 325 Mg Tablet PO 650 mg Q4HR PRN Administration Pain 1 to 4, or Fever Amlodipine Besylate 5 mg 09/22/23 21:00 09/29/23 08:51 Amlodipine 5 Mg Tablet PO 5 mg BID PRATIK Administration Atenolol 25 mg 09/23/23 09:00 09/29/23 08:51 Atenolol 25 Mg Tablet PO 25 mg DAILY PRATIK Administration Atorvastatin Calcium 80 mg 09/22/23 21:00 09/28/23 21:03 Atorvastatin 40 Mg Tablet PO 80 mg QPM PRATIK Administration Calcium Carbonate/Glycine 500 mg 09/26/23 09:00 09/29/23 08:51 Calcium Carbonate Chew 500 Mg Tablet PO 500 mg BID PRATIK Administration Cholecalciferol 50 mcg 09/26/23 09:00 09/29/23 08:51 Cholecalciferol 25 Mcg Tablet PO 50 mcg DAILY PRATIK Administration Cyclobenzaprine HCl 10 mg 09/27/23 14:01 09/28/23 04:41 Cyclobenzaprine 10 Mg Tablet PO 10 mg TID PRN Administration Spasms Enoxaparin Sodium 90 mg 09/23/23 21:00 09/27/23 08:43 Enoxaparin 100 Mg/Ml Syringe SUBQ 90 mg BID PRATIK Administration Ferrous Gluconate 324 mg 09/24/23 08:00 09/29/23 08:51 Ferrous Gluconate 324 Mg Tablet PO 324 mg DAILYWM PRATIK Administration Potassium Chloride 10 meq in 100 mls @ 100 mls/hr 09/29/23 09:00 09/29/23 11:12 Potassium Chloride IV 09/29/23 12:59 100 mls/hr Q1H PRATIK Administration Lactated Ringer's 1,000 mls @ 83.333 mls/hr 09/29/23 08:00 09/29/23 08:58 Lr IV 83.333 mls/hr .Q12H PRATIK Administration Isosorbide Mononitrate 60 mg 09/23/23 09:00 09/29/23 08:51 Isosorbide Mononitrate Er 30 Mg Tablet PO 60 mg DAILY PRATIK Administration Ketorolac Tromethamine 15 mg 09/28/23 07:46 09/29/23 04:17 Ketorolac 15 Mg/Ml Vial IVP 10/03/23 07:45 15 mg Q6HR PRN Administration Severe Pain (Level 7-10) Multi-Ingredient Mouthwash/Gargle 30 ml 09/27/23 13:57 09/29/23 08:50 Magic Mouthwash 120 Ml Bottle PO 30 ml Q4H PRN Administration Mouth Sore Pain Multi-Ingredient Ointment 1 applic 09/27/23 14:18 09/27/23 17:47 Zinc Oxide 20% Oint 30 Gm Tube TOP 1 applic PRN PRN Administration Skin Care Pantoprazole Sodium 40 mg 09/23/23 09:00 09/29/23 08:51 Pantoprazole 40 Mg Tablet PO 40 mg DAILY PRATIK Administration Sodium Chloride 10 ml 09/23/23 01:00 09/29/23 09:02 Sodium Chloride Flush 0.9% 10 Ml Syringe IVP 10 ml 0100,0900,1700 PRATIK Administration Tamsulosin HCl 0.4 mg 09/23/23 09:00 09/29/23 08:51 Tamsulosin 0.4 Mg Capsule PO 0.4 mg DAILY PRATIK Administration Warfarin Sodium 5 mg 09/23/23 18:00 09/28/23 21:03 Warfarin 5 Mg Tablet PO 5 mg SUTUWETHSA PRATIK Administration Warfarin Sodium 7.5 mg 09/26/23 18:00 09/26/23 17:56 Warfarin 5 Mg Tablet PO 7.5 mg MOFR PRATIK Administration - Lab Result Fish Bone Diagrams: 09/29/23 04:21 09/29/23 04:21 - Additional Planning My Orders: My Active Orders 09/28/23 Dinner Dysphagia - Puree [DIET] 09/29/23 Palliative Care Consult [CONS] Routine 09/29/23 08:00 Lactated Ringers [Lr] 1,000 ml IV 83.333 mls/hr 09/30/23 05:00 BMP - BASIC METABOLIC PANEL [CHEM] DAILYLAB CBC [CBC - COMP BLD CT W/AUTO DIFF] [HEME] DAILYLAB PT WITH INR [COAG] DAILYLAB 10/01/23 05:00 BMP - BASIC METABOLIC PANEL [CHEM] DAILYLAB CBC [CBC - COMP BLD CT W/AUTO DIFF] [HEME] DAILYLAB 10/02/23 05:00 BMP - BASIC METABOLIC PANEL [CHEM] DAILYLAB CBC [CBC - COMP BLD CT W/AUTO DIFF] [HEME] DAILYLAB 10/03/23 05:00 BMP - BASIC METABOLIC PANEL [CHEM] DAILYLAB CBC [CBC - COMP BLD CT W/AUTO DIFF] [HEME] DAILYLAB Subjective - Subjective Patient Reports: Feeling Better, Resting Comfortably, No Complaints Objective Vital Signs: Vital Signs - 24 hr 09/28/23 09/28/23 09/28/23 16:06 16:07 19:15 Temperature Heart Rate [ 90 Brachial] Respiratory 20 Rate Blood Pressure 122/64 [Left Brachial artery] Blood Pressure [Right Brachial artery] O2 Saturation 85 L If not protocol 1 1 : Oxygen Flow, liters/minute 09/28/23 09/28/23 09/29/23 21:00 23:37 08:15 Temperature 36.8 C 36.1 C L Heart Rate [ 70 70 81 Brachial] Respiratory 20 22 Rate Blood Pressure 127/58 L [Left Brachial artery] Blood Pressure 133/66 H 132/67 H [Right Brachial artery] O2 Saturation 93 99 93 If not protocol 1 1 1 : Oxygen Flow, liters/minute 09/29/23 10:00 Temperature Heart Rate [ Brachial] Respiratory Rate Blood Pressure [Left Brachial artery] Blood Pressure [Right Brachial artery] O2 Saturation If not protocol 1 : Oxygen Flow, liters/minute Oxygen O2 Source Nasal cannula I&O (Last 24 Hrs): Intake and Output Totals x24h 09/27/23 09/28/23 09/29/23 23:59 23:59 23:59 Intake Total 2570 1000 908 Output Total 1600 900 125 Balance 970 100 783 General: Oriented x3, Mild distress Cardiovascular: Regular rate, Normal S1, Normal S2 Abdomen: Normal bowel sounds, Soft Extremities: Other (Bruising, abdominal.) - Results Results: Laboratory Results WBC 7.6 x10^3/uL (4.8-10.8) 09/29/23 04:21 RBC 2.48 10^6/uL (4.70-6.10) L 09/29/23 04:21 Hgb 8.0 g/dL (14.0-18.0) L 09/29/23 04:21 Hct 25.0 % (42.0-52.0) L 09/29/23 04:21 MCV 100.8 fL (80.0-94.0) H 09/29/23 04:21 MCH 32.3 pg (27.0-31.0) H 09/29/23 04:21 MCHC 32.0 g/dL (32.0-36.0) 09/29/23 04:21 RDW 16.2 % (12.0-15.0) H 09/29/23 04:21 Plt Count 190 10^3/uL (130-450) 09/29/23 04:21 MPV 10.7 fL (7.4-11.4) 09/29/23 04:21 Neut # (Auto) 5.4 10^3/uL (1.5-6.6) 09/29/23 04:21 Lymph # (Auto) 1.0 10^3/uL (1.5-3.5) L 09/29/23 04:21 [place] # (Auto) 0.7 10^3/uL (0.0-1.0) 09/29/23 04:21 Eos # (Auto) 0.3 10^3/uL (0.0-0.7) 09/29/23 04:21 Baso # (Auto) 0.0 10^3/uL (0.0-0.1) 09/29/23 04:21 Absolute Nucleated RBC 0.05 x10^3/uL 09/29/23 04:21 Nucleated RBC % 0.7 /100WBC 09/29/23 04:21 PT 28.8 secs (9.9-12.6) H 09/29/23 04:21 INR 2.8 (0.8-1.2) H 09/29/23 04:21 APTT 37.0 secs (24.9-33.3) H 09/25/23 07:41 Bld Gas Analysis Time 0849 09/26/23 08:42 Sample Site LEFT RADIAL 09/26/23 08:42 ABG pH 7.49 (7.35-7.45) H 09/26/23 08:42 ABG pCO2 30 mmHg (34-45) L 09/26/23 08:42 ABG pO2 69 mmHg (80-100) L 09/26/23 08:42 ABG HCO3 22.1 mmol/L (22.0-26.0) 09/26/23 08:42 ABG Total CO2 23.1 MMOL/L (21.0-29.0) 09/26/23 08:42 ABG O2 Saturation 92 % (94-98) L 09/26/23 08:42 ABG Base Excess -1.0 mmol/L (-2.0-3.0) 09/26/23 08:42 Chay Test POSITIVE 09/26/23 08:42 Room Air YES 09/26/23 08:42 Sodium 145 mmol/L (135-145) 09/29/23 04:21 Potassium 3.3 mmol/L (3.5-4.5) L 09/29/23 04:21 Chloride 110 mmol/L (101-111) 09/29/23 04:21 Carbon Dioxide 25 mmol/L (21-32) 09/29/23 04:21 Anion Gap 10.0 (6-13) 09/29/23 04:21 BUN 19 mg/dL (6-20) 09/29/23 04:21 Creatinine 0.8 mg/dL (0.6-1.3) 09/29/23 04:21 Estimated GFR (MDRD) 92 (>89) 09/29/23 04:21 Glucose 100 mg/dL (74-104) 09/29/23 04:21 Calcium 9.3 mg/dL (8.5-10.3) 09/29/23 04:21 Magnesium 1.9 mg/dL (1.7-2.3) 09/29/23 04:21 Iron 23 ug/dL (50-212) L 09/26/23 05:32 TIBC 189 ug/dL (250-450) L 09/26/23 05:32 % Saturation 12 % (20-50) L 09/26/23 05:32 Transferrin 135 mg/dL (203-362) L 09/26/23 05:32 Total Bilirubin 1.5 mg/dL (0.2-1.0) H 09/22/23 17:44 AST 25 IU/L (10-42) 09/22/23 17:44 ALT 17 IU/L (10-60) 09/22/23 17:44 Alkaline Phosphatase 106 IU/L (42-121) 09/22/23 17:44 Total Protein 6.9 g/dL (6.4-8.9) 09/22/23 17:44 Albumin 4.3 g/dL (3.2-5.5) 09/22/23 17:44 Globulin 2.6 g/dL (2.1-4.2) 09/22/23 17:44 Albumin/Globulin Ratio 1.7 (1.0-2.2) 09/22/23 17:44 Lipase < 10 U/L (11-82) L 09/22/23 17:44 Vitamin D 25-Hydroxy 31.9 ng/mL (30.0-100.0) 09/25/23 07:41 Urine Color DARK YELLOW 09/24/23 23:00 Urine Clarity CLEAR (CLEAR) 09/24/23 23:00 Urine pH 5.5 PH (5.0-7.5) 09/24/23 23:00 Ur Specific [place] 1.025 (1.002-1.030) 09/24/23 23:00 Urine Protein TRACE mg/dL (NEGATIVE) 09/24/23 23:00 Urine Glucose (UA) NEGATIVE mg/dL (NEGATIVE) 09/24/23 23:00 Urine Ketones NEGATIVE mg/dL (NEGATIVE) 09/24/23 23:00 Urine Occult Blood NEGATIVE (NEGATIVE) 09/24/23 23:00 Urine Nitrite NEGATIVE (NEGATIVE) 09/24/23 23:00 Urine Bilirubin SMALL (NEGATIVE) H 09/24/23 23:00 Urine Urobilinogen 1 (NORMAL) E.U./dL (NORMAL) 09/24/23 23:00 Ur Leukocyte Esterase NEGATIVE (NEGATIVE) 09/24/23 23:00 Urine RBC None Seen /HPF (0-5) 09/24/23 23:00 Urine WBC 0-3 /HPF (0-3) 09/24/23 23:00 Ur Squamous Epith Cells RARE Squamous (<= Few) 09/24/23 23:00 Urine Bacteria None Seen /HPF (None Seen) 09/24/23 23:00 Urine Culture Comments NOT INDICATED 09/24/23 23:00 Blood Type A POSITIVE 09/26/23 07:06 Blood Type Recheck A POSITIVE 09/26/23 07:06 Antibody Screen NEGATIVE 09/26/23 07:06 Crossmatch IS Only See Detail 09/26/23 07:06
[2023-09-29] MEDS ORDERED: ACETAMINOPHEN 1,000 MG/100 ML 1,000 MG/100 ML BAG IV PRN (12:11)
[2023-09-29] MEDS: CALCIUM CARBONATE CHEW 500 MG TABLET PO SCH (21:52)
[2023-09-30 05:40] LABS: PT - PROTHROMBIN TIME 52.7 secs (9.9-12.6)
[2023-09-30 05:45] LABS: BASOPHILS % (AUTO) 0.3 %; EOSINOPHILS # (AUTO) 0.3 10^3/uL (0.0-0.7); EOSINOPHILS % (AUTO) 5.4 %; HCT - HEMATOCRIT 23.5 % (42.0-52.0); HGB - HEMOGLOBIN 7.1 g/dL (14.0-18.0); LYMPHOCYTES # (AUTO) 0.8 10^3/uL (1.5-3.5); LYMPHOCYTES % (AUTO) 13.5 %; MEAN CORPUSCULAR HGB CONC 30.2 g/dL (32.0-36.0); MEAN CORPUSCULAR VOLUME 102.6 fL (80.0-94.0); MEAN PLATELET VOLUME 10.8 fL (7.4-11.4); MONOCYTES # (AUTO) 0.7 10^3/uL (0.0-1.0); NEUTROPHILS # (AUTO) 4.2 10^3/uL (1.5-6.6); NEUTROPHILS % (AUTO) 68.3 %; NRBC ABSOLUTE COUNT (AUTO) 0.04 x10^3/uL; NUCLEATED RED BLOOD CELLS AUTO 0.7 /100WBC; PLT - PLATELET COUNT 198 10^3/uL (130-450); RED BLOOD COUNT 2.29 10^6/uL (4.70-6.10); RED CELL DISTRIBUTION WIDTH 17.1 % (12.0-15.0); WHITE BLOOD COUNT 6.1 x10^3/uL (4.8-10.8)
[2023-09-30 05:46] LABS: INR 5.2 (0.8-1.2)
[2023-09-30 05:48] LABS: CALCIUM 8.7 mg/dL (8.5-10.3); CREATININE 0.7 mg/dL (0.6-1.3); POTASSIUM 3.4 mmol/L (3.5-4.5)
[2023-09-30] MEDS: MULTIVITAMIN W/MINERALS TABLET PO SCH (08:30)
--- NOTE | 2023-09-30 19:20 | PROVIDER PROGRESS NOTE ---
Subjective - Prog Note Date Prog Note Date: 09/30/23 Prog Note Time: 19:04 - Subjective Pt reports feeling: No change Subjective: He thinks he is going home. Not oriented to place. Family has met with palliative care. Plan is for long term facility discharge and from there he will go home. He is a max assist x 2. Can barely sit on the edge of the bed for 5 minutes. And is orthostatic.Eating 25% of food at most. Sometimes only a few bites. Current Medications - Current Medications Current Medications: Active Medications Acetaminophen (Acetaminophen 325 Mg Tablet) 650 mg PO Q4HR PRN PRN Reason: Pain 1 to 4, or Fever Last Admin: 09/29/23 20:59 Dose: 650 mg Amlodipine Besylate (Amlodipine 5 Mg Tablet) 5 mg PO BID [facility] Last Admin: 09/30/23 08:30 Dose: 5 mg Atenolol (Atenolol 25 Mg Tablet) 25 mg PO DAILY [facility] Last Admin: 09/30/23 08:30 Dose: 25 mg Atorvastatin Calcium (Atorvastatin 40 Mg Tablet) 80 mg PO QPM [facility] Last Admin: 09/29/23 20:59 Dose: 80 mg Calamine (Calamine/Zinc Oxide 177 Ml Bottle) 1 applic TOP PRN PRN PRN Reason: SKIN CARE Calcium Carbonate/Glycine (Calcium Carbonate Chew 500 Mg Tablet) 500 mg PO 1000,2200 [facility] Last Admin: 09/30/23 08:30 Dose: 500 mg Cholecalciferol (Cholecalciferol 25 Mcg Tablet) 50 mcg PO DAILY [facility] Last Admin: 09/30/23 08:30 Dose: 50 mcg Cyclobenzaprine HCl (Cyclobenzaprine 10 Mg Tablet) 10 mg PO TID PRN PRN Reason: Spasms Last Admin: 09/28/23 04:41 Dose: 10 mg Docusate Sodium (Docusate Sodium 100 Mg Capsule) 100 mg PO BID PRN PRN Reason: Constipation Enoxaparin Sodium (Enoxaparin 100 Mg/Ml Syringe) 90 mg SUBQ BID [facility] Last Admin: 09/27/23 08:43 Dose: 90 mg Ferrous Gluconate (Ferrous Gluconate 324 Mg Tablet) 324 mg PO DAILYWM [facility] Last Admin: 09/30/23 08:31 Dose: 324 mg Acetaminophen (Acetaminophen) 1,000 mg in 100 mls @ 400 mls/hr IV Q6HR PRN PRN Reason: Moderate Pain (Level 4-6) Isosorbide Mononitrate (Isosorbide Mononitrate Er 30 Mg Tablet) 60 mg PO DAILY [facility] Last Admin: 09/30/23 08:30 Dose: 60 mg Multi-Ingredient Mouthwash/Gargle (Magic Mouthwash 120 Ml Bottle) 30 ml PO Q4H PRN PRN Reason: Mouth Sore Pain Last Admin: 09/29/23 20:59 Dose: 30 ml Multi-Ingredient Ointment (Zinc Oxide 20% Oint 30 Gm Tube) 1 applic TOP PRN PRN PRN Reason: Skin Care Last Admin: 09/27/23 17:47 Dose: 1 applic Multivitamins/Minerals (Multivitamin W/Minerals Tablet) 1 tab PO DAILYWM [facility] Last Admin: 09/30/23 08:30 Dose: 1 tab Ondansetron HCl (Ondansetron Odt 4 Mg Tablet) 4 mg TL Q6HR PRN PRN Reason: Nausea / Vomiting Ondansetron HCl (Ondansetron 4 Mg/2 Ml Vial) 4 mg IVP Q6HR PRN PRN Reason: Nausea / Vomiting Pantoprazole Sodium (Pantoprazole 40 Mg Tablet) 40 mg PO DAILY [facility] Last Admin: 09/30/23 08:29 Dose: 40 mg Sodium Chloride (Sodium Chloride Flush 0.9% 10 Ml Syringe) 10 ml IVP PRN PRN PRN Reason: NEEDED PER PROVIDER ORDERS Sodium Chloride (Sodium Chloride Flush 0.9% 10 Ml Syringe) 10 ml IVP 0100,0900,1700 [facility] Last Admin: 09/30/23 17:27 Dose: 10 ml Tamsulosin HCl (Tamsulosin 0.4 Mg Capsule) 0.4 mg PO DAILY [facility] Last Admin: 09/30/23 08:30 Dose: 0.4 mg Warfarin Sodium (Warfarin 5 Mg Tablet) 5 mg PO SUTUWETHSA [facility] Last Admin: 09/30/23 17:29 Dose: Not Given Warfarin Sodium (Warfarin 5 Mg Tablet) 7.5 mg PO MOFR [facility] Last Admin: 09/29/23 18:28 Dose: 7.5 mg Amlodipine Besylate 5 mg PO BID 11/25/15 Warfarin [Coumadin] 5 mg PO SUTUWETHSA 11/25/15 atenoloL [Atenolol] 25 mg PO DAILY 11/25/15 hydroCHLOROthiazide [Hydrochlorothiazide] 12.5 mg PO DAILY 11/25/15 Aspirin [Aspirin EC] 81 mg PO DAILY 05/20/17 Pantoprazole [Protonix] 40 mg PO DAILY 05/20/17 Tamsulosin HCl [Flomax] 0.4 mg PO DAILY 05/20/17 Warfarin [Coumadin] 7.5 mg PO MOFR 05/20/17 Atorvastatin Calcium [Lipitor] 80 mg PO DAILY 09/22/23 Isosorbide Mononitrate [Isosorbide Mononitrate ER] 60 mg PO DAILY 09/22/23 Objective - Vital Signs/Intake & Output Reviewed Vital Signs: Yes Vital Signs: Vital Signs x48h Temp Pulse Resp BP Pulse Ox 09/30/23 16:00 37 C 77 16 161/86 H 93 Intake & Output: Intake & Output 09/27/23 09/28/23 09/29/23 09/30/23 23:59 23:59 23:59 23:59 Intake Total 2570 1000 2344 530 Output Total 1600 900 425 650 Balance 861 987 8357 -120 - Objective General Appearance: positive: No acute distress, Alert ENT: positive: Pharynx nml Neck: positive: No JVD Respiratory: positive: No respiratory distress. negative: Wheezes, Rales, Rhonchi Cardiovascular: positive: Regular rate & rhythm Abdomen: positive: Non-tender, No organomegaly, Nml bowel sounds, No distention Skin: positive: Warm, Dry Extremities: positive: Other (The wound site from his hip surgery is clean, closed. No bleeding, redness, oozing). negative: Full ROM (Right hip with diminished range of motion because of pain in the surgical site) Neurologic/Psychiatric: positive: CN's nml (2-12), Motor nml (Except for generalized weakness.), Disoriented to place, Disoriented to time - Lab Results Fish Bones: 09/30/23 05:12 09/30/23 05:12 Other Labs: Lab Results x24hrs 09/30/23 09/30/23 09/30/23 Range/Units 05:12 05:12 05:12 WBC 6.1 (4.8-10.8) x10^3/uL RBC 2.29 L (4.70-6.10) 10^6/uL Hgb 7.1 L (14.0-18.0) g/dL Hct 23.5 L (42.0-52.0) % MCV 102.6 H (80.0-94.0) fL MCH 31.0 (27.0-31.0) pg MCHC 30.2 L (32.0-36.0) g/dL RDW 17.1 H (12.0-15.0) % Plt Count 198 (130-450) 10^3/uL MPV 10.8 (7.4-11.4) fL Neut # (Auto) 4.2 (1.5-6.6) 10^3/uL Lymph # (Auto) 0.8 L (1.5-3.5) 10^3/uL [place] # (Auto) 0.7 (0.0-1.0) 10^3/uL Eos # (Auto) 0.3 (0.0-0.7) 10^3/uL Baso # (Auto) 0.0 (0.0-0.1) 10^3/uL Absolute Nucleated RBC 0.04 x10^3/uL Nucleated RBC % 0.7 /100WBC PT 52.7 H (9.9-12.6) secs INR 5.2 H* (0.8-1.2) Sodium 144 (135-145) mmol/L Potassium 3.4 L (3.5-4.5) mmol/L Chloride 112 H (101-111) mmol/L Carbon Dioxide 27 (21-32) mmol/L Anion Gap 5.0 L (6-13) BUN 19 (6-20) mg/dL Creatinine 0.7 (0.6-1.3) mg/dL Estimated GFR (MDRD) 107 (>89) Glucose 106 H (74-104) mg/dL Calcium 8.7 (8.5-10.3) mg/dL RBC Magnesium (3.7-7.0) mg/dL 04/24 Range/Units 04:34 WBC (4.8-10.8) x10^3/uL RBC (4.70-6.10) 10^6/uL Hgb (14.0-18.0) g/dL Hct (42.0-52.0) % MCV (80.0-94.0) fL MCH (27.0-31.0) pg MCHC (32.0-36.0) g/dL RDW (12.0-15.0) % Plt Count (130-450) 10^3/uL MPV (7.4-11.4) fL Neut # (Auto) (1.5-6.6) 10^3/uL Lymph # (Auto) (1.5-3.5) 10^3/uL [place] # (Auto) (0.0-1.0) 10^3/uL Eos # (Auto) (0.0-0.7) 10^3/uL Baso # (Auto) (0.0-0.1) 10^3/uL Absolute Nucleated RBC x10^3/uL Nucleated RBC % /100WBC PT (9.9-12.6) secs INR (0.8-1.2) Sodium (135-145) mmol/L Potassium (3.5-4.5) mmol/L Chloride (101-111) mmol/L Carbon Dioxide (21-32) mmol/L Anion Gap (6-13) BUN (6-20) mg/dL Creatinine (0.6-1.3) mg/dL Estimated GFR (MDRD) (>89) Glucose (74-104) mg/dL Calcium (8.5-10.3) mg/dL RBC Magnesium 5.5 (3.7-7.0) mg/dL Assessment/Plan - Problem List (1) Encephalopathy acute Impression: This gentleman had acute encephalopathy after his surgery. He is described as with mild cognitive deficits prior to admission but able to communicate, be mobile, etc. We finally decided that he had postop changes due to narcotics and we stopped his sedating medications. We also worried about alcohol withdrawal and he was on CIWA temporarily and that has been discontinued. Head CT was done on admission after his fall and there is no acute intracranial pathology. A repeat head CT was done September 24. Again there is no significant acute intracranial abnormality identified. If there is clinical concern, an MRI was recommended, but this patient will not be able to sit still for 1. He is oriented x 3, but still continues to have enough deficits that he cannot return to home safely. As such, he is to be discharged to [facility] today. However, they are already taking 4 admissions and cannot take another admission and transfer will happen tomorrow. He is a max assist x 2. Only able to sit up at the side of the bed for 5 minutes. And drops his pressure by 26 points. Continues to sleep most of the day. (2) acute blood loss anemia due to surgery --1 unit pRBC on 09/25. Holding Lovenox. --Maintain hemoglobin >7.Today he is 7.1. (3) Hip fracture Qualifiers: Encounter type: initial encounter Fracture type: closed Laterality: right Qualified Code(s): S72.001A - Fracture of unspecified part of neck of right femur, initial encounter for closed fracture --POD#7 --DVT ppx with warfarin. --PT/OT has not been able to work with patient due to his encephalopathy. --Treating post operative anemia with oral Fe. Received IV Fe 1000 mg on 09/26. (4) Afib Assessment/Plan: --Continue Atenolol and warfarin. (5) S/P aortic valve repair Assessment/Plan: --Goal INR is 2.5-3.5. --Has been given several doses of vitamin K pre-operatively. INR was 2.8 yesterday. He is 5.2 today.He has been getting 5 mg of Coumadin every day. And 7 and half milligrams on the fifth and the eighth. Hold Coumadin dosing tonight. Can resume when he is back below 3.0. (6) HTN (hypertension) Assessment/Plan: --Continue imdur and atenolol. --Most recent TTE from 2017 showing LVEF 50-55% with normal functioning mechanical aortic valve. Evidence of elevated heart pressures. (7) Oliguria after procedure Assessment/Plan: --Resolved. (8) Acute diastolic CHF (congestive heart failure) Assessment/Plan: --Resolved. Dispo: Patient is now DNR after discussion with his son. Overall prognosis is guarded given his encephalopathy and inability to participate in therapy. Family has met with palliative and goals remain the same - to go to SNF and return home. Palliative care, Lucina Lockhart, came by today to discuss this. No changes in this plan.
[2023-10-01 05:33] LABS: BASOPHILS % (AUTO) 0.3 %; EOSINOPHILS # (AUTO) 0.1 10^3/uL (0.0-0.7); EOSINOPHILS % (AUTO) 0.9 %; HCT - HEMATOCRIT 25.2 % (42.0-52.0); HGB - HEMOGLOBIN 7.5 g/dL (14.0-18.0); LYMPHOCYTES # (AUTO) 0.7 10^3/uL (1.5-3.5); LYMPHOCYTES % (AUTO) 9.4 %; MEAN CORPUSCULAR HGB CONC 29.8 g/dL (32.0-36.0); MEAN CORPUSCULAR VOLUME 104.1 fL (80.0-94.0); MEAN PLATELET VOLUME 10.8 fL (7.4-11.4); MONOCYTES # (AUTO) 0.9 10^3/uL (0.0-1.0); MONOCYTES % (AUTO) 11.3 %; NEUTROPHILS % (AUTO) 76.4 %; NRBC ABSOLUTE COUNT (AUTO) 0.05 x10^3/uL; NUCLEATED RED BLOOD CELLS AUTO 0.6 /100WBC; PLT - PLATELET COUNT 228 10^3/uL (130-450); RED BLOOD COUNT 2.42 10^6/uL (4.70-6.10); RED CELL DISTRIBUTION WIDTH 17.2 % (12.0-15.0); WHITE BLOOD COUNT 7.9 x10^3/uL (4.8-10.8)
[2023-10-01 05:48] LABS: CALCIUM 9.1 mg/dL (8.5-10.3); CREATININE 0.8 mg/dL (0.6-1.3); POTASSIUM 3.8 mmol/L (3.5-4.5)
[2023-10-01 08:05] VITALS: BP 107/82; O2SAT 92
--- NOTE | 2023-10-01 12:28 | Discharge Plan ---
"Discharge Plan for SNF / [facility] - Discharge Plan And Transition Orders Problem Reviewed?: Yes Disposition: 03 SNF DC/Xfer Condition: Stable Allergies and Adverse Reactions: Allergies Allergy/AdvReac Type Severity Reaction Status Date / Time morphine Allergy Hallucinati Verified 09/22/23 17:41 ons oxycodone Allergy Hallucinati Verified 09/22/23 17:41 ons Penicillins Allergy Unknown Verified 09/22/23 17:41 Health Concerns: 83 yo M with PMH of AFib, s/p AVR 2001-on Coumadin, HTN, GERD, BPH presented to the ER with c/o R hip pain s/p GLF today. Pt felt fine prior to fall. No dizziness/CP/SOB. He tripped over his pant leg and fell onto his R leg, then had R hip pain--worse with mvmt, better with rest. No tingling/numbness. Pain better controlled now after nerve block in the ER. No cough/F/C/abdo pain. No swelling. Pt does not tolerate narcotics; they cause him to hallucinate. In the ER, Mg 1.5, INR 2.6 R Hip Xray: comminuted Intertrochanteric proximal femoral fracture CT Head: NAD ER Physician D/W Orthopedic Surgeon, who plans to consult and take pt to OR Pt was given Ofirmev and a local nerve block with Ropiviacaine in the ER. - Past Medical History Cardiovascular: reports: Hypertension, High cholesterol, Atrial fibrillation, Valve disorder Respiratory: reports: None Neuro: reports: None Endocrine/Autoimmune: reports: None GI: reports: GERD : reports: Benign prostate hypertrophy HEENT: reports: Chronic vision loss, Macular degeneration Psych: reports: None Musculoskeletal: reports: Chronic back pain Derm: reports: None MRSA Hx?: No - Past Surgical History General: reports: Appendectomy Cardiovascular: reports: Valve replacement Plan of Treatment: Patient underwent InterTAN nailing on September 22. Postoperative complications included a very prolonged course of encephalopathy. It was unclear why this patient (who already has baseline cognitive deficits, deteriorated. Narcotics were eliminated. He had 2 CTs of the head which showed no stroke. Infection was ruled out with chest x-ray, UA. He is had very slow course to recover. He still is spending most of his time sleeping. He does wake up and is with mumbling speech. If you listen very carefully you do understand what he saying but the mumbling is quite bad. He is a 3 person max assist, with poor truncal stability. He has increased extensor tone. Tends to slump to the right. He is on a pured diet. Liquids need to be thickened. He does need to be assisted with his meals. He is not able to feed himself. Plan is to transfer him to a shelter facility for physical rehab. From there family plans on taking him home with home care. Patient's SON/HOLGER DRAKE he can be reached on his cell phone at [phone]. He has already met with palliative care in the outpatient setting. Palliative care is aware that he is here and will continue to follow him. At this time the patient wants to be a full code. He wants to proceed forward with all treatment and opportunities. He does not want to focus on comfort measures yet. Plan is for him to be discharged to home Assessment: Patient has mumbling slurred speech. Right facial droop that he tells me is chronic. Needs 2-3 person max assist to go from supine to sitting and sitting to standing. No truncal stability. Fall risk. - SNF / PENITENTIARY Transition Orders Admit to (Facility): [facility] Under the care of (Name): ARELI Clay Discharge Diagnosis: 1. Right femur neck fracture with InterTAN nailing 2. Fall at home 3. Acute encephalopathy after surgery 4. Acute blood loss anemia due to surgery requiring 1 unit of transfusion 5. Chronic atrial fibrillation on rate control and anticoagulation 6. History of aortic valve repair 7. Hypertension 8. Oliguria after procedure 9. Acute diastolic heart failure 10. Supratherapeutic INR. INR is 5.2 on September 29. Coumadin has been held. INR should be checked daily and Coumadin resumed when below 3.5 INR Medicare Certification Statement: I certify that [facility] shelter care is medically necessary on a continuing basis for any of the conditions for which she/he is receiving care during hospitalization. Notify PCP of admission and forward orders to primary provider for signature. Weight on admission and: Daily Call PCP immediately if weight increases by: 2 kg Other Notification Orders: Call PCP immediately if patient develops dyspnea, chest pain/tightness or edema. House Bowel Program: Yes Additional Bowel Program Orders: If no BM after 2 days, nurse may give M.O.M. 30ml PO PRN and/or ducolax Supp 1 UT and/or LALITA 250mg P.O., and/or senna 1-2 tabs PO. On day 3 nurse may give repeat above order until residents constipation is resolved. Annual Influenza Vaccine (between Feb 21 and September 20): Yes Two-step PPD per [facility] [id number] or approved exception documents: Yes Lab Tests or X-ray Orders: Daily INR for the first 7 days Medication Orders: PLEASE REFER TO THE DISCHARGE MEDICATION LIST. Insulin Orders?: No - Diet Type: No added salt Texture: Puree Liquids: Borger thick - Therapies | Activity Therapy: Evaluation | Treat if indicated: Speech, PT, OT, Swallowing / ST Rehabilitation Potential: Return to independent living Activity: Wt Bearing as Tolerated Weight Bearing: Full Weight Assistance Devices: Wheelchair, Walker Follow Up: His surgery follow-up should be 2 weeks after surgery. He can be seen in the orthopedic office. No special wound care. Keep the wound clean and dry. There are no sutures or poonam to removed."
--- NOTE | 2023-10-01 13:26 | DISCHARGE SUMMARY ---
Discharge Summary Admit Date: 09/22/23 Discharge Date: 10/01/23 Discharging Provider: Rachel Silverio MD Primary Care Provider: ARELI Driscoll Code Status: Attempt Resuscitation Condition at Discharge: Stable Discharge Disposition: [facility] DC/Xfer - DIAGNOSES Discharge Diagnoses with Status of Each Condition: 1. Right femur neck fracture with InterTAN nailing 2. Fall at home 3. Acute encephalopathy after surgery 4. Acute blood loss anemia due to surgery requiring 1 unit of transfusion 5. Chronic atrial fibrillation on rate control and anticoagulation 6. History of aortic valve repair 7. Hypertension 8. Oliguria after procedure 9. Acute diastolic heart failure 10. Supratherapeutic INR. INR is 5.2 on September 29. Coumadin has been held. INR should be checked daily and Coumadin resumed when below 3.5 INR - HPI History of Present Illness: This is a 77-year-old male with a past medical history significance for HTN, Afib, valve disorder with valve replacement on 2001 on Coumadin, GERD, BPH, chronic pain, who present ER for evaluation of shortness of breath. Pt is a poor historian. pt report he has been shortness of breath in the past two or three week. pt report he gained 16 lb in the past one or two weeks. Pt report he had cough but denies chill, and fever. PT has been dentist office to get some work done. Pt became shortness of breath,and was sent to his PCP office. His PCP examined him and he had an obvious signs of heart failure. Then pt was sent to ER for further evaluation and treatment. Pt also report pain at his left lower extremity with mild swelling. pt also report he has been on diarrhea for past several days, and his stool with some dark greenish color. Pt denies chest pain, headache, abdominal pain, nausea, vomiting. No dysuria, hematuria, vision changing. CXR reveals mild infiltration at right lung base, moderate cardiomegaly, and vascular congestion. PT/INR 35/3.2, potassium 3.4, BNP 305 - Past Medical History Cardiovascular: reports: Hypertension, Atrial fibrillation, Valve disorder GI: reports: GERD : reports: Benign prostate hypertrophy Musculoskeletal: reports: Chronic back pain - Past Surgical History General: reports: Appendectomy Cardiovascular: reports: Valve replacement - HOSPITAL COURSE Hospital Course: Patient underwent InterTAN nailing on [place] 2. Postoperative complications included a very prolonged course of encephalopathy. It was unclear why this patient (who already has baseline cognitive deficits, deteriorated. Narcotics were eliminated. He had 2 CTs of the head which showed no stroke. Infection was ruled out with chest x-ray, UA. He is had very slow course to recover. He still is spending most of his time sleeping. He does wake up and is with mumbling speech. If you listen very carefully you do understand what he saying but the mumbling is quite bad. He is a 3 person max assist, with poor truncal stability. He has increased extensor tone. Tends to slump to the right. He is on a pured diet. Liquids need to be thickened. He does need to be assisted with his meals. He is not able to feed himself. Plan is to transfer [facility] to [facility] for [facility]. From there family plans on taking him home with home care. Patient's SON/HOLGER DRAKE he can be reached on his cell phone at [phone]. He has already met with palliative care in the outpatient setting. Palliative care is aware that he is here and will continue to follow him. At this time the patient wants to be a full code. He wants to proceed forward with all treatment and opportunities. He does not want to focus on comfort measures yet. Plan is for him to be discharged to home Assessment: Patient has mumbling slurred speech. Right facial droop that he tells me is chronic. Needs 2-3 person max assist to go from supine to sitting and sitting to standing. No truncal stability. Fall risk. On examination patient is mumbling, eyes closed. When I ask him to open them he does open them for me. If I am leaning closely and listen carefully, I do understand what he saying. He is aware that he is going to [facility] but he cannot quite remember why he is going there. Right facial droop. He tells me that is old. Supple neck. Lungs have diminished breath sounds at the bases, occasional rhonchi that clears with a cough. No respiratory distress. Regular rate and rhythm with a systolic ejection murmur. Abdomen is obese, soft, nontender. Left lower quadrant has bruising in the subcutaneous abdominal wall possibly from Lovenox injections. Extremities are thick but no edema. He says that his right shoulder hurts so he cannot bring his arm up above his head. Arm is held close to his side. But hand grasp is present but weaker than the left hand. Right leg weaker than left leg. Again he tells me that is from a previous stroke. He needs a 2-3 person assist to go from supine to sitting. Greater than 30 minutes was spent coordinating discharge This document was made in part using voice recognition software. While efforts are made to proofread this document, sound alike and grammatical errors may occur. - ALLERGIES Allergies/Adverse Reactions: Allergies Allergy/AdvReac Type Severity Reaction Status Date / Time morphine Allergy Hallucinati Verified 09/22/23 17:41 ons oxycodone Allergy Hallucinati Verified 09/22/23 17:41 ons Penicillins Allergy Unknown Verified 09/22/23 17:41 - MEDICATIONS Home Medications: Ambulatory Orders Medication Instructions Recorded Confirmed Amlodipine Besylate 5 mg PO BID 11/25/15 09/22/23 Warfarin [Coumadin] 5 mg PO SUTUWETHSA 11/25/15 09/22/23 atenoloL [Atenolol] 25 mg PO DAILY 11/25/15 05/20/17 hydroCHLOROthiazide 12.5 mg PO DAILY 11/25/15 05/20/17 [Hydrochlorothiazide] Aspirin [Aspirin EC] 81 mg PO DAILY 05/20/17 05/20/17 Pantoprazole [Protonix] 40 mg PO DAILY 05/20/17 09/22/23 Tamsulosin HCl [Flomax] 0.4 mg PO DAILY 05/20/17 09/22/23 Warfarin [Coumadin] 7.5 mg PO MOFR 05/20/17 09/22/23 Furosemide [Lasix] 20 mg PO DAILY #7 tablet 05/22/17 09/22/23 Potassium Chloride 10 meq PO DAILY #7 tablet.er 05/22/17 09/22/23 Atorvastatin Calcium [Lipitor] 80 mg PO DAILY 09/22/23 09/22/23 Isosorbide Mononitrate [Isosorbide 60 mg PO DAILY 09/22/23 09/22/23 Mononitrate ER] Acetaminophen [Tylenol] 650 mg PO Q4HR PRN tab 10/01/23 Calamine/Zinc Oxide [Calamine 1 applic TOP PRN PRN each 10/01/23 Lotion] Calcium Carbonate [Tums (Calcium 500 mg PO 1000,2200 tab 10/01/23 Carbonate 500mg)] Cholecalciferol [Vitamin D3] 50 mcg PO DAILY tab 10/01/23 Ferrous Gluconate [Fergon] 324 mg PO DAILYWM tab 10/01/23 Magic Mouthwash 30 ml PO Q4H PRN each 10/01/23 Multivitamin W/Minerals [Theragran 1 tab PO DAILYWM tab 10/01/23 M] Zinc Oxide 20% Oint [Zinc Oxide] 1 applic TOP PRN PRN each 10/01/23 - LABS Result Diagrams: 10/01/23 04:59 10/01/23 04:59
--- NOTE | 2023-10-01 14:37 | CONSULTATION NOTE ---
Palliative Care Consultation - Referral Referring Provider: Dr. Cih Time of Visit: 11:30 AM Referral setting: Hospitalized patient Referral Reason: Encephalopathy and deconditioning; unable to participate with PT - Information Sources Records reviewed: Previous records reviewed History/Review of Systems obtained from: Patient, Family (Son Rodrigue) Exam limitations: Clinical condition (Difficulty speaking) - History of Present Illness Brief History of Present Illness: This is a frail, elderly 83 year old gentleman with R hip fx secondary to GLF. He is s/p R hip arthroplasty (6 days post-op), acute blood loss anemia, Afib, hx aortic valve repair, HTN, acute encephalopathy, acute diastolic CHF, and oligura post surgery. Son Rordigue is at bedside. States his father is unable to take any narcotics and this is what happens when he does. Rodrigue says he is doing better today and more coherent. Rambo starts to wake up and is speaking. States pain is better unless he is moving around and taking Tylenol is enough. Having muscle spasms in back from lying flat and he tolerates the cyclobenzaprine. Currently receiving APAP PRN, plus ketorolac. He did receive Ropivacaine nerve block in ED. Rambo states he's been having hallucinations and the last one was last night. Had 2 bowls of oatmeal this morning. Appetite has been poor due to cognition. Rambo is having acute CHF with swelling in the abdomen. Denies SOB and was weaned off O2 nasal cannula this morning. He has a large hematoma on the right side of flank/lower abdomen and hip. Lovenox is being held currently. He's received 1 unit packed RBC on 09/25. There plan is for SNF rehab upon discharge, and then back home where he lives with son, Rodrigue. The more questions I ask, the more Rambo is able to answer. He knows he has been unable to participate with therapies, but wants to return home with his son. They are happy to speak with me if I come back in a couple days to check in again. Medical/Surgical History - Past Medical History Cardiovascular: reports: Congestive heart failure (Acute during this hospitalization), Hypertension, High cholesterol, Coronary artery disease, Peripheral Vascular Disease, Atrial fibrillation, Valve disorder (St. Edinson's mechanical valve), Other (Ventricular hypertrophy with left diastolic dysfunction) Respiratory: reports: Shortness of breath (Weaned off O2 nasal cannula today), Other (Past tobacco smoker) Neuro: None, Tremors, Other (Meralgia paresthetic, right) Neuro: reports: CVA, Tremors, Other (Acute encephalopathy) Endocrine/Autoimmune: reports: None GI: reports: GERD : reports: Benign prostate hypertrophy HEENT: reports: Chronic vision loss, Macular degeneration Psych: reports: Post traumatic stress disorder Musculoskeletal: reports: Chronic back pain, Other (Sciatica) Derm: reports: None MRSA Hx?: No - Past Surgical History General: reports: Appendectomy Cardiovascular: reports: Valve replacement - Substance History Use: Uses substance without health or social issues: NONE Social History - Living Situation Living arrangement: At home Living Situation: With family (Son Rodrigue) Support System: Son Rodrigue; recently lost his on hospice Medications/Allergies - Medications Active Medication List: Active Medications Acetaminophen (Acetaminophen 325 Mg Tablet) 650 mg PO Q4HR PRN PRN Reason: Pain 1 to 4, or Fever Last Admin: 09/28/23 16:06 Dose: 650 mg Amlodipine Besylate (Amlodipine 5 Mg Tablet) 5 mg PO BID [facility] Last Admin: 09/29/23 08:51 Dose: 5 mg Atenolol (Atenolol 25 Mg Tablet) 25 mg PO DAILY [facility] Last Admin: 09/29/23 08:51 Dose: 25 mg Atorvastatin Calcium (Atorvastatin 40 Mg Tablet) 80 mg PO QPM [facility] Last Admin: 09/28/23 21:03 Dose: 80 mg Calamine (Calamine/Zinc Oxide 177 Ml Bottle) 1 applic TOP PRN PRN PRN Reason: SKIN CARE Calcium Carbonate/Glycine (Calcium Carbonate Chew 500 Mg Tablet) 500 mg PO BID [facility] Last Admin: 09/29/23 08:51 Dose: 500 mg Cholecalciferol (Cholecalciferol 25 Mcg Tablet) 50 mcg PO DAILY [facility] Last Admin: 09/29/23 08:51 Dose: 50 mcg Cyclobenzaprine HCl (Cyclobenzaprine 10 Mg Tablet) 10 mg PO TID PRN PRN Reason: Spasms Last Admin: 09/28/23 04:41 Dose: 10 mg Docusate Sodium (Docusate Sodium 100 Mg Capsule) 100 mg PO BID PRN PRN Reason: Constipation Enoxaparin Sodium (Enoxaparin 100 Mg/Ml Syringe) 90 mg SUBQ BID [facility] Last Admin: 09/27/23 08:43 Dose: 90 mg Ferrous Gluconate (Ferrous Gluconate 324 Mg Tablet) 324 mg PO DAILYWM [facility] Last Admin: 09/29/23 08:51 Dose: 324 mg Lactated Ringer's (Lr) 1,000 mls @ 83.333 mls/hr IV .Q12H [facility] Last Admin: 09/29/23 08:58 Dose: 83.333 mls/hr Acetaminophen (Acetaminophen) 1,000 mg in 100 mls @ 400 mls/hr IV Q6HR PRN PRN Reason: Moderate Pain (Level 4-6) Isosorbide Mononitrate (Isosorbide Mononitrate Er 30 Mg Tablet) 60 mg PO DAILY [facility] Last Admin: 09/29/23 08:51 Dose: 60 mg Ketorolac Tromethamine (Ketorolac 15 Mg/Ml Vial) 15 mg IVP Q6HR PRN PRN Reason: Severe Pain (Level 7-10) Stop: 10/03/23 07:45 Last Admin: 09/29/23 04:17 Dose: 15 mg Multi-Ingredient Mouthwash/Gargle (Magic Mouthwash 120 Ml Bottle) 30 ml PO Q4H PRN PRN Reason: Mouth Sore Pain Last Admin: 09/29/23 08:50 Dose: 30 ml Multi-Ingredient Ointment (Zinc Oxide 20% Oint 30 Gm Tube) 1 applic TOP PRN PRN PRN Reason: Skin Care Last Admin: 09/27/23 17:47 Dose: 1 applic Ondansetron HCl (Ondansetron Odt 4 Mg Tablet) 4 mg TL Q6HR PRN PRN Reason: Nausea / Vomiting Ondansetron HCl (Ondansetron 4 Mg/2 Ml Vial) 4 mg IVP Q6HR PRN PRN Reason: Nausea / Vomiting Pantoprazole Sodium (Pantoprazole 40 Mg Tablet) 40 mg PO DAILY [facility] Last Admin: 09/29/23 08:51 Dose: 40 mg Sodium Chloride (Sodium Chloride Flush 0.9% 10 Ml Syringe) 10 ml IVP PRN PRN PRN Reason: NEEDED PER PROVIDER ORDERS Sodium Chloride (Sodium Chloride Flush 0.9% 10 Ml Syringe) 10 ml IVP 0100,0900,1700 [facility] Last Admin: 09/29/23 09:02 Dose: 10 ml Tamsulosin HCl (Tamsulosin 0.4 Mg Capsule) 0.4 mg PO DAILY [facility] Last Admin: 09/29/23 08:51 Dose: 0.4 mg Warfarin Sodium (Warfarin 5 Mg Tablet) 5 mg PO SUTUWETHSA [facility] Last Admin: 09/28/23 21:03 Dose: 5 mg Warfarin Sodium (Warfarin 5 Mg Tablet) 7.5 mg PO MOFR [facility] Last Admin: 09/26/23 17:56 Dose: 7.5 mg Amlodipine Besylate 5 mg PO BID 11/25/15 Warfarin [Coumadin] 5 mg PO SUTUWETHSA 11/25/15 atenoloL [Atenolol] 25 mg PO DAILY 11/25/15 hydroCHLOROthiazide [Hydrochlorothiazide] 12.5 mg PO DAILY 11/25/15 Aspirin [Aspirin EC] 81 mg PO DAILY 05/20/17 Pantoprazole [Protonix] 40 mg PO DAILY 05/20/17 Tamsulosin HCl [Flomax] 0.4 mg PO DAILY 05/20/17 Warfarin [Coumadin] 7.5 mg PO MOFR 05/20/17 Atorvastatin Calcium [Lipitor] 80 mg PO DAILY 09/22/23 Isosorbide Mononitrate [Isosorbide Mononitrate ER] 60 mg PO DAILY 09/22/23 - Allergies Allergies/Adverse Reactions: Allergies Allergy/AdvReac Type Severity Reaction Status Date / Time morphine Allergy Hallucinati Verified 09/22/23 17:41 ons oxycodone Allergy Hallucinati Verified 09/22/23 17:41 ons Penicillins Allergy Unknown Verified 09/22/23 17:41 Review of Systems - Constitutional Constitutional: reports: Fatigue, Weakness, Poor appetite - Eyes Eyes: reports: Vision loss (Macular degeneration), Other - Ears, Nose & Throat Ears, Nose & Throat: reports: Hearing loss, Dry mouth, Other (Difficulty eating and drinking; Thickened liquids) - Cardiovascular Cardiovascular: reports: Irregular heart rate, Palpitations, Edema, Decr. exerci se tolerance - Respiratory Respiratory: reports: Cough, SOB with exertion - Gastrointestinal Gastrointestinal: reports: Abdominal distention, Poor appetite - Genitourinary Genitourinary: reports: Hematuria, Other (Lyles catheter in place) - Musculoskeletal Musculoskeletal: reports: Back pain, Limited range of motion, Muscle weakness - Neurological Neurological: reports: General weakness, Memory problems, Slurred speech - Psychiatric Psychiatric: reports: Hallucinations, Other (Delirium) - Hematologic/Lymphatic Hematologic/Lymph: reports: Anemia, Bruising, Bleeding tendencies Physical Exam - Vital Signs Vital Signs: Vital Signs x48h Temp Pulse Resp BP Pulse Ox O2 Flow Rate 09/29/23 10:00 1 09/29/23 08:15 36.1 C L 81 22 132/67 H 93 1 - Physical Exam General Appearance: positive: Alert, Mild distress, Lethargic, Other (Well- developed) Eyes Bilateral: positive: EOMI, Conjunctivae nml, No scleral icterus Neck: positive: No JVD, Trachea midline, Swelling/bruising Cardiovascular: positive: No murmur, Irregularly irregular Respiratory: positive: No respiratory distress, Rales Abdomen: positive: Non-tender, Abnml bowel sounds (Hyperactive), Distended, Taut, Obese Skin: positive: Bruising, Other (Very pale in color) Extremities: positive: Pedal edema Neurologic/Psychiatric: positive: Oriented x3, Facial droop, Slurred/abnml speech, Flat affect Palliative Care - POLST Patient has POLST: No POLST Status: DNR Pain: Pain improved (Worse when moving in bed), Location, Comment (R hip with movement) Tiredness/Fatigue: Mild (1-3), Moderate (4-6) Drowsiness/Sedation: Moderate (4-6) Nausea: None Anorexia: Moderate (4-6), Weight loss Dyspnea: Mild (1-3) Anxiety: None Feelings of wellbeing/Perceived Quality of Life: Acceptable Sleep: Sleeps well Constipation: Intermittent constipation Performance Status: Not getting out of bed currently due to weakness and encephalopathy - Palliative Care Discussion: Asked Rambo what his plans are. Son Rodrigue stated he was supposed to go to a SNF once he discharges. Rambo comments he does not know what a SNF is. He has not been to rehab in the past. This would be a new for him. When I asked about his POLST status, he said "we're not ready for the paddles yet." I said I was concerned and worried because he has not been getting up out of bed or participating in therapies. He said he is going to do that now because he is feeling better. He is not ready to talk about goals of care and would apprecia te if I returned in a couple days to discuss at another time. He is making every effort to participate in questions I am asking and trying to answer appropriately. He comments "do you understand what I just said?" He had been asleep when I first came in, but once his son Rodrigue and I started talking, he woke up more and became engaged in our conversation. He feels he is doing better also and not as groggy as he had been. He reported having hallucinations last night. He states many times he cannot have narcotics and this is what happens when he does. He is hopeful he will start to feel better soon. - Advance Care Planning Was not willing to discuss today Results - Lab Results Fish Bones: 10/01/23 04:59 10/01/23 04:59 Lab and Imaging Results: Lab Results x24hrs 09/29/23 09/29/23 09/29/23 Range/Units 04:21 04:21 04:21 WBC 7.6 (4.8-10.8) x10^3/uL RBC 2.48 L (4.70-6.10) 10^6/uL Hgb 8.0 L (14.0-18.0) g/dL Hct 25.0 L (42.0-52.0) % MCV 100.8 H (80.0-94.0) fL MCH 32.3 H (27.0-31.0) pg MCHC 32.0 (32.0-36.0) g/dL RDW 16.2 H (12.0-15.0) % Plt Count 190 (130-450) 10^3/uL MPV 10.7 (7.4-11.4) fL Neut # (Auto) 5.4 (1.5-6.6) 10^3/uL Lymph # (Auto) 1.0 L (1.5-3.5) 10^3/uL [place] # (Auto) 0.7 (0.0-1.0) 10^3/uL Eos # (Auto) 0.3 (0.0-0.7) 10^3/uL Baso # (Auto) 0.0 (0.0-0.1) 10^3/uL Absolute Nucleated RBC 0.05 x10^3/uL Nucleated RBC % 0.7 /100WBC PT (9.9-12.6) secs INR (0.8-1.2) Sodium 145 (135-145) mmol/L Potassium 3.3 L (3.5-4.5) mmol/L Chloride 110 (101-111) mmol/L Carbon Dioxide 25 (21-32) mmol/L Anion Gap 10.0 (6-13) BUN 19 (6-20) mg/dL Creatinine 0.8 (0.6-1.3) mg/dL Estimated GFR (MDRD) 92 (>89) Glucose 100 (74-104) mg/dL Calcium 9.3 (8.5-10.3) mg/dL Magnesium 1.9 (1.7-2.3) mg/dL 09/29/23 Range/Units 04:21 WBC (4.8-10.8) x10^3/uL RBC (4.70-6.10) 10^6/uL Hgb (14.0-18.0) g/dL Hct (42.0-52.0) % MCV (80.0-94.0) fL MCH (27.0-31.0) pg MCHC (32.0-36.0) g/dL RDW (12.0-15.0) % Plt Count (130-450) 10^3/uL MPV (7.4-11.4) fL Neut # (Auto) (1.5-6.6) 10^3/uL Lymph # (Auto) (1.5-3.5) 10^3/uL [place] # (Auto) (0.0-1.0) 10^3/uL Eos # (Auto) (0.0-0.7) 10^3/uL Baso # (Auto) (0.0-0.1) 10^3/uL Absolute Nucleated RBC x10^3/uL Nucleated RBC % /100WBC PT 28.8 H (9.9-12.6) secs INR 2.8 H (0.8-1.2) Sodium (135-145) mmol/L Potassium (3.5-4.5) mmol/L Chloride (101-111) mmol/L Carbon Dioxide (21-32) mmol/L Anion Gap (6-13) BUN (6-20) mg/dL Creatinine (0.6-1.3) mg/dL Estimated GFR (MDRD) (>89) Glucose (74-104) mg/dL Calcium (8.5-10.3) mg/dL Magnesium (1.7-2.3) mg/dL Impression and Recommendations - Palliative Care Impression: This is a frail, 83 year old elderly man with recent GLF and R hip fx with s/p R arthroplasty. He is having acute encephalopathy and not sure if from narcotics or if this is baseline. Will be going to SNF for rehab. Has multiple comorbidities including HTN, CHF, atrial fibrillation, PVD, and aortic valve repair on Warfarin. Would like to have palliative care follow up with patient once he returns to his home setting. Recommendations/Counseling Done: 1. S/P R hip arthroplasty - This is an 83-year-old frail gentleman with recent right hip fracture now s/p arthroplasty with acute blood loss anemia, atrial fibrillation, new onset diastolic CHF, HTN, [employer]. [place]inson's mechanical valve, and acute encephalopathy. Would be a good candidate for SNF rehab and then D/C back to home with home health PT/OT/TEXTILE KNITTER. 2. Cognitive impairment - Unclear etiology, but seems to have some memory issues and cognitive deficits prior to admission. Unknown if due to narcotics, change in environment or general decline post surgery. 3. Palliative care - will plan to follow him after SNF rehab and refer to home health PT/OT/TEXTILE KNITTER. Rambo and son, Rodrigue, would be open to this after meeting with me today. 45 minutes spent counseling on advance care planning, review of labs, scans, progress notes, coordination of care, and anticipatory guidance.
== END 2023-10-01 14:55 | DRG 480 ==
LOC: EDUNIT# → EDBD → ED 17:30 → MS3 19:38 → MS2 09-25 16:05
PROVIDERS: ADMIT Internal Medicine; ATTEND Specialist
PROC: 0QS636Z Reposition Right Upper Femur with Intramedullary Internal Fixation Device, Percutaneous Approach (ICD-10-PCS; principal; 2023-09-22)
PROC: 30233N1 Transfusion of Nonautologous Red Blood Cells into Peripheral Vein, Percutaneous Approach (ICD-10-PCS; 2023-09-26)
DX: S72.141A Displaced intertrochanteric fracture of right femur, initial encounter for closed fracture (principal); I50.31 Acute diastolic (congestive) heart failure; Y92.009 Unspecified place in unspecified non-institutional (private) residence as the place of occurrence of the external cause; G93.40 Encephalopathy, unspecified; S09.90XA Unspecified injury of head, initial encounter; D62 Acute posthemorrhagic anemia; I48.20 Chronic atrial fibrillation, unspecified; W01.0XXA Fall on same level from slipping, tripping and stumbling without subsequent striking against object, initial encounter; I10 Essential (primary) hypertension; E83.42 Hypomagnesemia; K21.9 Gastro-esophageal reflux disease without esophagitis; N40.0 Benign prostatic hyperplasia without lower urinary tract symptoms; N99.0 Postprocedural (acute) (chronic) kidney failure; R79.1 Abnormal coagulation profile; G89.29 Other chronic pain; R19.7 Diarrhea, unspecified; M54.9 Dorsalgia, unspecified; R47.81 Slurred speech; R29.810 Facial weakness; E78.00 Pure hypercholesterolemia, unspecified; I25.10 Atherosclerotic heart disease of native coronary artery without angina pectoris; I73.9 Peripheral vascular disease, unspecified; H91.90 Unspecified hearing loss, unspecified ear; R68.2 Dry mouth, unspecified; R31.9 Hematuria, unspecified; G31.84 Mild cognitive impairment of uncertain or unknown etiology; R11.2 Nausea with vomiting, unspecified; K59.00 Constipation, unspecified; R25.2 Cramp and spasm; K13.79 Other lesions of oral mucosa; Z79.01 Long term (current) use of anticoagulants; Z79.82 Long term (current) use of aspirin; Z79.899 Other long term (current) drug therapy; Z87.891 Personal history of nicotine dependence; Z88.0 Allergy status to penicillin; Z88.5 Allergy status to narcotic agent; Z90.49 Acquired absence of other specified parts of digestive tract; Z95.2 Presence of prosthetic heart valve
CPT/HCPCS: 36415; 36600; 64450; 70450; 71045; 73502; 76770; 80048; 80053; 81001; 82306; 82803; 83540; 83690; 83735; 84466; 85014; 85018; 85025; 85610; 85730; 86850; 86900; 86901; 86920; 96365; 97162; 97166; 97530; 97535; 99284; 99285; A9270; C1713; J0131; J1650; J1750; J2060; J2795; J7040; J7120; P9016; 87086

== ENCOUNTER → 2023-09-29 | Outpatient (CLI) | payer MEDICARE, OTHER | LOC: PC 08:00 | PROVIDERS: ATTEND Nurse Practitioner Gerontology | DX: Z53.9 Procedure and treatment not carried out, unspecified reason (principal) ==

== ENCOUNTER 2023-10-01 14:56 | Outpatient (CLI) | payer MEDICARE, OTHER | END 2023-10-01 23:59 | LOC: EMS 14:56 | PROVIDERS: ATTEND Specialist | DX: R41.0 Disorientation, unspecified (principal); Z99.81 Dependence on supplemental oxygen | CPT/HCPCS: A0425; A0428 ==

== ENCOUNTER 2023-10-03 12:26 | Outpatient (CLI) | payer MEDICARE, OTHER ==
[2023-10-03 12:33] LABS: BASOPHILS % (AUTO) 0.2 %; EOSINOPHILS # (AUTO) 0.2 10^3/uL (0.0-0.7); EOSINOPHILS % (AUTO) 2.3 %; HCT - HEMATOCRIT 24.4 % (42.0-52.0); HGB - HEMOGLOBIN 7.2 g/dL (14.0-18.0); LYMPHOCYTES # (AUTO) 0.8 10^3/uL (1.5-3.5); LYMPHOCYTES % (AUTO) 9.5 %; MEAN CORPUSCULAR HEMOGLOBIN 30.9 pg (27.0-31.0); MEAN CORPUSCULAR HGB CONC 29.5 g/dL (32.0-36.0); MEAN CORPUSCULAR VOLUME 104.7 fL (80.0-94.0); MEAN PLATELET VOLUME 10.2 fL (7.4-11.4); MONOCYTES # (AUTO) 0.8 10^3/uL (0.0-1.0); MONOCYTES % (AUTO) 9.5 %; NEUTROPHILS # (AUTO) 6.6 10^3/uL (1.5-6.6); NEUTROPHILS % (AUTO) 76.7 %; NRBC ABSOLUTE COUNT (AUTO) 0.05 x10^3/uL; NUCLEATED RED BLOOD CELLS AUTO 0.6 /100WBC; PLT - PLATELET COUNT 257 10^3/uL (130-450); RED BLOOD COUNT 2.33 10^6/uL (4.70-6.10); RED CELL DISTRIBUTION WIDTH 17.7 % (12.0-15.0); WHITE BLOOD COUNT 8.5 x10^3/uL (4.8-10.8)
[2023-10-03 12:52] LABS: ALBUMIN 3.1 g/dL (3.2-5.5); ALBUMIN/GLOBULIN RATIO 1.6 (1.0-2.2); BILIRUBIN,TOTAL 2.6 mg/dL (0.2-1.0); CALCIUM 8.3 mg/dL (8.5-10.3); CREATININE 0.7 mg/dL (0.6-1.3); POTASSIUM 3.5 mmol/L (3.5-4.5); TOTAL PROTEIN 5.1 g/dL (6.4-8.9)
== END 2023-10-03 12:27 | disposition home or self-care (01) ==
LOC: LAB.R 12:26
PROVIDERS: ATTEND Registered Nurse
DX: E78.5 Hyperlipidemia, unspecified (principal); G93.41 Metabolic encephalopathy; E87.6 Hypokalemia; D50.9 Iron deficiency anemia, unspecified
CPT/HCPCS: 80053; 85025

== ENCOUNTER 2023-10-03 13:38 | Outpatient (CLI) | payer MEDICARE, OTHER | END 2023-10-03 23:59 | disposition critical access hospital (66) | LOC: EMS 13:38 | DX: R41.0 Disorientation, unspecified (principal); R40.0 Somnolence; R79.89 Other specified abnormal findings of blood chemistry; Z99.81 Dependence on supplemental oxygen; Z98.890 Other specified postprocedural states | CPT/HCPCS: A0425; A0429 ==

== ENCOUNTER 2023-10-03 13:44 | Emergency (ER) | payer MEDICARE, OTHER ==
--- NOTE | 2023-10-03 14:05 | ED Physician Documentation ---
History of Present Illness - Stated complaint Stated Complaint: ABNORMAL LABS - Chief complaint Chief Complaint: General - Additonal information Additional information: 83-year-old male recently has had multiple ground-level falls was admitted recently for a hip fracture had hip replacement Dr. Kim early September he was then admitted for about a week with hospitalist services as he was having a hard time recovering from surgery due to altered mental status and anemia. He received 1 unit of RBCs and was having a very delayed recovery. He was eventually discharged 2 days ago to [facility] for rehabilitation he presents back to the emergency department for ongoing worsening altered mental status and lab abnormalities. Patient son is at bedside who is his power of commonwealth attorney his name is Rodrigue Cifuentes he says that his father has stopped eating as of yesterday and he sounds like his breathing has changed. I spoke with hospitalist Dr. Vargas who informing that they had started to involve palliative care with patient. Patient is quite lethargic he is able to arouse easily he wakes up and speaks and audibly very faint voice and words that do not make a lot of sense. Patient's son says that this is what he has been doing since hospital discharge but has been worse today. PD PAST MEDICAL HISTORY - Past Medical History Cardiovascular: Congestive heart failure, Hypertension, High cholesterol, Coronary artery disease, Peripheral Vascular Disease, Atrial fibrillation, Valve disorder, Other Respiratory: Shortness of breath, Other Neuro: None, Tremors, Other Endocrine/Autoimmune: None GI: GERD : Benign prostate hypertrophy HEENT: Chronic vision loss, Macular degeneration Psych: Post traumatic stress disorder Musculoskeletal: Chronic back pain, Other Derm: None - Past Surgical History Past Surgical History: Yes General: Appendectomy Cardiovascular: Valve replacement - Present Medications Home Medications: Ambulatory Orders Medication Instructions Recorded Confirmed Amlodipine Besylate 5 mg PO BID 11/25/15 10/03/23 Warfarin [Coumadin] 5 mg PO SUTUWETHSA 11/25/15 09/22/23 atenoloL [Atenolol] 25 mg PO DAILY 11/25/15 10/03/23 hydroCHLOROthiazide 12.5 mg PO DAILY 11/25/15 10/03/23 [Hydrochlorothiazide] Aspirin [Aspirin EC] 81 mg PO DAILY 05/20/17 10/03/23 Pantoprazole [Protonix] 40 mg PO DAILY 05/20/17 10/03/23 Tamsulosin HCl [Flomax] 0.4 mg PO DAILY 05/20/17 10/03/23 Warfarin [Coumadin] 7.5 mg PO MOFR 05/20/17 09/22/23 Furosemide [Lasix] 20 mg PO DAILY #7 tablet 05/22/17 10/03/23 Potassium Chloride 10 meq PO DAILY #7 tablet.er 05/22/17 10/03/23 Atorvastatin Calcium [Lipitor] 80 mg PO DAILY 09/22/23 10/03/23 Isosorbide Mononitrate [Isosorbide 60 mg PO DAILY 09/22/23 10/03/23 Mononitrate ER] Acetaminophen [Tylenol] 650 mg PO Q4HR PRN tab 10/01/23 10/03/23 Calamine/Zinc Oxide [Calamine 1 applic TOP PRN PRN each 10/01/23 10/03/23 Lotion] Calcium Carbonate [Tums (Calcium 500 mg PO 1000,2200 tab 10/01/23 Carbonate 500mg)] Cholecalciferol [Vitamin D3] 50 mcg PO DAILY tab 10/01/23 10/03/23 Ferrous Gluconate [Fergon] 324 mg PO DAILYWM tab 10/01/23 10/03/23 Magic Mouthwash 30 ml PO Q4H PRN each 10/01/23 Multivitamin W/Minerals [Theragran 1 tab PO DAILYWM tab 10/01/23 10/03/23 M] Zinc Oxide 20% Oint [Zinc Oxide] 1 applic TOP PRN PRN each 10/01/23 10/03/23 Bisacodyl Supp [Dulcolax Supp] 10 mg [place] DAILY PRN #3 supp 10/03/23 LORazepam [Ativan] 0.5 mg PO Q6H PRN #10 tablet 10/03/23 Morphine Sulfate 5 mg PO Q4H PRN #30 ml 10/03/23 OLANZapine ODT [Zyprexa Odt] 5 mg TL BID PRN #10 tablet 10/03/23 Senna [Senokot] 8.6 mg PO BID PRN #10 tablet 10/03/23 - Allergies Allergies/Adverse Reactions: Allergies Allergy/AdvReac Type Severity Reaction Status Date / Time morphine Allergy Hallucinati Verified 10/03/23 13:53 ons oxycodone Allergy Hallucinati Verified 10/03/23 13:53 ons Penicillins Allergy Unknown Verified 10/03/23 13:53 - Social History Does the pt smoke?: No Smoking Status: Never smoker Does the pt drink ETOH?: Yes Does the pt have substance abuse?: No - Immunizations Immunizations are current?: Yes - POLST Patient has POLST: No POLST Status: Full Code PD ED PE NORMAL - Vitals Vital signs reviewed: Yes - General General: Other (Very ill appearing pale, lethargic and confused) - Cardiac Cardiac: RRR - Respiratory Respiratory: Other (diminished breath sounds, audible gurling with inspiration and expiration) - Abdomen Abdomen: Soft - Derm Derm: Other (diaphoratic pale) - Extremities Extremities: Other (Right hip post op incision well approximated, no signs of infection) Results - Vitals Vitals: Vital Signs - 24 hr 10/03/23 10/03/23 10/03/23 13:48 15:56 16:59 Temperature 36.5 C Heart Rate 78 70 60 Respiratory 26 H 20 Rate Blood Pressure 125/76 122/60 131/73 H O2 Saturation 98 98 94 Oxygen O2 Source Room air PD Medical Decision Making - ED course ED course: 83-year-old male presents emergency department for abnormal labs and overall failure to thrive after right hip surgery. Patient's son Rodrigue who is his power of commonwealth attorney is at bedside and quite supportive of the patient. Patient is not cognitively decisional at this point in time he is quite delirious confused he is unable to tell me where he is or what brings him into the emergency department today. I discussed with the patient's son Rodrigue about overall goals of care apparently Rodrigue has already been seen by outpatient palliative care and Rodrigue said that his father would not want life-prolonging measures anymore. I do believe that the patient's body is shutting down and that he is reaching end-of-life his breathing is quite garbled the patient is quite lethargic and Rodrigue tells me that his father has stopped eating and drinking yesterday. They would like to pursue hospice at this point in time. I have involved social work and updated them with Donis prognosis and we have started the process on RN to transition patient to hospice. [facility] meets returning back to the facility on hospice. Rodrigue is tearful but understands that this is what his father would ultimately want. I have sent to hospice prescription to [facility] his preferred pharmacy and would be health hospice will be reaching out to Rodrigue on Friday to let him know next steps and plan is to admit patient formally to would be hospice on Friday. I have discussed the process moving forward and would be health supervisor decorating was also able to, bedside and speak with Rodrigue about next steps. All questions have been answered and Rambo, the patient will be transferred back to [facility] via EMS. Departure - Departure Disposition: Home, Self Care Clinical Impression: Failure to thrive in adult, Dehydration, Hospice care patient, Hypernatremia Instructions: Hospice Start Prescriptions: LORazepam [Ativan] 0.5 mg PO Q6H PRN #10 tablet PRN Reason: Anxiety Bisacodyl Supp [Dulcolax Supp] 10 mg [place] DAILY PRN #3 supp PRN Reason: Constipation Morphine Sulfate 5 mg PO Q4H PRN #30 ml PRN Reason: Moderate to Severe pain. Senna [Senokot] 8.6 mg PO BID PRN #10 tablet PRN Reason: Constipation OLANZapine ODT [Zyprexa Odt] 5 mg TL BID PRN #10 tablet PRN Reason: Nausea / Vomiting Comments: We have reached out to to [facility] and up dated them on the plan to transition to Hospice and I have sent over the new hospice prescription to the preferred [facility] pharmacy. Wishing you the best moving forward. Forms: PCP List
[2023-10-03] MEDS: DEXTROSE 5%-0.45% NACL 1,000 ML IV STA ×2 (14:51→15:01)
[2023-10-03 18:23] VITALS: BP 138/62; O2SAT 97
== END 2023-10-03 18:15 | disposition home or self-care (01) ==
LOC: EDUNIT# → ED 13:44
DX: R62.7 Adult failure to thrive (principal); E86.0 Dehydration; E87.0 Hyperosmolality and hypernatremia; I48.91 Unspecified atrial fibrillation; I10 Essential (primary) hypertension; E78.5 Hyperlipidemia, unspecified; G93.41 Metabolic encephalopathy; E87.6 Hypokalemia
CPT/HCPCS: 80053; 85025; 96360; 99284

== ENCOUNTER 2023-10-03 18:23 | Outpatient (CLI) | payer MEDICARE, OTHER | END 2023-10-03 23:59 | LOC: EMS 18:23 | PROVIDERS: ATTEND Nurse Practitioner | DX: Z51.5 Encounter for palliative care (principal); R62.7 Adult failure to thrive; Z74.01 Bed confinement status | CPT/HCPCS: A0425; A0428 ==

== ENCOUNTER 2023-10-12 22:46 | Outpatient (CLI) | payer MEDICARE, OTHER | END 2023-10-12 23:59 | disposition critical access hospital (66) | LOC: EMS 22:46 | DX: R58 Hemorrhage, not elsewhere classified (principal); W18.30XA Fall on same level, unspecified, initial encounter; Y92.122 Bedroom in nursing home as the place of occurrence of the external cause; Z98.890 Other specified postprocedural states; Z79.01 Long term (current) use of anticoagulants | CPT/HCPCS: A0425; A0429 ==

== ENCOUNTER 2023-10-12 22:52 | Emergency (ER) | payer MEDICARE, OTHER ==
[2023-10-12 23:45] LABS: INR 1.8 (0.8-1.2); PT - PROTHROMBIN TIME 19.2 secs (9.9-12.6)
[2023-10-12 23:50] LABS: BASOPHILS % (AUTO) 0.8 %; EOSINOPHILS # (AUTO) 0.1 10^3/uL (0.0-0.7); EOSINOPHILS % (AUTO) 2.9 %; HCT - HEMATOCRIT 36.2 % (42.0-52.0); HGB - HEMOGLOBIN 10.7 g/dL (14.0-18.0); LYMPHOCYTES # (AUTO) 0.7 10^3/uL (1.5-3.5); MEAN CORPUSCULAR HEMOGLOBIN 28.2 pg (27.0-31.0); MEAN CORPUSCULAR HGB CONC 29.6 g/dL (32.0-36.0); MEAN CORPUSCULAR VOLUME 95.5 fL (80.0-94.0); MEAN PLATELET VOLUME 10.3 fL (7.4-11.4); MONOCYTES # (AUTO) 0.6 10^3/uL (0.0-1.0); MONOCYTES % (AUTO) 11.4 %; NEUTROPHILS # (AUTO) 3.4 10^3/uL (1.5-6.6); NEUTROPHILS % (AUTO) 70.1 %; PLT - PLATELET COUNT 331 10^3/uL (130-450); RED BLOOD COUNT 3.79 10^6/uL (4.70-6.10); RED CELL DISTRIBUTION WIDTH 15.7 % (12.0-15.0); WHITE BLOOD COUNT 4.8 x10^3/uL (4.8-10.8)
[2023-10-13] LABS: ALBUMIN 4.1 g/dL (3.2-5.5); ALBUMIN/GLOBULIN RATIO 1.4 (1.0-2.2); BILIRUBIN,TOTAL 3.5 mg/dL (0.2-1.0); CALCIUM 9.9 mg/dL (8.5-10.3); CREATININE 0.8 mg/dL (0.6-1.3); POTASSIUM 3.8 mmol/L (3.5-4.5); TOTAL PROTEIN 7.1 g/dL (6.4-8.9)
--- NOTE | 2023-10-13 00:33 | CT Report ---
PROCEDURE: Head WO INDICATIONS: fall on coumadin TECHNIQUE: Noncontrast 4.5 mm thick angled axial sections acquired from the foramen magnum to the vertex. For r adiation dose reduction, the following was used: automated exposure control, adjustment of mA and/or kV according to patient size. COMPARISON: 09/22/2023. FINDINGS: Image quality: Diagnostic. CSF spaces: Basal cisterns are patent. No extra-axial fluid collections. Ventricles are normal in size and shape. Brain: No midline shift. No intracranial masses or hemorrhage. No mass effect. Good-white matter i nterface is normal. There cerebral volume loss for age with resultant ventricular and sulcal prominen ce. There are periventricular and deep white matter chronic small vessel ischemic changes. Atheroscle rotic calcifications are noted in the intracranial segments of the bilateral internal carotid arterie s. Skull and face: Calvarium and visualized facial bones are intact, without suspicious lesions. Sinuses: Visualized sinuses and mastoids are clear. IMPRESSION: No acute intracranial pathology. Age-related senescent changes and sequela of chronic small vessel ischemic disease. Reviewed by: Jared Quevedo MD on 10/13/2023 12:31 AM PDT Approved by: Jared Quevedo MD on 10/13/2023 12:31 AM PDT Station ID: [id number]
--- NOTE | 2023-10-13 00:36 | CT Report ---
PROCEDURE: Cervical Spine WO INDICATIONS: fall on coumadin TECHNIQUE: Noncontrast 3 mm thick sections acquired from the skull base to the T4 level. Sagittal and coronal r eformats were then constructed. For radiation dose reduction, the following was used: automated exp osure control, adjustment of mA and/or kV according to patient size. COMPARISON: 07/15/2023 FINDINGS: Image quality: Diagnostic. Bones: No acute fractures or dislocations. No acute compression fractures of the vertebral bodies. Craniocervical junction is intact. C1-C2 relationship is preserved. Visualized superior ribs are inta ct. Moderate multilevel cervical spondylosis most severe in the mid and lower cervical spine. Soft tissues: Prevertebral soft tissues are normal in thickness. No paravertebral hematomas. No ap ical pneumothoraces. IMPRESSION: No acute, displaced fracture or traumatic subluxation. Multilevel cervical spondylosis. Reviewed by: Jared Quevedo MD on 10/13/2023 12:35 AM PDT Approved by: Jared Quevedo MD on 10/13/2023 12:35 AM PDT Station ID: [id number]
--- NOTE | 2023-10-13 00:40 | XRAY Report ---
PROCEDURE: Hip w/Pelvis 2-3V RT INDICATIONS: fall on coumadin/ recent fx TECHNIQUE: 5 views of the hip were acquired. COMPARISON: CT abdomen and pelvis dated 07/15/2023 and right hip radiographic series dated 09/22/2023. FINDINGS: Bones: No new acute fractures identified. Status post open reduction and internal fixation of right femoral neck fracture with anterograde intramedullary anitra and dynamic compression screw fixation. Nor mal alignment. No hardware complication seen. Early callus formation noted. Fracture line remains vis ible. Degenerative changes of the bilateral hips. Lower lumbar spondylosis. No suspicious bony lesion s. Soft tissues: No suspicious soft tissue calcifications or masses. IMPRESSION: Status post ORIF of right femoral neck fracture without evidence for hardware complication. Normal po stoperative alignment. No new, acute fractures identified. Degenerative changes of the bilateral hips and lower lumbar spine. Reviewed by: Jared Quevedo MD on 10/13/2023 12:39 AM PDT Approved by: Jared Quevedo MD on 10/13/2023 12:39 AM PDT Station ID: [id number]
--- NOTE | 2023-10-13 00:48 | ED Physician Documentation ---
History of Present Illness - Stated complaint Stated Complaint: GLF - Chief complaint Chief Complaint: Trauma Ext - History obtained from History obtained from: Patient, Family (Son), EMS - Additonal information Additional information: Patient is an 83-year-old male with a history of A-fib on Coumadin and recent hospitalization for right hip fracture presenting for evaluation for fall. Patient is rehabbing at [facility] and per son he got out of bed to try and go to the bathroom which he is not supposed to do and fell. Patient denies hitting his head but also cannot give a clear story as to what happened during the fall.Patient states that he was just walking and tripped and fell. However son states that patient has been so deconditioned and is too weak that it is difficult for him to even stand up without significant assistance. Of note patient was seen here on October 02 with significant confusion and Lethargy and thought to be actively dying so social work was consulted and Plans were made to have patient enrolled in hospice within the next few days. Son states that the following day patient significantly improved with his mentation and so they decided not to enroll him in hospice. He has been at times confused over the last week but has not been severe like he was when he was previously seen in the emergency department. Review of Systems Unable to obtain: Confused PD PAST MEDICAL HISTORY - Past Medical History Past Medical History: Yes Cardiovascular: Congestive heart failure, Hypertension, High cholesterol, Coronary artery disease, Peripheral Vascular Disease, Atrial fibrillation, Valve disorder, Other Respiratory: Shortness of breath, Other Neuro: None, Tremors, Other Endocrine/Autoimmune: None GI: GERD : Benign prostate hypertrophy HEENT: Chronic vision loss, Macular degeneration Psych: Post traumatic stress disorder Musculoskeletal: Chronic back pain, Other Derm: None - Past Surgical History Past Surgical History: Yes General: Appendectomy Cardiovascular: Valve replacement - Present Medications Home Medications: Ambulatory Orders Medication Instructions Recorded Confirmed Amlodipine Besylate 5 mg PO BID 11/25/15 10/03/23 Warfarin [Coumadin] 5 mg PO SUTUWETHSA 11/25/15 09/22/23 atenoloL [Atenolol] 25 mg PO DAILY 11/25/15 10/03/23 hydroCHLOROthiazide 12.5 mg PO DAILY 11/25/15 10/03/23 [Hydrochlorothiazide] Aspirin [Aspirin EC] 81 mg PO DAILY 05/20/17 10/03/23 Pantoprazole [Protonix] 40 mg PO DAILY 05/20/17 10/03/23 Tamsulosin HCl [Flomax] 0.4 mg PO DAILY 05/20/17 10/03/23 Warfarin [Coumadin] 7.5 mg PO MOFR 05/20/17 09/22/23 Furosemide [Lasix] 20 mg PO DAILY #7 tablet 05/22/17 10/03/23 Potassium Chloride 10 meq PO DAILY #7 tablet.er 05/22/17 10/03/23 Atorvastatin Calcium [Lipitor] 80 mg PO DAILY 09/22/23 10/03/23 Isosorbide Mononitrate [Isosorbide 60 mg PO DAILY 09/22/23 10/03/23 Mononitrate ER] Acetaminophen [Tylenol] 650 mg PO Q4HR PRN tab 10/01/23 10/03/23 Calamine/Zinc Oxide [Calamine 1 applic TOP PRN PRN each 10/01/23 10/03/23 Lotion] Calcium Carbonate [Tums (Calcium 500 mg PO 1000,2200 tab 10/01/23 Carbonate 500mg)] Cholecalciferol [Vitamin D3] 50 mcg PO DAILY tab 10/01/23 10/03/23 Ferrous Gluconate [Fergon] 324 mg PO DAILYWM tab 10/01/23 10/03/23 Magic Mouthwash 30 ml PO Q4H PRN each 10/01/23 Multivitamin W/Minerals [Theragran 1 tab PO DAILYWM tab 10/01/23 10/03/23 M] Zinc Oxide 20% Oint [Zinc Oxide] 1 applic TOP PRN PRN each 10/01/23 10/03/23 Bisacodyl Supp [Dulcolax Supp] 10 mg CO DAILY PRN #3 supp 10/03/23 LORazepam [Ativan] 0.5 mg PO Q6H PRN #10 tablet 10/03/23 Morphine Sulfate 5 mg PO Q4H PRN #30 ml 10/03/23 OLANZapine ODT [Zyprexa Odt] 5 mg TL BID PRN #10 tablet 10/03/23 Senna [Senokot] 8.6 mg PO BID PRN #10 tablet 10/03/23 - Allergies Allergies/Adverse Reactions: Allergies Allergy/AdvReac Type Severity Reaction Status Date / Time morphine Allergy Hallucinati Verified 10/12/23 23:08 ons oxycodone Allergy Hallucinati Verified 10/12/23 23:08 ons Penicillins Allergy Unknown Verified 10/12/23 23:08 - Social History Does the pt smoke?: No Smoking Status: Never smoker Does the pt drink ETOH?: Yes Does the pt have substance abuse?: No - Immunizations Immunizations are current?: Yes - POLST Patient has POLST: No POLST Status: Full Code PD ED PE NORMAL - General General: Alert and oriented X 3, No acute distress, Well developed/nourished, Other (Confused about events of fall) - HEENT HEENT: Atraumatic, Moist mucous membranes, Pharynx benign - Neck Neck: Supple, no meningeal sign, No bony TTP - Cardiac Cardiac: Strong equal pulses, Other (Irregularly irregular, normal rate) - Respiratory Respiratory: No respiratory distress, Clear bilaterally - Abdomen Abdomen: Normal bowel sounds, Soft, Non tender, Non distended - Extremities Extremities: Other (Bruising to right hip, blood on dressing, no active bleeding from incision site, patient allows for range of motion at bilateral hips) - Neuro Neuro: Alert and oriented X 3, No motor deficit, No sensory deficit, Other (Speech is somewhat mumbled but per son this is his recent baseline) Results - Vitals Vitals: Vital Signs - 24 hr 10/12/23 10/12/23 10/12/23 22:51 23:00 23:30 Temperature 36.1 C L Heart Rate 77 91 92 Respiratory 16 12 Rate Blood Pressure 128/58 L 145/67 H 142/71 H O2 Saturation 96 95 98 10/13/23 10/13/23 00:30 00:57 Temperature Heart Rate 89 79 Respiratory 19 19 Rate Blood Pressure 130/65 O2 Saturation 97 97 Oxygen O2 Source Room air - EKG (time done) 9197 EKG releavant findings:: EKG personally interpreted by author of this note. Relevant findings are: Rate 85, atrial fibrillation, no STEMI - Labs Labs: Laboratory Tests 10/12/23 10/12/23 10/12/23 23:34 23:34 23:34 WBC 4.8 RBC 3.79 L Hgb 10.7 L Hct 36.2 L MCV 95.5 H MCH 28.2 MCHC 29.6 L RDW 15.7 H Plt Count 331 MPV 10.3 Neut # (Auto) 3.4 Lymph # (Auto) 0.7 L [place] # (Auto) 0.6 Eos # (Auto) 0.1 Baso # (Auto) 0.0 Absolute Nucleated RBC 0.00 Nucleated RBC % 0.0 PT 19.2 H INR 1.8 H Sodium 137 Potassium 3.8 Chloride 104 Carbon Dioxide 24 Anion Gap 9.0 BUN 12 Creatinine 0.8 Estimated GFR (MDRD) 92 Glucose 135 H Calcium 9.9 Total Bilirubin 3.5 H AST 31 ALT 17 Alkaline Phosphatase 151 H Total Protein 7.1 Albumin 4.1 Globulin 3.0 Albumin/Globulin Ratio 1.4 Lipase 28 PD Medical Decision Making - ED course Complexity details: reviewed results, re-evaluated patient, d/w patient, d/w family ED course: Patient with fall at [facility]. He is on Coumadin. Patient is rehabbing from recent right hip fracture status post operative repair. Per son he has been severely deconditioned and even has difficulty with just standing up without a large amount of assistance from staff. Patient answering questions at his baseline. No signs of head injury but he is on Coumadin and so CT head and cervical spine were obtained along with right hip x-ray. EKG reviewed and shows patient to be in A-fib. CBC, chemistry, INR were reviewed. Labs significant for subtherapeutic INR at 1.8.Will have patient increase dose tomorrow and have PCP follow-up for recheck this week. Bilirubin is elevated at 3.5 but patient has no abdominal tenderness on initial and on repeat exam.Hemoglobin is 10.7 which is improved from prior labs.No signs of intracran ial hemorrhage, C-spine fracture or issues with the right hip on review of imaging.Per son, patient is not currently ambulatory and has difficulty with even standing due to deconditioning and weakness so will not road test here. Patient to be transported back to [facility] via EMS. Advised on concerning symptoms to return for. Departure - Departure Disposition: 01 Home, Self Care Clinical Impression: Fall at [facility], Physical deconditioning, Subtherapeutic international normalized ratio (INR) Condition: Good Instructions: ED Weakness UKO Comments: Please continue to work with therapies at [facility] to build up your strength. Please make sure to ask for help before getting out of bed as you are at high risk for falling. On today's evaluation we do not see signs of injury from your fall including no signs of bleeding in your head or fractures in your neck or right hip. Your warfarin level, INR, is slightly low at 1.8. I would recommend doubling your dose tomorrow and following up with your primary care doctor for recheck this week. Please continue to have close follow-up with your primary care doctor as well as orthopedic surgeon. Return to the ER with any new or worsening symptoms. Forms: PCP List Discharge Date/Time: 10/13/23 01:22
[2023-10-13 01:15] VITALS: BP 130/65; O2SAT 97
== END 2023-10-13 01:22 | disposition home or self-care (01) ==
LOC: EDUNIT# → ED 22:52
DX: R53.1 Weakness (principal); W18.39XA Other fall on same level, initial encounter; Y92.129 Unspecified place in nursing home as the place of occurrence of the external cause; D68.9 Coagulation defect, unspecified; I48.91 Unspecified atrial fibrillation; Z79.01 Long term (current) use of anticoagulants; I11.0 Hypertensive heart disease with heart failure; I50.9 Heart failure, unspecified; E78.00 Pure hypercholesterolemia, unspecified; I25.10 Atherosclerotic heart disease of native coronary artery without angina pectoris; I73.9 Peripheral vascular disease, unspecified; N40.0 Benign prostatic hyperplasia without lower urinary tract symptoms; Z79.899 Other long term (current) drug therapy
CPT/HCPCS: 36415; 80053; 83690; 85025; 85610; 93005; 99284

== ENCOUNTER 2023-10-13 01:30 | Outpatient (CLI) | payer MEDICARE, OTHER | END 2023-10-13 23:59 | LOC: EMS 01:30 | PROVIDERS: ATTEND Emergency Medicine | DX: R53.1 Weakness (principal); Z74.01 Bed confinement status; Z91.81 History of falling | CPT/HCPCS: A0425; A0428 ==

== ENCOUNTER 2023-10-21 08:00 | Outpatient (CLI) | payer MEDICARE, OTHER ==
[2023-10-21 19:56] LABS: BASOPHILS % (AUTO) 0.4 %; EOSINOPHILS # (AUTO) 0.2 10^3/uL (0.0-0.7); EOSINOPHILS % (AUTO) 3.2 %; HCT - HEMATOCRIT 33.2 % (42.0-52.0); HGB - HEMOGLOBIN 10.1 g/dL (14.0-18.0); LYMPHOCYTES # (AUTO) 1.1 10^3/uL (1.5-3.5); LYMPHOCYTES % (AUTO) 20.9 %; MEAN CORPUSCULAR HEMOGLOBIN 28.3 pg (27.0-31.0); MEAN CORPUSCULAR HGB CONC 30.4 g/dL (32.0-36.0); MEAN PLATELET VOLUME 10.7 fL (7.4-11.4); MONOCYTES # (AUTO) 0.7 10^3/uL (0.0-1.0); MONOCYTES % (AUTO) 12.2 %; NEUTROPHILS # (AUTO) 3.4 10^3/uL (1.5-6.6); NEUTROPHILS % (AUTO) 62.9 %; PLT - PLATELET COUNT 194 10^3/uL (130-450); RED BLOOD COUNT 3.57 10^6/uL (4.70-6.10); RED CELL DISTRIBUTION WIDTH 14.9 % (12.0-15.0); WHITE BLOOD COUNT 5.3 x10^3/uL (4.8-10.8)
[2023-10-21 20:10] LABS: ALBUMIN 3.4 g/dL (3.2-5.5); ALBUMIN/GLOBULIN RATIO 1.3 (1.0-2.2); BILIRUBIN,TOTAL 1.6 mg/dL (0.2-1.0); CALCIUM 9.2 mg/dL (8.5-10.3); CREATININE 0.6 mg/dL (0.6-1.3); POTASSIUM 4.1 mmol/L (3.5-4.5); TOTAL PROTEIN 6.1 g/dL (6.4-8.9)
== END 2023-10-21 23:59 | disposition home or self-care (01) ==
LOC: LAB.R 08:00
PROVIDERS: ATTEND Registered Nurse
DX: I50.31 Acute diastolic (congestive) heart failure (principal); G93.41 Metabolic encephalopathy; S72.141D Displaced intertrochanteric fracture of right femur, subsequent encounter for closed fracture with routine healing
CPT/HCPCS: 80053; 85025; 85651

== ENCOUNTER 2023-10-22 08:00 | Outpatient (CLI) | payer MEDICARE, OTHER ==
[2023-10-22 21:19] LABS: BASOPHILS % (AUTO) 0.4 %; EOSINOPHILS # (AUTO) 0.2 10^3/uL (0.0-0.7); EOSINOPHILS % (AUTO) 2.8 %; HGB - HEMOGLOBIN 9.9 g/dL (14.0-18.0); LYMPHOCYTES # (AUTO) 1.4 10^3/uL (1.5-3.5); LYMPHOCYTES % (AUTO) 24.9 %; MEAN CORPUSCULAR VOLUME 93.5 fL (80.0-94.0); MEAN PLATELET VOLUME 10.8 fL (7.4-11.4); MONOCYTES # (AUTO) 0.7 10^3/uL (0.0-1.0); MONOCYTES % (AUTO) 13.7 %; NEUTROPHILS # (AUTO) 3.1 10^3/uL (1.5-6.6); NEUTROPHILS % (AUTO) 57.8 %; PLT - PLATELET COUNT 179 10^3/uL (130-450); RED BLOOD COUNT 3.53 10^6/uL (4.70-6.10); RED CELL DISTRIBUTION WIDTH 14.7 % (12.0-15.0); WHITE BLOOD COUNT 5.4 x10^3/uL (4.8-10.8)
[2023-10-22 21:40] LABS: ALBUMIN 3.4 g/dL (3.2-5.5); ALBUMIN/GLOBULIN RATIO 1.3 (1.0-2.2); BILIRUBIN,TOTAL 1.6 mg/dL (0.2-1.0); CALCIUM 9.4 mg/dL (8.5-10.3); CREATININE 0.8 mg/dL (0.6-1.3); POTASSIUM 3.8 mmol/L (3.5-4.5)
== END 2023-10-22 23:59 | disposition home or self-care (01) ==
LOC: LAB.R 08:00
PROVIDERS: ATTEND Registered Nurse
DX: G93.41 Metabolic encephalopathy (principal); L03.90 Cellulitis, unspecified
CPT/HCPCS: 80053; 85025; 85651

== ENCOUNTER 2023-10-22 10:54 | Outpatient (CLI) | payer MEDICARE, OTHER | END 2023-10-22 23:59 | disposition critical access hospital (66) | LOC: EMS 10:54 | DX: M25.551 Pain in right hip (principal); Z98.890 Other specified postprocedural states | CPT/HCPCS: A0425; A0429 ==

== ENCOUNTER 2023-10-22 11:56 | Emergency (ER) | payer MEDICARE, OTHER ==
--- NOTE | 2023-10-22 12:20 | ED Physician Documentation ---
PD HPI WOUND RECHECK - Stated complaint Stated Complaint: WOUND INFECTION - Chief complaint Chief Complaint: Wound - Histroy obtained from History obtained from: Patient, Family - History of Present Illness Location: Other (R hip) Pain level max: 1 Pain level now: 1 Associated symptoms: Redness, Drainage, Pain. No: Fever - Additional information Additional information: Patient is an 83-year-old male who states that he had a hip surgery about a month ago. He states that he has not followed up with orthopedics yet. He is living at [facility]. Does not know when his next appointment is. He states that they were concerned because there was some drainage from the wound. He has not contacted orthopedics. Did not contact his PCP. Instead the [facility] sent him by ambulance to the emergency department. No fevers. No chills. Nothing makes it better or worse. Review of Systems Constitutional: denies: Fever, Chills GI: denies: Vomiting PD PAST MEDICAL HISTORY - Past Medical History Past Medical History: Yes Cardiovascular: Congestive heart failure, Hypertension, High cholesterol, Coronary artery disease, Peripheral Vascular Disease, Atrial fibrillation, Valve disorder, Other Respiratory: Shortness of breath, Other Neuro: None, Tremors, Other Endocrine/Autoimmune: None GI: GERD : Benign prostate hypertrophy HEENT: Chronic vision loss, Macular degeneration Psych: Post traumatic stress disorder Musculoskeletal: Chronic back pain, Other Derm: None - Past Surgical History Past Surgical History: Yes General: Appendectomy Cardiovascular: Valve replacement - Present Medications Home Medications: Ambulatory Orders Medication Instructions Recorded Confirmed Amlodipine Besylate 5 mg PO BID 11/25/15 10/22/23 Warfarin [Coumadin] 5 mg PO SUTUWETHSA 11/25/15 10/22/23 atenoloL [Atenolol] 25 mg PO DAILY 11/25/15 10/22/23 hydroCHLOROthiazide 12.5 mg PO DAILY 11/25/15 10/22/23 [Hydrochlorothiazide] Aspirin [Aspirin EC] 81 mg PO DAILY 05/20/17 10/22/23 Pantoprazole [Protonix] 40 mg PO DAILY 05/20/17 10/22/23 Tamsulosin HCl [Flomax] 0.4 mg PO DAILY 05/20/17 10/22/23 Warfarin [Coumadin] 7.5 mg PO MOFR 05/20/17 10/22/23 Furosemide [Lasix] 20 mg PO DAILY #7 tablet 05/22/17 10/22/23 Potassium Chloride 10 meq PO DAILY #7 tablet.er 05/22/17 10/22/23 Atorvastatin Calcium [Lipitor] 80 mg PO DAILY 09/22/23 10/22/23 Isosorbide Mononitrate [Isosorbide 60 mg PO DAILY 09/22/23 10/22/23 Mononitrate ER] Acetaminophen [Tylenol] 650 mg PO Q4HR PRN tab 10/01/23 10/22/23 Calamine/Zinc Oxide [Calamine 1 applic TOP PRN PRN each 10/01/23 10/22/23 Lotion] Calcium Carbonate [Tums (Calcium 500 mg PO 1000,2200 tab 10/01/23 10/22/23 Carbonate 500mg)] Cholecalciferol [Vitamin D3] 50 mcg PO DAILY tab 10/01/23 10/22/23 Ferrous Gluconate [Fergon] 324 mg PO DAILYWM tab 10/01/23 10/22/23 Magic Mouthwash 30 ml PO Q4H PRN each 10/01/23 10/22/23 Multivitamin W/Minerals [Theragran 1 tab PO DAILYWM tab 10/01/23 10/22/23 M] Zinc Oxide 20% Oint [Zinc Oxide] 1 applic TOP PRN PRN each 10/01/23 10/22/23 Bisacodyl Supp [Dulcolax Supp] 10 mg HI DAILY PRN #3 supp 10/03/23 10/22/23 LORazepam [Ativan] 0.5 mg PO Q6H PRN #10 tablet 10/03/23 10/22/23 Morphine Sulfate 5 mg PO Q4H PRN #30 ml 10/03/23 10/22/23 OLANZapine ODT [Zyprexa Odt] 5 mg TL BID PRN #10 tablet 10/03/23 10/22/23 Senna [Senokot] 8.6 mg PO BID PRN #10 tablet 10/03/23 10/22/23 Doxycycline Monohydrate 100 mg PO BID #20 cap 10/22/23 - Allergies Allergies/Adverse Reactions: Allergies Allergy/AdvReac Type Severity Reaction Status Date / Time morphine Allergy Hallucinati Verified 10/22/23 12:17 ons oxycodone Allergy Hallucinati Verified 10/22/23 12:17 ons Penicillins Allergy Unknown Verified 10/22/23 12:17 - Social History Does the pt smoke?: No Smoking Status: Never smoker Does the pt drink ETOH?: Yes Does the pt have substance abuse?: No - Immunizations Immunizations are current?: Yes - POLST Patient has POLST: No POLST Status: Full Code PD ED PE NORMAL - Vitals Vital signs reviewed: Yes - General General: Alert and oriented X 3 - HEENT HEENT: Moist mucous membranes - Neck Neck: Supple, no meningeal sign - Respiratory Respiratory: No respiratory distress - Derm Derm: Warm and dry - Extremities Extremities: Other (Right hip incision, superior incision is mildly erythematous with serosanguineous drainage. Mild dehiscence. No drainable abscess.) - Neuro Neuro: Alert and oriented X 3 - Psych Psych: Normal mood, Normal affect Results - Vitals Vitals: Vital Signs - 24 hr 10/22/23 12:13 Temperature 36.0 C L Heart Rate 83 Respiratory 20 Rate Blood Pressure 140/93 H O2 Saturation 96 Oxygen O2 Source Nasal cannula PD Medical Decision Making - ED course Complexity details: considered differential, d/w patient, d/w family ED course: 83-year-old male with a slight serosanguineous drainage from a mildly dehisced incision, there is some erythema surrounding, therefore we will cover with doxycycline. Patient is penicillin allergic. Does not know what his allergy has. No fevers. No chills. No evidence of systemic infection. No indication for further workup. Has a clean dressing in place. Recommend he follow-up with orthopedics for further care of this surgical incision. Patient and family counseled regarding signs and symptoms for which I believe and urgent re- evaluation would be necessary. Patient with good understanding of and agreement to plan and is comfortable going home at this time This document was made in part using voice recognition software. While efforts are made to proofread this document, sound alike and grammatical errors may occur. Departure - Departure Disposition: 01 Home, Self Care Clinical Impression: Cellulitis Qualifiers: Site of cellulitis: trunk Site of cellulitis of trunk: unspecified site Qualified Code(s): L03.319 - Cellulitis of trunk, unspecified Condition: Good Instructions: ED Infec Skin Cellulitis Follow-Up: Orthopedic Care [Provider Group] - Within 3 Days Prescriptions: Doxycycline Monohydrate 100 mg PO BID #20 cap Comments: Your prescription was sent to [facility]. Please take all antibiotics until gone. You need to call the orthopedic office today for a follow-up appointment in 2 to 3 days. Please follow-up with orthopedics closely for further care. Please return if you worsen. Forms: PCP List
[2023-10-22 12:23] VITALS: BP 140/93; O2SAT 96
[2023-10-22] MEDS: CLINDAMYCIN 150 MG CAPSULE PO STA (12:33)
[2023-10-22] MEDS: DOXYCYCLINE 100 MG TABLET PO STA (12:35)
== END 2023-10-22 13:31 | disposition home or self-care (01) ==
LOC: EDBD → EDUNIT# → ED 11:56
DX: T81.31XA Disruption of external operation (surgical) wound, not elsewhere classified, initial encounter (principal); L03.115 Cellulitis of right lower limb; G93.41 Metabolic encephalopathy
CPT/HCPCS: 80053; 85025; 85651; 99283; A9270

== ENCOUNTER 2023-10-22 13:32 | Outpatient (CLI) | payer MEDICARE, OTHER | END 2023-10-22 23:59 | LOC: EMS 13:32 | PROVIDERS: ATTEND Emergency Medicine | DX: L03.115 Cellulitis of right lower limb (principal); R41.0 Disorientation, unspecified; Z74.01 Bed confinement status | CPT/HCPCS: A0425; A0428 ==

== ENCOUNTER 2023-11-01 05:23 | Outpatient (CLI) | payer MEDICARE, OTHER | END 2023-11-01 23:59 | disposition critical access hospital (66) | LOC: EMS 05:23 | DX: T83.021A Displacement of indwelling urethral catheter, initial encounter (principal); N48.89 Other specified disorders of penis; Z79.01 Long term (current) use of anticoagulants; Z99.81 Dependence on supplemental oxygen | CPT/HCPCS: A0425; A0429 ==

== ENCOUNTER 2023-11-01 05:29 | Emergency (ER) | payer MEDICARE, OTHER ==
[2023-11-01] MEDS: LIDOCAINE 2% URO-JET 5 ML SYRINGE UR STA (06:08)
--- NOTE | 2023-11-01 06:16 | ED Physician Documentation ---
History of Present Illness - Stated complaint Stated Complaint: Pulled out catheter - Chief complaint Chief Complaint: General - History obtained from History obtained from: EMS - Additonal information Additional information: 83yM with pmh dementia, bph, chronic indwelling holguin, p/w complication after pulling his holguin out accidentally. he did have passage of blood, presumedly from the trauma of catheter's forceful removal PD PAST MEDICAL HISTORY - Past Medical History Past Medical History: Yes Cardiovascular: Congestive heart failure, Hypertension, High cholesterol, Coronary artery disease, Peripheral Vascular Disease, Atrial fibrillation, Valve disorder, Other Respiratory: Shortness of breath, Other Neuro: Tremors, Other Endocrine/Autoimmune: None GI: GERD : Benign prostate hypertrophy HEENT: Chronic vision loss, Macular degeneration Psych: Post traumatic stress disorder Musculoskeletal: Chronic back pain, Other Derm: None - Past Surgical History Past Surgical History: Yes General: Appendectomy Cardiovascular: Valve replacement - Present Medications Home Medications: Ambulatory Orders Medication Instructions Recorded Confirmed Amlodipine Besylate 5 mg PO BID 11/25/15 11/01/23 Warfarin [Coumadin] 5 mg PO SUTUWETHSA 11/25/15 11/01/23 atenoloL [Atenolol] 25 mg PO DAILY 11/25/15 11/01/23 hydroCHLOROthiazide 12.5 mg PO DAILY 11/25/15 11/01/23 [Hydrochlorothiazide] Aspirin [Aspirin EC] 81 mg PO DAILY 05/20/17 11/01/23 Tamsulosin HCl [Flomax] 0.4 mg PO DAILY 05/20/17 11/01/23 Warfarin [Coumadin] 7.5 mg PO MOFR 05/20/17 11/01/23 Furosemide [Lasix] 20 mg PO DAILY #7 tablet 05/22/17 11/01/23 Potassium Chloride 10 meq PO DAILY #7 tablet.er 05/22/17 11/01/23 Atorvastatin Calcium [Lipitor] 80 mg PO DAILY 09/22/23 11/01/23 Isosorbide Mononitrate [Isosorbide 60 mg PO DAILY 09/22/23 11/01/23 Mononitrate ER] Acetaminophen [Tylenol] 650 mg PO Q4HR PRN tab 10/01/23 11/01/23 Calamine/Zinc Oxide [Calamine 1 applic TOP PRN PRN each 10/01/23 11/01/23 Lotion] Calcium Carbonate [Tums (Calcium 500 mg PO 1000,2200 tab 10/01/23 11/01/23 Carbonate 500mg)] Cholecalciferol [Vitamin D3] 50 mcg PO DAILY tab 10/01/23 11/01/23 Ferrous Gluconate [Fergon] 324 mg PO DAILYWM tab 10/01/23 11/01/23 Magic Mouthwash 30 ml PO Q4H PRN each 10/01/23 11/01/23 Multivitamin W/Minerals [Theragran 1 tab PO DAILYWM tab 10/01/23 11/01/23 M] Zinc Oxide 20% Oint [Zinc Oxide] 1 applic TOP PRN PRN each 10/01/23 11/01/23 Bisacodyl Supp [Dulcolax Supp] 10 mg SD DAILY PRN #3 supp 10/03/23 11/01/23 LORazepam [Ativan] 0.5 mg PO Q6H PRN #10 tablet 10/03/23 11/01/23 Senna [Senokot] 8.6 mg PO BID PRN #10 tablet 10/03/23 11/01/23 Doxycycline Monohydrate 100 mg PO BID #20 cap 10/22/23 11/01/23 hydrOXYzine HCL [Hydroxyzine HCl] 25 mg PO DAILY 11/01/23 11/01/23 - Allergies Allergies/Adverse Reactions: Allergies Allergy/AdvReac Type Severity Reaction Status Date / Time morphine Allergy Hallucinati Verified 11/01/23 05:46 ons oxycodone Allergy Hallucinati Verified 11/01/23 05:46 ons Penicillins Allergy Unknown Verified 11/01/23 05:46 - Social History Does the pt smoke?: No Smoking Status: Never smoker Does the pt drink ETOH?: Yes Does the pt have substance abuse?: No - Immunizations Immunizations are current?: Yes - POLST Patient has POLST: No POLST Status: Full Code PD ED PE NORMAL - Vitals Vital signs reviewed: Yes - General General: Alert and oriented X 3, No acute distress, Well developed/nourished - HEENT HEENT: Atraumatic, PERRL, EOMI - Neck Neck: Supple, no meningeal sign - Male Male : Other (blood at the meatus. holguin replaced without issue) Results - Vitals Vitals: Vital Signs - 24 hr 05/11/24 05:34 Temperature 36 C L Heart Rate 74 Respiratory 16 Rate Blood Pressure 97/68 O2 Saturation 94 Oxygen O2 Source Room air PD Medical Decision Making - ED course ED course: 83yM p/w holguin catheter that patient forcibly removed without deflating balloon. It was replaced and irrigated with three way catheter. Return precautions given. Departure - Departure Disposition: 01 Home, Self Care Clinical Impression: Urinary catheter complication Condition: Stable Instructions: Leg Bag Care Dc Comments: You were seen in the emergency department for urinary catheter being pulled out. A three way catheter was used to replace it. This can be irrigated if clots block the tubing. Please follow-up with your primary care provider and return to the emergency department if you have any new or worsening symptoms or other concerns.
[2023-11-01 08:11] VITALS: BP 128/61; O2SAT 99
== END 2023-11-01 08:47 | disposition home or self-care (01) ==
LOC: EDUNIT# → ED 05:29
DX: T83.021A Displacement of indwelling urethral catheter, initial encounter (principal); Y73.1 Therapeutic (nonsurgical) and rehabilitative gastroenterology and urology devices associated with adverse incidents; F03.90 Unspecified dementia, unspecified severity, without behavioral disturbance, psychotic disturbance, mood disturbance, and anxiety
CPT/HCPCS: 51702; 99283

== ENCOUNTER 2023-11-01 08:51 | Outpatient (CLI) | payer MEDICARE, OTHER | END 2023-11-01 23:59 | LOC: EMS 08:51 | PROVIDERS: ATTEND Emergency Medicine | DX: Z46.6 Encounter for fitting and adjustment of urinary device (principal); R45.1 Restlessness and agitation | CPT/HCPCS: A0425; A0428 ==

== ENCOUNTER 2023-11-03 08:00 | Outpatient (CLI) | payer MEDICARE, OTHER ==
[2023-11-03 21:20] LABS: BILIRUBIN,URINE MODERATE (NEGATIVE); GLUCOSE, URINE (UA) NEGATIVE (NEGATIVE); KETONES,URINE (UA) TRACE mg/dL (NEGATIVE); LEUKOCYTE ESTERASE, URINE SMALL (NEGATIVE); NITRITE,URINE POSITIVE (NEGATIVE); OCCULT BLOOD,URINE LARGE (NEGATIVE); PH,URINE 6.5 PH (5.0-7.5); PROTEIN,URINE >=300 mg/dL (NEGATIVE); UROBILINOGEN,URINE 4 E.U./dL (NORMAL)
[2023-11-03 22:13] LABS: CLARITY,URINE CLOUDY (CLEAR)
[2023-11-03 22:14] LABS: BACTERIA,URINE Moderate /HPF (None Seen); RBC,URINE TNTC /HPF (0-5); SQUAMOUS EPITHELIAL CELL,UR NONE SEEN (<= Few)
[2023-11-03 22:15] LABS: CRYSTALS,URINE 0-2 Calcium Oxalate /LPF
== END 2023-11-03 23:59 | disposition home or self-care (01) ==
LOC: LAB.R 08:00
DX: G93.41 Metabolic encephalopathy (principal); N39.0 Urinary tract infection, site not specified; I50.31 Acute diastolic (congestive) heart failure
CPT/HCPCS: 80053; 81001; 81003; 85025; 87077; 87086; 87181

== ENCOUNTER 2023-11-03 14:46 | Outpatient (CLI) | payer MEDICARE, OTHER ==
[2023-11-03 14:52] LABS: BASOPHILS % (AUTO) 0.6 %; EOSINOPHILS # (AUTO) 0.2 10^3/uL (0.0-0.7); EOSINOPHILS % (AUTO) 4.2 %; HCT - HEMATOCRIT 37.6 % (42.0-52.0); HGB - HEMOGLOBIN 11.4 g/dL (14.0-18.0); LYMPHOCYTES # (AUTO) 1.2 10^3/uL (1.5-3.5); LYMPHOCYTES % (AUTO) 23.5 %; MEAN CORPUSCULAR HEMOGLOBIN 27.3 pg (27.0-31.0); MEAN CORPUSCULAR HGB CONC 30.3 g/dL (32.0-36.0); MEAN PLATELET VOLUME 11.1 fL (7.4-11.4); MONOCYTES # (AUTO) 0.6 10^3/uL (0.0-1.0); NEUTROPHILS # (AUTO) 3.2 10^3/uL (1.5-6.6); NEUTROPHILS % (AUTO) 60.3 %; PLT - PLATELET COUNT 173 10^3/uL (130-450); RED BLOOD COUNT 4.18 10^6/uL (4.70-6.10); RED CELL DISTRIBUTION WIDTH 14.5 % (12.0-15.0); WHITE BLOOD COUNT 5.3 x10^3/uL (4.8-10.8)
[2023-11-03 15:33] LABS: ALBUMIN 3.5 g/dL (3.2-5.5); ALBUMIN/GLOBULIN RATIO 1.4 (1.0-2.2); BILIRUBIN,TOTAL 1.4 mg/dL (0.2-1.0); CALCIUM 9.2 mg/dL (8.5-10.3); CREATININE 0.7 mg/dL (0.6-1.3); POTASSIUM 3.1 mmol/L (3.5-4.5)
== END 2023-11-03 14:47 | disposition home or self-care (01) ==
LOC: LAB.R 14:46
PROVIDERS: ATTEND Registered Nurse
DX: G93.41 Metabolic encephalopathy (principal); I50.31 Acute diastolic (congestive) heart failure
CPT/HCPCS: 80053; 85025